=== PATIENT | female | born 1940 | race Caucasian/White ===

== ENCOUNTER → 2016-10-01 | Day surgery (SDC) | payer MEDICARE, OTHER ==
[~2016-10-01] VITALS: Ht 160 cm; Wt 83.5 kg
[~2016-10-01] MED LIST: ACETYLCHOLINE OPHTH SOLN 1% 2ML As Ordered ONE; ASPI81TA85 PO; ATEN25TA PO; BALANCED SALT IRRIGATION SOLUTION 500ML BAG (FOR OR EYE MACHINE) As Ordered ONE; CAND16TA7 PO; CEFUROXIME 1MG/0.1ML INTRACAMERAL INJ As Ordered ONE; D5W/0.2% SODIUM CHLORIDE 1,000 ML IV SCH; HEALON DUET (HEALON 10MG/ML 0.55ML & HEALON ENDOCOAT 30MG/ML 0.85ML) As Ordered ONE; LASI20TA PO; LIDOCAINE 0.75%/EPINEPHRINE 0.025% IN BSS 1ML SYR INTRACAMERAL (OR ONLY) As Ordered ONE; LIPI20TA PO; MIDAZOLAM INJ 2 MG/2 ML VIAL (J2250) As Ordered ONE; NEPHTAB PO; OFLOXACIN 0.3 % (OCUFLOX) OPTH SOL 5ML OS ONE; PHENYLEPHRINE 2.5% OPHTH SOL 2ML OS ONE; POVIDONE-IODINE 5% OPHTH PREP SOL 30ML As Ordered ONE; PROPARACAINE 0.5% OPHTH SOL 15ML OS ONE; TOBRADEX OPHTH OINT 3.5 GM As Ordered ONE; TROPICAMIDE 1% OPHTH SOLN 2 ML OS ONE; fentaNYL 100 MCG/2 ML INJECTION (J3010) As Ordered ONE
[2016-10-01 10:10] VITALS: BP 167/72
--- NOTE | 2016-10-02 08:44 | RO ---
DATE OF PROCEDURE: 10/01/2016 PREOPERATIVE DIAGNOSIS: Visually significant nuclear sclerotic cataract left eye. POSTOPERATIVE DIAGNOSIS: Visually significant nuclear sclerotic cataract left eye. PROCEDURE: Cataract extraction with use of phacoemulsification and placement of intraocular lens AU00T0 22.5D, left eye. SURGEON: Wilfredo Castro DO TRAFFIC SAFETY ADMINISTRATOR: ANESTHESIA: Local with monitored anesthesia care (MAC). COMPLICATIONS: None. POSTOPERATIVE CONDITION: Stable. INDICATION FOR SURGERY: Blurred vision left eye affecting patient's activities of daily living. DESCRIPTION OF PROCEDURE: The patient was seen in the preoperative area and properly identified. The correct operative eye was identified and marked. Attention was turned to that eye. The patient received topical antibiotics in the preoperative area. The patient then received topical dilating drops consisting of tropicamide and phenylephrine. The patient was then transferred to the operating room. The correct side was reidentified. The patient received topical anesthetics and antibiotics on the surface of the eye. The eye was prepped and draped in a sterile fashion. The upper and lower eyelids were isolated with Tegaderm tape, and the lids were held open with an adjustable speculum. Using a sideport blade, a paracentesis incision was made. Intraocular preservative-free lidocaine was then injected into the anterior chamber. Viscoelastic was then injected into the anterior chamber through the paracentesis. Using a 2.65 mm sharp-tipped keratome, the anterior chamber was entered via a temporal clear corneal incision. A continuous curvilinear capsulorrhexis was created with the aid of a 26-gauge cystotome and Utrata forceps. Hydrodissection was performed with balanced salt solution (BSS) on a blunt cannula until the nucleus was freely mobile. The crystalline lens was phacoemulsified and aspirated. Additional cohesive viscoelastic was placed into the capsular bag to deepen it. An AU00T0 22.5D lens was placed into the capsular bag and confirmed by visualizing the continuous curvilinear capsulorrhexis. Additional irrigation and aspiration was used to remove cortical material and remaining viscoelastic. The clear corneal incision was hydrated with BSS on a blunt cannula. The lens was well positioned. The incisions were then tested for leaks and found to be negative. The eye was then palpated for appropriate pressure and adjusted accordingly with BSS. The eyelid speculum was then carefully removed. Tobradex ointment was placed in the eye. An eye patch and shield were then secured over the eye. The patient tolerated the procedure well and was discharged to the recovery unit in a stable condition. RUBINA
== END | disposition home or self-care (01) ==
LOC: M SDC 07:45
PROVIDERS: ATTEND Ophthalmology
DX: H25.12 Age-related nuclear cataract, left eye (principal); I48.91 Unspecified atrial fibrillation; I10 Essential (primary) hypertension; E78.00 Pure hypercholesterolemia, unspecified; Z85.3 Personal history of malignant neoplasm of breast; Z92.21 Personal history of antineoplastic chemotherapy; Z92.3 Personal history of irradiation; Z79.899 Other long term (current) drug therapy; Z88.8 Allergy status to other drugs, medicaments and biological substances; Z95.2 Presence of prosthetic heart valve
CPT/HCPCS: 66984; J2250; J3010; V2632

== ENCOUNTER → 2016-10-15 | Day surgery (SDC) | payer MEDICARE, OTHER ==
[~2016-10-15] VITALS: Ht 160 cm; Wt 83.0 kg
[~2016-10-15] MED LIST changes: +LIDOCAINE 1% SDV 5 ML VIAL As Ordered ONE; +LIDOCAINE 4% INJ 5 ML AMP As Ordered ONE; -OFLOXACIN 0.3 % (OCUFLOX) OPTH SOL 5ML OS ONE; +OFLOXACIN 0.3 % (OCUFLOX) OPTH SOL 5ML XX ONE; -PHENYLEPHRINE 2.5% OPHTH SOL 2ML OS ONE; +PHENYLEPHRINE 2.5% OPHTH SOL 2ML XX ONE; -PROPARACAINE 0.5% OPHTH SOL 15ML OS ONE; +PROPARACAINE 0.5% OPHTH SOL 15ML XX ONE; -TROPICAMIDE 1% OPHTH SOLN 2 ML OS ONE; +TROPICAMIDE 1% OPHTH SOLN 2 ML XX ONE
[2016-10-15 08:40] VITALS: BP 179/77
--- NOTE | 2016-10-16 09:38 | RO ---
DATE OF PROCEDURE: 10/15/2016 PREOPERATIVE DIAGNOSIS: Visually significant nuclear sclerotic cataract right eye. POSTOPERATIVE DIAGNOSIS: Visually significant nuclear sclerotic cataract right eye. PROCEDURE: Cataract extraction with use of phacoemulsification and placement of intraocular lens AU00T0, 22.0 right eye. SURGEON: Wilfredo Castro DO FARMWORKERS: ANESTHESIA: Local with monitored anesthesia care (MAC). COMPLICATIONS: None. POSTOPERATIVE CONDITION: Stable. INDICATION FOR SURGERY: Blurred vision right eye affecting patient's activities of daily living. DESCRIPTION OF PROCEDURE: The patient was seen in the preoperative area and properly identified. The correct operative eye was identified and marked. Attention was turned to that eye. The patient received topical antibiotics in the preoperative area. The patient then received topical dilating drops consisting of tropicamide and phenylephrine. The patient was then transferred to the operating room. The correct side was reidentified. The patient received topical anesthetics and antibiotics on the surface of the eye. The eye was prepped and draped in a sterile fashion. The upper and lower eyelids were isolated with Tegaderm tape, and the lids were held open with an adjustable speculum. Using a sideport blade, a paracentesis incision was made. Intraocular preservative-free lidocaine was then injected into the anterior chamber. Viscoelastic was then injected into the anterior chamber through the paracentesis. Using a 2.65 mm sharp-tipped keratome, the anterior chamber was entered via a temporal clear corneal incision. A continuous curvilinear capsulorrhexis was created with the aid of a 26-gauge cystotome and Utrata forceps. Hydrodissection was performed with balanced salt solution (BSS) on a blunt cannula until the nucleus was freely mobile. The crystalline lens was phacoemulsified and aspirated. Additional cohesive viscoelastic was placed into the capsular bag to deepen it. An AU00T0, 22.0 diopter lens was placed into the capsular bag and confirmed by visualizing the continuous curvilinear capsulorrhexis. Additional irrigation and aspiration was used to remove cortical material and remaining viscoelastic. The clear corneal incision was hydrated with BSS on a blunt cannula. The lens was well positioned. The incisions were then tested for leaks and found to be negative. The eye was then palpated for appropriate pressure and adjusted accordingly with BSS. The eyelid speculum was then carefully removed. Tobradex ointment was placed in the eye. An eye patch and shield were then secured over the eye. The patient tolerated the procedure well and was discharged to the recovery unit in a stable condition. RUBINA
== END | disposition home or self-care (01) ==
LOC: M SDC 05:51
PROVIDERS: ATTEND Ophthalmology
DX: H25.11 Age-related nuclear cataract, right eye (principal); I50.9 Heart failure, unspecified; R73.01 Impaired fasting glucose; I48.91 Unspecified atrial fibrillation; I10 Essential (primary) hypertension; E78.00 Pure hypercholesterolemia, unspecified; Z85.3 Personal history of malignant neoplasm of breast; Z92.3 Personal history of irradiation; Z92.21 Personal history of antineoplastic chemotherapy; Z95.2 Presence of prosthetic heart valve; Z79.899 Other long term (current) drug therapy; Z79.82 Long term (current) use of aspirin; Z88.8 Allergy status to other drugs, medicaments and biological substances
CPT/HCPCS: 66984; J2250; J3010; V2632

== ENCOUNTER 2017-08-12 14:22 | Emergency (ER) | payer MEDICARE, OTHER ==
[2017-08-12] MEDS ORDERED: METOPROLOL 5 MG/5 ML VIAL IV (15:15)
[2017-08-12 15:41] LABS: BASO % 0.6 % (0.0-1.0); EOS # 0.1 10^3/uL (0.0-0.50); EOS % 1.2 % (0.0-3.0); HEMATOCRIT 33.6 % (36.0-47.0); HEMOGLOBIN 11.4 g/dl (12.0-16.0); IMMATURE GRANULOCYTE % 0.5 % (0-3.0); LYMPH # 1.7 10^3/uL (1.5-4.5); LYMPH % 26.1 % (24.0-44.0); MEAN CORPUSCULAR HEMOGLOBIN 32.3 pg (27.0-33.0); MEAN CORPUSCULAR HGB CONC 33.9 g/dl (32.0-36.5); MEAN CORPUSCULAR VOLUME 95.2 fl (80.0-96.0); MONO # 0.7 10^3/uL (0.0-0.8); MONO % 10.6 % (0.0-5.0); PLATELET COUNT, AUTOMATED 184 10^3/uL (150-450); RED BLOOD COUNT 3.53 10^6/uL (4.00-5.40); RED CELL DISTRIBUTION WIDTH 14.1 % (11.5-14.5); WHITE BLOOD COUNT 6.6 10^3/uL (4.0-10.0)
[2017-08-12 15:53] LABS: INR 0.97
[2017-08-12 15:54] LABS: PARTIAL THROMBOPLASTIN TIME 25.8 SECONDS (26.8-37.9)
[2017-08-12 16:03] LABS: PHOSPHORUS LEVEL 3.2 MG/DL (2.5-4.9)
[2017-08-12 16:03] LABS: MAGNESIUM LEVEL 2.5 MG/DL (1.8-2.4)
[2017-08-12 16:06] LABS: ALBUMIN 3.8 GM/DL (3.2-5.2); ALBUMIN/GLOBULIN RATIO 0.95 (1.00-1.93); ALKALINE PHOSPHATASE 66 U/L (45-117); ALT/SGPT 36 U/L (12-78); ANION GAP 8 MEQ/L (8-16); AST/SGOT 48 U/L (7-37); BILIRUBIN,DIRECT 0.2 MG/DL (0.0-0.2); BILIRUBIN,TOTAL 0.7 MG/DL (0.2-1.0); BLOOD UREA NITROGEN 23 MG/DL (7-18); CARBON DIOXIDE LEVEL 26 MEQ/L (21-32); CHLORIDE LEVEL 105 MEQ/L (98-107); CPK CREATINE PHOSPHOKINASE 141 U/L (26-192); CREATININE FOR GFR 1.11 MG/DL (0.55-1.30); GLOMERULAR FILTRATION RATE 50.7 (>39); GLUCOSE, FASTING 102 MG/DL (70-100); POTASSIUM SERUM 4.3 MEQ/L (3.5-5.1); SODIUM LEVEL 139 MEQ/L (136-145); TOTAL PROTEIN 7.8 GM/DL (6.4-8.2); TROPONIN I 0.02 NG/ML (< 0.10)
[2017-08-12 16:12] LABS: CK-MB VALUE MASS 3.1 NG/ML (0.0-3.6); FREE T4 1.25 NG/DL (0.76-1.46); MB/CK RELATIVE INDEX 2.19 (< OR =4)
[2017-08-12 21:14] LABS: CK-MB VALUE MASS 2.6 NG/ML (0.0-3.6); CPK CREATINE PHOSPHOKINASE 105 U/L (26-192); MB/CK RELATIVE INDEX 2.47 (< OR =4); TROPONIN I 0.03 NG/ML (< 0.10)
== END 2017-08-12 22:23 | disposition home or self-care (01) ==
LOC: M ED 14:22
DX: R00.2 Palpitations (principal); I44.7 Left bundle-branch block, unspecified; I10 Essential (primary) hypertension; I48.91 Unspecified atrial fibrillation; Z85.3 Personal history of malignant neoplasm of breast; Z88.8 Allergy status to other drugs, medicaments and biological substances
CPT/HCPCS: 71045

== ENCOUNTER 2018-09-01 15:31 | Emergency (ER) | payer MEDICARE, OTHER ==
[~2018-09-01] VITALS: Ht 160 cm; Wt 85.4 kg
[~2018-09-01 15:31] MED LIST changes: -ACETYLCHOLINE OPHTH SOLN 1% 2ML As Ordered ONE; -BALANCED SALT IRRIGATION SOLUTION 500ML BAG (FOR OR EYE MACHINE) As Ordered ONE; -CEFUROXIME 1MG/0.1ML INTRACAMERAL INJ As Ordered ONE; -D5W/0.2% SODIUM CHLORIDE 1,000 ML IV SCH; +ELIQ5TAB; -HEALON DUET (HEALON 10MG/ML 0.55ML & HEALON ENDOCOAT 30MG/ML 0.85ML) As Ordered ONE; -LASI20TA PO; +LASI20TA3 PO; -LIDOCAINE 0.75%/EPINEPHRINE 0.025% IN BSS 1ML SYR INTRACAMERAL (OR ONLY) As Ordered ONE; -LIDOCAINE 1% SDV 5 ML VIAL As Ordered ONE; -LIDOCAINE 4% INJ 5 ML AMP As Ordered ONE; -MIDAZOLAM INJ 2 MG/2 ML VIAL (J2250) As Ordered ONE; -OFLOXACIN 0.3 % (OCUFLOX) OPTH SOL 5ML XX ONE; -PHENYLEPHRINE 2.5% OPHTH SOL 2ML XX ONE; -POVIDONE-IODINE 5% OPHTH PREP SOL 30ML As Ordered ONE; -PROPARACAINE 0.5% OPHTH SOL 15ML XX ONE; -TOBRADEX OPHTH OINT 3.5 GM As Ordered ONE; -TROPICAMIDE 1% OPHTH SOLN 2 ML XX ONE; -fentaNYL 100 MCG/2 ML INJECTION (J3010) As Ordered ONE
[2018-09-01] MEDS ORDERED: FURO20TA2 (15:46)
[2018-09-01] MEDS ORDERED: DIGOXIN INJ 0.5 MG/2 ML AMP (J1160) IV STA (16:12)
[2018-09-01] MEDS ORDERED: DIGOXIN 0.25 MG TAB PO STA (16:12)
[2018-09-01] MEDS: APIXABAN 5 MG TAB (ELIQUIS) PO ONE ×2 (16:15→16:47)
[2018-09-01] MEDS ORDERED: ATENOLOL 25 MG TAB PO ONE (16:15)
[2018-09-01 16:38] LABS: BASO # 0.1 10^3/uL (0.0-0.2); BASO % 0.8 % (0.0-1.0); EOS # 0.1 10^3/uL (0.0-0.50); HEMATOCRIT 35.2 % (36.0-47.0); HEMOGLOBIN 12.3 g/dl (12.0-15.5); LYMPH % 34.1 % (24.0-44.0); MEAN CORPUSCULAR HEMOGLOBIN 32.2 pg (27.0-33.0); MEAN CORPUSCULAR HGB CONC 34.9 g/dl (32.0-36.5); MEAN CORPUSCULAR VOLUME 92.1 fl (80.0-96.0); MONO # 0.8 10^3/uL (0.0-0.8); MONO % 13.9 % (0.0-5.0); NEUTROPHILS # 2.9 10^3/uL (1.8-7.7); PLATELET COUNT, AUTOMATED 186 10^3/uL (150-450); RED BLOOD COUNT 3.82 10^6/uL (4.00-5.40)
[2018-09-01 16:48] VITALS: BP 116/59
[2018-09-01 17:06] LABS: BLOOD UREA NITROGEN 23 MG/DL (7-18); CALCIUM LEVEL 8.9 MG/DL (8.8-10.2); CARBON DIOXIDE LEVEL 24 MEQ/L (21-32); CHLORIDE LEVEL 106 MEQ/L (98-107); CPK CREATINE PHOSPHOKINASE 98 U/L (26-192); CREATININE FOR GFR 1.04 MG/DL (0.55-1.30); GLOMERULAR FILTRATION RATE 54.6 (>39); GLUCOSE, FASTING 100 MG/DL (70-100); MB/CK RELATIVE INDEX 2.14 (< OR =4); POTASSIUM SERUM 3.9 MEQ/L (3.5-5.1); SODIUM LEVEL 140 MEQ/L (136-145); TROPONIN I < 0.02 NG/ML (< 0.10)
[2018-09-01] MEDS ORDERED: DIGO0.12 PO (17:39)
[2018-09-01] MEDS ORDERED: ELIQ5TAB PO (17:39)
[2018-09-01] MEDS ORDERED: APIXABAN 2.5 MG TAB (ELIQUIS) PO ONE (17:45)
[2018-09-01 18:02] VITALS: BP 132/69
--- NOTE | 2018-09-01 19:28 | ECGEPIP ---
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
== END 2018-09-01 18:03 | disposition home or self-care (01) ==
LOC: M ED 15:31
DX: I48.0 Paroxysmal atrial fibrillation (principal); R06.02 Shortness of breath; I11.0 Hypertensive heart disease with heart failure; I50.9 Heart failure, unspecified; I48.92 Unspecified atrial flutter; Z85.3 Personal history of malignant neoplasm of breast; Z95.2 Presence of prosthetic heart valve; Z88.8 Allergy status to other drugs, medicaments and biological substances; Z79.899 Other long term (current) drug therapy; Z79.82 Long term (current) use of aspirin
CPT/HCPCS: 80048; 82550; 82553; 84443; 84484; 85025; 93005; 93041; 94760; 96374; 99284; J1160

== ENCOUNTER 2019-07-31 09:37 | Emergency (ER) | payer MEDICARE, OTHER ==
[~2019-07-31] VITALS: Ht 160 cm; Wt 82.8 kg
[~2019-07-31 09:37] MED LIST changes: +DIGO0.123 PO; +ELIQ5TAB PO; +FURO20TA2; +NEPH1TAB11 PO; -NEPHTAB PO
[2019-07-31 10:50] LABS: BASO % 0.4 % (0.0-1.0); EOS # 0.1 10^3/uL (0.0-0.5); EOS % 0.9 % (0.0-3.0); HEMATOCRIT 32.2 % (36.0-47.0); HEMOGLOBIN 10.8 g/dl (12.0-15.5); LYMPH # 2.1 10^3/uL (1.5-5.0); LYMPH % 19.4 % (24.0-44.0); MEAN CORPUSCULAR HEMOGLOBIN 32.6 pg (27.0-33.0); MEAN CORPUSCULAR HGB CONC 33.5 g/dl (32.0-36.5); MEAN CORPUSCULAR VOLUME 97.3 fl (80.0-96.0); MONO # 1.4 10^3/uL (0.0-0.8); NEUTROPHILS # 7.3 10^3/uL (1.5-8.5); NEUTROPHILS % 66.1 % (36.0-66.0); PLATELET COUNT, AUTOMATED 149 10^3/uL (150-450); RED BLOOD COUNT 3.31 10^6/uL (4.00-5.40)
--- NOTE | 2019-07-31 10:55 | REP ---
Clinical: Chest pain. Comparison: 01/25/2018. Findings: Cardiomegaly and evidence for sternotomy and cardiac valve repair again noted. Lung vza demonstrate diffuse increased interstitial markings and subtle lower lobe infiltrates. No effusion. No pneumothorax. Skeletal structures intact. Impression: Findings suggest bronchitis and viral pneumonia primarily involving the lower lobes (right greater than left). Electronically Signed by Stevan Cortes MD 07/31/2019 10:46 A
[2019-07-31 11:32] LABS: ALBUMIN 3.6 GM/DL (3.2-5.2); ALT/SGPT 118 U/L (12-78); BILIRUBIN,DIRECT 0.3 MG/DL (0.0-0.2); BLOOD UREA NITROGEN 30 MG/DL (7-18); CARBON DIOXIDE LEVEL 26 MEQ/L (21-32); CHLORIDE LEVEL 105 MEQ/L (98-107); CK-MB VALUE MASS 1.4 NG/ML (<3.6); CPK CREATINE PHOSPHOKINASE 49 U/L (26-192); CREATININE FOR GFR 1.15 MG/DL (0.55-1.30); DIGOXIN LEVEL 0.6 NG/ML (0.5-2.0); FREE T4 1.46 NG/DL (0.76-1.46); GLOMERULAR FILTRATION RATE 48.5 (>39); GLUCOSE, FASTING 98 MG/DL (70-100); LIPASE 175 U/L (73-393); MAGNESIUM LEVEL 2.2 MG/DL (1.8-2.4); MB/CK RELATIVE INDEX 2.86 (< OR =4); NT-PRO BNP 3645 PG/ML (<450); SODIUM LEVEL 140 MEQ/L (136-145); TOTAL PROTEIN 6.9 GM/DL (6.4-8.2); TROPONIN I < 0.02 NG/ML (< 0.10)
[2019-07-31] MEDS ORDERED: FUROSEMIDE 20 MG/2 ML VIAL (J1940) IV ONE (12:15)
[2019-07-31] MEDS ORDERED: SPIRONOLACTONE 12.5MG PER 1/2 TABLET PO STA (12:34)
[2019-07-31 12:45] VITALS: BP 167/77
[2019-07-31] MEDS ORDERED: TORS10TA3 PO (12:59)
[2019-07-31] MEDS ORDERED: SPIR-10 PO (12:59)
--- NOTE | 2019-07-31 19:41 | ECGEPIP ---
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
== END 2019-07-31 13:24 | disposition home or self-care (01) ==
LOC: M ED 09:37
DX: I50.9 Heart failure, unspecified (principal); I49.3 Ventricular premature depolarization; R94.6 Abnormal results of thyroid function studies; I11.0 Hypertensive heart disease with heart failure; I48.91 Unspecified atrial fibrillation; Z79.899 Other long term (current) drug therapy; Z79.01 Long term (current) use of anticoagulants; Z79.82 Long term (current) use of aspirin; Z88.8 Allergy status to other drugs, medicaments and biological substances
CPT/HCPCS: 71045; 80047; 80048; 80076; 80162; 82550; 82553; 83690; 83735; 83880; 84439; 84443; 84484; 85025; 93005; 93041; 94760; 96374; 99285; J1940

== ENCOUNTER 2019-08-01 23:12 | Emergency (ER) | payer MEDICARE, OTHER ==
[~2019-08-01] VITALS: Ht 160 cm; Wt 78.0 kg
[~2019-08-01 23:12] MED LIST changes: +SPIR-10 PO; +TORS10TA3 PO
[2019-08-02 01:29] VITALS: BP 138/68
== END 2019-08-02 01:32 | disposition left against medical advice (07) ==
LOC: M ED 23:12
DX: Z53.21 Procedure and treatment not carried out due to patient leaving prior to being seen by health care provider (principal)

== ENCOUNTER → 2020-04-15 | Outpatient (CLI) | payer MEDICARE, OTHER ==
[~2020-04-15] MED LIST changes: -ASPI81TA85 PO; +ASPI81TA86 PO; +ATOR1TAB21 PO; +B-12100010 PO; +PYRI50TA40 PO; +REFR0.5D8 OP; +TORS20TA2 PO; +[UNRECOGNIZED DRUG - CODE] TP
--- NOTE | 2020-04-15 17:19 | REP ---
INDICATION: COUGH. Shortness of breath on exertion. Cough for 2-3 months. COMPARISON: Comparison radiograph July 31, 2019. TECHNIQUE: Two views.. FINDINGS: Lungs are well inflated and free of focal infiltrate. Cardiomegaly is observed. Prior sternotomy and aortic valve replacement. There is evidence of mild interstitial edema with Nigel B lines at the bases. No william pleural effusion is seen. Interstitial changes are somewhat less prominent than on the July 31, 2019 study. Pulmonary vasculature slightly increased. There are surgical clips in the left axillary soft tissues again noted. IMPRESSION: Cardiomegaly status post aortic valve replacement. CHF pattern with Nigel B lines in the bases bilaterally and some vascular congestion. No william pleural effusion. No focal infiltrate seen.. <Electronically signed by Denis Crowder > 04/15/20 [id number]
== END ==
LOC: M WUC 15:50
PROVIDERS: ATTEND Internal Medicine
DX: I51.7 Cardiomegaly (principal); R05 Cough; Z95.2 Presence of prosthetic heart valve

== ENCOUNTER 2020-04-18 14:42 | Emergency (ER) | payer MEDICARE, OTHER ==
[~2020-04-18] VITALS: Ht 160 cm; Wt 70.5 kg
[~2020-04-18 14:42] MED LIST changes: -ATOR1TAB21 PO; -B-12100010 PO; -PYRI50TA40 PO; -REFR0.5D8 OP; -TORS20TA2 PO; -[UNRECOGNIZED DRUG - CODE] TP
[2020-04-18] MEDS ORDERED: [UNRECOGNIZED DRUG - CODE] TP (15:25)
[2020-04-18] MEDS ORDERED: REFR0.5D8 OP (15:25)
[2020-04-18] MEDS ORDERED: B-12100010 PO (15:25)
[2020-04-18] MEDS ORDERED: PYRI50TA40 PO (15:25)
[2020-04-18] MEDS ORDERED: TORS20TA2 PO (15:25)
[2020-04-18] MEDS ORDERED: ELIQ5TAB PO (15:25)
[2020-04-18] MEDS ORDERED: ATOR1TAB21 PO (15:25)
[2020-04-18] MEDS ORDERED: TRANEXAMIC ACID 100 MG/ML 10ML VIAL ONE (15:45)
[2020-04-18 16:31] LABS: INR 1.48; PROTHROMBIN TIME 18.2 SECONDS (12.5-14.3)
[2020-04-18] MEDS ORDERED: POTASSIUM CHLORIDE 10 MEQ SR TABLET PO ONE (16:45)
[2020-04-18 18:00] VITALS: BP 174/77
== END 2020-04-18 18:13 | disposition home or self-care (01) ==
LOC: M ED 14:42
DX: R04.0 Epistaxis (principal); E87.6 Hypokalemia; I48.91 Unspecified atrial fibrillation; I50.9 Heart failure, unspecified; I11.0 Hypertensive heart disease with heart failure; Z85.3 Personal history of malignant neoplasm of breast; Z79.899 Other long term (current) drug therapy; Z79.01 Long term (current) use of anticoagulants; Z79.82 Long term (current) use of aspirin; Z88.8 Allergy status to other drugs, medicaments and biological substances; Z95.2 Presence of prosthetic heart valve

== ENCOUNTER 2020-04-20 14:59 | Emergency (ER) | payer MEDICARE, OTHER ==
[~2020-04-20] VITALS: Ht 160 cm; Wt 70.0 kg
[~2020-04-20 14:59] MED LIST changes: +ATOR1TAB21 PO; +B-12100010 PO; +PYRI50TA40 PO; +REFR0.5D8 OP; +TORS20TA2 PO; +[UNRECOGNIZED DRUG - CODE] TP
[2020-04-20 15:08] VITALS: BP 121/99
== END 2020-04-20 16:22 | disposition home or self-care (01) ==
LOC: M ED 14:59
DX: R04.0 Epistaxis (principal); Z48.00 Encounter for change or removal of nonsurgical wound dressing; I48.91 Unspecified atrial fibrillation; I11.0 Hypertensive heart disease with heart failure; I50.9 Heart failure, unspecified; Z85.3 Personal history of malignant neoplasm of breast; Z95.2 Presence of prosthetic heart valve; Z79.899 Other long term (current) drug therapy; Z79.01 Long term (current) use of anticoagulants; Z79.82 Long term (current) use of aspirin; Z88.8 Allergy status to other drugs, medicaments and biological substances

== ENCOUNTER 2020-08-05 11:36 | Inpatient (IN) | payer MEDICARE, OTHER ==
[~2020-08-05] VITALS: Ht 160 cm; Wt 65.4 kg
[2020-08-05 12:25] LABS: BASO % 0.6 % (0.0-1.0); EOS # 0.1 10^3/uL (0.0-0.5); HEMATOCRIT 34.9 % (36.0-47.0); LYMPH # 1.6 10^3/uL (1.5-5.0); LYMPH % 22.1 % (24.0-44.0); MEAN CORPUSCULAR HEMOGLOBIN 32.4 pg (27.0-33.0); MEAN CORPUSCULAR HGB CONC 31.5 g/dl (32.0-36.5); MEAN CORPUSCULAR VOLUME 102.6 fl (80.0-96.0); MONO # 0.8 10^3/uL (0.0-0.8); MONO % 11.4 % (0.0-8.0); NEUTROPHILS # 4.7 10^3/uL (1.5-8.5); NEUTROPHILS % 64.6 % (36.0-66.0); PLATELET COUNT, AUTOMATED 112 10^3/uL (150-450); WHITE BLOOD COUNT 7.2 10^3/uL (4.0-10.0)
[2020-08-05 12:36] LABS: INR 1.8; PROTHROMBIN TIME 21.3 SECONDS (12.5-14.3)
[2020-08-05 12:37] LABS: PARTIAL THROMBOPLASTIN TIME 35.4 SECONDS (24.2-38.5)
[2020-08-05] MEDS ORDERED: POTA1TAB23 PO (12:41)
--- OUTSIDE RECORDS SUMMARY | 2020-08-05 12:48 | CCD ---
Continuity of Care Document (CCD) Created on: 06/17/2020 Telma Lemos External Reference #: [id number] : 1940 Sex: Female Author Author Telma BEE M.D. Organization Unknown Address 3 [facility] [address] [place] [address] Phone [phone] Problems Active Problems Provider Date Atrial flutter Kem Bee M.D. Onset: 3 Note: paroxysmal Benign essential hypertension Kem Bee M.D. Onset: 06/05/2013 Congestive heart failure Kem Bee M.D. Onset: 05/21 Impaired fasting glycemia Kem Bee M.D. Onset: Essential hypertension Kem Bee M.D. Onset: 2015 Social History Type Date Description Comments Sex Unknown ETOH Use Denies alcohol use Tobacco Use Start: Unknown Patient has never smoked Recreational Drug Use Denies Drug Use Allergies, Adverse Reactions, Alerts Active Allergies Reaction Severity Comments Date Lisinopril COUGH 06/05/2013 Medications Active Medications SIG Qnty Indications Ordering Provide r Date Iron (Ferrous Sulfate) 325(65Fe) mg Tablets 1 by mouth twice a day 180tabs Kem Bee M.D. 06/12/2020 Torsemide 10mg Tablets 1 by mouth every day 30tabs Unknown 07/31/2019 Shingrix 50mcg Suspension Rec as directed 1units Kem Bee M.D. 01/19/2018 Atorvastatin Calcium 20mg Tablets take one tablet by mouth every day 90tabs Kem Bee M.D . 12/30/2015 Loratadine 10mg Tablets 1 by mouth every day OTC Unknown [place] Nasal Mist Allergy & Sinus Hypertoni c Saline 2.65% Solution 1 spray in nose every 4 hours as needed OTC Unknown Preservision Areds 2 Areds 2 Capsu les 2 softgels every day OTC Unknown Rahul Natural Pain Relieving 3-3% Gel apply to back as directed for pain OTC Unknown Vitamin B-6 100mg Tablets 1/2 tab po qd Unknown Eliquis 5mg Tablets 1 by mouth twice a day Unknown Digox 125mcg Tablets take one tablet by mouth qd Unknown Epinastine HCL 0.05% Solution as directed Unknown Acetaminophen 500mg Capsules as directed Unknown Folic Acid 800mcg Tablets 1 po qd 90tabs Unknown B-12 1000mcg Capsules 1 po qd Unknown Candesartan Cilexetil 16mg Tablets 1 po qd Price Gaines M.D. Amoxicillin 500mg Tablets 4 tabs po 1 hour prior to dental procedure Unknown Atenolol 25mg Tablets 1 po qd Unknown History Medications Torsemide 20mg Tablets 1 by mouth every day X 3 Days then return to 10mg qd 3tabs Pacheco Bee M.D. 04/23/2020 - 06/12/2020 Immunizations CPT Code Status Date Vaccine Lot # [id number] Given 04/15/2020 Influenza Virus Vaccine, Quadrivalent, Slit Virus, Im Use 3Y & Up [id number] Given 03/01/2019 Influenza Virus Vaccine, Quadrivalent, Slit Virus, Im Use 3Y & Up [id number] 80866 Given 01/10/2016 Prevnar 13 Pneum o. Conj Ped. Vaccine 13 Valent (PCV13) For Im Use Vital Signs Date Vital Result Comment 06/12/2020 10:53am BP Systolic 110 mmHg BP Diastolic 66 mmHg Body Temperature 97.2 F Heart Rate 70 /min Respiratory Rate 14 /min Height 63.5 inches 5'3.50" Weight 144.00 lb [place] Body Weight 115 lb BMI (Body Mass Index) 25.1 kg/m2 O2 % BldC Oximetry 98 % 05/10/2020 11:06am BP Systolic 116 mmHg BP Diastolic 62 mmHg Body Temperature 97.4 F Heart Rate 76 /min Respiratory Rate 16 /min Height 63.5 inches 5'3.50" Weight 152.00 lb [place] Body Weight 115 lb BMI (Body Mass Index) 26.5 kg/m2 O2 % BldC Oximetry 96 % Results Test Acquired Date Facility Test Result H/L Range Note CBC With Differential/Platelet 06/04/2020 [facility] E WBC 10.1 x10E3/uL 3.4-10.8 1 RBC 3.22 x10E6/uL Low 3.77-5.28 Hemoglobin 10.0 g/dL Low 11.1-15.9 Hematocrit 31.1 % Low 34.0-46.6 MCV 97 fL 79-97 MCH 31.1 pg 26.6-33.0 MCHC 32.2 g/dL 31.5-35.7 RDW 15.0 % 11.7-15.4 Platelets 175 x10E3/uL 150-450 Neutrophils 57 % Not Estab. Lymphs 29 % Not Estab. Monocytes 11 % Not Estab. Eos 2 % Not Estab. Basos 1 % Not Estab. Immature Cells TNP Neutrophils (Absolute) 5.8 x10E3/uL 1.4-7.0 Lymphs (Absolute) 2.9 x10E3/uL 0.7-3.1 Monocytes(Absolute) 1.1 x10E3/uL High 0.1-0.9 Eos (Absolute) 0.2 x10E3/uL 0.0-0.4 Baso (Absolute) 0.1 x10E3/uL 0.0-0.2 Immature Granulocytes 0 % Not Estab. Immature Grans (Abs) 0.0 x10E3/uL 0.0-0.1 NRBC TNP Hematology Comments: TNP Metabolic Panel (14), Comprehensive 06/04/2020 [facility] [place] Glucose 122 mg/dL High 65-99 BUN 27 mg/dL 8-27 Creatinine 1.32 mg/dL High 0.57-1.00 eGFR If NonAfricn Am 38 mL/min/1.73 Low >59 eGFR If Africn Am 44 mL/min/1.73 Low >59 BUN/Creatinine Ratio 20 12-28 Sodium 142 mmol/L 134-144 Potassium 3.5 mmol/L 3.5-5.2 Chloride 103 mmol/L 96-106 Carbon Dioxide, Total 23 mmol/L 20-29 Calcium 9.2 mg/dL 8.7-10.3 Protein, Total 7.2 g/dL 6.0-8.5 Albumin 4.0 g/dL 3.7-4.7 Globulin, Total 3.2 g/dL 1.5-4.5 A/G Ratio 1.3 1.2-2.2 Bilirubin, Total 0.7 mg/dL 0.0-1.2 Alkaline Phosphatase 122 IU/L High 39-117 Ast (Sgot) 27 IU/L 0-40 Alt (SGPT) 14 IU/L 0-32 Lipid Panel 06/04/2020 [facility] [place] Cholesterol, Total 66 mg/dL Low 100-199 Triglycerides 79 mg/dL 0-149 HDL Cholesterol 35 mg/dL Low >39 VLDL Cholesterol Devang 17 mg/dL 5-40 LDL Chol Calc (Nih) 14 mg/dL 0-99 Comment: TNP CBC With Differential/Platelet 04/23/2020 [facility] N E WBC 10.0 x10E3/uL 3.4-10.8 2 RBC 3.19 x10E6/uL Low 3.77-5.28 Hemoglobin 10.2 g/dL Low 11.1-15.9 Hematocrit 31.2 % Low 34.0-46.6 MCV 98 fL High 79-97 MCH 32.0 pg 26.6-33.0 MCHC 32.7 g/dL 31.5-35.7 RDW 13.4 % 11.7-15.4 Platelets 208 x10E3/uL 150-450 Neutrophils 68 % Not Estab. Lymphs 17 % Not Estab. Monocytes 13 % Not Estab. Eos 1 % Not Estab. Basos 1 % Not Estab. Immature Cells TNP Neutrophils (Absolute) 6.8 x10E3/uL 1.4-7.0 Lymphs (Absolute) 1.7 x10E3/uL 0.7-3.1 Monocytes(Absolute) 1.3 x10E3/uL High 0.1-0.9 Eos (Absolute) 0.1 x10E3/uL 0.0-0.4 Baso (Absolute) 0.1 x10E3/uL 0.0-0.2 Immature Granulocytes 0 % Not Estab. Immature Grans (Abs) 0.0 x10E3/uL 0.0-0.1 NRBC TNP Hematology Comments: TNP Basic Metabolic Panel (8) 04/23/2020 [facility] [place] Glucose 152 mg/dL High 65-99 BUN 37 mg/dL High 8-27 Creatinine 1.38 mg/dL High 0.57-1.00 eGFR If NonAfricn Am 36 mL/min/1.73 Low >59 eGFR If Africn Am 42 mL/min/1.73 Low >59 BUN/Creatinine Ratio 27 12-28 Sodium 134 mmol/L 134-144 Potassium 4.0 mmol/L 3.5-5.2 Chloride 94 mmol/L Low 96-106 Carbon Dioxide, Total 26 mmol/L 20-29 Calcium 8.9 mg/dL 8.7-10.3 Laboratory test finding 04/23/2020 [facility] [place] NT-proBNP 7058 pg/mL High 0-738 3 Istat Chem8+ Panel 04/18/2020 [facility] (I nterface) [phone] iSTAT HCT 33.0 % Low 38.0-51.0 iSTAT Glucose 137 mg/dL High 70-105 iSTAT Sodium 140 mEq/L Normal 136-145 iSTAT Potassium 3.0 mEq/L Low 3.5-5.1 iSTAT CA++ 4.6 mg/dL Normal 4.5-5.3 iSTAT Chloride 101 mEq/L Normal 98-109 iSTAT Co2 24.0 MM/L Normal 23.0-27.0 iSTAT BUN 24 mg/dL Normal 8-26 iSTAT Creatinine 1.3 mg/dL Normal 0.6-1.3 Prothrombin Time/Inr 04/18/2020 [facility] ( Interface) [phone] Prothrombin Time 18.2 seconds High 12.5-14.3 Inr 1.48 Normal 4 1 A courtesy copy of this repo rt has been sent to the patient, , 2 A courtesy copy of this repo rt has been sent to the patient, 3 The following cut-points hav e been suggested for the use of proBNP for the diagnostic evaluation of heart failure (HF) in patients with acute dyspnea: Modality Age Optimal Cut (years) Point Diagnosis (rule in HF) <50 450 pg/mL 50 - 75 900 pg/mL >75 1800 pg/mL Exclusion (rule out HF) Age independent 300 pg/mL 4 THERAPUTIC HUMAN INR VALUES INDICATIONS NORMAL RANGES PROPHYLAXIS/TREATMENT OF: VENOUS THROMBOSIS 2.0-3.0 PULMONARY EMBOLISM 2.0-3.0 PREVENTION OF SYSTEMIC EMBOLISM FROM: TISSUE HEART VALVES 2.0-3.0 ACUTE MYOCARDIAL INFARCTION 2.0-3.0 VALVULAR HEART DISEASE 2.0-3.0 ATRIAL FIBRILLATION 2.0-3.0 MECHANICAL VALVES(HIGH RISK) 2.5-3.5 RECURRENT MYOCARDIAL INFARCTION 2.5-3.5 Procedures Date Code Description Status 12/25/2015 [id number] Mammogram Completed Medical Devices Description No Information Available Encounters Type Date Location Provider Dx Diagnosis Office Visit 06/12/2020 11:00a [facility] Kem Bee M. D. I50.9 Heart failure, unspecified I10 Essential (primary) hyperten chris R73.01 Impaired fasting glucose I48.92 Unspecified atrial flutter E78.5 Hyperlipidemia, unspecified D64.9 Anemia, unspecified Office Visit 05/10/2020 10:00a [facility] Kem Bee M. D. I50.9 Heart failure, unspecified Office Visit 04/23/2020 11:15a [facility] Kem Bee M. D. I50.9 Heart failure, unspecified R04.0 Epistaxis Office Visit 04/15/2020 3:20p [facility] Kem Bee M. D. R05 Cough Z23 Encounter for immunization Assessments Date Code Description Provider 06/12/2020 I50.9 Heart failure, unspecified Kem Matamoros M.D. 06/12/2020 I10 Essential (primary) hypertension Kem Bee M.D. 06/12/2020 R73.01 Impaired fasting glucose Kem Abernathy M.D. 06/12/2020 I48.92 Unspecified atrial flutter Kem Matamoros M.D. 06/12/2020 E78.5 Hyperlipidemia, unspecified [facility] Kem andrew M.D. 06/12/2020 D64.9 Anemia, unspecified Pacheco Bee M.D. 05/10/2020 I50.9 Heart failure, unspecified Kem Matamoros M.D. 04/23/2020 I50.9 Heart failure, unspecified Vinnie Beaver, RPA 04/23/2020 I50.9 Heart failure, unspecified Kem Matamoros M.D. 04/23/2020 R04.0 Epistaxis Vinnie Felix, RPA 04/23/2020 R04.0 Epistaxis Kem Bee M.D. 04/15/2020 R05 Cough Kem Bee M.D. 04/15/2020 Z23 Encounter for immunization Kem Matamoros M.D. Plan of Treatment Future Appointment(s):* 07/16/2020 1:15 pm - Kem Bee M.D. at [facility] Functional Status Description No Information Available Mental Status Description No Information Available Referrals Refer to Reason for Referral Status Appt Date [facility] (ENT) severe epistaxis on Eliqui s- eval and rx Sent 04/30/2020 [address] [place] [address] [phone]
--- OUTSIDE RECORDS SUMMARY | 2020-08-05 12:48 | CCD | Continuity of Care Document ---
Author Author Telma BEE M.D. Organization Unknown Address 3 [facility] 3 [place] [address] Phone [phone] Problems Active Problems Provider Date Atrial flutter [...] SIG Qnty Indications Ordering Provide r Date Potassium Chloride ER 10Meq Tablet s ER 1 by mouth every day 90tabs Kem Bee M.D. 07/16 Iron (Ferrous Sulfate) 325(65Fe) mg Tablets 1 [...] 1 by mouth every day OTC Unknown [place] Nasal Mist Allergy & Sinus Hypertoni c [...] CPT Code Status Date Vaccine Lot # [id number] Given 04/15/2020 Influenza Virus Vaccine, Quadrivalent, Slit Virus, Im Use 3Y & Up [id number] Given 03/01/2019 Influenza Virus Vaccine, Quadrivalent, Slit Virus, Im Use 3Y & Up [id number] 89530 Given 01/10/2016 Prevnar 13 Pneum o. Conj Ped. Vaccine 13 Valent (PCV13) For Im Use Vital Signs Date Vital Result Comment 07/16/2020 12:56pm BP Systolic 122 mmHg BP Diastolic 58 mmHg Heart Rate 66 /min Respiratory Rate 14 /min Weight 143.00 lb 06/12/2020 10:53am BP Systolic 110 mmHg BP Diastolic 66 mmHg Body Temperature 97.2 F Heart Rate 70 /min Respiratory Rate 14 /min Height 63.5 inches 5'3.50" Weight 144.00 lb [place] Body Weight 115 lb BMI (Body Mass Index) 25.1 kg/m2 O2 % BldC Oximetry 98 % Results Test Acquired Date Facility Test Result H/L Range Note Iron Panel 07/10/2020 [facility] [place] Iron Bind.Cap.(Tibc) 331 g/dL 250-450 1 Uibc 274 g/dL 118-369 Iron 57 g/dL 27-139 Iron Saturation 17 % 15-55 Laboratory test finding 07/10/2020 [facility] [place] Vitamin B12 1205 pg/mL 232-1245 Methylmalonic Acid 07/10/2020 [facility] [place] Methylmalonic Acid, Serum 468 nmol/L High 0-378 Disclaimer: See Comment: 2 CBC With Differential/Platelet 07/10/2020 [facility] N E WBC 7.8 x10E3/uL 3.4-10.8 RBC 3.17 x10E6/uL Low 3.77-5.28 Hemoglobin 10.2 g/dL Low 11.1-15.9 Hematocrit 32.7 % Low 34.0-46.6 MCV 103 fL High 79-97 MCH 32.2 pg 26.6-33.0 MCHC 31.2 g/dL Low 31.5-35.7 RDW 17.0 % High 11.7-15.4 Platelets 144 x10E3/uL Low 150-450 Neutrophils 58 % Not Estab. Lymphs 27 % Not Estab. Monocytes 12 % Not Estab. Eos 2 % Not Estab. Basos 1 % Not Estab. Immature Cells TNP Neutrophils (Absolute) 4.5 x10E3/uL 1.4-7.0 Lymphs (Absolute) 2.1 x10E3/uL 0.7-3.1 Monocytes(Absolute) 0.9 x10E3/uL 0.1-0.9 Eos (Absolute) 0.1 x10E3/uL 0.0-0.4 Baso (Absolute) 0.1 x10E3/uL 0.0-0.2 Immature Granulocytes 0 % Not Estab. Immature Grans (Abs) 0.0 x10E3/uL 0.0-0.1 NRBC TNP Hematology Comments: TNP Basic Metabolic Panel (8) 07/10/2020 [facility] [place] Glucose 122 mg/dL High 65-99 BUN 36 mg/dL High 8-27 Creatinine 1.34 mg/dL High 0.57-1.00 eGFR If NonAfricn Am 37 mL/min/1.73 Low >59 eGFR If Africn Am 43 mL/min/1.73 Low >59 BUN/Creatinine Ratio 27 12-28 Sodium 141 mmol/L 134-144 Potassium 3.4 mmol/L Low 3.5-5.2 Chloride 104 mmol/L 96-106 Carbon Dioxide, Total 23 mmol/L 20-29 Calcium 9.0 mg/dL 8.7-10.3 CBC With Differential/Platelet 06/04/2020 [facility] N E WBC 10.1 x10E3/uL 3.4-10.8 3 RBC 3.22 x10E6/uL Low 3.77-5.28 Hemoglobin 10.0 [...] [facility] N E WBC 10.0 x10E3/uL 3.4-10.8 4 RBC 3.19 x10E6/uL Low 3.77-5.28 Hemoglobin 10.2 [...] [facility] [place] NT-proBNP 7058 pg/mL High 0-738 5 Istat Chem8+ Panel 04/18/2020 [facility] (I nterface) [phone] iSTAT HCT 33.0 % Low 38.0-51.0 iSTAT Glucose 137 mg/dL High 70-105 iSTAT Sodium 140 mEq/L Normal 136-145 iSTAT Potassium 3.0 mEq/L Low 3.5-5.1 iSTAT CA++ 4.6 mg/dL Normal 4.5-5.3 iSTAT Chloride 101 mEq/L Normal 98-109 iSTAT Co2 24.0 MM/L Normal 23.0-27.0 iSTAT BUN 24 mg/dL Normal 8-26 iSTAT Creatinine 1.3 mg/dL Normal 0.6-1.3 Prothrombin Time/Inr 04/18/2020 [facility] ( Interface) [phone] Prothrombin Time 18.2 seconds High 12.5-14.3 Inr 1.48 Normal 6 1 A courtesy copy of this repo rt has been sent to the patient, , 2 This test was developed and its performance characteristics determined by [facility]. It has not been cleared or approved by the Food and Drug Administration. 3 A courtesy copy of this repo rt has been sent to the patient, , 4 A courtesy copy of this repo rt has been sent to the patient, 5 The following cut-points hav e been suggested for the use of proBNP for the diagnostic evaluation of heart failure (HF) in patients with acute dyspnea: Modality Age Optimal Cut (years) Point Diagnosis (rule in HF) <50 450 pg/mL 50 - 75 900 pg/mL >75 1800 pg/mL Exclusion (rule out HF) Age independent 300 pg/mL 6 THERAPUTIC HUMAN INR VALUES INDICATIONS NORMAL RANGES PROPHYLAXIS/TREATMENT OF: VENOUS THROMBOSIS 2.0-3.0 PULMONARY EMBOLISM 2.0-3.0 PREVENTION OF SYSTEMIC EMBOLISM FROM: TISSUE HEART VALVES 2.0-3.0 ACUTE MYOCARDIAL INFARCTION 2.0-3.0 VALVULAR HEART DISEASE 2.0-3.0 ATRIAL FIBRILLATION 2.0-3.0 MECHANICAL VALVES(HIGH RISK) 2.5-3.5 RECURRENT MYOCARDIAL INFARCTION 2.5-3.5 Procedures Date Code Description Status 12/25/2015 [id number] Mammogram Completed Medical Devices Description No Information Available Encounters Type Date Location Provider Dx Diagnosis Office Visit 07/16/2020 1:15p [facility] Kem Bee M. D. I50.9 Heart failure, unspecified D64.9 Anemia, unspecified Office Visit 06/12/2020 11:00a [facility] Kem Bee M. D. I50.9 Heart failure, unspecified I10 Essential (primary) hyperten chris R73.01 Impaired fasting glucose I48.92 Unspecified atrial flutter E78.5 Hyperlipidemia, unspecified D64.9 Anemia, unspecified Office Visit 05/10/2020 10:00a [facility] Kem Bee M. D. I50.9 Heart failure, unspecified Office Visit 04/23/2020 11:15a [facility] Kem Bee M. D. I50.9 Heart failure, unspecified R04.0 Epistaxis Office Visit 04/15/2020 3:20p [facility] Kem Bee M. D. R05 Cough Z23 Encounter for immunization Assessments Date Code Description Provider 07/16/2020 I50.9 Heart failure, unspecified Kem Matamoros M.D. 07/16/2020 D64.9 Anemia, unspecified Pacheco Bee M.D. 06/12/2020 I50.9 Heart failure, unspecified Kem Matamoros [...] Matamoros M.D. Plan of Treatment Future Appointment(s):* 08/16/2020 1:30 pm - Kem Bee M.D. at [facility] Functional Status Description No Information Available Mental Status Description No Information Available Referrals Refer to Dr Reason for Referral Status Appt Date [facility] (ENT) severe epistaxis on Eliqui s- eval and rx Sent 04/30/[address] [place] [address] [phone]
--- OUTSIDE RECORDS SUMMARY | 2020-08-05 12:48 | CCD | Continuity of Care Document ---
Author Author Telma ARORA MD Organization Unknown Address [address] [facility] [address] [place] [address] Phone [phone] Care Team Providers Care Starch Treating Assistant Name Role Phone Kem Bee M.D. AUTM [phone] Problems Active Problems Provider Date Essential hypertension Rowdy Arora MD Onset: 04/30/2020 Social History Type Date Description Comments Sex Unknown ETOH Use Denies alcohol use Tobacco Use Start: Unknown Non Smoker Allergies, Adverse Reactions, Alerts Active Allergies Reaction Severity Comments Date Lisinopril 04/30/2020 Prednisone 04/30/2020 Medications Active Medications SIG Qnty Indications Ordering Provide r Date Cipro 500mg Tablets 1 by mouth twice a day 14tabs Rowdy Arora MD 04/30/2020 Torsemide 20mg Tablets Kem Bee M.D. Atorvastatin Calcium 20mg Tablets Kem Bee M.D. Atenolol 25mg Tablets Amy Goldstein R.P.A.-C. Digoxin 125mcg Tablets Amy Goldstein R.P.A.-C. Candesartan Cilexetil 16mg Tablets Amy Goldstein R.P.A.-C. Torsemide 10mg Tablets Amy Goldstein R.P.A.-C. Eliquis 5mg Tablets Amy Goldstein R.P.A.-C. Spironolactone 25mg Tablets Take One Half Tablet By Mouth Every Day Unknown Prednisone 20mg Tablets Allison Ahuja F.N.PSantiago Furosemide 20mg Tablets Amy Goldstein R.P.A.-C. Immunizations Description No Information Available Vital Signs Date Vital Result Comment 07/03/2020 10:01am Height 63.5 inches 5'3.50" Weight 148.00 lb BMI (Body Mass Index) 25.8 kg/m2 [place] Body Weight 115 lb Weight 67.133 kg BSA (Body Surface Area) 1.71 m2 05/30/2020 10:44am Height 63.5 inches 5'3.50" Weight 148.00 lb BMI (Body Mass Index) 25.8 kg/m2 [place] Body Weight 115 lb Weight 67.133 kg BSA (Body Surface Area) 1.71 m2 Results Description No Information Available Procedures Description No Information Available Medical Devices Description No Information Available Encounters Type Date Location Provider Dx Diagnosis Office Visit 05/30/2020 11:00a [facility] Rowdy leroy MD R04.0 Epistaxis Office Visit 04/30/2020 9:30a [facility] Rowdy leroy MD R04.0 Epistaxis Assessments Date Code Description Provider 05/30/2020 R04.0 Epistaxis Rowdy Arora MD 05/10/2020 R04.0 Epistaxis Rowdy Arora MD 04/30/2020 R04.0 Epistaxis Rowdy Arora MD Plan of Treatment 04/30/2020 - Rowdy Arora MD* R04.0 Epistaxis* Recommendations:* Abx Saline rinses Recheckl * All * New Medication:* Cipro 500 mg - 1 by mouth twice a day Functional Status Description No Information Available Mental Status Description No Information Available Referrals Refer to Reason for Referral Status Appt Date Rowdy Arora M.D. EPISTAXIS Scheduled 04/30/2020 [facility] [address] [address] [phone]
--- OUTSIDE RECORDS SUMMARY | 2020-08-05 12:48 | CCD | Continuity of Care Document ---
Author Author Telma BEE M.D. Organization Unknown Address 3 [facility] 3 [place] [address] Phone [phone] Problems Active Problems Provider Date Atrial flutter [...] 1 by mouth every day OTC Unknown [place] Nasal Mist Allergy & Sinus Hypertoni c [...] CPT Code Status Date Vaccine Lot # 10457 Given 04/15/2020 Influenza Virus Vaccine, Quadrivalent, Slit Virus, Im Use 3Y & Up [id number] 98622 Given 03/01/2019 Influenza Virus Vaccine, Quadrivalent, Slit Virus, Im Use 3Y & Up [id number] 29332 Given 01/10/2016 Prevnar 13 Pneum o. Conj Ped. Vaccine 13 Valent (PCV13) For Im Use Vital Signs Date Vital Result Comment 06/12/2020 10:53am BP Systolic 110 mmHg BP Diastolic 66 mmHg Body Temperature 97.2 F Heart Rate 70 /min Respiratory Rate 14 /min Height 63.5 inches 5'3.50" Weight 144.00 lb [place] Body Weight 115 lb BMI (Body Mass Index) 25.1 kg/m2 O2 % BldC Oximetry 98 % 05/10/2020 11:06am BP Systolic 116 mmHg BP Diastolic 62 mmHg Body Temperature 97.4 F Heart Rate 76 /min Respiratory Rate 16 /min Height 63.5 inches 5'3.50" Weight 152.00 lb [place] Body Weight 115 lb BMI (Body Mass Index) 26.5 kg/m2 O2 % BldC Oximetry 96 % Results Test Acquired Date Facility Test Result H/L Range Note Iron Panel 07/10/2020 [facility] [place] Iron Bind.Cap.(Tibc) 331 g/dL 250-450 Uibc 274 g/dL 118-369 Iron 57 g/dL 27-139 Iron Saturation 17 % 15-55 Laboratory test finding 07/10/2020 [facility] [place] Vitamin B12 1205 pg/mL 232-1245 Methylmalonic Acid 07/10/2020 [facility] [place] Disclaimer: See Comment: 1 CBC With Differential/Platelet 07/10/2020 [facility] [place] E [...] [facility] E WBC 10.1 x10E3/uL 3.4-10.8 2 RBC 3.22 x10E6/uL Low 3.77-5.28 Hemoglobin 10.0 [...] [facility] N E WBC 10.0 x10E3/uL 3.4-10.8 3 RBC 3.19 x10E6/uL Low 3.77-5.28 Hemoglobin 10.2 [...] [facility] [place] NT-proBNP 7058 pg/mL High 0-738 4 Istat Chem8+ Panel 04/18/2020 [facility] (I [place]terface) [phone] iSTAT HCT 33.0 % Low 38.0-51.0 iSTAT Glucose 137 mg/dL High 70-105 iSTAT Sodium 140 mEq/L Normal 136-145 iSTAT Potassium 3.0 mEq/L Low 3.5-5.1 iSTAT CA++ 4.6 mg/dL Normal 4.5-5.3 iSTAT Chloride 101 mEq/L Normal 98-109 iSTAT Co2 24.0 MM/L Normal 23.0-27.0 iSTAT BUN 24 mg/dL Normal 8-26 iSTAT Creatinine 1.3 mg/dL Normal 0.6-1.3 Prothrombin Time/Inr 04/18/2020 [facility] ( Interface) [phone] Prothrombin Time 18.2 seconds High 12.5-14.3 Inr 1.48 Normal 5 1 This test was developed and its performance characteristics determined by [facility]. It has not been cleared or approved by the Food and Drug Administration. 2 A courtesy copy of this repo rt has been sent to the patient, , 3 A courtesy copy of this repo rt has been sent to the patient, 4 The following cut-points hav e been suggested for the use of proBNP for the diagnostic evaluation of heart failure (HF) in patients with acute dyspnea: Modality Age Optimal Cut (years) Point Diagnosis (rule in HF) <50 450 pg/mL 50 - 75 900 pg/mL >75 1800 pg/mL Exclusion (rule out HF) Age independent 300 pg/mL 5 THERAPUTIC HUMAN INR VALUES INDICATIONS NORMAL RANGES PROPHYLAXIS/TREATMENT OF: VENOUS THROMBOSIS 2.0-3.0 PULMONARY EMBOLISM 2.0-3.0 PREVENTION OF SYSTEMIC EMBOLISM FROM: TISSUE HEART VALVES 2.0-3.0 ACUTE MYOCARDIAL INFARCTION 2.0-3.0 VALVULAR HEART DISEASE 2.0-3.0 ATRIAL FIBRILLATION 2.0-3.0 MECHANICAL VALVES(HIGH RISK) 2.5-3.5 RECURRENT MYOCARDIAL INFARCTION 2.5-3.5 Procedures Date Code Description Status 12/25/2015 [id number] Mammogram Completed Medical Devices Description No Information Available Encounters Type Date Location Provider Dx Diagnosis Office Visit 06/12/2020 11:00a [place] [facility] Kem Bee M. D. I50.9 Heart failure, unspecified I10 Essential (primary) hyperten chris R73.01 Impaired fasting glucose I48.92 Unspecified atrial flutter E78.5 Hyperlipidemia, unspecified D64.9 Anemia, unspecified Office Visit 05/10/2020 10:00a [place] [facility] Kem Bee M. D. I50.9 Heart failure, unspecified Office Visit 04/23/2020 11:15a [place] [facility] Kem Bee M. D. I50.9 Heart failure, unspecified R04.0 Epistaxis Office Visit 04/15/2020 3:20p [place] [facility] Kem Bee M. D. R05 Cough Z23 Encounter for immunization Assessments Date Code Description Provider 06/12/2020 I50.9 Heart failure, unspecified Kem Matamoros M.D. 06/12/2020 I10 Essential (primary) hypertension Kem Bee M.D. 06/12/2020 R73.01 Impaired fasting glucose Kem Abernathy M.D. 06/12/2020 I48.92 Unspecified atrial flutter Kem Matamoros M.D. 06/12/2020 E78.5 Hyperlipidemia, unspecified [facility] Kem andrew M.D. 06/12/2020 D64.9 Anemia, unspecified Pacheco Bee M.D. 05/10/2020 I50.9 Heart failure, unspecified Kem Matamoros M.D. 04/23/2020 I50.9 Heart failure, unspecified Vinnie Beaver, RPA 04/23/2020 I50.9 Heart failure, unspecified Kem Matamoros M.D. 04/23/2020 R04.0 Epistaxis Vinnie Felix, [facility] 04/23/2020 R04.0 Epistaxis Kem Bee M.D. 04/15/2020 R05 Cough Kem Bee M.D. 04/15/2020 Z23 Encounter for immunization Kem Matamoros M.D. Plan of Treatment Future Appointment(s):* 07/16/2020 1:15 pm - Kem Bee M.D. at [place] [facility] Functional Status Description No Information Available Mental Status Description No Information Available Referrals Refer to Dr Reason for Referral Status Appt Date [facility] (ENT) severe epistaxis on Eliqui s- eval and rx Sent 04/30/[address] [place] [address] [phone]
--- OUTSIDE RECORDS SUMMARY | 2020-08-05 12:48 | CCD | Continuity of Care Document ---
Author Author Telma BEE M.D. Organization Unknown Address 3 [facility] 3 [place] [address] Phone [phone] Problems Active Problems Provider Date Atrial flutter [...] 1 by mouth every day OTC Unknown [place] Nasal Mist Allergy & Sinus Hypertoni c [...] CPT Code Status Date Vaccine Lot # 83212 Given 04/15/2020 Influenza Virus Vaccine, Quadrivalent, Slit Virus, Im Use 3Y & Up [id number] 38798 Given 03/01/2019 Influenza Virus Vaccine, Quadrivalent, Slit Virus, Im Use 3Y & Up [id number] 02101 Given 01/10/2016 Prevnar 13 Pneum o. Conj [...] Height 63.5 inches 5'3.50" Weight 144.00 lb [place] Body Weight 115 lb BMI (Body Mass [...] High 0-738 4 Istat Chem8+ Panel 04/18/2020 [facility] (I nterface) [phone] iSTAT HCT 33.0 % Low 38.0-51.0 iSTAT Glucose 137 mg/dL High 70-105 iSTAT Sodium 140 mEq/L Normal 136-145 iSTAT Potassium 3.0 mEq/L Low 3.5-5.1 iSTAT CA++ 4.6 mg/dL Normal 4.5-5.3 iSTAT Chloride 101 mEq/L Normal 98-109 iSTAT Co2 24.0 MM/L Normal 23.0-27.0 iSTAT BUN 24 mg/dL Normal 8-26 iSTAT Creatinine 1.3 mg/dL Normal 0.6-1.3 Prothrombin Time/Inr 04/18/2020 [facility] ( Interface) [phone] Prothrombin Time 18.2 seconds High 12.5-14.3 Inr [...] 2.5-3.5 Procedures Date Code Description Status 12/25/2015 [id number] Mammogram Completed Medical Devices Description No Information Available Encounters Type Date Location Provider Dx Diagnosis Office Visit 07/16/2020 1:15p [place] [facility] Kem Bee M. D. I50.9 Heart failure, unspecified D64.9 Anemia, unspecified Office Visit 06/12/2020 11:00a [place] [facility] Kem Bee M. D. I50.9 Heart failure, unspecified I10 Essential (primary) hyperten chris R73.01 Impaired fasting glucose I48.92 Unspecified atrial flutter E78.5 Hyperlipidemia, unspecified D64.9 Anemia, unspecified Office Visit 05/10/2020 10:00a [place] [facility] Kem Bee M. D. I50.9 Heart failure, unspecified Office Visit 04/23/2020 11:15a [place] [facility] Kem Bee M. D. I50.9 Heart failure, unspecified R04.0 Epistaxis Office Visit 04/15/2020 3:20p [place] [facility] Kem Bee M. D. R05 Cough [...] Kem Matamoros M.D. 06/12/2020 E78.5 Hyperlipidemia, unspecified [facility] Kem andrew M.D. 06/12/2020 D64.9 Anemia, unspecified Pacheco Bee M.D. 05/10/2020 I50.9 Heart failure, unspecified Kem Matamoros M.D. 04/23/2020 I50.9 Heart failure, unspecified Vinnie Beaver, RPA 04/23/2020 I50.9 Heart failure, unspecified eKm Matamoros M.D. 04/23/2020 R04.0 Epistaxis Vinnie Felix, RPA 04/23/2020 R04.0 Epistaxis Kem Bee M.D. 04/15/2020 R05 Cough Kem Bee M.D. 04/15/2020 Z23 Encounter for immunization Kem Matamoros M.D. Plan of Treatment No Information Available Functional Status Description No Information Available Mental Status Description No Information Available Referrals Refer to Dr Reason for Referral Status Appt Date [facility] (ENT) severe epistaxis on Eliqui s- eval and rx Sent 04/30/2020 [address] [id number] [phone]
--- OUTSIDE RECORDS SUMMARY | 2020-08-05 12:49 | CCD | Continuity of Care Document ---
Author Author Telma BEE M.D. Organization Unknown Address 3 [facility] 3 [place] [address] Phone [phone] Problems Active Problems Provider Date Atrial flutter [...] 1 by mouth every day OTC Unknown [place] Nasal Mist Allergy & Sinus Hypertoni c [...] CPT Code Status Date Vaccine Lot # 05402 Given 04/15/2020 Influenza Virus Vaccine, Quadrivalent, Slit Virus, Im Use 3Y & Up [id number] 99247 Given 03/01/2019 Influenza Virus Vaccine, Quadrivalent, Slit Virus, Im Use 3Y & Up [id number] 65430 Given 01/10/2016 Prevnar 13 Pneum o. Conj Ped. Vaccine 13 Valent (PCV13) For Im Use Vital Signs Date Vital Result Comment 06/12/2020 10:53am BP Systolic 110 mmHg BP Diastolic 66 mmHg Body Temperature 97.2 F Heart Rate 70 /min Respiratory Rate 14 /min Height 63.5 inches 5'3.50" Weight 144.00 lb [place] Body Weight 115 lb BMI (Body Mass Index) 25.1 kg/m2 O2 % BldC Oximetry 98 % 05/10/2020 11:06am BP Systolic 116 mmHg BP Diastolic 62 mmHg Body Temperature 97.4 F Heart Rate 76 /min Respiratory Rate 16 /min Height 63.5 inches 5'3.50" Weight 152.00 lb [place] Body Weight 115 lb BMI (Body Mass [...] High 0-738 3 Istat Chem8+ Panel 04/18/2020 [facility] (I nterface) [phone] iSTAT HCT 33.0 % Low 38.0-51.0 iSTAT Glucose 137 mg/dL High 70-105 iSTAT Sodium 140 mEq/L Normal 136-145 iSTAT Potassium 3.0 mEq/L Low 3.5-5.1 iSTAT CA++ 4.6 mg/dL Normal 4.5-5.3 iSTAT Chloride 101 mEq/L Normal 98-109 iSTAT Co2 24.0 MM/L Normal 23.0-27.0 iSTAT BUN 24 mg/dL Normal 8-26 iSTAT Creatinine 1.3 mg/dL Normal 0.6-1.3 Prothrombin Time/Inr 04/18/2020 [facility] ( Interface) [phone] Prothrombin Time 18.2 seconds High 12.5-14.3 Inr [...] 2.5-3.5 Procedures Date Code Description Status 12/25/2015 [id number] Mammogram Completed Medical Devices Description No Information Available Encounters Type Date Location Provider Dx Diagnosis Office Visit 06/12/2020 11:00a [place] [facility] Kem Bee M. D. I50.9 Heart failure, unspecified I10 Essential (primary) hyperten chris R73.01 Impaired fasting glucose I48.92 Unspecified atrial flutter E78.5 Hyperlipidemia, unspecified D64.9 Anemia, unspecified Office Visit 05/10/2020 10:00a [place] [facility] Kem Bee M. D. I50.9 Heart failure, unspecified Office Visit 04/23/2020 11:15a [place] [facility] Kem Bee M. D. I50.9 Heart failure, unspecified R04.0 Epistaxis Office Visit 04/15/2020 3:20p [place] [facility] Kem Bee M. D. R05 Cough [...] Dr Reason for Referral Status Appt Date [facility] (ENT) severe epistaxis on Eliqui s- eval and rx Sent 04/30/[address] [address] [phone]
--- OUTSIDE RECORDS SUMMARY | 2020-08-05 12:49 | CCD | Continuity of Care Document ---
Author Author Telma BEE M.D. Organization Unknown Address 3 [facility] 3 [place] [address] Phone [phone] Problems Active Problems Provider Date Atrial flutter [...] SIG Qnty Indications Ordering Provide r Date Torsemide 20mg Tablets 1 by mouth every day X 3 Days then return to 10mg qd 3tabs Pachceo Bee M.D. 04/23/2020 Torsemide 10mg Tablets 1 by mouth every day 30tabs Unknown 07/31/2019 Shingrix 50mcg Suspension Rec as directed 1units Kem Bee M.D. 01/19/2018 Atorvastatin Calcium 20mg Tablets take one tablet by mouth every day 90tabs Kem Bee M.D . 12/30/2015 Preservision Areds 2 Areds 2 Capsu les 2 softgels every day OTC Unknown Rahul Natural Pain Relieving 3-3% Gel apply to back as directed for pain OTC Unknown Vitamin B-6 100mg Tablets 1/2 tab po qd Unknown Eliquis 5mg Tablets 1 by mouth twice a day Unknown Digox 125mcg Tablets take one tablet by mouth qd Unknown [place] Aspirin Ec Low Dose 81mg Tab robyn BORDEN as directed Unknown Epinastine HCL 0.05% Solution as directed Unknown Acetaminophen 500mg Capsules as directed Unknown Folic Acid 800mcg Tablets 1 po qd 90tabs Unknown B-12 1000mcg Capsules 1 po qd Unknown Candesartan Cilexetil 16mg Tablets 1 po qd Price Gaines M.D. Amoxicillin 500mg Tablets 4 tabs po 1 hour prior to dental procedure Unknown Atenolol 25mg Tablets 1 po qd Unknown Immunizations CPT Code Status Date Vaccine Lot # [id number] Given 04/15/2020 Influenza Virus Vaccine, Quadrivalent, Slit Virus, Im Use 3Y & Up [id number] 72957 Given 03/01/2019 Influenza Virus Vaccine, Quadrivalent, Slit Virus, Im Use 3Y & Up [id number] 91897 Given 01/10/2016 Prevnar 13 Pneum o. Conj Ped. Vaccine 13 Valent (PCV13) For Im Use Vital Signs Date Vital Result Comment 04/23/2020 11:07am BP Systolic 124 mmHg BP Diastolic 76 mmHg Body Temperature 97.5 F Heart Rate 82 /min Respiratory Rate 16 /min Height 63.5 inches 5'3.50" Weight 153.00 lb [place] Body Weight 115 lb BMI (Body Mass Index) 26.7 kg/m2 O2 % BldC Oximetry 97 % 04/15/2020 3:50pm BP Systolic 122 mmHg BP Diastolic 74 mmHg Body Temperature 97.4 F Heart Rate 78 /min Respiratory Rate 18 /min Height 63.5 inches 5'3.50" Weight 157.00 lb [place] Body Weight 115 lb BMI (Body Mass Index) 27.4 kg/m2 O2 % BldC Oximetry 97 % Results Test Acquired Date Facility Test Result H/L Range Note CBC With Differential/Platelet 04/23/2020 [facility] [place] E WBC 10.0 x10E3/uL 3.4-10.8 1 RBC 3.19 x10E6/uL Low 3.77-5.28 Hemoglobin 10.2 [...] [facility] [place] NT-proBNP 7058 pg/mL High 0-738 2 Istat Chem8+ Panel 04/18/2020 [facility] (I [place]) [phone] iSTAT HCT 33.0 % Low 38.0-51.0 iSTAT Glucose 137 mg/dL High 70-105 iSTAT Sodium 140 mEq/L Normal 136-145 iSTAT Potassium 3.0 mEq/L Low 3.5-5.1 iSTAT CA++ 4.6 mg/dL Normal 4.5-5.3 iSTAT Chloride 101 mEq/L Normal 98-109 iSTAT Co2 24.0 MM/L Normal 23.0-27.0 iSTAT BUN 24 mg/dL Normal 8-26 iSTAT Creatinine 1.3 mg/dL Normal 0.6-1.3 Prothrombin Time/Inr 04/18/2020 [facility] ( [facility]) [phone] Prothrombin Time 18.2 seconds High 12.5-14.3 Inr 1.48 Normal 3 CBC 12/05/2019 [facility] WBC 7.7 10E3/uL 4.1 - 10.9 4 RBC 3.23 10E6/uL Low 4.20 - 6.30 HGB 11.2 g/dL Low 12.0 - 18.0 HCT 32.1 % Low 37.0 - 51.0 MCV 99.4 fL High 80.0 - 97.0 MCH 34.7 pg High 26.0 - 32.0 MCHC 34.9 g/dL 31.0 - 36.0 PLT 171 10E3/uL 140 - 440 RDW-CV 13.9 % 11.5 - 14.5 Lym% 39.9 % 10.0 - 58.5 Neut% 45.9 % 37.0 - 92.0 MXD% 14.2 % 0.1 - 24.0 Lym# 3.1 10E3/uL 0.6 - 4.1 Neut# 3.5 % 2.0 - 7.8 MXD# 1.1 10E3/uL 0.0 - 1.8 MPV 10.5 fL 9.0 - 13.0 CMP 12/05/2019 [facility] Glu 122 mg/dL High 70 - 110 BUN 37 mg/dL High 8 - 23 Creat 1.3 mg/dL High 0.5 - 1.0 BUN/Creatinine Ratio 27.3 CALC Na 138 mmol/L 136 - 145 K 4.1 mmol/L 3.5 - 5.1 CL 102.6 mmol/L 98.0 - 107.0 Co2 25.2 mmol/L 22.0 - 29.0 CA 9.3 mg/dL 8.6 - 10.2 TP 6.8 g/dL 6.6 - 8.7 Alb 4.0 g/dL 3.4 - 4.8 A/G Ratio 1.5 CALC Globulin 2.8 CALC Alp 71.8 U/L 35 - 129 Alt (SGPT) 16 U/L 0 - 41 Ast (Sgot) 25 U/L 0 - 40 Tbili 0.41 mg/dL 0.0 - 1.2 Osmolality-Calculated 285.1 CALC Anion Gap 14 mmol/L eGFR 45 # Calc 5 eGFR Non-Afr. Citizen Of [place] 39 # Calc 6 Lipid Panel 12/05/2019 [facility] Chol 96 mg/dL 0 - 200 Trig 88 mg/dL 40 - 200 HDL 47 mg/dL 45 - 65 LDL_C 31 Calc Low 75 - 129 Cho/HDL Ratio 2.0 CALC 1 A courtesy copy of this repo rt has been sent to the patient, 2 The following cut-points hav e been suggested for the use of proBNP for the diagnostic evaluation of heart failure (HF) in patients with acute dyspnea: Modality Age Optimal Cut (years) Point Diagnosis (rule in HF) <50 450 pg/mL 50 - 75 900 pg/mL >75 1800 pg/mL Exclusion (rule out HF) Age independent 300 pg/mL 3 THERAPUTIC HUMAN INR VALUES INDICATIONS NORMAL RANGES PROPHYLAXIS/TREATMENT OF: VENOUS THROMBOSIS 2.0-3.0 PULMONARY EMBOLISM 2.0-3.0 PREVENTION OF SYSTEMIC EMBOLISM FROM: TISSUE HEART VALVES 2.0-3.0 ACUTE MYOCARDIAL INFARCTION 2.0-3.0 VALVULAR HEART DISEASE 2.0-3.0 ATRIAL FIBRILLATION 2.0-3.0 MECHANICAL VALVES(HIGH RISK) 2.5-3.5 RECURRENT MYOCARDIAL INFARCTION 2.5-3.5 4 NORMAL RANGES Age WBC RBC HGB HCT MCV PLT Adult M 4.1-10.9 4.20-6.30 12.0-18.0 37.0-51.0 80-97 140-440 Adult F 4.1-10.9 4.04-5.48 12.0-18.0 37.0-51.0 80-97 140-440 0 -1 Yr 5.0-20.0 3.9-5.9 15-18 MV: 44 MV: 91 MV: 277 2-9 Yr. 6.0-17.0 3.8-5.4 11-13 MV: 37 MV: 78 MV: 300 10 Yrs. 5.0-13.0 3.8-5.4 12-15 MV: 39 MV: 80 MV: 250 NOTE: * FOR ADULT BLACK MALES AND FEMALES, NORMAL WBC IS 2.9-7.7 K/ML * FOR ADULT BLACK MALES AND FEMALES, NORMAL RBC,HGB, AND HCT IS 5% LESS SOURCE FOR DATA: [employer] 1800 OPERATION MANUAL( AUTOMATED BLOOD COUNTS AND DIFF.) APPENDIX B-3 CHRONIC KIDNEY DISEASE STAGING PER NKF: MALE GFR INTERPRETATION: 20-49 YRS: >60 mL/min Normal 50-59 YRS: >56 mL/min Normal 60-69 YRS: >49 mL/min Normal 70-79 YRS: >42 mL/min Normal 80 and above >35 mL/min Normal FEMALE GRF INTERPRETATION: 20-39 YRS: >60 mL/min Normal 40-49 YRS: >58 mL/min Normal 50-59 YRS: >51 mL/min Normal 60-69 YRS: >45 mL/min Normal 70-79 YRS: >39 mL/min Normal 80 and above >32 mL/min NormalCLASSIFICATION CHOLESTEROL FOR ADULTS CHILDREN/ADOLESCENTS* DESIRABLE: <200 MG/DL <170 MG/DL BORDER-LINE HIGH RISK: 200-239 MG/DL 170-199 MG/DL HIGH RISK: >240 MG/DL >200 MG/DL CLASS. FOR PRIMARY LDL CHOL PREVENTION: LDL CHOL-CHILD/ADOLESCENTS* DESIRABLE: <130 MG/DL <110 MG/DL BORDERLINE-HIGH RISK: 130-159 MG/DL 110-129 MG/DL HIGH RISK: >160 MG/DL >130 MG/DL *CHILDREN AND ADOLESCENTS REPRESENTS INDIVIDUALA AGED 2-19 YEARS EXCLUSIVE. 5 CKD-EPI 6 CKD-EPI Procedures Date Code Description Status 12/25/2015 [id number] Mammogram Completed Medical Devices Description No Information Available Encounters Type Date Location Provider Dx Diagnosis Office Visit 05/10/2020 10:00a [place] [facility] Kem Bee M. D. I50.9 Heart failure, unspecified Office Visit 04/23/2020 11:15a [place] [facility] Kem Bee M. D. I50.9 Heart failure, unspecified R04.0 Epistaxis Office Visit 04/15/2020 3:20p [place] [facility] Kem Bee M. D. R05 Cough Z23 Encounter for immunization Office Visit 12/12/2019 10:00a [place] [facility] Kem Bee M. D. E78.5 Hyperlipidemia, unspecified I10 Essential (primary) hyperten chris R73.01 Impaired fasting glucose I50.9 Heart failure, unspecified Assessments Date Code Description Provider 05/10/2020 I50.9 Heart failure, unspecified [facility] Kem levin M.D. 04/23/2020 I50.9 Heart failure, unspecified Vinnie Beaver, RPA 04/23/2020 I50.9 Heart failure, unspecified Kem Matamoros M.D. 04/23/2020 R04.0 Epistaxis Vinnie Felix, RPA 04/23/2020 R04.0 Epistaxis Kem Bee M.D. 04/15/2020 R05 Cough Kem Bee M.D. 04/15/2020 Z23 Encounter for immunization Kem Matamoros M.D. 12/12/2019 E78.5 Hyperlipidemia, unspecified [facility] Kem andrew M.D. 12/12/2019 I10 Essential (primary) hypertension Kem Bee M.D. 12/12/2019 R73.01 Impaired fasting glucose Kem Abernathy M.D. 12/12/2019 I50.9 Heart failure, unspecified Vitor Kem levin M.D. 12/05/2019 E78.5 Hyperlipidemia, unspecified [facility] Kme andrew M.D. Plan of Treatment Future Appointment(s):* 06/12/2020 11:00 am - Kem Bee M.D. at [facility] * 06/05/2020 9:00 am - Laboratory [place] Schedule at [facility] Functional Status Description No Information Available Mental Status Description No Information Available Referrals Refer to Reason for Referral Status Appt Date [facility] (ENT) severe epistaxis on Eliqui s- eval and rx Sent 04/30/[address] [place] [address] [phone]
--- OUTSIDE RECORDS SUMMARY | 2020-08-05 12:49 | CCD | Continuity of Care Document ---
Author Author Telma ARORA MD Organization Unknown Address [address] [facility] [address] [place] [address] Phone [phone] Care Team Providers Care Efficiency Miner Blasting Name Role Phone Kem Bee M.D. AUTM [phone] Problems Active Problems Provider Date Essential hypertension [...] Available Vital Signs Date Vital Result Comment 05/30/2020 10:44am Height 63.5 inches 5'3.50" Weight 148.00 lb BMI (Body Mass Index) 25.8 kg/m2 Pearson Body Weight 115 lb Weight 67.133 kg BSA (Body Surface Area) 1.71 m2 05/09/2020 10:52am Height 63.5 inches 5'3.50" Weight 148.00 lb BMI (Body Mass Index) 25.8 kg/m2 Pearson Body Weight 115 lb Weight 67.133 kg BSA (Body Surface Area) 1.71 m2 Results Description No Information Available Procedures Description No Information Available Medical Devices Description No Information Available Encounters Type Date Location Provider Dx Diagnosis Office Visit 04/30/2020 9:30a [facility] Rowdy leroy MD R04.0 Epistaxis Assessments Date Code Description Provider 05/10/2020 R04.0 Epistaxis Rowdy Arora MD 04/30/2020 R04.0 Epistaxis Rowdy Arora MD Plan of Treatment Future Appointment(s):* 07/03/2020 10:00 am - Rowdy Arora MD at [facility] 04/30/2020 - Rowdy Arora MD* R04.0 Epistaxis* Recommendations:* Abx Saline rinses Recheckl * All * New Medication:* Cipro 500 mg - 1 by mouth twice a day Functional Status Description No Information Available Mental Status Description No Information Available Referrals Refer to Reason for Referral Status Appt Date Rowdy Arora M.D. EPISTAXIS Scheduled 04/30/2020 [facility] [address] [address] [phone]
--- OUTSIDE RECORDS SUMMARY | 2020-08-05 12:49 | CCD | Continuity of Care Document ---
Author Organization Unknown Address Unknown Phone Unavailable Care Team Providers Care Pig Lead Melter Helper Name Role Phone Kem Bee MD AUTM [phone] Dhaval Hernandez MD AUTM [phone] Problems Active Problems Provider Date Atrial flutter Amy Goldstein PA-C Onset: 10/05/2011 Chronic diastolic heart failure Amy Goldstein PA-C Onset: 10/05/2011 Benign hypertensive heart disease with congestive card iac failure Amy Goldstein PA-C Onset: 10/26/2017 Electrocardiogram abnormal Amy Goldstein PA-C Onset: 05/25 Left bundle branch block PATRICIA GonzalezC Onset: 014 Aortic valve disorder Amy Goldstein PA-C Onset: 10/05/2011 Transplantation of heart valve Amy Goldstein PA-C Onset: 0 10/05/2011 Pure hypercholesterolemia PATRICIA GonzalezC Onset: 2014 Obesity PATRICIA GonzalezC Onset: 10/05/2011 Dietary management surveillance Amy Goldstein PA-C Onset: 12/23/2016 Carotid artery occlusion TAMEKA Gonzalez-C Onset: 019 Social History Type Date Description Comments Sex Unknown Tobacco Use Start: Unknown Never Smoked Cigarettes ETOH Use Does not consume alcohol Tobacco Use Start: Unknown Patient has never smoked Smoking Status Reviewed: 03/01/20 Patient has never smoked Exercise Type/Frequency Does gardening daily Exercise Type/Frequency Does housework daily Exercise Type/Frequency Walks daily Exercise Type/Frequency Does yardwork daily Exercise Limitations Shortness Of Breath Exercise Limitations Fatigue Allergies, Adverse Reactions, Alerts Active Allergies Reaction Severity Comments Date Andrew Inhibitors cough 09/22/2006 Medications Active Medications SIG Qnty Indications Ordering Provide r Date Rahul Natural Pain Relieving 3-3% Gel as needed Unknown 08/02/2019 Torsemide 10mg Tablets 1 by mouth every day 90tabs Price Gaines MD 08/02/2019 Digox 125mcg Tablets 1 by mouth every day 90tabs I48.3 Amy Goldstein PA-C 09/05/2018 Eliquis 5mg Tablets 1 by mouth twice a day 180tabs I48.3 Price Gaines MD 09/02/2018 Atenolol 25mg Tablets 1 by mouth every day 90tabs I48.3 Price Gaines MD 06/22/2018 I11.0 Atorvastatin Calcium 20mg Tablets 1 by mouth every night at bedtime Kem Bee MD 11/28/2015 Refresh Plus 0.5% Solution 1 each eye prn Kem Bee MD 09/29/2010 Vitamin B-6 50mg Tablets 1 PO Daily Unknown Vitamin B-12 1000mcg Tablets 1 PO Daily Unknown Folic Acid 800mcg Tablets 1 P O Daily Unknown Amoxicillin 500mg Tablets 4 capsules 1 hr before dental procedure 4tabs Claude Shaffer RN CENTER REP 0 Aspirin Ec 81mg Tablets DR 1 PO Daily Kem Bee MD Eye Vitamins Capsules 2 PO D aily Unknown Tylenol 8 Hour 650mg Tablets ER prn Unknown Atacand 16mg Tablets take one tablet by mouth every day 90tabs I50.32 Price Gaines MD Immunizations Description No Information Available Vital Signs Date Vital Result Comment 03/01/2020 3:14pm Weight 157.00 lb Home Weight 158lb Height 63.50 inches 5'3.50" BMI (Body Mass Index) 27.4 kg/m2 Heart Rate 64 /min Regular Respiratory Rate 16 /min BP Systolic Right Arm 134 mmHg sitting, regular c uff BP Diastolic Right Arm 72 mmHg sitting, regular cuff 11/16/2019 10:10am Weight 166.00 lb Home Weight 167lb home weight Height 63.50 inches 5'3.50" BMI (Body Mass Index) 28.9 kg/m2 Heart Rate 56 /min Regular Respiratory Rate 16 /min BP Systolic Right Arm 122 mmHg sitting, large cuf f BP Diastolic Right Arm 66 mmHg sitting, large cu ff BP Systolic Left Arm 122 mmHg sitting BP Diastolic Left Arm 62 mmHg sitting Results Test Acquired Date Facility Test Result H/L Range Note BMP 04/23/2020 [facility] (315)- - Calcium Ser/Plasma Mass/Vol 8.9 Sodium 134 Carbon Dioxide Ser/Plasm 26 Chloride Serum/Plasma 94 Potassium 4.0 Glucose 152 High 65-99 Blood Urea Nitrogen 37 High 8-27 Creatinine 1.38 High 0.57-1.00 G F R 36 CBC without Differential 12/05/2019 [facility] [address] [facility] 1 [place] [address] [phone] White Blood Count 7.7 Red Blood Count 3.23 Platelets 171 Hemoglobin 11.2 Hematocrit 32.1 CMP 12/05/2019 [facility] As[facility] juan jose [address] [facility] [address] [place] [address] [phone] Albumin Serum/Plasma 4.0 Alt - SGPT 16 Calcium Ser/Plasma Mass/Vol 9.3 Carbon Dioxide Ser/Plasm 25.2 Chloride Serum/Plasma 96 Alkaline Phosphatase 71.8 Potassium 4.1 Protein Total 6.8 Sodium 138 Ast - Sgot 25 BUN - Urea Nitrogen 27.3 Glucose 122 High 64-112 Creatinine For GFR 1.3 Lipid Profile/Cardiac Risk Pro 12/05/2019 [facility] [address] [facility], [facility] [address] [place] [address] [phone] Triglycerides 88 40-160 Cholesterol 96 HDL 31 Low 35-59 LDL Cholesterol 31 Chol/HDL Ratio 2.0 Procedures Date Code Description Status 11/16/2019 45212 ECG 12-Lead Completed Medical Devices Description No Information Available Encounters Type Date Location Provider Dx Diagnosis Office Visit 03/01/2020 3:15p Main Office Amy Goldstein PA-C I50.3 2 Chronic diastolic (congestive) heart failure Office Visit 11/16/2019 10:15a Main Office Amy Goldstein PA-C I48.3 Typical atrial flutter I50.32 Chronic diastolic (congestiv e) heart failure I11.0 Hypertensive heart disease w ith heart failure I35.0 Nonrheumatic aortic (valve) stenosis Z95.3 Presence of xenogenic heart valve R94.31 Abnormal electrocardiogram [ ECG] [EKG] I44.7 Left bundle-branch block, un specified E78.00 Pure hypercholesterolemia, u nspecified I65.23 Occlusion and stenosis of bi lateral carotid arteries Z71.3 Dietary counseling and surve illance Assessments Date Code Description Provider 03/01/2020 I50.32 Chronic diastolic (congestive) h eart failure Amy Goldstein, PA-C 11/16/2019 I48.3 Typical atrial flutter Amy Tai Chance spenceanette, PABuckC 11/16/2019 I50.32 Chronic diastolic (congestive) h eart failure Amyfercho Goldstein, PA-C 11/16/2019 I11.0 Hypertensive heart disease with heart failure Amy Goldstein, PA-C 11/16/2019 I35.0 Nonrheumatic aortic (valve) sten osis Amy Goldstein, PA-C 11/16/2019 Z95.3 Presence of xenogenic heart valv e Amy Goldstein, PA-C 11/16/2019 R94.31 Abnormal electrocardiogram [ECG] [EKG] PATRICIA GonzalezC 11/16/2019 I44.7 Left bundle-branch block, unspec ified Amy Goldstein, PA-C 11/16/2019 E78.00 Pure hypercholesterolemia, unspe cified TAMEKA Gonzalez-C 11/16/2019 I65.23 Occlusion and stenosis of bilate ral carotid arteries Amy Goldstein PA-C 11/16/2019 Z71.3 Dietary counseling and surveilla nce Amy Goldstein PA-C Plan of Treatment Future Appointment(s):* 05/21/2020 9:45 am - Amy Goldstein PA-C at Main Office 03/01/2020 - Amy Goldstein PA-C* I50.32 Chronic diastolic (congestive) heart failure* Recommendations:* Follow a 2 grams sodium diet and 50 ounces fluid restriction per 24 hour and do daily weights. Call the office for weight gain of 3 lbs or more. * All * Follow up:* As scheduled in May. Functional Status Functional Condition Comment Date Status Independent with all ADL's Activ e Mental Status Description No Information Available Referrals Description No Information Available
--- OUTSIDE RECORDS SUMMARY | 2020-08-05 12:49 | CCD | Continuity of Care Document ---
Author Organization Unknown Address Unknown Phone Unavailable Care Team Providers Care Weighbridge Operator Name Role Phone Kem Bee MD AUTM [phone] Dhaval Hernandez MD AUTM [phone] Problems Active Problems Provider Date Atrial flutter Amy Goldstein PA-C Onset: 10/05/2011 Chronic diastolic heart failure Amy Goldstein PA-C Onset: 10/05/2011 Benign hypertensive heart disease with congestive card iac failure Amy Goldstein PA-C Onset: 10/26/2017 Electrocardiogram abnormal Amy Goldstein PA-C Onset: 05/25 Left bundle branch block Amy Goldstein PA-C Onset: 014 Aortic valve disorder Amy Goldstein PA-C Onset: 10/05/2011 Transplantation of heart valve Amy Goldstein PA-C Onset: 0 10/05/2011 Pure hypercholesterolemia Amy Goldstein PA-C Onset: 2014 Obesity PATRICIA GonzalezC Onset: 10/05/2011 Dietary management surveillance Amy Goldstein PA-C Onset: 12/23/2016 Carotid artery occlusion PATRICIA GonzalezC Onset: 019 Social History Type Date Description Comments Sex Unknown Tobacco Use Start: Unknown Never Smoked Cigarettes ETOH Use Does not consume alcohol Tobacco Use Start: Unknown Patient has never smoked Smoking Status Reviewed: 05/21/20 Patient has never smoked Exercise Type/Frequency Does gardening daily Exercise Type/Frequency Does housework daily Exercise Type/Frequency Walks daily Exercise Type/Frequency Does yardwork daily Exercise Limitations Shortness Of Breath Exercise Limitations Fatigue Allergies, Adverse Reactions, Alerts Active Allergies Reaction Severity Comments Date Andrew Inhibitors cough 09/22/2006 Medications Active Medications SIG Qnty Indications Ordering Provide r Date Torsemide 10mg Tablets 2 by mouth every day Kem Bee MD 05/20/2020 [place] 0.65% Solution administer 2 drops nasal as needed every two hours Kem Bee MD 05/20/2020 Loratadine 10mg Tablets 1 by mouth every day Unknown 05/20/2020 Rahul Natural Pain Relieving 3-3% Gel as needed Unknown 08/02/2019 Digox 125mcg Tablets 1 by mouth [...] before dental procedure 4tabs Claude Shaffer RN SERGING MACHINE OPERATOR 0 Eye Vitamins Capsules 2 PO D aily Unknown Tylenol 8 Hour 650mg Tablets ER prn Unknown Atacand 16mg Tablets take one tablet by mouth every day 90tabs I50.32 Price Gaines MD Immunizations Description No Information Available Vital Signs Date Vital Result Comment 05/21/2020 9:51am Weight 145.00 lb Home Weight 143lb Height 63.50 inches 5'3.50" BMI (Body Mass Index) 25.3 kg/m2 Heart Rate 68 /min Regular Respiratory Rate 16 /min BP Systolic Right Arm 122 mmHg sitting, regular c uff BP Diastolic Right Arm 68 mmHg sitting, regular cuff BP Systolic Left Arm 124 mmHg sitting BP Diastolic Left Arm 68 mmHg sitting 03/01/2020 3:14pm Weight 157.00 lb Home Weight 158lb Height 63.50 inches 5'3.50" BMI (Body Mass Index) 27.4 kg/m2 Heart Rate 64 /min Regular Respiratory Rate 16 /min BP Systolic Right Arm 134 mmHg sitting, regular c uff BP Diastolic Right Arm 72 mmHg sitting, regular cuff Results Test Acquired Date Facility Test Result H/L Range Note CBC without Differential 06/04/2020 [facility] ([facility])- - White Blood Count 10.1 3.4-10.8 Red Blood Count 3.22 Low 3.77-5.28 Platelets 175 150-450 Hemoglobin 10.0 Low 11.1-15.9 Hematocrit 31.1 Low 34.0-46.6 CMP 06/04/2020 [facility] ([facility])- - Albumin Serum/Plasma 4.0 Alt - SGPT 14 Calcium Ser/Plasma Mass/Vol 9.2 Carbon Dioxide Ser/Plasm 23 Chloride Serum/Plasma 103 Alkaline Phosphatase 122 Potassium 3.5 Protein Total 7.2 Sodium 142 Ast - Sgot 27 BUN - Urea Nitrogen 27 Glucose 122 High 65-99 Creatinine For GFR 1.32 Lipid Profile/Cardiac Risk Pro 06/04/2020 [facility] ([facility])- - Triglycerides 79 Cholesterol 66 Low 100-199 HDL 35 Low >39 LDL Cholesterol 14 Chol/HDL Ratio -- BMP 04/23/2020 [facility] ([facility])- - Calcium Ser/Plasma Mass/Vol 8.9 Sodium 134 Carbon Dioxide Ser/Plasm 26 Chloride Serum/Plasma 94 Potassium 4.0 Glucose 152 High 65-99 Blood Urea Nitrogen 37 High 8-27 Creatinine 1.38 High 0.57-1.00 G F R 36 Procedures Date Code Description Status 05/21/2020 79877 ECG 12-Lead Completed Medical Devices Description No Information Available Encounters Type Date Location Provider Dx Diagnosis Office Visit 05/21/2020 9:45a Main Office Amy Goldstein PA-C I48.3 Typical [...] arteries Z71.3 Dietary counseling and surve illance Office Visit 03/01/2020 3:15p Main Office Amy Goldstein PA-C I50.3 2 Chronic diastolic (congestive) heart failure Assessments Date Code Description Provider 05/21/2020 I48.3 Typical atrial flutter Amy smith PA-C 05/21/2020 I50.32 Chronic diastolic (congestive) h eart failure Amy Goldstein PA-C 05/21/2020 I11.0 Hypertensive heart disease with heart failure Amy Goldstein PA-C 05/21/2020 I35.0 Nonrheumatic aortic (valve) sten osis Amy Goldstein PA-C 05/21/2020 Z95.3 Presence of xenogenic heart valv e Amy Goldstein PA-C 05/21/2020 R94.31 Abnormal electrocardiogram [ECG] [EKG] Amy Goldstein PA-C 05/21/2020 I44.7 Left bundle-branch block, unspec ified Amy Goldstein PA-C 05/21/2020 E78.00 Pure hypercholesterolemia, unspe cified Amy Goldstein PA-C 05/21/2020 I65.23 Occlusion and stenosis of bilate ral carotid arteries Amy Goldstein PA-C 05/21/2020 Z71.3 Dietary counseling and surveilla maru Goldstein PA-C 03/01/2020 I50.32 Chronic diastolic (congestive) h eart failure Amy Goldstein PA-C Plan of Treatment Future Appointment(s):* 08/20/2020 9:30 am - Amy Goldstein PA-C at Main Office 05/21/2020 - Amy Goldstein PA-C* I48.3 Typical atrial flutter * I50.32 Chronic diastolic (congestive) heart failure* New Labs:* Basic Metabolic Panel (8), Scheduled: 08/20/20 * Recommendations:* Follow a 2 grams sodium diet and 50 ounces fluid restriction per 24 hour and do daily weights. Call the office for weight gain of 3 lbs or more. * I11.0 Hypertensive heart disease with heart failure * I35.0 Nonrheumatic aortic (valve) stenosis * Z95.3 Presence of xenogenic heart valve* Recommendations:* You require antibiotics prior to any dental work and some surgical procedures. * R94.31 Abnormal electrocardiogram [ECG] [EKG] * I44.7 Left bundle-branch block, unspecified * E78.00 Pure hypercholesterolemia, unspecified * I65.23 Occlusion and stenosis of bilateral carotid arteries * Z71.3 Dietary counseling and surveillance* Recommendations:* Follow a low fat/low cholesterol diet and do as much aerobic exercise as you can tolerate. * All * Follow up:* 3 month CV/CHF check. Functional Status Functional Condition Comment Date Status Independent with all ADL's Activ e Mental Status Description No Information Available Referrals Description No Information Available
--- OUTSIDE RECORDS SUMMARY | 2020-08-05 12:49 | CCD | Continuity of Care Document ---
Author Author Telma BEE M.D. Organization Unknown Address [address] [facility] [address] [place] [address] Phone [phone] Problems Active Problems Provider Date Atrial flutter [...] 10mg qd 3tabs Pacheco Bee M.D. 04/23/2020 Torsemide 10mg Tablets 1 by mouth every day 30tabs Unknown 07/31/2019 Shingrix 50mcg Suspension Rec as directed 1units Kem Bee M.D. 01/19/2018 Atorvastatin Calcium 20mg Tablets take one tablet by mouth every day 90tabs Kem Bee M.D . 12/30/2015 Saline Mist [place] 0.65% Solution 1 spray in nose every 4 hours as needed Unknown Preservision Areds 2 Areds 2 Capsu [...] Loraine Aspirin Ec Low Dose 81mg Tab lets as directed Unknown Epinastine HCL 0.05% Solution [...] CPT Code Status Date Vaccine Lot # 76756 Given 04/15/2020 Influenza Virus Vaccine, Quadrivalent, Slit Virus, Im Use 3Y & Up [id number] Given 03/01/2019 Influenza Virus Vaccine, Quadrivalent, Slit Virus, Im Use 3Y & Up [id number] Given 01/10/2016 Prevnar 13 Pneum o. Conj Ped. Vaccine 13 Valent (PCV13) For Im Use Vital Signs Date Vital Result Comment 05/10/2020 11:06am BP Systolic 116 mmHg BP Diastolic 62 mmHg Body Temperature 97.4 F Heart Rate 76 /min Respiratory Rate 16 /min Height 63.5 inches 5'3.50" Weight 152.00 lb [place] Body Weight 115 lb BMI (Body Mass Index) 26.5 kg/m2 O2 % BldC Oximetry 96 % 04/23/2020 11:07am BP Systolic 124 mmHg BP Diastolic 76 mmHg Body Temperature 97.5 F Heart Rate 82 /min Respiratory Rate 16 /min Height 63.5 inches 5'3.50" Weight 153.00 lb [place] Body Weight 115 lb BMI (Body Mass [...] High 0-738 3 Istat Chem8+ Panel 04/18/2020 [facility] (I nterface) [phone] iSTAT HCT 33.0 % Low 38.0-51.0 iSTAT Glucose 137 mg/dL High 70-105 iSTAT Sodium 140 mEq/L Normal 136-145 iSTAT Potassium 3.0 mEq/L Low 3.5-5.1 iSTAT CA++ 4.6 mg/dL Normal 4.5-5.3 iSTAT Chloride 101 mEq/L Normal 98-109 iSTAT Co2 24.0 MM/L Normal 23.0-27.0 iSTAT BUN 24 mg/dL Normal 8-26 iSTAT Creatinine 1.3 mg/dL Normal 0.6-1.3 Prothrombin Time/Inr 04/18/2020 [facility] ( Interface) [phone] Prothrombin Time 18.2 seconds High 12.5-14.3 Inr [...] 2.5-3.5 Procedures Date Code Description Status 12/25/2015 [id number] Mammogram Completed Medical Devices Description No Information Available Encounters Type Date Location Provider Dx Diagnosis Office Visit 05/10/2020 10:00a [facility] Kem Bee M. D. I50.9 Heart failure, unspecified Office Visit 04/23/2020 11:15a [facility] Kem Bee M. D. I50.9 Heart failure, unspecified R04.0 Epistaxis Office Visit 04/15/2020 3:20p [facility] Kem Bee M. D. R05 Cough Z23 Encounter for immunization Office Visit 12/12/2019 10:00a [facility] Kem Bee M. D. E78.5 Hyperlipidemia, unspecified I10 Essential (primary) hyperten chris R73.01 Impaired fasting glucose I50.9 Heart failure, unspecified Assessments Date Code Description Provider 05/10/2020 I50.9 Heart failure, unspecified Kem Matamoros [...] Abernathy M.D. 12/12/2019 I50.9 Heart failure, unspecified Kem Matamoros M.D. Plan of Treatment Future Appointment(s):* 06/12/2020 11:00 am - Kem Bee M.D. at [facility] Functional Status Description No Information Available Mental Status Description No Information Available Referrals Refer to Reason for Referral Status Appt Date [facility] (ENT) severe epistaxis on Eliqui s- eval and rx Sent 04/30/[address] [place] [address] [phone]
--- OUTSIDE RECORDS SUMMARY | 2020-08-05 12:49 | CCD | Continuity of Care Document ---
Author Author Telma BEE M.D. Organization Unknown Address 3 [facility] 3 [place] [address] Phone [phone] Problems Active Problems Provider Date Atrial flutter [...] Kem Bee M.D . 12/30/2015 Saline Mist [place] 0.65% Solution 1 spray in nose every [...] Aspirin Ec Low Dose 81mg Tab lets DR as directed Unknown Epinastine HCL 0.05% Solution [...] CPT Code Status Date Vaccine Lot # [id number] Given 04/15/2020 Influenza Virus Vaccine, Quadrivalent, Slit Virus, Im Use 3Y & Up [id number] 94417 Given 03/01/2019 Influenza Virus Vaccine, Quadrivalent, Slit Virus, Im Use 3Y & Up [id number] 94653 Given 01/10/2016 Prevnar 13 Pneum o. Conj Ped. Vaccine 13 Valent (PCV13) For Im Use Vital Signs Date Vital Result Comment 05/10/2020 11:06am BP Systolic 116 mmHg BP Diastolic 62 mmHg Body Temperature 97.4 F Heart Rate 76 /min Respiratory Rate 16 /min Height 63.5 inches 5'3.50" Weight 152.00 lb [place] Body Weight 115 lb BMI (Body Mass Index) 26.5 kg/m2 O2 % BldC Oximetry 96 % 04/23/2020 11:07am BP Systolic 124 mmHg BP Diastolic 76 mmHg Body Temperature 97.5 F Heart Rate 82 /min Respiratory Rate 16 /min Height 63.5 inches 5'3.50" Weight 153.00 lb [place] Body Weight 115 lb BMI (Body Mass [...] High 0-738 2 Istat Chem8+ Panel 04/18/2020 [facility] [phone] iSTAT HCT 33.0 % Low 38.0-51.0 iSTAT Glucose 137 mg/dL High 70-105 iSTAT Sodium 140 mEq/L Normal 136-145 iSTAT Potassium 3.0 mEq/L Low 3.5-5.1 iSTAT CA++ 4.6 mg/dL Normal 4.5-5.3 iSTAT Chloride 101 mEq/L Normal 98-109 iSTAT Co2 24.0 MM/L Normal 23.0-27.0 iSTAT BUN 24 mg/dL Normal 8-26 iSTAT Creatinine 1.3 mg/dL Normal 0.6-1.3 Prothrombin Time/Inr 04/18/2020 [facility] ( Interface) [phone] Prothrombin Time 18.2 seconds High 12.5-14.3 Inr [...] eGFR 45 # Calc 5 eGFR Non-Afr. Mal[place]ian 39 # Calc 6 Lipid Panel 12/05/2019 [...] HCT IS 5% LESS SOURCE FOR DATA: [employer] 1800 OPERATION MANUAL( AUTOMATED BLOOD COUNTS AND [...] CKD-EPI Procedures Date Code Description Status 12/25/2015 [id number] Mammogram Completed Medical Devices Description No Information Available Encounters Type Date Location Provider Dx Diagnosis Office Visit 05/10/2020 10:00a [facility] Kem Bee M. D. I50.9 Heart failure, unspecified Office Visit 04/23/2020 11:15a [facility] Kem Bee M. D. I50.9 Heart failure, unspecified R04.0 Epistaxis Office Visit 04/15/2020 3:20p [facility] Kem Bee M. D. R05 Cough Z23 Encounter for immunization Office Visit 12/12/2019 10:00a [facility] Kem Bee M. D. E78.5 Hyperlipidemia, unspecified I10 Essential (primary) hyperten chris R73.01 Impaired fasting glucose I50.9 Heart failure, unspecified Assessments Date Code Description Provider 05/10/2020 I50.9 Heart failure, unspecified Vitor Kem levin M.D. 04/23/2020 I50.9 Heart failure, unspecified Vinnie Beaver, RPA 04/23/2020 I50.9 Heart failure, unspecified Vitor Kem levin M.D. 04/23/2020 R04.0 Epistaxis Vinnie Felix, RPA 04/23/2020 R04.0 Epistaxis Kem Bee M.D. 04/15/2020 R05 Cough Kem Bee M.D. 04/15/2020 Z23 Encounter for immunization Kem Matamoros M.D. 12/12/2019 E78.5 Hyperlipidemia, unspecified [facility] helKem ba M.D. 12/12/2019 I10 Essential (primary) hypertension Kem Bee M.D. 12/12/2019 R73.01 Impaired fasting glucose Kem Abernathy M.D. 12/12/2019 I50.9 Heart failure, unspecified Kem Matamoros M.D. 12/05/2019 E78.5 Hyperlipidemia, unspecified [facility] Kem andrew M.D. Plan of Treatment Future Appointment(s):* 06/12/2020 11:00 am - Kem Bee M.D. at [facility] Functional Status Description No Information Available Mental Status Description No Information Available Referrals Refer to Reason for Referral Status Appt [facility] severe epistaxis on Eliqui s- eval and rx Sent 04/30/[address] [place] [address] [phone]
--- OUTSIDE RECORDS SUMMARY | 2020-08-05 12:50 | CCD ---
Continuity of Care Document (CCD) Created on: 05/09/2020 Canelo Telma External Reference #: [id number] : [id number] Sex: Female Author Author Telma ARORA MD Organization Unknown Address [address] [place] [address] Phone [phone] Care Team Providers Care Respiratory Physician Name Role Phone Kem Bee M.D. AUTM [phone] Problems Active Problems Provider Date Essential hypertension [...] Available Vital Signs Date Vital Result Comment 05/09/2020 10:52am Height 63.5 inches 5'3.50" Weight 148.00 lb BMI (Body Mass Index) 25.8 kg/m2 [place] Body Weight 115 lb Weight 67.133 kg BSA (Body Surface Area) 1.71 m2 04/30/2020 9:31am Height 63.5 inches 5'3.50" Weight 148.00 lb BMI (Body Mass Index) 25.8 kg/m2 [place] Body Weight 115 lb Weight 67.133 kg BSA (Body Surface Area) 1.71 m2 Results Description No Information Available Procedures Description No Information Available Medical Devices Description No Information Available Encounters Type Date Location Provider Dx Diagnosis Office Visit 04/30/2020 9:30a [facility] Rowdy leroy MD R04.0 Epistaxis Assessments Date Code Description Provider 04/30/2020 R04.0 Epistaxis Rowdy Arora MD Plan of Treatment Future Appointment(s):* 05/30/2020 11:00 am - Rowdy Arora MD at [facility] 04/30/2020 - Rowdy Arora MD* R04.0 Epistaxis* Recommendations:* Abx Saline rinses Recheckl * All * New Medication:* Cipro 500 mg - 1 by mouth twice a day Functional Status Description No Information Available Mental Status Description No Information Available Referrals Refer to Reason for Referral Status Appt Date Rowdy Arora M.D. EPISTAXIS Scheduled 04/30/2020 [facility] [address] [address] [phone]
--- OUTSIDE RECORDS SUMMARY | 2020-08-05 12:51 | CCD ---
Author Author [facility] Organization [facility] Address Unknown Phone Unavailable Care Team Providers Care Quirk Sander Name Role Phone Lotus Goldstein Unavailable Unavailable Lotus Goldstein Unavailable Unavailable Lotus Goldstein Unavailable Unavailable Lotus Goldstein Unavailable Unavailable Lotus Goldstein Unavailable Unavailable Lotus Goldstein Unavailable Unavailable Lotus Goldstein Unavailable Unavailable Lotus Goldstein Unavailable Unavailable Lotus Goldstein Unavailable Unavailable Lotus Goldstein Unavailable Unavailable Lotus Goldstein Unavailable Unavailable Lotus Goldstein Unavailable Unavailable Lotus Goldstein Unavailable Unavailable Lotus Goldstein Unavailable Unavailable Symenow, Lotus Amy PA Unavailable Unavailable Symenow, Lotus Amy PA Unavailable Unavailable Symenow, Lotus Amy PA Unavailable Unavailable Symenow, Lotus Amy PA Unavailable Unavailable Symenow, Lotus Amy PA Unavailable Unavailable Symenow, Lotus Amy PA Unavailable Unavailable Symenow, Lotus Amy PA Unavailable Unavailable Symenow, Lotus Amy PA Unavailable Unavailable Symenow, Lotus Amy PA Unavailable Unavailable Symenow, Lotus Amy PA Unavailable Unavailable Symenow, Lotus Amy PA Unavailable Unavailable Symenow, Lotus Amy PA Unavailable Unavailable Symenow, Lotus Amy PA Unavailable Unavailable Symenow, Lotus Amy PA Unavailable Unavailable Symenow, Lotus Amy PA Unavailable Unavailable Symenow, Lotus Amy PA Unavailable Unavailable Symenow, Lotus Amy PA Unavailable Unavailable Symenow, Lotus Amy PA Unavailable Unavailable Symenow, Lotus Amy PA Unavailable Unavailable Symenow, Lotus Amy PA Unavailable Unavailable Symenow, Lotus Amy PA Unavailable Unavailable Symenow, Lotus Amy PA Unavailable Unavailable Jered VENEGAS MD Unavailable Unavailable Jered VENEGAS MD Unavailable Unavailable Jered VENEGAS MD Unavailable Unavailable Jered VENEGAS MD Unavailable Unavailable Jered VENEGAS MD Unavailable Unavailable Jered VENEGAS MD Unavailable Unavailable Jered VENEGAS MD Unavailable Unavailable Jered VENEGAS MD Unavailable Unavailable Jered VENEGAS MD Unavailable Unavailable Jered VENEGAS MD Unavailable Unavailable Jered VENEGAS MD Unavailable Unavailable Jered VENEGAS MD Unavailable Unavailable Jered VENEGAS MD Unavailable Unavailable Jered VENEGAS MD Unavailable Unavailable Jered VENEGAS MD Unavailable Unavailable Jered VENEGAS MD Unavailable Unavailable Jered VENEGAS MD Unavailable Unavailable Jered VENEGAS MD Unavailable Unavailable Jered VENEGAS MD Unavailable Unavailable Jered VENEGAS MD Unavailable Unavailable Jered VENEGAS MD Unavailable Unavailable Jered VENEGAS MD Unavailable Unavailable Jered VENEGAS MD Unavailable Unavailable Jered VENEGAS MD Unavailable Unavailable Jered VENEGAS MD Unavailable Unavailable Jered VENEGAS MD Unavailable Unavailable Jered VENEGAS MD Unavailable Unavailable Jered VENEGAS MD Unavailable Unavailable Jered VENEGAS MD Unavailable Unavailable Jered VENEGAS MD Unavailable Unavailable Jered VENEGAS MD Unavailable Unavailable Jered VENEGAS MD Unavailable Unavailable Jered VENEGAS MD Unavailable Unavailable THEO H TOMMY MTZ Unavailable Unavailable THEO H TOMMY MTZ Unavailable Unavailable THEO H TOMMY MTZ Unavailable Unavailable THEO H TOMMY MTZ Unavailable Unavailable THEO H TOMMY MTZ Unavailable Unavailable THEO H TOMMY MTZ Unavailable Unavailable THEO H TOMMY MTZ Unavailable Unavailable THEO H TOMMY MTZ Unavailable Unavailable THEO H TOMMY MTZ Unavailable Unavailable THEO, H TOMMY MTZ Unavailable Unavailable THEO, H TOMMY MTZ Unavailable Unavailable THEO H TOMMY MTZ Unavailable Unavailable THEO, H TOMMY MTZ Unavailable Unavailable THEO, H TOMMY MTZ Unavailable Unavailable THEO H TOMMY MTZ Unavailable Unavailable THEO H TOMMY MTZ Unavailable Unavailable THEO H TOMMY MTZ Unavailable Unavailable THEO H TOMMY MTZ Unavailable Unavailable THEO, H TOMMY MTZ Unavailable Unavailable THEO, H TOMMY MTZ Unavailable Unavailable THEO, H TOMMY MTZ Unavailable Unavailable THEO, H TOMMY MTZ Unavailable Unavailable Jered VENEGAS MD Unavailable Unavailable Jered VENEGAS MD Unavailable Unavailable THEO H TMOMY MTZ Unavailable Unavailable THEO H TOMMY MTZ Unavailable Unavailable Jered VENEGAS MD Unavailable Unavailable THEO H TOMMY MTZ Unavailable Unavailable THEO H TOMMY MTZ Unavailable Unavailable THEO H TOMMY MTZ Unavailable Unavailable Jered VENEGAS MD Unavailable Unavailable Jered VENEGAS MD Unavailable Unavailable Jered VENEGAS MD Unavailable Unavailable Jered VENEGAS MD Unavailable Unavailable Jered VENEGAS MD Unavailable Unavailable Jered VENEGAS MD Unavailable Unavailable THEO H TOMMY MTZ Unavailable Unavailable Jered VENEGAS MD Unavailable Unavailable Jered VENEGAS MD Unavailable Unavailable Jered VENEGAS MD Unavailable Unavailable Jered VENEGAS MD Unavailable Unavailable Jered VENEGAS MD Unavailable Unavailable Jered VENEGAS MD Unavailable Unavailable Temo Arora MD Unavailable Unavailable Temo Arora MD Unavailable Unavailable Temo Arora MD Unavailable Unavailable Temo Arora MD Unavailable Unavailable Temo Arora MD Unavailable Unavailable Temo Arora MD Unavailable Unavailable Temo Arora MD Unavailable Unavailable Temo Arora MD Unavailable Unavailable Temo Arora MD Unavailable Unavailable Temo Arora MD Unavailable Unavailable Temo Arora MD Unavailable Unavailable Temo Arora MD Unavailable Unavailable Temo Arora MD Unavailable Unavailable Temo Arora MD Unavailable Unavailable Temo Arora MD Unavailable Unavailable Temo Arora MD Unavailable Unavailable Temo Arora MD Unavailable Unavailable Temo Arora MD Unavailable Unavailable Seymour, A Allison TYPO MACHINE OPERATOR Unavailable Unavailable Seymour, A Allison TYPO MACHINE OPERATOR Unavailable Unavailable Seymour, A Allison TYPO MACHINE OPERATOR Unavailable Unavailable Seymour, A Allison TYPO MACHINE OPERATOR Unavailable Unavailable Seymour, A Allison TYPO MACHINE OPERATOR Unavailable Unavailable Seymour, A Allison TYPO MACHINE OPERATOR Unavailable Unavailable Seymour, A Allison TYPO MACHINE OPERATOR Unavailable Unavailable Seymour, A Allison TYPO MACHINE OPERATOR Unavailable Unavailable Seymour, A Allison TYPO MACHINE OPERATOR Unavailable Unavailable Seymour, A Allison TYPO MACHINE OPERATOR Unavailable Unavailable Seymour, A Allison TYPO MACHINE OPERATOR Unavailable Unavailable Seymour, A Allison TYPO MACHINE OPERATOR Unavailable Unavailable Seymour, A Allison TYPO MACHINE OPERATOR Unavailable Unavailable Seymour, A Allison TYPO MACHINE OPERATOR Unavailable Unavailable Seymour, A Allison TYPO MACHINE OPERATOR Unavailable Unavailable Seymour, A Allison TYPO MACHINE OPERATOR Unavailable Unavailable Seymour, A Allison TYPO MACHINE OPERATOR Unavailable Unavailable Seymour, A Allison TYPO MACHINE OPERATOR Unavailable Unavailable Seymour, A Allison TYPO MACHINE OPERATOR Unavailable Unavailable Seymour, A Allison TYPO MACHINE OPERATOR Unavailable Unavailable Seymour, A Allison TYPO MACHINE OPERATOR Unavailable Unavailable Seymour, A Allison TYPO MACHINE OPERATOR Unavailable Unavailable Seymour, A Allison TYPO MACHINE OPERATOR Unavailable Unavailable Seymour, A Allison TYPO MACHINE OPERATOR Unavailable Unavailable Seymour, A Allison TYPO MACHINE OPERATOR Unavailable Unavailable Seymour, A Allison TYPO MACHINE OPERATOR Unavailable Unavailable Seymour, A Allison TYPO MACHINE OPERATOR Unavailable Unavailable Seymour, A Allison TYPO MACHINE OPERATOR Unavailable Unavailable Seymour, A Allison TYPO MACHINE OPERATOR Unavailable Unavailable Seymour, A Allison TYPO MACHINE OPERATOR Unavailable Unavailable Seymour, A Allison TYPO MACHINE OPERATOR Unavailable Unavailable Seymour, A Allison TYPO MACHINE OPERATOR Unavailable Unavailable Seymour, A Allison TYPO MACHINE OPERATOR Unavailable Unavailable Seymour, A Allison TYPO MACHINE OPERATOR Unavailable Unavailable Seymour, A Allison TYPO MACHINE OPERATOR Unavailable Unavailable Seymour, A Allison TYPO MACHINE OPERATOR Unavailable Unavailable Seymour, A Allison TYPO MACHINE OPERATOR Unavailable Unavailable Seymour, A Allison TYPO MACHINE OPERATOR Unavailable Unavailable Seymour, A Allison TYPO MACHINE OPERATOR Unavailable Unavailable Seymour, A Allison TYPO MACHINE OPERATOR Unavailable Unavailable Seymour, A Allison TYPO MACHINE OPERATOR Unavailable Unavailable Seymour, A Allison TYPO MACHINE OPERATOR Unavailable Unavailable Seymour, A Allison TYPO MACHINE OPERATOR Unavailable Unavailable Seymour, A Allison TYPO MACHINE OPERATOR Unavailable Unavailable Re-disclosure Warning The records that you are about to access may contain information from federally-assisted alcohol or drug abuse programs. If such information is present, then the following federally mandated warning applies: This information has been disclosed to you from records protected by federal confidentiality rules (42 CFR part 2). The federal rules prohibit you from making any further disclosure of this information unless further disclosure is expressly permitted by the written consent of the person to whom it pertains or as otherwise permitted by 42 CFR part 2. A general authorization for the release of medical or other information is NOT sufficient for this purpose. The Federal rules restrict any use of the information to criminally investigate or prosecute any alcohol or drug abuse patient.The records that you are about to access may contain highly sensitive health information, the redisclosure of which is protected by Article 27-F of the [facility] Public Health law. If you continue you may have access to information: Regarding HIV / AIDS; Provided by facilities licensed or operated by the [facility] Office of Mental Health; or Provided by the [facility] Office for People With Developmental Disabilities. If such information is present, then the following [facility] mandated warning applies: This information has been disclosed to you from confidential records which are protected by state law. State law prohibits you from making any further disclosure of this information without the specific written consent of the person to whom it pertains, or as otherwise permitted by law. Any unauthorized further disclosure in violation of state law may result in a fine or penitentiary sentence or both. A general authorization for the release of medical or other information is NOT sufficient authorization for further disc losure. Family History Family Member Name Family Member Gender Family Member Status Date o f Status Description Data Source(s) Unknown Unknown Problem [facility] Unknown Unknown Problem [facility] ([facility] Encounters Encounter Providers Location Date Indications Data Source(s ) Outpatient Attender: TOMMY [place] [facility] 10:15:00 AM EST [facility] Outpatient Attender: TOM[facility] [place] [facility] 12:15:00 PM EST [facility] ([facility] Outpatient Attender: TOMMY [place] [facility] 10:00:00 AM EST [facility] ([facility] Outpatient Attender: Rowdy Hernandez/Tanisha/Denzel/Re indl 05/30/2020 10:00:00 AM EST [facility] ([facility] Outpatient Attender: Amy ENGILSH Main Office 05/21/2020 08:45:00 AM EST [facility] ([facility]) Outpatient Attender: TOMMY [place] [facility] 09:00:00 AM EST [facility] ([facility] Outpatient Attender: Rowdy Hernandez/Tanisha/Denzel/Re indl 04/30/2020 08:30:00 AM EST [facility] ([facility] Outpatient Attender: TOMMY [place] [facility] 08/2019 10:15:00 AM EST [facility] ([facility] Outpatient Attender: TOMMY [place] [facility] 03:20:00 PM EDT [facility] ([facility] Outpatient Attender: Amy ENGLISH Main Office 03/01/2020 03:15:00 PM EDT MED[facility] ([facility]) Outpatient Attender: TOMMY [place] [facility] 10:00:00 AM EDT [facility] ([facility] Outpatient Attender: Amy ENGLISH Main Office 11/16/2019 10:15:00 AM EDT MED[facility] ([facility]) Outpatient Attender: TOMMY [place] [facility] 04/2020 10:40:00 AM EDT [facility] ([facility] Outpatient Attender: TOMMY [place] [facility] 10:30:00 AM EST [facility] ([facility] Outpatient Attender: Amy ENGLISH Main Office 08/03/2019 06:45:00 AM EST MED[facility] ([facility]) Outpatient Attender: Allison COTTRELLP 07/26/2019 11:22 :00 AM EST [facility] 0 12:00:00 AM EST eCW1 ([facility]) Immunizations Vaccine Date Status Description Data Source(s) New in 2013. IIV4 04/15/2020 03:50:00 PM EDT completed [facility] ([facility] Medications Medication Brand Name Start Date Product Form Dose Route Admi nistrative Instructions Pharmacy Instructions Status Indications Reaction Description Data Source(s) Potassium Chloride 10 MEQ Extended Release Oral Tablet Potas sium Chloride ER 07/16/2020 12:00:00 AM EST ORAL active MED[facility] ([facility] Potassium Chloride 10 MEQ Extended Release Oral Tablet POTAS SIUM CHLORIDE 07/16/2020 12:00:00 AM EST tablet extended release 90 TAKE ONE TABLET BY MOUTH EVERY DAY TAKE ONE TABLET BY MOUTH EVERY DAY SOLD: 07/16/2020 [facility] ferrous sulfate 325 MG Oral Tablet Iron (Ferrous Sulfate) 12:00:00 AM EST ORAL active MED[facility] ([facility] Sodium Chloride 0.111 MEQ/ML Nasal [place] [Claude Saline Nasal] Claude 05/20/2020 12:00:00 AM EST active M EDENT ([facility]) Loratadine 10 MG Oral Tablet Loratadine 05/20/2020 12:00:00 AM EST ORAL active [facility] ([facility]) torsemide 10 MG Oral Tablet Torsemide 05/20/2020 12:00:00 AM EST ORAL active [facility] ([facility]) Ciprofloxacin 500 MG Oral Tablet [Cipro] Cipro 04/30/2020 12:00: 00 AM EST ORAL active MEDENT ([facility] 500 mg 04/30/2020 12:00:00 AM EST tablet 14 TAKE ONE TABLET BY MOUTH TWICE A DAY TAKE ONE TABLET BY MOUTH TWICE A DAY SOLD: 04/30/2020 [facility] torsemide 20 MG Oral Tablet Torsemide 04/23/2020 12:00:00 AM EST ORAL completed MEDENT ([facility] 20 mg 04/23/2020 12:00:00 AM EST tablet 3 TAKE ONE TABLET BY MOUTH EVERY DAY FOR 3 DAYS THEN RETURN TO 10MG DAILY TAKE ONE TABLET BY MOUTH EVERY DAY FOR 3 DAYS THEN RETURN TO 10MG DAILY SOLD: 04/23/2020 [facility] 10 mg 08/24/2019 12:00:00 AM EST tablet 30 TAKE ONE TABLET BY MOUTH EVERY DAY TAKE ONE TABLET BY MOUTH EVERY DAY SOLD: 08/28/2019 [facility] torsemide 10 MG Oral Tablet Torsemide 08/02/2019 12:00:00 AM EST ORAL active [facility] ([facility]) Camphor 0.03 MG/MG / Menthol 0.03 MG/MG Topical Gel [RAHUL Warm Pain Relieving Gel] Rahul Natural Pain Relieving 08/02/2019 12:00:00 AM EST active [facility] 10 mg 07/31/2019 12:00:00 AM EST tablet 30 TAKE ONE TABLET BY MOUTH EVERY DAY TAKE ONE TABLET BY MOUTH EVERY DAY SOLD: 07/31/2019 [facility] torsemide 10 MG Oral Tablet Torsemide 07/31/2019 12:00:00 AM EST ORAL active MED[facility] ([facility] Spironolactone 25 MG Oral Tablet Spironolactone 07/31/2019 12:00:00 A M EST ORAL completed [facility] ([facility] 25 mg 07/31/2019 12:00:00 AM EST tablet 30 TAKE ONE-HALF TABLET BY MOUTH EVERY DAY TAKE ONE-HALF TABLET BY MOUTH EVERY DAY SOLD: 07/31/2019 [facility] Spironolactone 25 MG Oral Tablet Spironolactone 07/26/2019 12:00:00 A M EST ORAL completed [facility] ([facility] Prednisone 20 MG Oral Tablet PredniSONE 20 MG PredniSONE 20 MG 07/26/2019 12:00:00 AM EST active 2 tablet s once in the morning with food eCW1 ([facility]) 20 mg 07/26/2019 12:00:00 AM EST tablet 10 TAKE TWO TABLETS BY MOUTH EVERY MORNING WITH FOOD TAKE TWO TABLETS BY MOUTH EVERY MORNING WITH FOOD SOLD : 07/26/2019 [facility] Insurance Providers Payer name Policy type / Coverage type Policy ID Covered libertarian ID Covered libertarian's relationship to savage Policy Savage Plan Information MEDICARE [id number] SP [id number] [facility] [id number] SP [id number] MEDICARE C [id number] S [id number] FOR LIFE O [id number] S [id number] [facility] SERVICES [id number] SPO [id number] [facility] MEDICARE DIVISION [id number] S [id number] [place]ICARE - [place] [id number] S [id number] MEDICARE [id number] SP [id number] A [facility] Adminstrative Ser Commercial [id number] Self [id number] Select - Humana Commercial [id number] Family Dependen t [id number] For Life - [place] Medigap Part B [id number] Family Depen dent [id number] Medicare (Part B) Medicare Primary [id number] Self [id number] Statewide Independent Ppo Commercial [id number] Self [id number] [facility] Adminstrative Ser Commercial [id number] Self [id number] Select - Humana Commercial [id number] Family Dependen t [id number] For Life - [place] Medigap Part B [id number] Family Depen dent [id number] Medicare (Part B) Medicare Primary [id number] Self [id number] [facility] Adminstrative Ser Commercial [id number] Self [id number] Select - Humana Commercial [id number] Family Dependen t [id number] For Life - [place] Medigap Part B [id number] Family Depen dent [id number] Medicare (Part B) Medicare Primary [id number] Self [id number] FOR LIFE [id number] SP [id number] [facility] Adminstrative Ser Commercial [id number] Self [id number] Select - Humana Commercial [id number] Family Dependen t [id number] For Life - [place] Medigap Part B [id number] Family Depen dent [id number] Medicare (Part B) Medicare Primary [id number] Self [id number] [facility] Adminstrative Ser Commercial [id number] Self [id number] Select - Humana Commercial [id number] Family Dependen t [id number] For Life - [place] Medigap Part B [id number] Family Depen dent [id number] Medicare (Part B) Medicare Primary [id number] Self [id number] [place] Adminstrative Ser Commercial [id number] Self [id number] Select - Humana Commercial [id number] Family Dependen t [id number] For Life - [place] Medigap Part B [id number] Family Depen dent [id number] Medicare (Part B) Medicare Primary [id number] Self [id number] MEDICARE [id number] Mary [id number] Q88 [id number] Mary [id number] MEDICARE [id number] Mary [id number] A [facility] Adminstrative Ser Commercial [id number] Self [id number] Select - Humana Commercial [id number] Family Dependen t [id number] For Life - [place] Medigap Part B [id number] Family Depen dent [id number] Medicare (Part B) Medicare Primary [id number] Self [id number] MEDICARE PI PI PI PI [id number] Mary [id number] UNAVAILABLE Mary UNAVAILA [facility] [id number] SPO [id number] [facility] MEDICARE DIVISION [id number] S [id number] MEDICARE - [place] [id number] S [id number] MEDICARE C [id number] S [id number] A Medicare Part B of [facility] Other 0 Se lf 0 Medicare Part B of [facility] Other 0 Se lf 0 [place] Adminstrative Ser Commercial [id number] Self [id number] Select - Humana Commercial [id number] Family Dependen t [id number] For Life - [place] Medigap Part B [id number] Family Depen dent [id number] Medicare (Part B) Medicare Primary [id number] Self [id number] [place] Adminstrative Ser Commercial [id number] Self [id number] Select - Humana Commercial [id number] Family Dependen t [id number] For Life - [place] Medigap Part B [id number] Family Depen dent [id number] Medicare (Part B) Medicare Primary [id number] Self [id number] [place] Adminstrative Ser Commercial [id number] Self [id number] Standard Healthne Commercial [id number] Family Depend ent [id number] For Life - [place] Medigap Part B [id number] Family Depen dent [id number] Medicare (Part B) Medicare Primary [id number] Self [id number] Medicare (Part B) Medicare Primary Self [place] Adminstrative Ser Commercial Self Statewide Independent Ppo Commercial Self Standard Healthne Commercial Family Depend ent For Life - [place] Medigap Part B Family Depen dent For Life WPS Medigap Part B Family Depende nt Medicare Natl Gov't Servi Medicare Primary Self FOR LIFE [id number] SP [id number] Medicare Medicare Primary Self HEALTHNET/ AD S [id number] P [id number] Problems, Conditions, and Diagnoses Code Display Name Description Problem Type Effective Dates Data Source(s) 92141849 Essential hypertension Essential hypertension Problem 04/30/2020 12:00:00 AM EST [facility] ([facility] ) M62.830 Muscle spasm of back MUSCLE SPASM OF BACK Diagnosis 07/26/2019 11:22:00 AM [facility] Surgeries/Procedures Procedure Description Date Indications Data Source(s) ECG ROUTINE ECG W/LEAST 12 LDS W/I&R 05/21/2020 12:00: 00 AM EST MED[facility] ([facility]) ECG ROUTINE ECG W/LEAST 12 LDS W/I&R 11/16/2019 12:00: 00 AM EDT [facility] ([facility]) Results ID Date Data Source [id number] 07/10/2020 11:11:00 AM EST [facility] ([facility] Name Value Range Interpretation Code Description Data Marycarmen rce(s) Supporting Document(s) Glucose [Mass/volume] in Serum or Plasma 122 mg/dL 65-99 Above high normal MED[facility] ([facility] A courtesy copy of this report has been sent to the patient, , BUN 36 mg/dL 8-27 Above high normal [facility] ([facility] A courtesy copy of this report has been sent to the patient, , Creatinine [Mass/volume] in Serum or Plasma 1.34 mg/dL 0.57 -1.00 Above high normal MEDENT ([facility] ) A courtesy copy of this report has been sent to the patient, , eGFR If NonAfricn Am 37 mL/min/1.73 Below low normal MEDENT ([facility] A courtesy copy of this report has been sent to the patient, , Urea nitrogen/Creatinine [Mass Ratio] in Serum or Plasma 27 1 2-28 [facility] ([facility] A courtesy copy of this report has been sent to the patient, , eGFR If Africn Am 43 mL/min/1.73 Below low normal [facility] ([facility] A courtesy copy of this report has been sent to the patient, , Sodium [Moles/volume] in Serum or Plasma 141 mmol/L 134-144 [facility] ([facility] A courtesy copy of this report has been sent to the patient, , Potassium [Moles/volume] in Serum or Plasma 3.4 mmol/L 3.5-5.2 Below low normal MED[facility] ([facility] A courtesy copy of this report has been sent to the patient, , Chloride [Moles/volume] in Serum or Plasma 104 mmol/L 96-106 MED[facility] ([facility] A courtesy copy of this report has been sent to the patient, , Calcium [Mass/volume] in Serum or Plasma 9.0 mg/dL 8.7-10.3 MED[facility] ([facility] A courtesy copy of this report has been sent to the patient, , Carbon dioxide, total [Moles/volume] in Serum or Plasma 23 mmol/L 20 -29 MED[facility] ([facility] A courtesy copy of this report has been sent to the patient, , ID Date Data Source [id number] 07/10/2020 11:11:00 AM EST [facility] ([facility] Name Value Range Interpretation Code Description Data Marycarmen rce(s) Supporting Document(s) Leukocytes [#/volume] in Blood by Automated count 7.8 x10E3/uL 3.4-10 .8 MED[facility] ([facility] A courtesy copy of this report has been sent to the patient, , Hemoglobin [Mass/volume] in Blood 10.2 g/dL 11.1-15.9 Below low nor mal [facility] ([facility] [facility] [place] A courtesy copy of this report has been sent to the patient, , Hematocrit [Volume Fraction] of Blood by Automated count 32.7 % 34.0-46.6 Below low normal [facility] ([facility] [place] ) A courtesy copy of this report has been sent to the patient, , Erythrocytes [#/volume] in Blood by Automated count 3.17 x10E6/u L 3.77-5.28 Below low normal [facility] ([facility] [place] ) A courtesy copy of this report has been sent to the patient, , Erythrocyte mean corpuscular volume [Entitic volume] by Auto mated count 103 fL 79-97 Above high normal [facility] ([facility] A courtesy copy of this report has been sent to the patient, , Erythrocyte mean corpuscular hemoglobin concentration [Mass/volume] by Automated count 31.2 g/dL 31.5-35.7 Below low normal [facility] ([facility] A courtesy copy of this report has been sent to the patient, , Erythrocyte mean corpuscular hemoglobin [Entitic mass] by Automated count 32.2 pg 26.6-33.0 [facility] ([facility] A courtesy copy of this report has been sent to the patient, , Erythrocyte distribution width [Ratio] by Automated count 17.0 % 11.7-15.4 Above high normal [facility] ([facility] ) A courtesy copy of this report has been sent to the patient, , Neutrophils 58 % [facility] ([facility] A courtesy copy of this report has been sent to the patient, , Platelets [#/volume] in Blood by Automated count 144 x10E3/uL 150-450 Below low normal [facility] ([facility] ) A courtesy copy of this report has been sent to the patient, , Lymphs 27 % [facility] ([facility] A courtesy copy of this report has been sent to the patient, , Monocytes/100 leukocytes in Blood by Automated count 12 % [facility] ([facility] A courtesy copy of this report has been sent to the patient, , Eosinophils/100 leukocytes in Blood by Automated count 2 % [facility] ([facility] A courtesy copy of this report has been sent to the patient, , Basophils/100 leukocytes in Blood by Automated count 1 % [facility] ([facility] A courtesy copy of this report has been sent to the patient, , Immature cells [#/volume] in Blood Laboratory test result [facility] ([facility] A courtesy copy of this report has been sent to the patient, , Lymphocytes [#/volume] in Blood 2.1 x10E3/uL 0.7-3.1 [facility] ([facility] A courtesy copy of this report has been sent to the patient, , Neutrophils [#/volume] in Blood by Automated count 4.5 x10E3/uL 1.4-7 .0 [facility] ([facility] A courtesy copy of this report has been sent to the patient, , Basophils [#/volume] in Blood by Automated count 0.1 x10E3/uL 0.0-0.2 [facility] ([facility] A courtesy copy of this report has been sent to the patient, , Eosinophils [#/volume] in Blood by Automated count 0.1 x10E3/uL 0.0-0 .4 [facility] ([facility] A courtesy copy of this report has been sent to the patient, , Monocytes [#/volume] in Blood 0.9 x10E3/uL 0.1-0.9 [facility] ([facility] A courtesy copy of this report has been sent to the patient, , Immature granulocytes [#/volume] in Blood by Automated count 0.0 x10E3/uL 0.0-0.1 [facility] ([facility] A courtesy copy of this report has been sent to the patient, , Immature granulocytes/100 leukocytes in Blood by Automated count 0 % [facility] ([facility] A courtesy copy of this report has been sent to the patient, , Morphology [Interpretation] in Blood Narrative Laboratory test result [facility] ([facility] A courtesy copy of this report has been sent to the patient, , Nucleated erythrocytes/100 leukocytes [Ratio] in Blood by Automated count Laboratory test result [facility] ([facility] A courtesy copy of this report has been sent to the patient, , ID Date Data Source [id number] 07/10/2020 11:11:00 AM EST [facility] ([facility] [facility] Name Value Range Interpretation Code Description Data Marycarmen rce(s) Supporting Document(s) Methylmalonic Acid, Serum 468 nmol/L 0-378 Above high normal [facility] ([facility] [place] A courtesy copy of this report has been sent to the patient, , Disclaimer: Laboratory test result Donald VANG ([facility] [place] A courtesy copy of this report has been sent to the patient, , ID Date Data Source [id number] 07/10/2020 11:11:00 AM EST [facility] ([facility] [employer] Name Value Range Interpretation Code Description Data Marycarmen rce(s) Supporting Document(s) Cobalamin (Vitamin B12) [Mass/volume] in Serum or Plasma 1205 pg/mL 232-1245 [facility] ([facility] [place] A courtesy copy of this report has been sent to the patient, , ID Date Data Source [id number] 07/10/2020 11:11:00 AM EST [facility] ([facility] [employer] [facility] Name Value Range Interpretation Code Description Data Marycarmen rce(s) Supporting Document(s) Iron binding capacity [Mass/volume] in Serum or Plasma 331 ug/dL 250 -450 [facility] ([facility] [place] A courtesy copy of this report has been sent to the patient, , Iron binding capacity.unsaturated [Mass/volume] in Serum or Plasma 274 ug/dL 118-369 [facility] A courtesy copy of this report has been sent to the patient, , Iron [Mass/volume] in Serum or Plasma 57 ug/dL 27-139 [facility] ([facility] [place] A courtesy copy of this report has been sent to the patient, , Iron saturation [Mass Fraction] in Serum or Plasma 17 % 15-55 [facility] ([facility] A courtesy copy of this report has been sent to the patient, , ID Date Data Source [id number] 06/04/2020 11:46:00 AM EST MED[facility] ([facility] Name Value Range Interpretation Code Description Data Marycarmen rce(s) Supporting Document(s) Triglyceride [Mass/volume] in Serum or Plasma 79 mg/dL 0-149 [facility] ([facility] A courtesy copy of this report has been sent to the patient, , Cholesterol [Mass/volume] in Serum or Plasma 66 mg/dL 100-199 Below low normal [facility] ([facility] A courtesy copy of this report has been sent to the patient, , Laboratory test finding (navigational concept) 17 mg/dL 5-40 [facility] ([facility] A courtesy copy of this report has been sent to the patient, , Cholesterol in HDL [Mass/volume] in Serum or Plasma 35 mg/dL Below low normal [facility] ([facility] A courtesy copy of this report has been sent to the patient, , Laboratory test finding (navigational concept) 14 mg/dL 0-99 [facility] ([facility] A courtesy copy of this report has been sent to the patient, , Comment: Laboratory test result [facility] ([facility] A courtesy copy of this report has been sent to the patient, , ID Date Data Source [id number] 06/04/2020 11:46:00 AM EST [facility] ([facility] Name Value Range Interpretation Code Description Data Marycarmen rce(s) Supporting Document(s) Glucose [Mass/volume] in Serum or Plasma 122 mg/dL 65-99 Above high normal [facility] ([facility] A courtesy copy of this report has been sent to the patient, , eGFR If NonAfricn Am 38 mL/min/1.73 Below low normal [facility] ([facility] [place] A courtesy copy of this report has been sent to the patient, , BUN 27 mg/dL 8-27 [facility] ([facility] A courtesy copy of this report has been sent to the patient, , Creatinine [Mass/volume] in Serum or Plasma 1.32 mg/dL 0.57 -1.00 Above high normal [facility] ([facility] [place] ) A courtesy copy of this report has been sent to the patient, , eGFR If Africn Am 44 mL/min/1.73 Below low normal [facility] ([facility] A courtesy copy of this report has been sent to the patient, , Urea nitrogen/Creatinine [Mass Ratio] in Serum or Plasma 20 1 2-28 [facility] ([facility] A courtesy copy of this report has been sent to the patient, , Chloride [Moles/volume] in Serum or Plasma 103 mmol/L 96-106 [facility] ([facility] A courtesy copy of this report has been sent to the patient, , Sodium [Moles/volume] in Serum or Plasma 142 mmol/L 134-144 [facility] ([facility] A courtesy copy of this report has been sent to the patient, , Potassium [Moles/volume] in Serum or Plasma 3.5 mmol/L 3.5-5.2 [facility] ([facility] [place] A courtesy copy of this report has been sent to the patient, , Carbon dioxide, total [Moles/volume] in Serum or Plasma 23 mmol/L 20 -29 [facility] ([facility] A courtesy copy of this report has been sent to the patient, , Calcium [Mass/volume] in Serum or Plasma 9.2 mg/dL 8.7-10.3 [facility] ([facility] A courtesy copy of this report has been sent to the patient, , Globulin [Mass/volume] in Serum by calculation 3.2 g/dL 1.5-4.5 [facility] ([facility] A courtesy copy of this report has been sent to the patient, , Albumin [Mass/volume] in Serum or Plasma 4.0 g/dL 3.7-4.7 [facility] ([facility] A courtesy copy of this report has been sent to the patient, , Protein [Mass/volume] in Serum or Plasma 7.2 g/dL 6.0-8.5 [facility] ([facility] A courtesy copy of this report has been sent to the patient, , Albumin/Globulin [Mass Ratio] in Serum or Plasma 1.3 1.2-2.2 [facility] ([facility] A courtesy copy of this report has been sent to the patient, , Bilirubin.total [Mass/volume] in Serum or Plasma 0.7 mg/dL 0.0-1.2 [facility] ([facility] A courtesy copy of this report has been sent to the patient, , Alkaline phosphatase [Enzymatic activity/volume] in Serum or Plasma 122 IU/L 39-117 Above high normal [facility] ([facility] A courtesy copy of this report has been sent to the patient, , Aspartate aminotransferase [Enzymatic activity/volume] in Serum or Plasma 27 IU/L 0-40 [facility] ([facility] A courtesy copy of this report has been sent to the patient, , Alanine aminotransferase [Enzymatic activity/volume] in Seru m or Plasma 14 IU/L 0-32 [facility] ([facility] A courtesy copy of this report has been sent to the patient, , ID Date Data Source [id number] 06/04/2020 11:46:00 AM EST [facility] ([facility] Name Value Range Interpretation Code Description Data Marycaremn rce(s) Supporting Document(s) Leukocytes [#/volume] in Blood by Automated count 10.1 x10E3/uL 3.4-1 0.8 [facility] ([facility] A courtesy copy of this report has been sent to the patient, , Erythrocytes [#/volume] in Blood by Automated count 3.22 x10E6/u L 3.77-5.28 Below low normal [facility] ([facility] ) A courtesy copy of this report has been sent to the patient, , Hematocrit [Volume Fraction] of Blood by Automated count 31.1 % 34.0-46.6 Below low normal [facility] ([facility] ) A courtesy copy of this report has been sent to the patient, , Hemoglobin [Mass/volume] in Blood 10.0 g/dL 11.1-15.9 Below low nor mal [facility] ([facility] A courtesy copy of this report has been sent to the patient, , Erythrocyte mean corpuscular volume [Entitic volume] by Auto mated count 97 fL 79-97 [facility] ([facility] A courtesy copy of this report has been sent to the patient, , Erythrocyte mean corpuscular hemoglobin concentration [Mass/volume] by Automated count 32.2 g/dL 31.5-35.7 [facility] ([facility] A courtesy copy of this report has been sent to the patient, , Erythrocyte mean corpuscular hemoglobin [Entitic mass] by Automated count 31.1 pg 26.6-33.0 [facility] ([facility] A courtesy copy of this report has been sent to the patient, , Platelets [#/volume] in Blood by Automated count 175 x10E3/uL 150-450 [facility] ([facility] [place] A courtesy copy of this report has been sent to the patient, , Erythrocyte distribution width [Ratio] by Automated count 15.0 % 11.7-15.4 [facility] ([facility] A courtesy copy of this report has been sent to the patient, , Monocytes/100 leukocytes in Blood by Automated count 11 % [facility] ([facility] A courtesy copy of this report has been sent to the patient, , Neutrophils 57 % [facility] ([facility] A courtesy copy of this report has been sent to the patient, , Lymphs 29 % [facility] ([facility] A courtesy copy of this report has been sent to the patient, , Basophils/100 leukocytes in Blood by Automated count 1 % [facility] ([facility] A courtesy copy of this report has been sent to the patient, , Eosinophils/100 leukocytes in Blood by Automated count 2 % [facility] ([facility] A courtesy copy of this report has been sent to the patient, , Immature cells [#/volume] in Blood Laboratory test result [facility] ([facility] A courtesy copy of this report has been sent to the patient, , Neutrophils [#/volume] in Blood by Automated count 5.8 x10E3/uL 1.4-7 .0 [facility] ([facility] A courtesy copy of this report has been sent to the patient, , Lymphocytes [#/volume] in Blood 2.9 x10E3/uL 0.7-3.1 [facility] ([facility] A courtesy copy of this report has been sent to the patient, , Basophils [#/volume] in Blood by Automated count 0.1 x10E3/uL 0.0-0.2 [facility] ([facility] A courtesy copy of this report has been sent to the patient, , Eosinophils [#/volume] in Blood by Automated count 0.2 x10E3/uL 0.0-0 .4 [facility] ([facility] A courtesy copy of this report has been sent to the patient, , Monocytes [#/volume] in Blood 1.1 x10E3/uL 0.1-0.9 Above high norm al [facility] ([facility] A courtesy copy of this report has been sent to the patient, , Immature granulocytes/100 leukocytes in Blood by Automated count 0 % [facility] ([facility] A courtesy copy of this report has been sent to the patient, , Immature granulocytes [#/volume] in Blood by Automated count 0.0 x10E3/uL 0.0-0.1 [facility] A courtesy copy of this report has been sent to the patient, , Morphology [Interpretation] in Blood Narrative Laboratory test result [facility] ([facility] [place] A courtesy copy of this report has been sent to the patient, , Nucleated erythrocytes/100 leukocytes [Ratio] in Blood by Automated count Laboratory test result [facility] ([facility] A courtesy copy of this report has been sent to the patient, , ID Date Data Source [id number] 06/04/2020 10:41:00 AM EST [facility] ([facility] Name Value Range Interpretation Code Description Data Marycarmen rce(s) Supporting Document(s) Triglycerides 79 [facility] ([facility]) Cholesterol 66 100-199 [facility] ([facility]) HDL 35 [facility] Cholesterol in LDL [Mass/volume] in Serum or Plasma by calculation 14 [facility] ([facility]) Chol/HDL Ratio [facility] ID Date Data Source [id number] 06/04/2020 10:41:00 AM EST [facility] ([facility] Name Value Range Interpretation Code Description Data Marycarmen rce(s) Supporting Document(s) Albumin [Mass/volume] in Serum or Plasma 4.0 [facility] ([facility]) Alanine aminotransferase [Enzymatic activity/volume] in Serum or Pl asma 14 [facility] ([facility]) Carbon dioxide, total [Moles/volume] in Serum or Plasma 23 [facility] ([facility]) Chloride [Moles/volume] in Serum or Plasma 103 [facility] ([facility]) Calcium [Mass/volume] in Serum or Plasma 9.2 [facility] ([facility]) Potassium [Moles/volume] in Serum or Plasma 3.5 [facility] ([facility]) Alkaline phosphatase [Enzymatic activity/volume] in Serum or Plasma 1 22 [facility] ([facility]) Aspartate aminotransferase [Enzymatic activity/volume] in Serum or Plasma 27 [facility] ([facility]) Protein [Mass/volume] in Serum or Plasma 7.2 [facility] ([facility]) Sodium 142 [facility] ([facility]) Urea nitrogen [Mass/volume] in Serum or Plasma 27 [facility] ([facility] Glucose 122 65-99 [facility] ([facility]) Creatinine For GFR 1.32 [facility] ([facility]) ID Date Data Source [id number] 06/04/2020 10:41:00 AM EST [facility] ([facility]) Name Value Range Interpretation Code Description Data Marycarmen rce(s) Supporting Document(s) White Blood Count 10.1 3.4-10.8 [facility] ([facility]) Hemoglobin 10.0 11.1-15.9 [facility] ([facility]) Red Blood Count 3.22 3.77-5.28 [facility] ([facility]io [facility]) Platelets 175 150-450 [facility] Hematocrit 31.1 34.0-46.6 [facility] ([facility]) ID Date Data Source [id number] 04/23/2020 12:11:00 PM EST [facility] ([facility] Name Value Range Interpretation Code Description Data Marycarmen rce(s) Supporting Document(s) Natriuretic peptide.B prohormone N-Terminal [Mass/volu me] in Serum or Plasma 7058 pg/mL 0-738 Above high normal [facility] ([facility] A courtesy copy of this report has been sent to the patient, ID Date Data Source [id number] 04/23/2020 12:11:00 PM EST [facility] ([facility] Name Value Range Interpretation Code Description Data Marycarmen rce(s) Supporting Document(s) Glucose [Mass/volume] in Serum or Plasma 152 mg/dL 65-99 Above high normal [facility] ([facility] A courtesy copy of this report has been sent to the patient, BUN 37 mg/dL 8-27 Above high normal [facility] ([facility] A courtesy copy of this report has been sent to the patient, Creatinine [Mass/volume] in Serum or Plasma 1.38 mg/dL 0.57 -1.00 Above high normal [facility] ([facility] ) A courtesy copy of this report has been sent to the patient, eGFR If NonAfricn Am 36 mL/min/1.73 Below low normal [facility] ([facility] A courtesy copy of this report has been sent to the patient, Urea nitrogen/Creatinine [Mass Ratio] in Serum or Plasma 27 1 2-28 [facility] ([facility] [place] A courtesy copy of this report has been sent to the patient, eGFR If Africn Am 42 mL/min/1.73 Below low normal [facility] ([facility] A courtesy copy of this report has been sent to the patient, Sodium [Moles/volume] in Serum or Plasma 134 mmol/L 134-144 [facility] ([facility] A courtesy copy of this report has been sent to the patient, Potassium [Moles/volume] in Serum or Plasma 4.0 mmol/L 3.5-5.2 [facility] ([facility] A courtesy copy of this report has been sent to the patient, Chloride [Moles/volume] in Serum or Plasma 94 mmol/L 96-106 Belo w low normal [facility] ([facility] A courtesy copy of this report has been sent to the patient, Calcium [Mass/volume] in Serum or Plasma 8.9 mg/dL 8.7-10.3 [facility] ([facility] A courtesy copy of this report has been sent to the patient, Carbon dioxide, total [Moles/volume] in Serum or Plasma 26 mmol/L 20 -29 [facility] ([facility] A courtesy copy of this report has been sent to the patient, ID Date Data Source [id number] 04/23/2020 12:11:00 PM EST [facility] ([facility] Name Value Range Interpretation Code Description Data Marycarmen rce(s) Supporting Document(s) Leukocytes [#/volume] in Blood by Automated count 10.0 x10E3/uL 3.4-1 0.8 [facility] ([facility] A courtesy copy of this report has been sent to the patient, Hemoglobin [Mass/volume] in Blood 10.2 g/dL 11.1-15.9 Below low nor mal [facility] ([facility] A courtesy copy of this report has been sent to the patient, Erythrocytes [#/volume] in Blood by Automated count 3.19 x10E6/u L 3.77-5.28 Below low normal [facility] ([facility] ) A courtesy copy of this report has been sent to the patient, Erythrocyte mean corpuscular hemoglobin [Entitic mass] by Automated count 32.0 pg 26.6-33.0 [facility] A courtesy copy of this report has been sent to the patient, Erythrocyte mean corpuscular volume [Entitic volume] by Auto mated count 98 fL 79-97 Above high normal [facility] ([facility] A courtesy copy of this report has been sent to the patient, Hematocrit [Volume Fraction] of Blood by Automated count 31.2 % 34.0-46.6 Below low normal [facility] ([facility] ) A courtesy copy of this report has been sent to the patient, Erythrocyte mean corpuscular hemoglobin concentration [Mass/volume] by Automated count 32.7 g/dL 31.5-35.7 [facility] ([facility] A courtesy copy of this report has been sent to the patient, Platelets [#/volume] in Blood by Automated count 208 x10E3/uL 150-450 [facility] ([facility] A courtesy copy of this report has been sent to the patient, Erythrocyte distribution width [Ratio] by Automated count 13.4 % 11.7-15.4 [facility] ([facility] A courtesy copy of this report has been sent to the patient, Neutrophils 68 % [facility] ([facility] A courtesy copy of this report has been sent to the patient, Monocytes/100 leukocytes in Blood by Automated count 13 % [facility] ([facility] A courtesy copy of this report has been sent to the patient, Lymphs 17 % [facility] ([facility] A courtesy copy of this report has been sent to the patient, Eosinophils/100 leukocytes in Blood by Automated count 1 % [facility] ([facility] [place] [facility] A courtesy copy of this report has been sent to the patient, Basophils/100 leukocytes in Blood by Automated count 1 % [facility] ([facility] [place] [facility] A courtesy copy of this report has been sent to the patient, Immature cells [#/volume] in Blood Laboratory test result [facility] ([facility] [place] [facility] A courtesy copy of this report has been sent to the patient, Neutrophils [#/volume] in Blood by Automated count 6.8 x10E3/uL 1.4-7 .0 [facility] ([facility] A courtesy copy of this report has been sent to the patient, Monocytes [#/volume] in Blood 1.3 x10E3/uL 0.1-0.9 Above high norm al [facility] ([facility] A courtesy copy of this report has been sent to the patient, Lymphocytes [#/volume] in Blood 1.7 x10E3/uL 0.7-3.1 [facility] ([facility] A courtesy copy of this report has been sent to the patient, Immature granulocytes/100 leukocytes in Blood by Automated count 0 % [facility] ([facility] [place] [facility] A courtesy copy of this report has been sent to the patient, Eosinophils [#/volume] in Blood by Automated count 0.1 x10E3/uL 0.0-0 .4 [facility] ([facility] A courtesy copy of this report has been sent to the patient, Basophils [#/volume] in Blood by Automated count 0.1 x10E3/uL 0.0-0.2 [facility] ([facility] [place] [facility] A courtesy copy of this report has been sent to the patient, Nucleated erythrocytes/100 leukocytes [Ratio] in Blood by Automated count Laboratory test result [facility] ([facility] A courtesy copy of this report has been sent to the patient, Immature granulocytes [#/volume] in Blood by Automated count 0.0 x10E3/uL 0.0-0.1 [facility] ([facility] A courtesy copy of this report has been sent to the patient, Morphology [Interpretation] in Blood Narrative Laboratory test result [facility] ([facility] A courtesy copy of this report has been sent to the patient, ID Date Data Source [id number] 04/23/2020 10:56:00 AM EST [facility] ([facility]) Name Value Range Interpretation Code Description Data Marycarmen rce(s) Supporting Document(s) Calcium [Mass/volume] in Serum or Plasma 8.9 [facility] ([facility]) Sodium 134 [facility] ([facility]) Potassium [Moles/volume] in Serum or Plasma 4.0 [facility] ([facility]) Chloride [Moles/volume] in Serum or Plasma 94 [facility] ([facility]) Carbon dioxide, total [Moles/volume] in Serum or Plasma 26 [facility] ([facility]) Glucose 152 65-99 [facility] ([facility]) Blood Urea Nitrogen 37 8-27 [facility] (Ca rdiology [facility]) Creatinine 1.38 0.57-1.00 [facility] ([facility]) Glomerular filtration rate/1.73 sq M.pre dicted [Volume Rate/Area] in Serum or Plasma by Creatinine-based formula (MDRD) 36 [facility] ([facility]) ID Date Data Source [id number] 04/18/2020 04:05:00 PM EDT [facility] ([facility] Name Value Range Interpretation Code Description Data Marycarmen rce(s) Supporting Document(s) Laboratory test finding (navigational concept) 137 mg/dL 7 0-105 Above high normal [facility] ([facility] ) Laboratory test finding (navigational concept) 33.0 % 3 8.0-51.0 Below low normal [facility] ([facility] ) Laboratory test finding (navigational concept) 140 meq/L 1 36-145 Normal (applies to non-numeric results) [facility] ([facility] Laboratory test finding (navigational concept) 3.0 meq/L 3 .5-5.1 Below low normal [facility] ([facility] ) Laboratory test finding (navigational concept) 101 meq/L 9 8-109 Normal (applies to non-numeric results) [facility] ([facility] Laboratory test finding (navigational concept) 4.6 mg/dL 4 .5-5.3 Normal (applies to non-numeric results) [facility] ([facility] Laboratory test finding (navigational concept) 1.3 mg/dL 0 .6-1.3 Normal (applies to non-numeric results) [facility] ([facility] Laboratory test finding (navigational concept) 24 mg/dL 8 -26 Normal (applies to non-numeric results) [facility] ([facility]) Laboratory test finding (navigational concept) 24.0 MM/L 2 3.0-27.0 Normal (applies to non-numeric results) [facility] ([facility] ID Date Data Source [id number] 04/18/2020 04:02:00 PM EDT [facility] ([facility] Name Value Range Interpretation Code Description Data Marycarmen rce(s) Supporting Document(s) Inr 1.48 Normal (applies to non-numeric resul ts) [facility] ([facility] THERAPUTIC HUMAN INR VALUES INDICATIONS NORMAL RANGES PROPHYLAXIS/TREATMENT OF: VENOUS THROMBOSIS 2.0-3.0 PULMONARY EMBOLISM 2.0-3.0 PREVENTION OF SYSTEMIC EMBOLISM FROM: TISSUE HEART VALVES 2.0-3.0 ACUTE MYOCARDIAL INFARCTION 2.0-3.0 VALVULAR HEART DISEASE 2.0-3.0 ATRIAL FIBRILLATION 2.0-3.0 MECHANICAL VALVES(HIGH RISK) 2.5-3.5 RECURRENT MYOCARDIAL INFARCTION 2.5-3.5 Prothrombin Time 18.2 s 12.5-14.3 Above high normal M EDENT ([facility] ID Date Data Source [id number] 12/05/2019 04:07:00 PM EDT [facility] ([facility]) Name Value Range Interpretation Code Description Data Marycarmen rce(s) Supporting Document(s) Triglycerides 88 40-160 [facility] ([facility]iolo gy [facility]) Cholesterol 96 [facility] (Cardiology [facility]) Cholesterol in LDL [Mass/volume] in Serum or Plasma by calculation 31 [facility] ([facility]) HDL 31 35-59 [facility] Chol/HDL Ratio 2.0 [facility] ([facility]iol ogy [facility]) ID Date Data Source [id number] 12/05/2019 04:07:00 PM EDT [facility] ([facility]) Name Value Range Interpretation Code Description Data Marycarmen rce(s) Supporting Document(s) Albumin [Mass/volume] in Serum or Plasma 4.0 [facility] ([facility]) Alanine aminotransferase [Enzymatic activity/volume] in Serum or Pl asma 16 [facility] ([facility]) Calcium [Mass/volume] in Serum or Plasma 9.3 [facility] ([facility]) Carbon dioxide, total [Moles/volume] in Serum or Plasma 25.2 [facility] ([facility]) Chloride [Moles/volume] in Serum or Plasma 96 [facility] ([facility]) Alkaline phosphatase [Enzymatic activity/volume] in Serum or Plasma 7 1.8 [facility] ([facility]) Protein [Mass/volume] in Serum or Plasma 6.8 [facility] ([facility]) Potassium [Moles/volume] in Serum or Plasma 4.1 [facility] ([facility]) Urea nitrogen [Mass/volume] in Serum or Plasma 27.3 [facility] ([facility]) Sodium 138 [facility] ([facility]) Aspartate aminotransferase [Enzymatic activity/volume] in Serum or Plasma 25 [facility] ([facility]) Glucose 122 64-112 [facility] ([facility]) Creatinine For GFR 1.3 [facility] ([facility]) ID Date Data Source [id number] 12/05/2019 04:07:00 PM EDT [facility] ([facility]) Name Value Range Interpretation Code Description Data Marycarmen rce(s) Supporting Document(s) White Blood Count 7.7 [facility] ([facility]) Platelets 171 [facility] ([facility]) Red Blood Count 3.23 [facility] (Cardio logy [facility]) Hemoglobin 11.2 [facility] ([facility]) Hematocrit 32.1 [facility] ([facility]) ID Date Data Source [id number] 12/05/2019 08:53:00 AM EDT [facility] ([facility] Name Value Range Interpretation Code Description Data Marycarmen rce(s) Supporting Document(s) Trig 88 mg/dL 40-200 [facility] ([facility] NORMAL RANGES Age WBC RBC HGB HCT [...] HCT IS 5% LESS SOURCE FOR DATA: [employer] 1800 OPERATION MANUAL( AUTOMATED BLOOD COUNTS AND [...] ADOLESCENTS REPRESENTS INDIVIDUALA AGED 2-19 YEARS EXCLUSIVE. Cholesterol in HDL [Mass/volume] in Serum or Plasma 47 mg/dL 45-65 [facility] NORMAL RANGES Age WBC RBC HGB HCT [...] HCT IS 5% LESS SOURCE FOR DATA: [employer] 1800 OPERATION MANUAL( AUTOMATED BLOOD COUNTS AND [...] DESIRABLE: <130 MG/DL <110 MG/DL BORDERLINE-HIGH RISK: 130- 159 MG/DL 110-129 MG/DL HIGH RISK: >160 MG/DL >130 MG/DL *CHILDREN AND ADOLESCENTS REPRESENTS INDIVIDUALA AGED 2-19 YEARS EXCLUSIVE. Chol 96 mg/dL 0-200 [facility] NORMAL RANGES Age WBC RBC HGB HCT [...] HCT IS 5% LESS SOURCE FOR DATA: [employer] DYN 1800 OPERATION MANUAL( AUTOMATED BLOOD COUNTS AND [...] DESIRABLE: <130 MG/DL <110 MG/DL BORDERLINE-HIGH RISK: 130- 159 MG/DL 110-129 MG/DL HIGH RISK: >160 MG/DL >130 MG/DL *CHILDREN AND ADOLESCENTS REPRESENTS INDIVIDUALA AGED 2-19 YEARS EXCLUSIVE. LDL_C 31 Calc 75-129 Below low normal [facility] ( [facility] NORMAL RANGES Age WBC RBC HGB HCT [...] HCT IS 5% LESS SOURCE FOR DATA: [employer] 1800 OPERATION MANUAL( AUTOMATED BLOOD COUNTS AND [...] DESIRABLE: <130 MG/DL <110 MG/DL BORDERLINE-HIGH RISK: 130- 159 MG/DL 110-129 MG/DL HIGH RISK: >160 MG/DL >130 MG/DL *CHILDREN AND ADOLESCENTS REPRESENTS INDIVIDUALA AGED 2-19 YEARS EXCLUSIVE. Cho/HDL Ratio 2.0 CALC [facility] ([facility] NORMAL RANGES Age WBC RBC HGB HCT [...] HCT IS 5% LESS SOURCE FOR DATA: [employer] 1800 OPERATION MANUAL( AUTOMATED BLOOD COUNTS AND [...] DESIRABLE: <130 MG/DL <110 MG/DL BORDERLINE-HIGH RISK: 130- 159 MG/DL 110-129 MG/DL HIGH RISK: >160 MG/DL >130 MG/DL *CHILDREN AND ADOLESCENTS REPRESENTS INDIVIDUALA AGED 2-19 YEARS EXCLUSIVE. ID Date Data Source [id number] 12/05/2019 08:53:00 AM EDT [facility] ([facility] Name Value Range Interpretation Code Description Data Marycarmen rce(s) Supporting Document(s) Glu 122 mg/dL 70-110 Above high normal [facility] ([facility] NORMAL RANGES Age WBC RBC HGB HCT [...] HCT IS 5% LESS SOURCE FOR DATA: [employer] DYN 1800 OPERATION MANUAL( AUTOMATED BLOOD COUNTS AND [...] DESIRABLE: <130 MG/DL <110 MG/DL BORDERLINE-HIGH RISK: 130- 159 MG/DL 110-129 MG/DL HIGH RISK: >160 MG/DL >130 MG/DL *CHILDREN AND ADOLESCENTS REPRESENTS INDIVIDUALA AGED 2-19 YEARS EXCLUSIVE. Creat 1.3 mg/dL 0.5-1.0 Above high normal [facility] ([facility] NORMAL RANGES Age WBC RBC HGB HCT [...] HCT IS 5% LESS SOURCE FOR DATA: [employer] 1800 OPERATION MANUAL( AUTOMATED BLOOD COUNTS AND [...] DESIRABLE: <130 MG/DL <110 MG/DL BORDERLINE-HIGH RISK: 130- 159 MG/DL 110-129 MG/DL HIGH RISK: >160 MG/DL >130 MG/DL *CHILDREN AND ADOLESCENTS REPRESENTS INDIVIDUALA AGED 2-19 YEARS EXCLUSIVE. BUN 37 mg/dL 8-23 Above high normal [facility] NORMAL RANGES Age WBC RBC HGB HCT [...] HCT IS 5% LESS SOURCE FOR DATA: [employer] 1800 OPERATION MANUAL( AUTOMATED BLOOD COUNTS AND [...] DESIRABLE: <130 MG/DL <110 MG/DL BORDERLINE-HIGH RISK: 130- 159 MG/DL 110-129 MG/DL HIGH RISK: >160 MG/DL >130 MG/DL *CHILDREN AND ADOLESCENTS REPRESENTS INDIVIDUALA AGED 2-19 YEARS EXCLUSIVE. BUN/Creatinine Ratio 27.3 CALC [facility] ([facility] NORMAL RANGES Age WBC RBC HGB HCT [...] HCT IS 5% LESS SOURCE FOR DATA: [employer] 1800 OPERATION MANUAL( AUTOMATED BLOOD COUNTS AND [...] DESIRABLE: <130 MG/DL <110 MG/DL BORDERLINE-HIGH RISK: 130- 159 MG/DL 110-129 MG/DL HIGH RISK: >160 MG/DL >130 MG/DL *CHILDREN AND ADOLESCENTS REPRESENTS INDIVIDUALA AGED 2-19 YEARS EXCLUSIVE. K 4.1 mmol/L 3.5-5.1 [facility] ([facility] NORMAL RANGES Age WBC RBC HGB HCT [...] HCT IS 5% LESS SOURCE FOR DATA: [employer] 1800 OPERATION MANUAL( AUTOMATED BLOOD COUNTS AND [...] DESIRABLE: <130 MG/DL <110 MG/DL BORDERLINE-HIGH RISK: 130- 159 MG/DL 110-129 MG/DL HIGH RISK: >160 MG/DL >130 MG/DL *CHILDREN AND ADOLESCENTS REPRESENTS INDIVIDUALA AGED 2-19 YEARS EXCLUSIVE. CL 102.6 mmol/L 98.0-107.0 [facility] ([facility] NORMAL RANGES Age WBC RBC HGB HCT [...] HCT IS 5% LESS SOURCE FOR DATA: [place] DYN 1800 OPERATION MANUAL( AUTOMATED BLOOD COUNTS AND [...] DESIRABLE: <130 MG/DL <110 MG/DL BORDERLINE-HIGH RISK: 130- 159 MG/DL 110-129 MG/DL HIGH RISK: >160 MG/DL >130 MG/DL *CHILDREN AND ADOLESCENTS REPRESENTS INDIVIDUALA AGED 2-19 YEARS EXCLUSIVE. Na 138 mmol/L 136-145 [facility] NORMAL RANGES Age WBC RBC HGB HCT [...] HCT IS 5% LESS SOURCE FOR DATA: [employer] 1800 OPERATION MANUAL( AUTOMATED BLOOD COUNTS AND [...] DESIRABLE: <130 MG/DL <110 MG/DL BORDERLINE-HIGH RISK: 130- 159 MG/DL 110-129 MG/DL HIGH RISK: >160 MG/DL >130 MG/DL *CHILDREN AND ADOLESCENTS REPRESENTS INDIVIDUALA AGED 2-19 YEARS EXCLUSIVE. TP 6.8 g/dL 6.6-8.7 [facility] ([facility] NORMAL RANGES Age WBC RBC HGB HCT [...] HCT IS 5% LESS SOURCE FOR DATA: [employer] 1800 OPERATION MANUAL( AUTOMATED BLOOD COUNTS AND [...] DESIRABLE: <130 MG/DL <110 MG/DL BORDERLINE-HIGH RISK: 130- 159 MG/DL 110-129 MG/DL HIGH RISK: >160 MG/DL >130 MG/DL *CHILDREN AND ADOLESCENTS REPRESENTS INDIVIDUALA AGED 2-19 YEARS EXCLUSIVE. Co2 25.2 mmol/L 22.0-29.0 [employer] ([facility] NORMAL RANGES Age WBC RBC HGB HCT [...] HCT IS 5% LESS SOURCE FOR DATA: [employer] 1800 OPERATION MANUAL( AUTOMATED BLOOD COUNTS AND [...] DESIRABLE: <130 MG/DL <110 MG/DL BORDERLINE-HIGH RISK: 130- 159 MG/DL 110-129 MG/DL HIGH RISK: >160 MG/DL >130 MG/DL *CHILDREN AND ADOLESCENTS REPRESENTS INDIVIDUALA AGED 2-19 YEARS EXCLUSIVE. CA 9.3 mg/dL 8.6-10.2 [facility] NORMAL RANGES Age WBC RBC HGB HCT [...] HCT IS 5% LESS SOURCE FOR DATA: [employer] 1800 OPERATION MANUAL( AUTOMATED BLOOD COUNTS AND [...] DESIRABLE: <130 MG/DL <110 MG/DL BORDERLINE-HIGH RISK: 130- 159 MG/DL 110-129 MG/DL HIGH RISK: >160 MG/DL >130 MG/DL *CHILDREN AND ADOLESCENTS REPRESENTS INDIVIDUALA AGED 2-19 YEARS EXCLUSIVE. Alb 4.0 g/dL 3.4-4.8 [facility] ([facility] NORMAL RANGES Age WBC RBC HGB HCT [...] HCT IS 5% LESS SOURCE FOR DATA: [employer] 1800 OPERATION MANUAL( AUTOMATED BLOOD COUNTS AND [...] DESIRABLE: <130 MG/DL <110 MG/DL BORDERLINE-HIGH RISK: 130- 159 MG/DL 110-129 MG/DL HIGH RISK: >160 MG/DL >130 MG/DL *CHILDREN AND ADOLESCENTS REPRESENTS INDIVIDUALA AGED 2-19 YEARS EXCLUSIVE. Globulin 2.8 CALC [facility] ([facility] NORMAL RANGES Age WBC RBC HGB HCT [...] HCT IS 5% LESS SOURCE FOR DATA: [employer] 1800 OPERATION MANUAL( AUTOMATED BLOOD COUNTS AND [...] DESIRABLE: <130 MG/DL <110 MG/DL BORDERLINE-HIGH RISK: 130- 159 MG/DL 110-129 MG/DL HIGH RISK: >160 MG/DL >130 MG/DL *CHILDREN AND ADOLESCENTS REPRESENTS INDIVIDUALA AGED 2-19 YEARS EXCLUSIVE. A/G Ratio 1.5 CALC [facility] ([facility] NORMAL RANGES Age WBC RBC HGB HCT [...] HCT IS 5% LESS SOURCE FOR DATA: [employer] 1800 OPERATION MANUAL( AUTOMATED BLOOD COUNTS AND [...] DESIRABLE: <130 MG/DL <110 MG/DL BORDERLINE-HIGH RISK: 130- 159 MG/DL 110-129 MG/DL HIGH RISK: >160 MG/DL >130 MG/DL *CHILDREN AND ADOLESCENTS REPRESENTS INDIVIDUALA AGED 2-19 YEARS EXCLUSIVE. Alp 71.8 U/L 35-129 [facility] ([facility] NORMAL RANGES Age WBC RBC HGB HCT [...] HCT IS 5% LESS SOURCE FOR DATA: [employer] 1800 OPERATION MANUAL( AUTOMATED BLOOD COUNTS AND [...] DESIRABLE: <130 MG/DL <110 MG/DL BORDERLINE-HIGH RISK: 130- 159 MG/DL 110-129 MG/DL HIGH RISK: >160 MG/DL >130 MG/DL *CHILDREN AND ADOLESCENTS REPRESENTS INDIVIDUALA AGED 2-19 YEARS EXCLUSIVE. Alt (SGPT) 16 U/L 0-41 [facility] NORMAL RANGES Age WBC RBC HGB HCT [...] HCT IS 5% LESS SOURCE FOR DATA: [employer] 1800 OPERATION MANUAL( AUTOMATED BLOOD COUNTS AND [...] DESIRABLE: <130 MG/DL <110 MG/DL BORDERLINE-HIGH RISK: 130- 159 MG/DL 110-129 MG/DL HIGH RISK: >160 MG/DL >130 MG/DL *CHILDREN AND ADOLESCENTS REPRESENTS INDIVIDUALA AGED 2-19 YEARS EXCLUSIVE. Ast (Sgot) 25 U/L 0-40 [facility] NORMAL RANGES Age WBC RBC HGB HCT [...] HCT IS 5% LESS SOURCE FOR DATA: [employer] 1800 OPERATION MANUAL( AUTOMATED BLOOD COUNTS AND [...] DESIRABLE: <130 MG/DL <110 MG/DL BORDERLINE-HIGH RISK: 130- 159 MG/DL 110-129 MG/DL HIGH RISK: >160 MG/DL >130 MG/DL *CHILDREN AND ADOLESCENTS REPRESENTS INDIVIDUALA AGED 2-19 YEARS EXCLUSIVE. Tbili 0.41 mg/dL 0.0-1.2 [facility] ([facility] NORMAL RANGES Age WBC RBC HGB HCT [...] HCT IS 5% LESS SOURCE FOR DATA: [employer] 1800 OPERATION MANUAL( AUTOMATED BLOOD COUNTS AND [...] DESIRABLE: <130 MG/DL <110 MG/DL BORDERLINE-HIGH RISK: 130- 159 MG/DL 110-129 MG/DL HIGH RISK: >160 MG/DL >130 MG/DL *CHILDREN AND ADOLESCENTS REPRESENTS INDIVIDUALA AGED 2-19 YEARS EXCLUSIVE. eGFR 45 # [facility] ( [facility] NORMAL RANGES Age WBC RBC HGB HCT [...] HCT IS 5% LESS SOURCE FOR DATA: [employer] DYN 1800 OPERATION MANUAL( AUTOMATED BLOOD COUNTS AND [...] DESIRABLE: <130 MG/DL <110 MG/DL BORDERLINE-HIGH RISK: 130- 159 MG/DL 110-129 MG/DL HIGH RISK: >160 MG/DL >130 MG/DL *CHILDREN AND ADOLESCENTS REPRESENTS INDIVIDUALA AGED 2-19 YEARS EXCLUSIVE. Osmolality-Calculated 285.1 CALC [facility] ([facility] NORMAL RANGES Age WBC RBC HGB HCT [...] HCT IS 5% LESS SOURCE FOR DATA: [employer] 1800 OPERATION MANUAL( AUTOMATED BLOOD COUNTS AND [...] DESIRABLE: <130 MG/DL <110 MG/DL BORDERLINE-HIGH RISK: 130- 159 MG/DL 110-129 MG/DL HIGH RISK: >160 MG/DL >130 MG/DL *CHILDREN AND ADOLESCENTS REPRESENTS INDIVIDUALA AGED 2-19 YEARS EXCLUSIVE. Anion Gap 14 mmol/L [facility] NORMAL RANGES Age WBC RBC HGB HCT [...] HCT IS 5% LESS SOURCE FOR DATA: [employer] 1800 OPERATION MANUAL( AUTOMATED BLOOD COUNTS AND [...] DESIRABLE: <130 MG/DL <110 MG/DL BORDERLINE-HIGH RISK: 130- 159 MG/DL 110-129 MG/DL HIGH RISK: >160 MG/DL >130 MG/DL *CHILDREN AND ADOLESCENTS REPRESENTS INDIVIDUALA AGED 2-19 YEARS EXCLUSIVE. eGFR Non-Afr. Filipino 39 # [facility] ([facility] NORMAL RANGES Age WBC RBC HGB HCT [...] HCT IS 5% LESS SOURCE FOR DATA: [employer] 1800 OPERATION MANUAL( AUTOMATED BLOOD COUNTS AND [...] DESIRABLE: <130 MG/DL <110 MG/DL BORDERLINE-HIGH RISK: 130- 159 MG/DL 110-129 MG/DL HIGH RISK: >160 MG/DL >130 MG/DL *CHILDREN AND ADOLESCENTS REPRESENTS INDIVIDUALA AGED 2-19 YEARS EXCLUSIVE. ID Date Data Source [id number] 12/05/2019 08:53:00 AM EDT [facility] ([facility] Name Value Range Interpretation Code Description Data Marycarmen rce(s) Supporting Document(s) RBC 3.23 10E6/uL 4.20-6.30 Below low normal [facility] ([facility] NORMAL RANGES Age WBC RBC HGB HCT [...] HCT IS 5% LESS SOURCE FOR DATA: [employer] 1800 OPERATION MANUAL( AUTOMATED BLOOD COUNTS AND [...] DESIRABLE: <130 MG/DL <110 MG/DL BORDERLINE-HIGH RISK: 130- 159 MG/DL 110-129 MG/DL HIGH RISK: >160 MG/DL >130 MG/DL *CHILDREN AND ADOLESCENTS REPRESENTS INDIVIDUALA AGED 2-19 YEARS EXCLUSIVE. WBC 7.7 10E3/uL 4.1-10.9 [facility] NORMAL RANGES Age WBC RBC HGB HCT [...] HCT IS 5% LESS SOURCE FOR DATA: [employer] 1800 OPERATION MANUAL( AUTOMATED BLOOD COUNTS AND [...] DESIRABLE: <130 MG/DL <110 MG/DL BORDERLINE-HIGH RISK: 130- 159 MG/DL 110-129 MG/DL HIGH RISK: >160 MG/DL >130 MG/DL *CHILDREN AND ADOLESCENTS REPRESENTS INDIVIDUALA AGED 2-19 YEARS EXCLUSIVE. HGB 11.2 g/dL 12.0-18.0 Below low normal [facility] ( [facility] NORMAL RANGES Age WBC RBC HGB HCT [...] HCT IS 5% LESS SOURCE FOR DATA: [employer] 1800 OPERATION MANUAL( AUTOMATED BLOOD COUNTS AND [...] DESIRABLE: <130 MG/DL <110 MG/DL BORDERLINE-HIGH RISK: 130- 159 MG/DL 110-129 MG/DL HIGH RISK: >160 MG/DL >130 MG/DL *CHILDREN AND ADOLESCENTS REPRESENTS INDIVIDUALA AGED 2-19 YEARS EXCLUSIVE. MCH 34.7 pg 26.0-32.0 Above high normal [facility] ([facility] NORMAL RANGES Age WBC RBC HGB HCT [...] HCT IS 5% LESS SOURCE FOR DATA: [employer] 1800 OPERATION MANUAL( AUTOMATED BLOOD COUNTS AND [...] DESIRABLE: <130 MG/DL <110 MG/DL BORDERLINE-HIGH RISK: 130- 159 MG/DL 110-129 MG/DL HIGH RISK: >160 MG/DL >130 MG/DL *CHILDREN AND ADOLESCENTS REPRESENTS INDIVIDUALA AGED 2-19 YEARS EXCLUSIVE. MCV 99.4 fL 80.0-97.0 Above high normal [facility] NORMAL RANGES Age WBC RBC HGB HCT MCV PLT Adult M 4.1-10.9 4.20-6.30 12.0-18.0 37.0-51.0 80- 140-440 Adult F 4.1-10.9 4.04-5.48 12.0-18.0 37.0-51.0 [...] HCT IS 5% LESS SOURCE FOR DATA: [employer] 1800 OPERATION MANUAL( AUTOMATED BLOOD COUNTS AND [...] DESIRABLE: <130 MG/DL <110 MG/DL BORDERLINE-HIGH RISK: 130- 159 MG/DL 110-129 MG/DL HIGH RISK: >160 MG/DL >130 MG/DL *CHILDREN AND ADOLESCENTS REPRESENTS INDIVIDUALA AGED 2-19 YEARS EXCLUSIVE. HCT 32.1 % 37.0-51.0 Below low normal [facility] ( [facility] NORMAL RANGES Age WBC RBC HGB HCT [...] HCT IS 5% LESS SOURCE FOR DATA: [employer] 1800 OPERATION MANUAL( AUTOMATED BLOOD COUNTS AND [...] DESIRABLE: <130 MG/DL <110 MG/DL BORDERLINE-HIGH RISK: 130- 159 MG/DL 110-129 MG/DL HIGH RISK: >160 MG/DL >130 MG/DL *CHILDREN AND ADOLESCENTS REPRESENTS INDIVIDUALA AGED 2-19 YEARS EXCLUSIVE. MCHC 34.9 g/dL 31.0-36.0 [facility] ([facility] NORMAL RANGES Age WBC RBC HGB HCT [...] HCT IS 5% LESS SOURCE FOR DATA: KakKstati 1800 OPERATION MANUAL( AUTOMATED BLOOD COUNTS AND [...] DESIRABLE: <130 MG/DL <110 MG/DL BORDERLINE-HIGH RISK: 130- 159 MG/DL 110-129 MG/DL HIGH RISK: >160 MG/DL >130 MG/DL *CHILDREN AND ADOLESCENTS REPRESENTS INDIVIDUALA AGED 2-19 YEARS EXCLUSIVE. PLT 171 10E3/uL 140-440 [email or web address] ([facility] NORMAL RANGES Age WBC RBC HGB HCT [...] HCT IS 5% LESS SOURCE FOR DATA: Kipt[employer] DYN 1800 OPERATION MANUAL( AUTOMATED BLOOD COUNTS AND [...] DESIRABLE: <130 MG/DL <110 MG/DL BORDERLINE-HIGH RISK: 130- 159 MG/DL 110-129 MG/DL HIGH RISK: >160 MG/DL >130 MG/DL *CHILDREN AND ADOLESCENTS REPRESENTS INDIVIDUALA AGED 2-19 YEARS EXCLUSIVE. Lym% 39.9 % 10.0-58.5 [facility] NORMAL RANGES Age WBC RBC HGB HCT [...] HCT IS 5% LESS SOURCE FOR DATA: KakKstati 1800 OPERATION MANUAL( AUTOMATED BLOOD COUNTS AND [...] DESIRABLE: <130 MG/DL <110 MG/DL BORDERLINE-HIGH RISK: 130- 159 MG/DL 110-129 MG/DL HIGH RISK: >160 MG/DL >130 MG/DL *CHILDREN AND ADOLESCENTS REPRESENTS INDIVIDUALA AGED 2-19 YEARS EXCLUSIVE. RDW-CV 13.9 % 11.5-14.5 [facility] ([facility] NORMAL RANGES Age WBC RBC HGB HCT [...] HCT IS 5% LESS SOURCE FOR DATA: KakKstati 1800 OPERATION MANUAL( AUTOMATED BLOOD COUNTS AND [...] DESIRABLE: <130 MG/DL <110 MG/DL BORDERLINE-HIGH RISK: 130- 159 MG/DL 110-129 MG/DL HIGH RISK: >160 MG/DL >130 MG/DL *CHILDREN AND ADOLESCENTS REPRESENTS INDIVIDUALA AGED 2-19 YEARS EXCLUSIVE. MXD% 14.2 % 0.1-24.0 [facility] ([facility] NORMAL RANGES Age WBC RBC HGB HCT [...] HCT IS 5% LESS SOURCE FOR DATA: Kak[employer]ati 1800 OPERATION MANUAL( AUTOMATED BLOOD COUNTS AND [...] DESIRABLE: <130 MG/DL <110 MG/DL BORDERLINE-HIGH RISK: 130- 159 MG/DL 110-129 MG/DL HIGH RISK: >160 MG/DL >130 MG/DL *CHILDREN AND ADOLESCENTS REPRESENTS INDIVIDUALA AGED 2-19 YEARS EXCLUSIVE. Lym# 3.1 10E3/uL 0.6-4.1 [facility] ([facility] NORMAL RANGES Age WBC RBC HGB HCT [...] HCT IS 5% LESS SOURCE FOR DATA: Kak[employer]ati 1800 OPERATION MANUAL( AUTOMATED BLOOD COUNTS AND [...] DESIRABLE: <130 MG/DL <110 MG/DL BORDERLINE-HIGH RISK: 130- 159 MG/DL 110-129 MG/DL HIGH RISK: >160 MG/DL >130 MG/DL *CHILDREN AND ADOLESCENTS REPRESENTS INDIVIDUALA AGED 2-19 YEARS EXCLUSIVE. Neut% 45.9 % 37.0-92.0 [facility] ([facility] NORMAL RANGES Age WBC RBC HGB HCT [...] HCT IS 5% LESS SOURCE FOR DATA: Kak[employer]ati 1800 OPERATION MANUAL( AUTOMATED BLOOD COUNTS AND [...] DESIRABLE: <130 MG/DL <110 MG/DL BORDERLINE-HIGH RISK: 130- 159 MG/DL 110-129 MG/DL HIGH RISK: >160 MG/DL >130 MG/DL *CHILDREN AND ADOLESCENTS REPRESENTS INDIVIDUALA AGED 2-19 YEARS EXCLUSIVE. Neut# 3.5 % 2.0-7.8 [facility] ([facility] NORMAL RANGES Age WBC RBC HGB HCT [...] HCT IS 5% LESS SOURCE FOR DATA: KakK[employer]ati 1800 OPERATION MANUAL( AUTOMATED BLOOD COUNTS AND [...] DESIRABLE: <130 MG/DL <110 MG/DL BORDERLINE-HIGH RISK: 130- 159 MG/DL 110-129 MG/DL HIGH RISK: >160 MG/DL >130 MG/DL *CHILDREN AND ADOLESCENTS REPRESENTS INDIVIDUALA AGED 2-19 YEARS EXCLUSIVE. MXD# 1.1 10E3/uL 0.0-1.8 [facility] ([facility] NORMAL RANGES Age WBC RBC HGB HCT [...] HCT IS 5% LESS SOURCE FOR DATA: KakKstati 1800 OPERATION MANUAL( AUTOMATED BLOOD COUNTS AND [...] DESIRABLE: <130 MG/DL <110 MG/DL BORDERLINE-HIGH RISK: 130- 159 MG/DL 110-129 MG/DL HIGH RISK: >160 MG/DL >130 MG/DL *CHILDREN AND ADOLESCENTS REPRESENTS INDIVIDUALA AGED 2-19 YEARS EXCLUSIVE. MPV 10.5 fL 9.0-13.0 [facility] ([facility] NORMAL RANGES Age WBC RBC HGB HCT [...] HCT IS 5% LESS SOURCE FOR DATA: K[employer]ati 1800 OPERATION MANUAL( AUTOMATED BLOOD COUNTS AND [...] DESIRABLE: <130 MG/DL <110 MG/DL BORDERLINE-HIGH RISK: 130- 159 MG/DL 110-129 MG/DL HIGH RISK: >160 MG/DL >130 MG/DL *CHILDREN AND ADOLESCENTS REPRESENTS INDIVIDUALA AGED 2-19 YEARS EXCLUSIVE. ID Date Data Source [id number] 08/31/2019 10:36:00 AM EDT [facility] ([facility]) Name Value Range Interpretation Code Description Data Marycarmen rce(s) Supporting Document(s) Laboratory test finding (navigational concept) Laboratory test result [facility] ([facility]) Magnesium [Mass/volume] in Serum or Plasma 1.9 mg/dL 1.6-2.3 [facility] ([facility]) ID Date Data Source [id number] 08/31/2019 10:36:00 AM EDT [facility] ([facility]) Name Value Range Interpretation Code Description Data Marycarmen rce(s) Supporting Document(s) Urea nitrogen [Mass/volume] in Serum or Plasma 34 mg/dL 8-27 [facility] ([facility]) Glucose 115 mg/dL 65-99 [facility] ([facility]) Creatinine 1.31 mg/dL 0.57-1.00 [facility] ([facility]) eGFR If NonAfricn Am 39 mL/min/1.73 [facility] NT ([facility]) eGFR If Africn Am 45 mL/min/1.73 [facility] ([facility]) Urea nitrogen/Creatinine [Mass Ratio] in Serum or Plasma 26 1 2-28 [facility] ([facility]) Sodium 141 mmol/L 134-144 [facility] ([facility]) Potassium [Moles/volume] in Serum or Plasma 4.1 mmol/L 3.5-5.2 [facility] ([facility]) Carbon dioxide, total [Moles/volume] in Serum or Plasma 24 mmol/L 20 -29 [facility] ([facility]) Chloride [Moles/volume] in Serum or Plasma 102 mmol/L 96-106 [facility] ([facility]) Calcium [Mass/volume] in Serum or Plasma 9.3 mg/dL 8.7-10.3 [facility] ([facility]) ID Date Data Source [id number] 09/01/2019 06:05:00 AM EDT [facility] Name Value Range Interpretation Code Description Data Marycarmen rce(s) Supporting Document(s) Glucose 115 mg/dL 65-99 Above high normal [facility] BUN 34 mg/dL 8-27 Above high normal [facility] Creatinine 1.31 mg/dL 0.57-1.00 Above high normal [facility] eGFR If NonAfricn Am 39 mL/min/1.73 >59 Below low normal [facility] eGFR If Africn Am 45 mL/min/1.73 >59 Below low normal [facility] BUN/Creatinine Ratio 26 12-28 [facility] Sodium 141 mmol/L 134-144 [facility] Potassium 4.1 mmol/L 3.5-5.2 [facility] Chloride 102 mmol/L 96-106 [facility] Carbon Dioxide, Total 24 mmol/L 20-29 [facility] Calcium 9.3 mg/dL 8.7-10.3 [facility] ID Date Data Source [id number] 09/01/2019 06:05:00 AM EDT [facility] Name Value Range Interpretation Code Description Data Marycarmen rce(s) Supporting Document(s) Magnesium 1.9 mg/dL 1.6-2.3 [facility] ID Date Data Source [id number] 08/23/2019 09:18:00 AM EST [facility] ([facility] Name Value Range Interpretation Code Description Data Marycarmen rce(s) Supporting Document(s) Chol 108 mg/dL 0-200 [facility] CLASSIFICATION CHOLESTEROL FO R ADULTS CHILDREN/ADOLESCENTS* DESIRABLE: <200 MG/DL <170 MG/DL BORDER-LINE HIGH RISK: 200-239 MG/DL 170-199 MG/DL HIGH RISK: >240 MG/DL >200 MG/DL CLASS. FOR PRIMARY LDL CHOL PREVENTION: LDL CHOL-CHILD/ADOLESCENTS* DESIRABLE: <130 MG/DL <110 MG/DL BORDERLINE-HIGH RISK: 130-159 MG/DL 110-129 MG/DL HIGH RISK: >160 MG/DL >130 MG/DL *CHILDREN AND ADOLESCENTS REPRESENTS INDIVIDUALA AGED 2-19 YEARS EXCLUSIVE. CHRONIC KIDNEY DISEASE STAGING PER NKF: MALE [...] mL/min Normal 80 and above >32 mL/min NormalNORMAL RANGES Age WBC RBC HGB HCT MCV PLT Adult M 4.1-10.9 4.20-6.30 12.0-18.0 37.0-51.0 80-97 140-440 Adult F 4.1-10.9 4.04-5.48 12.0-18.0 37.0-51.0 80-97 140-440 0- 1 Yr 5.0-20.0 3.9-5.9 15-18 MV: 44 MV: 91 MV: 277 2-9 Yr. 6.0-17.0 3.8-5.4 11-13 MV: 37 MV: 78 MV: 300 10 Yrs. 5.0-13.0 3.8-5.4 12-15 MV: 39 MV: 80 MV: 250 NOTE: * FOR ADULT BLACK MALES AND FEMALES, NORMAL WBC IS 2.9-7.7 K/ML * FOR ADULT BLACK MALES AND FEMALES, NORMAL RBC,HGB, AND HCT IS 5% LESS SOURCE FOR DATA: [employer] DYN 1800 OPERATION MANUAL( AUTOMATED BLOOD COUNTS AND DIFF.) APPENDIX B-3 Trig 136 mg/dL 40-200 [facility] CLASSIFICATION CHOLESTEROL FO R ADULTS CHILDREN/ADOLESCENTS* DESIRABLE: <200 MG/DL <170 MG/DL BORDER-LINE HIGH RISK: 200-239 MG/DL 170-199 MG/DL HIGH RISK: >240 MG/DL >200 MG/DL CLASS. FOR PRIMARY LDL CHOL PREVENTION: LDL CHOL-CHILD/ADOLESCENTS* DESIRABLE: <130 MG/DL <110 MG/DL BORDERLINE-HIGH RISK: 130-159 MG/DL 110-129 MG/DL HIGH RISK: >160 MG/DL >130 MG/DL *CHILDREN AND ADOLESCENTS REPRESENTS INDIVIDUALA AGED 2-19 YEARS EXCLUSIVE. CHRONIC KIDNEY DISEASE STAGING PER NKF: MALE [...] mL/min Normal 80 and above >32 mL/min NormalNORMAL RANGES Age WBC RBC HGB HCT MCV PLT Adult M 4.1-10.9 4.20-6.30 12.0-18.0 37.0-51.0 80-97 140-440 Adult F 4.1-10.9 4.04-5.48 12.0-18.0 37.0-51.0 80-97 140-440 0- 1 Yr 5.0-20.0 3.9-5.9 15-18 MV: 44 MV: 91 MV: 277 2-9 Yr. 6.0-17.0 3.8-5.4 11-13 MV: 37 MV: 78 MV: 300 10 Yrs. 5.0-13.0 3.8-5.4 12-15 MV: 39 MV: 80 MV: 250 NOTE: * FOR ADULT BLACK MALES AND FEMALES, NORMAL WBC IS 2.9-7.7 K/ML * FOR ADULT BLACK MALES AND FEMALES, NORMAL RBC,HGB, AND HCT IS 5% LESS SOURCE FOR DATA: [employer] DYN 1800 OPERATION MANUAL( AUTOMATED BLOOD COUNTS AND DIFF.) APPENDIX B-3 LDL_C 36 Calc 75-129 Below low normal [facility] ( [facility] CLASSIFICATION CHOLESTEROL FO R ADULTS CHILDREN/ADOLESCENTS* DESIRABLE: <200 MG/DL <170 MG/DL BORDER-LINE HIGH RISK: 200-239 MG/DL 170-199 MG/DL HIGH RISK: >240 MG/DL >200 MG/DL CLASS. FOR PRIMARY LDL CHOL PREVENTION: LDL CHOL-CHILD/ADOLESCENTS* DESIRABLE: <130 MG/DL <110 MG/DL BORDERLINE-HIGH RISK: 130-159 MG/DL 110-129 MG/DL HIGH RISK: >160 MG/DL >130 MG/DL *CHILDREN AND ADOLESCENTS REPRESENTS INDIVIDUALA AGED 2-19 YEARS EXCLUSIVE. CHRONIC KIDNEY DISEASE STAGING PER NKF: MALE [...] mL/min Normal 80 and above >32 mL/min NormalNORMAL RANGES Age WBC RBC HGB HCT MCV PLT Adult M 4.1-10.9 4.20-6.30 12.0-18.0 37.0-51.0 80-97 140-440 Adult F 4.1-10.9 4.04-5.48 12.0-18.0 37.0-51.0 80-97 140-440 0- 1 Yr 5.0-20.0 3.9-5.9 15-18 MV: 44 MV: 91 MV: 277 2-9 Yr. 6.0-17.0 3.8-5.4 11-13 MV: 37 MV: 78 MV: 300 10 Yrs. 5.0-13.0 3.8-5.4 12-15 MV: 39 MV: 80 MV: 250 NOTE: * FOR ADULT BLACK MALES AND FEMALES, NORMAL WBC IS 2.9-7.7 K/ML * FOR ADULT BLACK MALES AND FEMALES, NORMAL RBC,HGB, AND HCT IS 5% LESS SOURCE FOR DATA: [employer] DYN 1800 OPERATION MANUAL( AUTOMATED BLOOD COUNTS AND DIFF.) APPENDIX B-3 Prostate specific Ag [Mass/volume] in Serum or Plasma 45 mg/dL 45-6 5 [facility] ([facility] CLASSIFICATION CHOLESTEROL FO R ADULTS CHILDREN/ADOLESCENTS* DESIRABLE: <200 MG/DL <170 MG/DL BORDER-LINE HIGH RISK: 200-239 MG/DL 170-199 MG/DL HIGH RISK: >240 MG/DL >200 MG/DL CLASS. FOR PRIMARY LDL CHOL PREVENTION: LDL CHOL-CHILD/ADOLESCENTS* DESIRABLE: <130 MG/DL <110 MG/DL BORDERLINE-HIGH RISK: 130-159 MG/DL 110-129 MG/DL HIGH RISK: >160 MG/DL >130 MG/DL *CHILDREN AND ADOLESCENTS REPRESENTS INDIVIDUALA AGED 2-19 YEARS EXCLUSIVE. CHRONIC KIDNEY DISEASE STAGING PER NKF: MALE [...] mL/min Normal 80 and above >32 mL/min NormalNORMAL RANGES Age WBC RBC HGB HCT MCV PLT Adult M 4.1-10.9 4.20-6.30 12.0-18.0 37.0-51.0 80-97 140-440 Adult F 4.1-10.9 4.04-5.48 12.0-18.0 37.0-51.0 80-97 140-440 0- 1 Yr 5.0-20.0 3.9-5.9 15-18 MV: 44 MV: 91 MV: 277 2-9 Yr. 6.0-17.0 3.8-5.4 11-13 MV: 37 MV: 78 MV: 300 10 Yrs. 5.0-13.0 3.8-5.4 12-15 MV: 39 MV: 80 MV: 250 NOTE: * FOR ADULT BLACK MALES AND FEMALES, NORMAL WBC IS 2.9-7.7 K/ML * FOR ADULT BLACK MALES AND FEMALES, NORMAL RBC,HGB, AND HCT IS 5% LESS SOURCE FOR DATA: [employer] 1800 OPERATION MANUAL( AUTOMATED BLOOD COUNTS AND DIFF.) APPENDIX B-3 Cho/HDL Ratio 2.4 CALC [facility] ([facility] CLASSIFICATION CHOLESTEROL FO R ADULTS CHILDREN/ADOLESCENTS* DESIRABLE: <200 MG/DL <170 MG/DL BORDER-LINE HIGH RISK: 200-239 MG/DL 170-199 MG/DL HIGH RISK: >240 MG/DL >200 MG/DL CLASS. FOR PRIMARY LDL CHOL PREVENTION: LDL CHOL-CHILD/ADOLESCENTS* DESIRABLE: <130 MG/DL <110 MG/DL BORDERLINE-HIGH RISK: 130-159 MG/DL 110-129 MG/DL HIGH RISK: >160 MG/DL >130 MG/DL *CHILDREN AND ADOLESCENTS REPRESENTS INDIVIDUALA AGED 2-19 YEARS EXCLUSIVE. CHRONIC KIDNEY DISEASE STAGING PER NKF: MALE [...] mL/min Normal 80 and above >32 mL/min NormalNORMAL RANGES Age WBC RBC HGB HCT MCV PLT Adult M 4.1-10.9 4.20-6.30 12.0-18.0 37.0-51.0 80-97 140-440 Adult F 4.1-10.9 4.04-5.48 12.0-18.0 37.0-51.0 80-97 140-440 0- 1 Yr 5.0-20.0 3.9-5.9 15-18 MV: 44 MV: 91 MV: 277 2-9 Yr. 6.0-17.0 3.8-5.4 11-13 MV: 37 MV: 78 MV: 300 10 Yrs. 5.0-13.0 3.8-5.4 12-15 MV: 39 MV: 80 MV: 250 NOTE: * FOR ADULT BLACK MALES AND FEMALES, NORMAL WBC IS 2.9-7.7 K/ML * FOR ADULT BLACK MALES AND FEMALES, NORMAL RBC,HGB, AND HCT IS 5% LESS SOURCE FOR DATA: Kiptronic DYN 1800 OPERATION MANUAL( AUTOMATED BLOOD COUNTS AND DIFF.) APPENDIX B-3 ID Date Data Source [id number] 08/23/2019 09:18:00 AM EST [facility] ([facility] Name Value Range Interpretation Code Description Data Marycarmen rce(s) Supporting Document(s) Glu 119 mg/dL 70-110 Above high normal [facility] ([facility] CLASSIFICATION CHOLESTEROL FO R ADULTS CHILDREN/ADOLESCENTS* DESIRABLE: <200 MG/DL <170 MG/DL BORDER-LINE HIGH RISK: 200-239 MG/DL 170-199 MG/DL HIGH RISK: >240 MG/DL >200 MG/DL CLASS. FOR PRIMARY LDL CHOL PREVENTION: LDL CHOL-CHILD/ADOLESCENTS* DESIRABLE: <130 MG/DL <110 MG/DL BORDERLINE-HIGH RISK: 130-159 MG/DL 110-129 MG/DL HIGH RISK: >160 MG/DL >130 MG/DL *CHILDREN AND ADOLESCENTS REPRESENTS INDIVIDUALA AGED 2-19 YEARS EXCLUSIVE. CHRONIC KIDNEY DISEASE STAGING PER NKF: MALE [...] mL/min Normal 80 and above >32 mL/min NormalNORMAL RANGES Age WBC RBC HGB HCT MCV PLT Adult M 4.1-10.9 4.20-6.30 12.0-18.0 37.0-51.0 80-97 140-440 Adult F 4.1-10.9 4.04-5.48 12.0-18.0 37.0-51.0 80-97 140-440 0- 1 Yr 5.0-20.0 3.9-5.9 15-18 MV: 44 MV: 91 MV: 277 2-9 Yr. 6.0-17.0 3.8-5.4 11-13 MV: 37 MV: 78 MV: 300 10 Yrs. 5.0-13.0 3.8-5.4 12-15 MV: 39 MV: 80 MV: 250 NOTE: * FOR ADULT BLACK MALES AND FEMALES, NORMAL WBC IS 2.9-7.7 K/ML * FOR ADULT BLACK MALES AND FEMALES, NORMAL RBC,HGB, AND HCT IS 5% LESS SOURCE FOR DATA: [employer] DYN 1800 OPERATION MANUAL( AUTOMATED BLOOD COUNTS AND DIFF.) APPENDIX B-3 BUN 32 mg/dL 8-23 Above high normal [facility] ([facility] CLASSIFICATION CHOLESTEROL FO R ADULTS CHILDREN/ADOLESCENTS* DESIRABLE: <200 MG/DL <170 MG/DL BORDER-LINE HIGH RISK: 200-239 MG/DL 170-199 MG/DL HIGH RISK: >240 MG/DL >200 MG/DL CLASS. FOR PRIMARY LDL CHOL PREVENTION: LDL CHOL-CHILD/ADOLESCENTS* DESIRABLE: <130 MG/DL <110 MG/DL BORDERLINE-HIGH RISK: 130-159 MG/DL 110-129 MG/DL HIGH RISK: >160 MG/DL >130 MG/DL *CHILDREN AND ADOLESCENTS REPRESENTS INDIVIDUALA AGED 2-19 YEARS EXCLUSIVE. CHRONIC KIDNEY DISEASE STAGING PER NKF: MALE [...] mL/min Normal 80 and above >32 mL/min NormalNORMAL RANGES Age WBC RBC HGB HCT MCV PLT Adult M 4.1-10.9 4.20-6.30 12.0-18.0 37.0-51.0 80-97 140-440 Adult F 4.1-10.9 4.04-5.48 12.0-18.0 37.0-51.0 80-97 140-440 0- 1 Yr 5.0-20.0 3.9-5.9 15-18 MV: 44 MV: 91 MV: 277 2-9 Yr. 6.0-17.0 3.8-5.4 11-13 MV: 37 MV: 78 MV: 300 10 Yrs. 5.0-13.0 3.8-5.4 12-15 MV: 39 MV: 80 MV: 250 NOTE: * FOR ADULT BLACK MALES AND FEMALES, NORMAL WBC IS 2.9-7.7 K/ML * FOR ADULT BLACK MALES AND FEMALES, NORMAL RBC,HGB, AND HCT IS 5% LESS SOURCE FOR DATA: [employer] DYN 1800 OPERATION MANUAL( AUTOMATED BLOOD COUNTS AND DIFF.) APPENDIX B-3 Na 136 mmol/L 136-145 [facility] CLASSIFICATION CHOLESTEROL FO R ADULTS CHILDREN/ADOLESCENTS* DESIRABLE: <200 MG/DL <170 MG/DL BORDER-LINE HIGH RISK: 200-239 MG/DL 170-199 MG/DL HIGH RISK: >240 MG/DL >200 MG/DL CLASS. FOR PRIMARY LDL CHOL PREVENTION: LDL CHOL-CHILD/ADOLESCENTS* DESIRABLE: <130 MG/DL <110 MG/DL BORDERLINE-HIGH RISK: 130-159 MG/DL 110-129 MG/DL HIGH RISK: >160 MG/DL >130 MG/DL *CHILDREN AND ADOLESCENTS REPRESENTS INDIVIDUALA AGED 2-19 YEARS EXCLUSIVE. CHRONIC KIDNEY DISEASE STAGING PER NKF: MALE [...] mL/min Normal 80 and above >32 mL/min NormalNORMAL RANGES Age WBC RBC HGB HCT MCV PLT Adult M 4.1-10.9 4.20-6.30 12.0-18.0 37.0-51.0 80-97 140-440 Adult F 4.1-10.9 4.04-5.48 12.0-18.0 37.0-51.0 80-97 140-440 0- 1 Yr 5.0-20.0 3.9-5.9 15-18 MV: 44 MV: 91 MV: 277 2-9 Yr. 6.0-17.0 3.8-5.4 11-13 MV: 37 MV: 78 MV: 300 10 Yrs. 5.0-13.0 3.8-5.4 12-15 MV: 39 MV: 80 MV: 250 NOTE: * FOR ADULT BLACK MALES AND FEMALES, NORMAL WBC IS 2.9-7.7 K/ML * FOR ADULT BLACK MALES AND FEMALES, NORMAL RBC,HGB, AND HCT IS 5% LESS SOURCE FOR DATA: [employer] 1800 OPERATION MANUAL( AUTOMATED BLOOD COUNTS AND DIFF.) APPENDIX B-3 Creat 1.3 mg/dL 0.5-1.0 Above high normal [facility] ([facility] CLASSIFICATION CHOLESTEROL FO R ADULTS CHILDREN/ADOLESCENTS* DESIRABLE: <200 MG/DL <170 MG/DL BORDER-LINE HIGH RISK: 200-239 MG/DL 170-199 MG/DL HIGH RISK: >240 MG/DL >200 MG/DL CLASS. FOR PRIMARY LDL CHOL PREVENTION: LDL CHOL-CHILD/ADOLESCENTS* DESIRABLE: <130 MG/DL <110 MG/DL BORDERLINE-HIGH RISK: 130-159 MG/DL 110-129 MG/DL HIGH RISK: >160 MG/DL >130 MG/DL *CHILDREN AND ADOLESCENTS REPRESENTS INDIVIDUALA AGED 2-19 YEARS EXCLUSIVE. CHRONIC KIDNEY DISEASE STAGING PER NKF: MALE [...] mL/min Normal 80 and above >32 mL/min NormalNORMAL RANGES Age WBC RBC HGB HCT MCV PLT Adult M 4.1-10.9 4.20-6.30 12.0-18.0 37.0-51.0 8097 140-440 Adult F 4.1-10.9 4.04-5.48 12.0-18.0 37.0-51.0 80-97 140-440 0- 1 Yr 5.0-20.0 3.9-5.9 15-18 MV: 44 MV: 91 MV: 277 2-9 Yr. 6.0-17.0 3.8-5.4 11-13 MV: 37 MV: 78 MV: 300 10 Yrs. 5.0-13.0 3.8-5.4 12-15 MV: 39 MV: 80 MV: 250 NOTE: * FOR ADULT BLACK MALES AND FEMALES, NORMAL WBC IS 2.9-7.7 K/ML * FOR ADULT BLACK MALES AND FEMALES, NORMAL RBC,HGB, AND HCT IS 5% LESS SOURCE FOR DATA: [employer] DYN 1800 OPERATION MANUAL( AUTOMATED BLOOD COUNTS AND DIFF.) APPENDIX B-3 BUN/Creatinine Ratio 24.0 CALC [facility] ([facility] CLASSIFICATION CHOLESTEROL FO R ADULTS CHILDREN/ADOLESCENTS* DESIRABLE: <200 MG/DL <170 MG/DL BORDER-LINE HIGH RISK: 200-239 MG/DL 170-199 MG/DL HIGH RISK: >240 MG/DL >200 MG/DL CLASS. FOR PRIMARY LDL CHOL PREVENTION: LDL CHOL-CHILD/ADOLESCENTS* DESIRABLE: <130 MG/DL <110 MG/DL BORDERLINE-HIGH RISK: 130-159 MG/DL 110-129 MG/DL HIGH RISK: >160 MG/DL >130 MG/DL *CHILDREN AND ADOLESCENTS REPRESENTS INDIVIDUALA AGED 2-19 YEARS EXCLUSIVE. CHRONIC KIDNEY DISEASE STAGING PER NKF: MALE [...] mL/min Normal 80 and above >32 mL/min NormalNORMAL RANGES Age WBC RBC HGB HCT MCV PLT Adult M 4.1-10.9 4.20-6.30 12.0-18.0 37.0-51.0 80-97 140-440 Adult F 4.1-10.9 4.04-5.48 12.0-18.0 37.0-51.0 80-97 140-440 0- 1 Yr 5.0-20.0 3.9-5.9 15-18 MV: 44 MV: 91 MV: 277 2-9 Yr. 6.0-17.0 3.8-5.4 11-13 MV: 37 MV: 78 MV: 300 10 Yrs. 5.0-13.0 3.8-5.4 12-15 MV: 39 MV: 80 MV: 250 NOTE: * FOR ADULT BLACK MALES AND FEMALES, NORMAL WBC IS 2.9-7.7 K/ML * FOR ADULT BLACK MALES AND FEMALES, NORMAL RBC,HGB, AND HCT IS 5% LESS SOURCE FOR DATA: [employer] 1800 OPERATION MANUAL( AUTOMATED BLOOD COUNTS AND DIFF.) APPENDIX B-3 CL 99.1 mmol/L 98.0-107.0 [facility] ([facility] CLASSIFICATION CHOLESTEROL FO R ADULTS CHILDREN/ADOLESCENTS* DESIRABLE: <200 MG/DL <170 MG/DL BORDER-LINE HIGH RISK: 200-239 MG/DL 170-199 MG/DL HIGH RISK: >240 MG/DL >200 MG/DL CLASS. FOR PRIMARY LDL CHOL PREVENTION: LDL CHOL-CHILD/ADOLESCENTS* DESIRABLE: <130 MG/DL <110 MG/DL BORDERLINE-HIGH RISK: 130-159 MG/DL 110-129 MG/DL HIGH RISK: >160 MG/DL >130 MG/DL *CHILDREN AND ADOLESCENTS REPRESENTS INDIVIDUALA AGED 2-19 YEARS EXCLUSIVE. CHRONIC KIDNEY DISEASE STAGING PER NKF: MALE [...] mL/min Normal 80 and above >32 mL/min NormalNORMAL RANGES Age WBC RBC HGB HCT MCV PLT Adult M 4.1-10.9 4.20-6.30 12.0-18.0 37.0-51.0 80-97 140-440 Adult F 4.1-10.9 4.04-5.48 12.0-18.0 37.0-51.0 80-97 140-440 0- 1 Yr 5.0-20.0 3.9-5.9 15-18 MV: 44 MV: 91 MV: 277 2-9 Yr. 6.0-17.0 3.8-5.4 11-13 MV: 37 MV: 78 MV: 300 10 Yrs. 5.0-13.0 3.8-5.4 12-15 MV: 39 MV: 80 MV: 250 NOTE: * FOR ADULT BLACK MALES AND FEMALES, NORMAL WBC IS 2.9-7.7 K/ML * FOR ADULT BLACK MALES AND FEMALES, NORMAL RBC,HGB, AND HCT IS 5% LESS SOURCE FOR DATA: [facility] DYN 1800 OPERATION MANUAL( AUTOMATED BLOOD COUNTS AND DIFF.) APPENDIX B-3 K 4.4 mmol/L 3.5-5.1 [facility] ([facility] CLASSIFICATION CHOLESTEROL FO R ADULTS CHILDREN/ADOLESCENTS* DESIRABLE: <200 MG/DL <170 MG/DL BORDER-LINE HIGH RISK: 200-239 MG/DL 170-199 MG/DL HIGH RISK: >240 MG/DL >200 MG/DL CLASS. FOR PRIMARY LDL CHOL PREVENTION: LDL CHOL-CHILD/ADOLESCENTS* DESIRABLE: <130 MG/DL <110 MG/DL BORDERLINE-HIGH RISK: 130-159 MG/DL 110-129 MG/DL HIGH RISK: >160 MG/DL >130 MG/DL *CHILDREN AND ADOLESCENTS REPRESENTS INDIVIDUALA AGED 2-19 YEARS EXCLUSIVE. CHRONIC KIDNEY DISEASE STAGING PER NKF: MALE [...] mL/min Normal 80 and above >32 mL/min NormalNORMAL RANGES Age WBC RBC HGB HCT MCV PLT Adult M 4.1-10.9 4.20-6.30 12.0-18.0 37.0-51.0 80-97 140-440 Adult F 4.1-10.9 4.04-5.48 12.0-18.0 37.0-51.0 80-97 140-440 0- 1 Yr 5.0-20.0 3.9-5.9 15-18 MV: 44 MV: 91 MV: 277 2-9 Yr. 6.0-17.0 3.8-5.4 11-13 MV: 37 MV: 78 MV: 300 10 Yrs. 5.0-13.0 3.8-5.4 12-15 MV: 39 MV: 80 MV: 250 NOTE: * FOR ADULT BLACK MALES AND FEMALES, NORMAL WBC IS 2.9-7.7 K/ML * FOR ADULT BLACK MALES AND FEMALES, NORMAL RBC,HGB, AND HCT IS 5% LESS SOURCE FOR DATA: [facility] 1800 OPERATION MANUAL( AUTOMATED BLOOD COUNTS AND DIFF.) APPENDIX B-3 Co2 24.8 mmol/L 22.0-29.0 [facility] ([facility] CLASSIFICATION CHOLESTEROL FO R ADULTS CHILDREN/ADOLESCENTS* DESIRABLE: <200 MG/DL <170 MG/DL BORDER-LINE HIGH RISK: 200-239 MG/DL 170-199 MG/DL HIGH RISK: >240 MG/DL >200 MG/DL CLASS. FOR PRIMARY LDL CHOL PREVENTION: LDL CHOL-CHILD/ADOLESCENTS* DESIRABLE: <130 MG/DL <110 MG/DL BORDERLINE-HIGH RISK: 130-159 MG/DL 110-129 MG/DL HIGH RISK: >160 MG/DL >130 MG/DL *CHILDREN AND ADOLESCENTS REPRESENTS INDIVIDUALA AGED 2-19 YEARS EXCLUSIVE. CHRONIC KIDNEY DISEASE STAGING PER NKF: MALE [...] mL/min Normal 80 and above >32 mL/min NormalNORMAL RANGES Age WBC RBC HGB HCT MCV PLT Adult M 4.1-10.9 4.20-6.30 12.0-18.0 37.0-51.0 80-97 140-440 Adult F 4.1-10.9 4.04-5.48 12.0-18.0 37.0-51.0 80-97 140-440 0- 1 Yr 5.0-20.0 3.9-5.9 15-18 MV: 44 MV: 91 MV: 277 2-9 Yr. 6.0-17.0 3.8-5.4 11-13 MV: 37 MV: 78 MV: 300 10 Yrs. 5.0-13.0 3.8-5.4 12-15 MV: 39 MV: 80 MV: 250 NOTE: * FOR ADULT BLACK MALES AND FEMALES, NORMAL WBC IS 2.9-7.7 K/ML * FOR ADULT BLACK MALES AND FEMALES, NORMAL RBC,HGB, AND HCT IS 5% LESS SOURCE FOR DATA: [facility] 1800 OPERATION MANUAL( AUTOMATED BLOOD COUNTS AND DIFF.) APPENDIX B-3 CA 9.3 mg/dL 8.6-10.2 [facility] ([facility] CLASSIFICATION CHOLESTEROL FO R ADULTS CHILDREN/ADOLESCENTS* DESIRABLE: <200 MG/DL <170 MG/DL BORDER-LINE HIGH RISK: 200-239 MG/DL 170-199 MG/DL HIGH RISK: >240 MG/DL >200 MG/DL CLASS. FOR PRIMARY LDL CHOL PREVENTION: LDL CHOL-CHILD/ADOLESCENTS* DESIRABLE: <130 MG/DL <110 MG/DL BORDERLINE-HIGH RISK: 130-159 MG/DL 110-129 MG/DL HIGH RISK: >160 MG/DL >130 MG/DL *CHILDREN AND ADOLESCENTS REPRESENTS INDIVIDUALA AGED 2-19 YEARS EXCLUSIVE. CHRONIC KIDNEY DISEASE STAGING PER NKF: MALE [...] mL/min Normal 80 and above >32 mL/min NormalNORMAL RANGES Age WBC RBC HGB HCT MCV PLT Adult M 4.1-10.9 4.20-6.30 12.0-18.0 37.0-51.0 80-97 140-440 Adult F 4.1-10.9 4.04-5.48 12.0-18.0 37.0-51.0 80-97 140-440 0- 1 Yr 5.0-20.0 3.9-5.9 15-18 MV: 44 MV: 91 MV: 277 2-9 Yr. 6.0-17.0 3.8-5.4 11-13 MV: 37 MV: 78 MV: 300 10 Yrs. 5.0-13.0 3.8-5.4 12-15 MV: 39 MV: 80 MV: 250 NOTE: * FOR ADULT BLACK MALES AND FEMALES, NORMAL WBC IS 2.9-7.7 K/ML * FOR ADULT BLACK MALES AND FEMALES, NORMAL RBC,HGB, AND HCT IS 5% LESS SOURCE FOR DATA: [facility] 1800 OPERATION MANUAL( AUTOMATED BLOOD COUNTS AND DIFF.) APPENDIX B-3 TP 7.0 g/dL 6.6-8.7 [facility] ([facility] CLASSIFICATION CHOLESTEROL FO R ADULTS CHILDREN/ADOLESCENTS* DESIRABLE: <200 MG/DL <170 MG/DL BORDER-LINE HIGH RISK: 200-239 MG/DL 170-199 MG/DL HIGH RISK: >240 MG/DL >200 MG/DL CLASS. FOR PRIMARY LDL CHOL PREVENTION: LDL CHOL-CHILD/ADOLESCENTS* DESIRABLE: <130 MG/DL <110 MG/DL BORDERLINE-HIGH RISK: 130-159 MG/DL 110-129 MG/DL HIGH RISK: >160 MG/DL >130 MG/DL *CHILDREN AND ADOLESCENTS REPRESENTS INDIVIDUALA AGED 2-19 YEARS EXCLUSIVE. CHRONIC KIDNEY DISEASE STAGING PER NKF: MALE [...] mL/min Normal 80 and above >32 mL/min NormalNORMAL RANGES Age WBC RBC HGB HCT MCV PLT Adult M 4.1-10.9 4.20-6.30 12.0-18.0 37.0-51.0 80-97 140-440 Adult F 4.1-10.9 4.04-5.48 12.0-18.0 37.0-51.0 80-97 140-440 0- 1 Yr 5.0-20.0 3.9-5.9 15-18 MV: 44 MV: 91 MV: 277 2-9 Yr. 6.0-17.0 3.8-5.4 11-13 MV: 37 MV: 78 MV: 300 10 Yrs. 5.0-13.0 3.8-5.4 12-15 MV: 39 MV: 80 MV: 250 NOTE: * FOR ADULT BLACK MALES AND FEMALES, NORMAL WBC IS 2.9-7.7 K/ML * FOR ADULT BLACK MALES AND FEMALES, NORMAL RBC,HGB, AND HCT IS 5% LESS SOURCE FOR DATA: [employer] 1800 OPERATION MANUAL( AUTOMATED BLOOD COUNTS AND DIFF.) APPENDIX B-3 Alb 4.1 g/dL 3.4-4.8 [facility] CLASSIFICATION CHOLESTEROL FO R ADULTS CHILDREN/ADOLESCENTS* DESIRABLE: <200 MG/DL <170 MG/DL BORDER-LINE HIGH RISK: 200-239 MG/DL 170-199 MG/DL HIGH RISK: >240 MG/DL >200 MG/DL CLASS. FOR PRIMARY LDL CHOL PREVENTION: LDL CHOL-CHILD/ADOLESCENTS* DESIRABLE: <130 MG/DL <110 MG/DL BORDERLINE-HIGH RISK: 130-159 MG/DL 110-129 MG/DL HIGH RISK: >160 MG/DL >130 MG/DL *CHILDREN AND ADOLESCENTS REPRESENTS INDIVIDUALA AGED 2-19 YEARS EXCLUSIVE. CHRONIC KIDNEY DISEASE STAGING PER NKF: MALE [...] mL/min Normal 80 and above >32 mL/min NormalNORMAL RANGES Age WBC RBC HGB HCT MCV PLT Adult M 4.1-10.9 4.20-6.30 12.0-18.0 37.0-51.0 80-97 140-440 Adult F 4.1-10.9 4.04-5.48 12.0-18.0 37.0-51.0 80-97 140-440 0- 1 Yr 5.0-20.0 3.9-5.9 15-18 MV: 44 MV: 91 MV: 277 2-9 Yr. 6.0-17.0 3.8-5.4 11-13 MV: 37 MV: 78 MV: 300 10 Yrs. 5.0-13.0 3.8-5.4 12-15 MV: 39 MV: 80 MV: 250 NOTE: * FOR ADULT BLACK MALES AND FEMALES, NORMAL WBC IS 2.9-7.7 K/ML * FOR ADULT BLACK MALES AND FEMALES, NORMAL RBC,HGB, AND HCT IS 5% LESS SOURCE FOR DATA: [employer] 1800 OPERATION MANUAL( AUTOMATED BLOOD COUNTS AND DIFF.) APPENDIX B-3 A/G Ratio 1.4 [facility]C [facility] ([facility] CLASSIFICATION CHOLESTEROL FO R ADULTS CHILDREN/ADOLESCENTS* DESIRABLE: <200 MG/DL <170 MG/DL BORDER-LINE HIGH RISK: 200-239 MG/DL 170-199 MG/DL HIGH RISK: >240 MG/DL >200 MG/DL CLASS. FOR PRIMARY LDL CHOL PREVENTION: LDL CHOL-CHILD/ADOLESCENTS* DESIRABLE: <130 MG/DL <110 MG/DL BORDERLINE-HIGH RISK: 130-159 MG/DL 110-129 MG/DL HIGH RISK: >160 MG/DL >130 MG/DL *CHILDREN AND ADOLESCENTS REPRESENTS INDIVIDUALA AGED 2-19 YEARS EXCLUSIVE. CHRONIC KIDNEY DISEASE STAGING PER NKF: MALE [...] mL/min Normal 80 and above >32 mL/min NormalNORMAL RANGES Age WBC RBC HGB HCT MCV PLT Adult M 4.1-10.9 4.20-6.30 12.0-18.0 37.0-51.0 80-97 140-440 Adult F 4.1-10.9 4.04-5.48 12.0-18.0 37.0-51.0 80-97 140-440 0- 1 Yr 5.0-20.0 3.9-5.9 15-18 MV: 44 MV: 91 MV: 277 2-9 Yr. 6.0-17.0 3.8-5.4 11-13 MV: 37 MV: 78 MV: 300 10 Yrs. 5.0-13.0 3.8-5.4 12-15 MV: 39 MV: 80 MV: 250 NOTE: * FOR ADULT BLACK MALES AND FEMALES, NORMAL WBC IS 2.9-7.7 K/ML * FOR ADULT BLACK MALES AND FEMALES, NORMAL RBC,HGB, AND HCT IS 5% LESS SOURCE FOR DATA: [employer] 1800 OPERATION MANUAL( AUTOMATED BLOOD COUNTS AND DIFF.) APPENDIX B-3 Alt (SGPT) 23 U/L 0-41 [facility] ([facility] CLASSIFICATION CHOLESTEROL FO R ADULTS CHILDREN/ADOLESCENTS* DESIRABLE: <200 MG/DL <170 MG/DL BORDER-LINE HIGH RISK: 200-239 MG/DL 170-199 MG/DL HIGH RISK: >240 MG/DL >200 MG/DL CLASS. FOR PRIMARY LDL CHOL PREVENTION: LDL CHOL-CHILD/ADOLESCENTS* DESIRABLE: <130 MG/DL <110 MG/DL BORDERLINE-HIGH RISK: 130-159 MG/DL 110-129 MG/DL HIGH RISK: >160 MG/DL >130 MG/DL *CHILDREN AND ADOLESCENTS REPRESENTS INDIVIDUALA AGED 2-19 YEARS EXCLUSIVE. CHRONIC KIDNEY DISEASE STAGING PER NKF: MALE [...] mL/min Normal 80 and above >32 mL/min NormalNORMAL RANGES Age WBC RBC HGB HCT MCV PLT Adult M 4.1-10.9 4.20-6.30 12.0-18.0 37.0-51.0 80-97 140-440 Adult F 4.1-10.9 4.04-5.48 12.0-18.0 37.0-51.0 80-97 140-440 0- 1 Yr 5.0-20.0 3.9-5.9 15-18 MV: 44 MV: 91 MV: 277 2-9 Yr. 6.0-17.0 3.8-5.4 11-13 MV: 37 MV: 78 MV: 300 10 Yrs. 5.0-13.0 3.8-5.4 12-15 MV: 39 MV: 80 MV: 250 NOTE: * FOR ADULT BLACK MALES AND FEMALES, NORMAL WBC IS 2.9-7.7 K/ML * FOR ADULT BLACK MALES AND FEMALES, NORMAL RBC,HGB, AND HCT IS 5% LESS SOURCE FOR DATA: [employer] 1800 OPERATION MANUAL( AUTOMATED BLOOD COUNTS AND DIFF.) APPENDIX B-3 Globulin 2.9 CALC [facility] CLASSIFICATION CHOLESTEROL FO R ADULTS CHILDREN/ADOLESCENTS* DESIRABLE: <200 MG/DL <170 MG/DL BORDER-LINE HIGH RISK: 200-239 MG/DL 170-199 MG/DL HIGH RISK: >240 MG/DL >200 MG/DL CLASS. FOR PRIMARY LDL CHOL PREVENTION: LDL CHOL-CHILD/ADOLESCENTS* DESIRABLE: <130 MG/DL <110 MG/DL BORDERLINE-HIGH RISK: 130-159 MG/DL 110-129 MG/DL HIGH RISK: >160 MG/DL >130 MG/DL *CHILDREN AND ADOLESCENTS REPRESENTS INDIVIDUALA AGED 2-19 YEARS EXCLUSIVE. CHRONIC KIDNEY DISEASE STAGING PER NKF: MALE [...] mL/min Normal 80 and above >32 mL/min NormalNORMAL RANGES Age WBC RBC HGB HCT MCV PLT Adult M 4.1-10.9 4.20-6.30 12.0-18.0 37.0-51.0 80-97 140-440 Adult F 4.1-10.9 4.04-5.48 12.0-18.0 37.0-51.0 80-97 140-440 0- 1 Yr 5.0-20.0 3.9-5.9 15-18 MV: 44 MV: 91 MV: 277 2-9 Yr. 6.0-17.0 3.8-5.4 11-13 MV: 37 MV: 78 MV: 300 10 Yrs. 5.0-13.0 3.8-5.4 12-15 MV: 39 MV: 80 MV: 250 NOTE: * FOR ADULT BLACK MALES AND FEMALES, NORMAL WBC IS 2.9-7.7 K/ML * FOR ADULT BLACK MALES AND FEMALES, NORMAL RBC,HGB, AND HCT IS 5% LESS SOURCE FOR DATA: [employer] D[employer] 1800 OPERATION MANUAL( AUTOMATED BLOOD COUNTS AND DIFF.) APPENDIX B-3 Alp 68.3 U/L 35-129 [facility] ([facility] CLASSIFICATION CHOLESTEROL FO R ADULTS CHILDREN/ADOLESCENTS* DESIRABLE: <200 MG/DL <170 MG/DL BORDER-LINE HIGH RISK: 200-239 MG/DL 170-199 MG/DL HIGH RISK: >240 MG/DL >200 MG/DL CLASS. FOR PRIMARY LDL CHOL PREVENTION: LDL CHOL-CHILD/ADOLESCENTS* DESIRABLE: <130 MG/DL <110 MG/DL BORDERLINE-HIGH RISK: 130-159 MG/DL 110-129 MG/DL HIGH RISK: >160 MG/DL >130 MG/DL *CHILDREN AND ADOLESCENTS REPRESENTS INDIVIDUALA AGED 2-19 YEARS EXCLUSIVE. CHRONIC KIDNEY DISEASE STAGING PER NKF: MALE [...] mL/min Normal 80 and above >32 mL/min NormalNORMAL RANGES Age WBC RBC HGB HCT MCV PLT Adult M 4.1-10.9 4.20-6.30 12.0-18.0 37.0-51.0 80-97 140-440 Adult F 4.1-10.9 4.04-5.48 12.0-18.0 37.0-51.0 80-97 140-440 0- 1 Yr 5.0-20.0 3.9-5.9 15-18 MV: 44 MV: 91 MV: 277 2-9 Yr. 6.0-17.0 3.8-5.4 11-13 MV: 37 MV: 78 MV: 300 10 Yrs. 5.0-13.0 3.8-5.4 12-15 MV: 39 MV: 80 MV: 250 NOTE: * FOR ADULT BLACK MALES AND FEMALES, NORMAL WBC IS 2.9-7.7 K/ML * FOR ADULT BLACK MALES AND FEMALES, NORMAL RBC,HGB, AND HCT IS 5% LESS SOURCE FOR DATA: [employer] 1800 OPERATION MANUAL( AUTOMATED BLOOD COUNTS AND DIFF.) APPENDIX B-3 Ast (Sgot) 28 U/L 0-40 [facility] ([facility] CLASSIFICATION CHOLESTEROL FO R ADULTS CHILDREN/ADOLESCENTS* DESIRABLE: <200 MG/DL <170 MG/DL BORDER-LINE HIGH RISK: 200-239 MG/DL 170-199 MG/DL HIGH RISK: >240 MG/DL >200 MG/DL CLASS. FOR PRIMARY LDL CHOL PREVENTION: LDL CHOL-CHILD/ADOLESCENTS* DESIRABLE: <130 MG/DL <110 MG/DL BORDERLINE-HIGH RISK: 130-159 MG/DL 110-129 MG/DL HIGH RISK: >160 MG/DL >130 MG/DL *CHILDREN AND ADOLESCENTS REPRESENTS INDIVIDUALA AGED 2-19 YEARS EXCLUSIVE. CHRONIC KIDNEY DISEASE STAGING PER NKF: MALE [...] mL/min Normal 80 and above >32 mL/min NormalNORMAL RANGES Age WBC RBC HGB HCT MCV PLT Adult M 4.1-10.9 4.20-6.30 12.0-18.0 37.0-51.0 80-97 140-440 Adult F 4.1-10.9 4.04-5.48 12.0-18.0 37.0-51.0 80-97 140-440 0- 1 Yr 5.0-20.0 3.9-5.9 15-18 MV: 44 MV: 91 MV: 277 2-9 Yr. 6.0-17.0 3.8-5.4 11-13 MV: 37 MV: 78 MV: 300 10 Yrs. 5.0-13.0 3.8-5.4 12-15 MV: 39 MV: 80 MV: 250 NOTE: * FOR ADULT BLACK MALES AND FEMALES, NORMAL WBC IS 2.9-7.7 K/ML * FOR ADULT BLACK MALES AND FEMALES, NORMAL RBC,HGB, AND HCT IS 5% LESS SOURCE FOR DATA: [employer] 1800 OPERATION MANUAL( AUTOMATED BLOOD COUNTS AND DIFF.) APPENDIX B-3 Tbili 0.40 mg/dL 0.0-1.2 [facility] ([facility] CLASSIFICATION CHOLESTEROL FO R ADULTS CHILDREN/ADOLESCENTS* DESIRABLE: <200 MG/DL <170 MG/DL BORDER-LINE HIGH RISK: 200-239 MG/DL 170-199 MG/DL HIGH RISK: >240 MG/DL >200 MG/DL CLASS. FOR PRIMARY LDL CHOL PREVENTION: LDL CHOL-CHILD/ADOLESCENTS* DESIRABLE: <130 MG/DL <110 MG/DL BORDERLINE-HIGH RISK: 130-159 MG/DL 110-129 MG/DL HIGH RISK: >160 MG/DL >130 MG/DL *CHILDREN AND ADOLESCENTS REPRESENTS INDIVIDUALA AGED 2-19 YEARS EXCLUSIVE. CHRONIC KIDNEY DISEASE STAGING PER NKF: MALE [...] mL/min Normal 80 and above >32 mL/min NormalNORMAL RANGES Age WBC RBC HGB HCT MCV PLT Adult M 4.1-10.9 4.20-6.30 12.0-18.0 37.0-51.0 80-97 140-440 Adult F 4.1-10.9 4.04-5.48 12.0-18.0 37.0-51.0 80-97 140-440 0- 1 Yr 5.0-20.0 3.9-5.9 15-18 MV: 44 MV: 91 MV: 277 2-9 Yr. 6.0-17.0 3.8-5.4 11-13 MV: 37 MV: 78 MV: 300 10 Yrs. 5.0-13.0 3.8-5.4 12-15 MV: 39 MV: 80 MV: 250 NOTE: * FOR ADULT BLACK MALES AND FEMALES, NORMAL WBC IS 2.9-7.7 K/ML * FOR ADULT BLACK MALES AND FEMALES, NORMAL RBC,HGB, AND HCT IS 5% LESS SOURCE FOR DATA: [employer] 1800 OPERATION MANUAL( AUTOMATED BLOOD COUNTS AND DIFF.) APPENDIX B-3 Osmolality-Calculated 279.5 [facility] ([facility] CLASSIFICATION CHOLESTEROL FO R ADULTS CHILDREN/ADOLESCENTS* DESIRABLE: <200 MG/DL <170 MG/DL BORDER-LINE HIGH RISK: 200-239 MG/DL 170-199 MG/DL HIGH RISK: >240 MG/DL >200 MG/DL CLASS. FOR PRIMARY LDL CHOL PREVENTION: LDL CHOL-CHILD/ADOLESCENTS* DESIRABLE: <130 MG/DL <110 MG/DL BORDERLINE-HIGH RISK: 130-159 MG/DL 110-129 MG/DL HIGH RISK: >160 MG/DL >130 MG/DL *CHILDREN AND ADOLESCENTS REPRESENTS INDIVIDUALA AGED 2-19 YEARS EXCLUSIVE. CHRONIC KIDNEY DISEASE STAGING PER NKF: MALE [...] mL/min Normal 80 and above >32 mL/min NormalNORMAL RANGES Age WBC RBC HGB HCT MCV PLT Adult M 4.1-10.9 4.20-6.30 12.0-18.0 37.0-51.0 80-97 140-440 Adult F 4.1-10.9 4.04-5.48 12.0-18.0 37.0-51.0 80-97 140-440 0- 1 Yr 5.0-20.0 3.9-5.9 15-18 MV: 44 MV: 91 MV: 277 2-9 Yr. 6.0-17.0 3.8-5.4 11-13 MV: 37 MV: 78 MV: 300 10 Yrs. 5.0-13.0 3.8-5.4 12-15 MV: 39 MV: 80 MV: 250 NOTE: * FOR ADULT BLACK MALES AND FEMALES, NORMAL WBC IS 2.9-7.7 K/ML * FOR ADULT BLACK MALES AND FEMALES, NORMAL RBC,HGB, AND HCT IS 5% LESS SOURCE FOR DATA: [employer] 1800 OPERATION MANUAL( AUTOMATED BLOOD COUNTS AND DIFF.) APPENDIX B-3 Anion Gap 16 mmol/L [facility] CLASSIFICATION CHOLESTEROL FO R ADULTS CHILDREN/ADOLESCENTS* DESIRABLE: <200 MG/DL <170 MG/DL BORDER-LINE HIGH RISK: 200-239 MG/DL 170-199 MG/DL HIGH RISK: >240 MG/DL >200 MG/DL CLASS. FOR PRIMARY LDL CHOL PREVENTION: LDL CHOL-CHILD/ADOLESCENTS* DESIRABLE: <130 MG/DL <110 MG/DL BORDERLINE-HIGH RISK: 130-159 MG/DL 110-129 MG/DL HIGH RISK: >160 MG/DL >130 MG/DL *CHILDREN AND ADOLESCENTS REPRESENTS INDIVIDUALA AGED 2-19 YEARS EXCLUSIVE. CHRONIC KIDNEY DISEASE STAGING PER NKF: MALE [...] mL/min Normal 80 and above >32 mL/min NormalNORMAL RANGES Age WBC RBC HGB HCT MCV PLT Adult M 4.1-10.9 4.20-6.30 12.0-18.0 37.0-51.0 80-97 140-440 Adult F 4.1-10.9 4.04-5.48 12.0-18.0 37.0-51.0 80-97 140-440 0- 1 Yr 5.0-20.0 3.9-5.9 15-18 MV: 44 MV: 91 MV: 277 2-9 Yr. 6.0-17.0 3.8-5.4 11-13 MV: 37 MV: 78 MV: 300 10 Yrs. 5.0-13.0 3.8-5.4 12-15 MV: 39 MV: 80 MV: 250 NOTE: * FOR ADULT BLACK MALES AND FEMALES, NORMAL WBC IS 2.9-7.7 K/ML * FOR ADULT BLACK MALES AND FEMALES, NORMAL RBC,HGB, AND HCT IS 5% LESS SOURCE FOR DATA: [employer] 1800 OPERATION MANUAL( AUTOMATED BLOOD COUNTS AND DIFF.) APPENDIX B-3 eGFR 45 # [facility] ( [facility] CLASSIFICATION CHOLESTEROL FO R ADULTS CHILDREN/ADOLESCENTS* DESIRABLE: <200 MG/DL <170 MG/DL BORDER-LINE HIGH RISK: 200-239 MG/DL 170-199 MG/DL HIGH RISK: >240 MG/DL >200 MG/DL CLASS. FOR PRIMARY LDL CHOL PREVENTION: LDL CHOL-CHILD/ADOLESCENTS* DESIRABLE: <130 MG/DL <110 MG/DL BORDERLINE-HIGH RISK: 130-159 MG/DL 110-129 MG/DL HIGH RISK: >160 MG/DL >130 MG/DL *CHILDREN AND ADOLESCENTS REPRESENTS INDIVIDUALA AGED 2-19 YEARS EXCLUSIVE. CHRONIC KIDNEY DISEASE STAGING PER NKF: MALE [...] mL/min Normal 80 and above >32 mL/min NormalNORMAL RANGES Age WBC RBC HGB HCT MCV PLT Adult M 4.1-10.9 4.20-6.30 12.0-18.0 37.0-51.0 80-97 140-440 Adult F 4.1-10.9 4.04-5.48 12.0-18.0 37.0-51.0 80-97 140-440 0- 1 Yr 5.0-20.0 3.9-5.9 15-18 MV: 44 MV: 91 MV: 277 2-9 Yr. 6.0-17.0 3.8-5.4 11-13 MV: 37 MV: 78 MV: 300 10 Yrs. 5.0-13.0 3.8-5.4 12-15 MV: 39 MV: 80 MV: 250 NOTE: * FOR ADULT BLACK MALES AND FEMALES, NORMAL WBC IS 2.9-7.7 K/ML * FOR ADULT BLACK MALES AND FEMALES, NORMAL RBC,HGB, AND HCT IS 5% LESS SOURCE FOR DATA: [employer] 1800 OPERATION MANUAL( AUTOMATED BLOOD COUNTS AND DIFF.) APPENDIX B-3 eGFR Non-Afr. Filipino 39 # [facility] ([facility] CLASSIFICATION CHOLESTEROL FO R ADULTS CHILDREN/ADOLESCENTS* DESIRABLE: <200 MG/DL <170 MG/DL BORDER-LINE HIGH RISK: 200-239 MG/DL 170-199 MG/DL HIGH RISK: >240 MG/DL >200 MG/DL CLASS. FOR PRIMARY LDL CHOL PREVENTION: LDL CHOL-CHILD/ADOLESCENTS* DESIRABLE: <130 MG/DL <110 MG/DL BORDERLINE-HIGH RISK: 130-159 MG/DL 110-129 MG/DL HIGH RISK: >160 MG/DL >130 MG/DL *CHILDREN AND ADOLESCENTS REPRESENTS INDIVIDUALA AGED 2-19 YEARS EXCLUSIVE. CHRONIC KIDNEY DISEASE STAGING PER NKF: MALE [...] mL/min Normal 80 and above >32 mL/min NormalNORMAL RANGES Age WBC RBC HGB HCT MCV PLT Adult M 4.1-10.9 4.20-6.30 12.0-18.0 37.0-51.0 80-97 140-440 Adult F 4.1-10.9 4.04-5.48 12.0-18.0 37.0-51.0 80-97 140-440 0- 1 Yr 5.0-20.0 3.9-5.9 15-18 MV: 44 MV: 91 MV: 277 2-9 Yr. 6.0-17.0 3.8-5.4 11-13 MV: 37 MV: 78 MV: 300 10 Yrs. 5.0-13.0 3.8-5.4 12-15 MV: 39 MV: 80 MV: 250 NOTE: * FOR ADULT BLACK MALES AND FEMALES, NORMAL WBC IS 2.9-7.7 K/ML * FOR ADULT BLACK MALES AND FEMALES, NORMAL RBC,HGB, AND HCT IS 5% LESS SOURCE FOR DATA: [employer] 1800 OPERATION MANUAL( AUTOMATED BLOOD COUNTS AND DIFF.) APPENDIX B-3 ID Date Data Source [id number] 08/23/2019 09:18:00 AM EST [facility] ([facility] Name Value Range Interpretation Code Description Data Marycarmen rce(s) Supporting Document(s) WBC 7.6 10E3/uL 4.1-10.9 [facility] ([facility] CLASSIFICATION CHOLESTEROL FO R ADULTS CHILDREN/ADOLESCENTS* DESIRABLE: <200 MG/DL <170 MG/DL BORDER-LINE HIGH RISK: 200-239 MG/DL 170-199 MG/DL HIGH RISK: >240 MG/DL >200 MG/DL CLASS. FOR PRIMARY LDL CHOL PREVENTION: LDL CHOL-CHILD/ADOLESCENTS* DESIRABLE: <130 MG/DL <110 MG/DL BORDERLINE-HIGH RISK: 130-159 MG/DL 110-129 MG/DL HIGH RISK: >160 MG/DL >130 MG/DL *CHILDREN AND ADOLESCENTS REPRESENTS INDIVIDUALA AGED 2-19 YEARS EXCLUSIVE. CHRONIC KIDNEY DISEASE STAGING PER NKF: MALE [...] mL/min Normal 80 and above >32 mL/min NormalNORMAL RANGES Age WBC RBC HGB HCT MCV PLT Adult M 4.1-10.9 4.20-6.30 12.0-18.0 37.0-51.0 80-97 140-440 Adult F 4.1-10.9 4.04-5.48 12.0-18.0 37.0-51.0 80-97 140-440 0- 1 Yr 5.0-20.0 3.9-5.9 15-18 MV: 44 MV: 91 MV: 277 2-9 Yr. 6.0-17.0 3.8-5.4 11-13 MV: 37 MV: 78 MV: 300 10 Yrs. 5.0-13.0 3.8-5.4 12-15 MV: 39 MV: 80 MV: 250 NOTE: * FOR ADULT BLACK MALES AND FEMALES, NORMAL WBC IS 2.9-7.7 K/ML * FOR ADULT BLACK MALES AND FEMALES, NORMAL RBC,HGB, AND HCT IS 5% LESS SOURCE FOR DATA: [employer] 1800 OPERATION MANUAL( AUTOMATED BLOOD COUNTS AND DIFF.) APPENDIX B-3 RBC 3.55 10E6/uL 4.20-6.30 Below low normal [facility] CLASSIFICATION CHOLESTEROL FO R ADULTS CHILDREN/ADOLESCENTS* DESIRABLE: <200 MG/DL <170 MG/DL BORDER-LINE HIGH RISK: 200-239 MG/DL 170-199 MG/DL HIGH RISK: >240 MG/DL >200 MG/DL CLASS. FOR PRIMARY LDL CHOL PREVENTION: LDL CHOL-CHILD/ADOLESCENTS* DESIRABLE: <130 MG/DL <110 MG/DL BORDERLINE-HIGH RISK: 130-159 MG/DL 110-129 MG/DL HIGH RISK: >160 MG/DL >130 MG/DL *CHILDREN AND ADOLESCENTS REPRESENTS INDIVIDUALA AGED 2-19 YEARS EXCLUSIVE. CHRONIC KIDNEY DISEASE STAGING PER NKF: MALE [...] mL/min Normal 80 and above >32 mL/min NormalNORMAL RANGES Age WBC RBC HGB HCT MCV PLT Adult M 4.1-10.9 4.20-6.30 12.0-18.0 37.0-51.0 80-97 140-440 Adult F 4.1-10.9 4.04-5.48 12.0-18.0 37.0-51.0 80-97 140-440 0- 1 Yr 5.0-20.0 3.9-5.9 15-18 MV: 44 MV: 91 MV: 277 2-9 Yr. 6.0-17.0 3.8-5.4 11-13 MV: 37 MV: 78 MV: 300 10 Yrs. 5.0-13.0 3.8-5.4 12-15 MV: 39 MV: 80 MV: 250 NOTE: * FOR ADULT BLACK MALES AND FEMALES, NORMAL WBC IS 2.9-7.7 K/ML * FOR ADULT BLACK MALES AND FEMALES, NORMAL RBC,HGB, AND HCT IS 5% LESS SOURCE FOR DATA: [employer] DYN 1800 OPERATION MANUAL( AUTOMATED BLOOD COUNTS AND DIFF.) APPENDIX B-3 HGB 11.6 g/dL 12.0-18.0 Below low normal [facility] CLASSIFICATION CHOLESTEROL FO R ADULTS CHILDREN/ADOLESCENTS* DESIRABLE: <200 MG/DL <170 MG/DL BORDER-LINE HIGH RISK: 200-239 MG/DL 170-199 MG/DL HIGH RISK: >240 MG/DL >200 MG/DL CLASS. FOR PRIMARY LDL CHOL PREVENTION: LDL CHOL-CHILD/ADOLESCENTS* DESIRABLE: <130 MG/DL <110 MG/DL BORDERLINE-HIGH RISK: 130-159 MG/DL 110-129 MG/DL HIGH RISK: >160 MG/DL >130 MG/DL *CHILDREN AND ADOLESCENTS REPRESENTS INDIVIDUALA AGED 2-19 YEARS EXCLUSIVE. CHRONIC KIDNEY DISEASE STAGING PER NKF: MALE [...] mL/min Normal 80 and above >32 mL/min NormalNORMAL RANGES Age WBC RBC HGB HCT MCV PLT Adult M 4.1-10.9 4.20-6.30 12.0-18.0 37.0-51.0 80-97 140-440 Adult F 4.1-10.9 4.04-5.48 12.0-18.0 37.0-51.0 80-97 140-440 0- 1 Yr 5.0-20.0 3.9-5.9 15-18 MV: 44 MV: 91 MV: 277 2-9 Yr. 6.0-17.0 3.8-5.4 11-13 MV: 37 MV: 78 MV: 300 10 Yrs. 5.0-13.0 3.8-5.4 12-15 MV: 39 MV: 80 MV: 250 NOTE: * FOR ADULT BLACK MALES AND FEMALES, NORMAL WBC IS 2.9-7.7 K/ML * FOR ADULT BLACK MALES AND FEMALES, NORMAL RBC,HGB, AND HCT IS 5% LESS SOURCE FOR DATA: [employer] 1800 OPERATION MANUAL( AUTOMATED BLOOD COUNTS AND DIFF.) APPENDIX B-3 HCT 34.0 % 37.0-51.0 Below low normal [facility] ( [facility] CLASSIFICATION CHOLESTEROL FO R ADULTS CHILDREN/ADOLESCENTS* DESIRABLE: <200 MG/DL <170 MG/DL BORDER-LINE HIGH RISK: 200-239 MG/DL 170-199 MG/DL HIGH RISK: >240 MG/DL >200 MG/DL CLASS. FOR PRIMARY LDL CHOL PREVENTION: LDL CHOL-CHILD/ADOLESCENTS* DESIRABLE: <130 MG/DL <110 MG/DL BORDERLINE-HIGH RISK: 130-159 MG/DL 110-129 MG/DL HIGH RISK: >160 MG/DL >130 MG/DL *CHILDREN AND ADOLESCENTS REPRESENTS INDIVIDUALA AGED 2-19 YEARS EXCLUSIVE. CHRONIC KIDNEY DISEASE STAGING PER NKF: MALE [...] mL/min Normal 80 and above >32 mL/min NormalNORMAL RANGES Age WBC RBC HGB HCT MCV PLT Adult M 4.1-10.9 4.20-6.30 12.0-18.0 37.0-51.0 80-97 140-440 Adult F 4.1-10.9 4.04-5.48 12.0-18.0 37.0-51.0 80-97 140-440 0- 1 Yr 5.0-20.0 3.9-5.9 15-18 MV: 44 MV: 91 MV: 277 2-9 Yr. 6.0-17.0 3.8-5.4 11-13 MV: 37 MV: 78 MV: 300 10 Yrs. 5.0-13.0 3.8-5.4 12-15 MV: 39 MV: 80 MV: 250 NOTE: * FOR ADULT BLACK MALES AND FEMALES, NORMAL WBC IS 2.9-7.7 K/ML * FOR ADULT BLACK MALES AND FEMALES, NORMAL RBC,HGB, AND HCT IS 5% LESS SOURCE FOR DATA: [employer] 1800 OPERATION MANUAL( AUTOMATED BLOOD COUNTS AND DIFF.) APPENDIX B-3 MCHC 34.1 g/dL 31.0-36.0 [facility] ([facility] CLASSIFICATION CHOLESTEROL FO R ADULTS CHILDREN/ADOLESCENTS* DESIRABLE: <200 MG/DL <170 MG/DL BORDER-LINE HIGH RISK: 200-239 MG/DL 170-199 MG/DL HIGH RISK: >240 MG/DL >200 MG/DL CLASS. FOR PRIMARY LDL CHOL PREVENTION: LDL CHOL-CHILD/ADOLESCENTS* DESIRABLE: <130 MG/DL <110 MG/DL BORDERLINE-HIGH RISK: 130-159 MG/DL 110-129 MG/DL HIGH RISK: >160 MG/DL >130 MG/DL *CHILDREN AND ADOLESCENTS REPRESENTS INDIVIDUALA AGED 2-19 YEARS EXCLUSIVE. CHRONIC KIDNEY DISEASE STAGING PER NKF: MALE [...] mL/min Normal 80 and above >32 mL/min NormalNORMAL RANGES Age WBC RBC HGB HCT MCV PLT Adult M 4.1-10.9 4.20-6.30 12.0-18.0 37.0-51.0 80-97 140-440 Adult F 4.1-10.9 4.04-5.48 12.0-18.0 37.0-51.0 80-97 140-440 0- 1 Yr 5.0-20.0 3.9-5.9 15-18 MV: 44 MV: 91 MV: 277 2-9 Yr. 6.0-17.0 3.8-5.4 11-13 MV: 37 MV: 78 MV: 300 10 Yrs. 5.0-13.0 3.8-5.4 12-15 MV: 39 MV: 80 MV: 250 NOTE: * FOR ADULT BLACK MALES AND FEMALES, NORMAL WBC IS 2.9-7.7 K/ML * FOR ADULT BLACK MALES AND FEMALES, NORMAL RBC,HGB, AND HCT IS 5% LESS SOURCE FOR DATA: [employer] 1800 OPERATION MANUAL( AUTOMATED BLOOD COUNTS AND DIFF.) APPENDIX B-3 MCH 32.7 pg 26.0-32.0 Above high normal [facility] CLASSIFICATION CHOLESTEROL FO R ADULTS CHILDREN/ADOLESCENTS* DESIRABLE: <200 MG/DL <170 MG/DL BORDER-LINE HIGH RISK: 200-239 MG/DL 170-199 MG/DL HIGH RISK: >240 MG/DL >200 MG/DL CLASS. FOR PRIMARY LDL CHOL PREVENTION: LDL CHOL-CHILD/ADOLESCENTS* DESIRABLE: <130 MG/DL <110 MG/DL BORDERLINE-HIGH RISK: 130-159 MG/DL 110-129 MG/DL HIGH RISK: >160 MG/DL >130 MG/DL *CHILDREN AND ADOLESCENTS REPRESENTS INDIVIDUALA AGED 2-19 YEARS EXCLUSIVE. CHRONIC KIDNEY DISEASE STAGING PER NKF: MALE [...] mL/min Normal 80 and above >32 mL/min NormalNORMAL RANGES Age WBC RBC HGB HCT MCV PLT Adult M 4.1-10.9 4.20-6.30 12.0-18.0 37.0-51.0 80-97 140-440 Adult F 4.1-10.9 4.04-5.48 12.0-18.0 37.0-51.0 80-97 140-440 0- 1 Yr 5.0-20.0 3.9-5.9 15-18 MV: 44 MV: 91 MV: 277 2-9 Yr. 6.0-17.0 3.8-5.4 11-13 MV: 37 MV: 78 MV: 300 10 Yrs. 5.0-13.0 3.8-5.4 12-15 MV: 39 MV: 80 MV: 250 NOTE: * FOR ADULT BLACK MALES AND FEMALES, NORMAL WBC IS 2.9-7.7 K/ML * FOR ADULT BLACK MALES AND FEMALES, NORMAL RBC,HGB, AND HCT IS 5% LESS SOURCE FOR DATA: [employer]YN 1800 OPERATION MANUAL( AUTOMATED BLOOD COUNTS AND DIFF.) APPENDIX B-3 MCV 95.8 fL 80.0-97.0 [facility] ([facility] CLASSIFICATION CHOLESTEROL FO R ADULTS CHILDREN/ADOLESCENTS* DESIRABLE: <200 MG/DL <170 MG/DL BORDER-LINE HIGH RISK: 200-239 MG/DL 170-199 MG/DL HIGH RISK: >240 MG/DL >200 MG/DL CLASS. FOR PRIMARY LDL CHOL PREVENTION: LDL CHOL-CHILD/ADOLESCENTS* DESIRABLE: <130 MG/DL <110 MG/DL BORDERLINE-HIGH RISK: 130-159 MG/DL 110-129 MG/DL HIGH RISK: >160 MG/DL >130 MG/DL *CHILDREN AND ADOLESCENTS REPRESENTS INDIVIDUALA AGED 2-19 YEARS EXCLUSIVE. CHRONIC KIDNEY DISEASE STAGING PER NKF: MALE [...] mL/min Normal 80 and above >32 mL/min NormalNORMAL RANGES Age WBC RBC HGB HCT MCV PLT Adult M 4.1-10.9 4.20-6.30 12.0-18.0 37.0-51.0 80-97 140-440 Adult F 4.1-10.9 4.04-5.48 12.0-18.0 37.0-51.0 80-97 140-440 0- 1 Yr 5.0-20.0 3.9-5.9 15-18 MV: 44 MV: 91 MV: 277 2-9 Yr. 6.0-17.0 3.8-5.4 11-13 MV: 37 MV: 78 MV: 300 10 Yrs. 5.0-13.0 3.8-5.4 12-15 MV: 39 MV: 80 MV: 250 NOTE: * FOR ADULT BLACK MALES AND FEMALES, NORMAL WBC IS 2.9-7.7 K/ML * FOR ADULT BLACK MALES AND FEMALES, NORMAL RBC,HGB, AND HCT IS 5% LESS SOURCE FOR DATA: [employer] 1800 OPERATION MANUAL( AUTOMATED BLOOD COUNTS AND DIFF.) APPENDIX B-3 Lym% 38.0 % 10.0-58.5 [facility] ([facility] CLASSIFICATION CHOLESTEROL FO R ADULTS CHILDREN/ADOLESCENTS* DESIRABLE: <200 MG/DL <170 MG/DL BORDER-LINE HIGH RISK: 200-239 MG/DL 170-199 MG/DL HIGH RISK: >240 MG/DL >200 MG/DL CLASS. FOR PRIMARY LDL CHOL PREVENTION: LDL CHOL-CHILD/ADOLESCENTS* DESIRABLE: <130 MG/DL <110 MG/DL BORDERLINE-HIGH RISK: 130-159 MG/DL 110-129 MG/DL HIGH RISK: >160 MG/DL >130 MG/DL *CHILDREN AND ADOLESCENTS REPRESENTS INDIVIDUALA AGED 2-19 YEARS EXCLUSIVE. CHRONIC KIDNEY DISEASE STAGING PER NKF: MALE [...] mL/min Normal 80 and above >32 mL/min NormalNORMAL RANGES Age WBC RBC HGB HCT MCV PLT Adult M 4.1-10.9 4.20-6.30 12.0-18.0 37.0-51.0 80-97 140-440 Adult F 4.1-10.9 4.04-5.48 12.0-18.0 37.0-51.0 80-97 140-440 0- 1 Yr 5.0-20.0 3.9-5.9 15-18 MV: 44 MV: 91 MV: 277 2-9 Yr. 6.0-17.0 3.8-5.4 11-13 MV: 37 MV: 78 MV: 300 10 Yrs. 5.0-13.0 3.8-5.4 12-15 MV: 39 MV: 80 MV: 250 NOTE: * FOR ADULT BLACK MALES AND FEMALES, NORMAL WBC IS 2.9-7.7 K/ML * FOR ADULT BLACK MALES AND FEMALES, NORMAL RBC,HGB, AND HCT IS 5% LESS SOURCE FOR DATA: [employer] [facility]YN 1800 OPERATION MANUAL( AUTOMATED BLOOD COUNTS AND DIFF.) APPENDIX B-3 PLT 174 10E3/uL 140-440 [facility] ([facility] CLASSIFICATION CHOLESTEROL FO R ADULTS CHILDREN/ADOLESCENTS* DESIRABLE: <200 MG/DL <170 MG/DL BORDER-LINE HIGH RISK: 200-239 MG/DL 170-199 MG/DL HIGH RISK: >240 MG/DL >200 MG/DL CLASS. FOR PRIMARY LDL CHOL PREVENTION: LDL CHOL-CHILD/ADOLESCENTS* DESIRABLE: <130 MG/DL <110 MG/DL BORDERLINE-HIGH RISK: 130-159 MG/DL 110-129 MG/DL HIGH RISK: >160 MG/DL >130 MG/DL *CHILDREN AND ADOLESCENTS REPRESENTS INDIVIDUALA AGED 2-19 YEARS EXCLUSIVE. CHRONIC KIDNEY DISEASE STAGING PER NKF: MALE [...] mL/min Normal 80 and above >32 mL/min NormalNORMAL RANGES Age WBC RBC HGB HCT MCV PLT Adult M 4.1-10.9 4.20-6.30 12.0-18.0 37.0-51.0 80-97 140-440 Adult F 4.1-10.9 4.04-5.48 12.0-18.0 37.0-51.0 80-97 140-440 0- 1 Yr 5.0-20.0 3.9-5.9 15-18 MV: 44 MV: 91 MV: 277 2-9 Yr. 6.0-17.0 3.8-5.4 11-13 MV: 37 MV: 78 MV: 300 10 Yrs. 5.0-13.0 3.8-5.4 12-15 MV: 39 MV: 80 MV: 250 NOTE: * FOR ADULT BLACK MALES AND FEMALES, NORMAL WBC IS 2.9-7.7 K/ML * FOR ADULT BLACK MALES AND FEMALES, NORMAL RBC,HGB, AND HCT IS 5% LESS SOURCE FOR DATA: [employer] 1800 OPERATION MANUAL( AUTOMATED BLOOD COUNTS AND DIFF.) APPENDIX B-3 RDW-CV 13.4 % 11.5-14.5 [facility] ([facility] CLASSIFICATION CHOLESTEROL FO R ADULTS CHILDREN/ADOLESCENTS* DESIRABLE: <200 MG/DL <170 MG/DL BORDER-LINE HIGH RISK: 200-239 MG/DL 170-199 MG/DL HIGH RISK: >240 MG/DL >200 MG/DL CLASS. FOR PRIMARY LDL CHOL PREVENTION: LDL CHOL-CHILD/ADOLESCENTS* DESIRABLE: <130 MG/DL <110 MG/DL BORDERLINE-HIGH RISK: 130-159 MG/DL 110-129 MG/DL HIGH RISK: >160 MG/DL >130 MG/DL *CHILDREN AND ADOLESCENTS REPRESENTS INDIVIDUALA AGED 2-19 YEARS EXCLUSIVE. CHRONIC KIDNEY DISEASE STAGING PER NKF: MALE [...] mL/min Normal 80 and above >32 mL/min NormalNORMAL RANGES Age WBC RBC HGB HCT MCV PLT Adult M 4.1-10.9 4.20-6.30 12.0-18.0 37.0-51.0 80-97 140-440 Adult F 4.1-10.9 4.04-5.48 12.0-18.0 37.0-51.0 80-97 140-440 0- 1 Yr 5.0-20.0 3.9-5.9 15-18 MV: 44 MV: 91 MV: 277 2-9 Yr. 6.0-17.0 3.8-5.4 11-13 MV: 37 MV: 78 MV: 300 10 Yrs. 5.0-13.0 3.8-5.4 12-15 MV: 39 MV: 80 MV: 250 NOTE: * FOR ADULT BLACK MALES AND FEMALES, NORMAL WBC IS 2.9-7.7 K/ML * FOR ADULT BLACK MALES AND FEMALES, NORMAL RBC,HGB, AND HCT IS 5% LESS SOURCE FOR DATA: [employer] 1800 OPERATION MANUAL( AUTOMATED BLOOD COUNTS AND DIFF.) APPENDIX B-3 Neut% 48.4 % 37.0-92.0 [facility] ([facility] CLASSIFICATION CHOLESTEROL FO R ADULTS CHILDREN/ADOLESCENTS* DESIRABLE: <200 MG/DL <170 MG/DL BORDER-LINE HIGH RISK: 200-239 MG/DL 170-199 MG/DL HIGH RISK: >240 MG/DL >200 MG/DL CLASS. FOR PRIMARY LDL CHOL PREVENTION: LDL CHOL-CHILD/ADOLESCENTS* DESIRABLE: <130 MG/DL <110 MG/DL BORDERLINE-HIGH RISK: 130-159 MG/DL 110-129 MG/DL HIGH RISK: >160 MG/DL >130 MG/DL *CHILDREN AND ADOLESCENTS REPRESENTS INDIVIDUALA AGED 2-19 YEARS EXCLUSIVE. CHRONIC KIDNEY DISEASE STAGING PER NKF: MALE [...] mL/min Normal 80 and above >32 mL/min NormalNORMAL RANGES Age WBC RBC HGB HCT MCV PLT Adult M 4.1-10.9 4.20-6.30 12.0-18.0 37.0-51.0 80 140-440 Adult F 4.1-10.9 4.04-5.48 12.0-18.0 37.0-51.0 80- 140-440 0- 1 Yr 5.0-20.0 3.9-5.9 15-18 MV: 44 MV: 91 MV: 277 2-9 Yr. 6.0-17.0 3.8-5.4 11-13 MV: 37 MV: 78 MV: 300 10 Yrs. 5.0-13.0 3.8-5.4 12-15 MV: 39 MV: 80 MV: 250 NOTE: * FOR ADULT BLACK MALES AND FEMALES, NORMAL WBC IS 2.9-7.7 K/ML * FOR ADULT BLACK MALES AND FEMALES, NORMAL RBC,HGB, AND HCT IS 5% LESS SOURCE FOR DATA: [employer] 1800 OPERATION MANUAL( AUTOMATED BLOOD COUNTS AND DIFF.) APPENDIX B-3 MXD% 13.6 % 0.1-24.0 [facility] ([facility] CLASSIFICATION CHOLESTEROL FO R ADULTS CHILDREN/ADOLESCENTS* DESIRABLE: <200 MG/DL <170 MG/DL BORDER-LINE HIGH RISK: 200-239 MG/DL 170-199 MG/DL HIGH RISK: >240 MG/DL >200 MG/DL CLASS. FOR PRIMARY LDL CHOL PREVENTION: LDL CHOL-CHILD/ADOLESCENTS* DESIRABLE: <130 MG/DL <110 MG/DL BORDERLINE-HIGH RISK: 130-159 MG/DL 110-129 MG/DL HIGH RISK: >160 MG/DL >130 MG/DL *CHILDREN AND ADOLESCENTS REPRESENTS INDIVIDUALA AGED 2-19 YEARS EXCLUSIVE. CHRONIC KIDNEY DISEASE STAGING PER NKF: MALE [...] mL/min Normal 80 and above >32 mL/min NormalNORMAL RANGES Age WBC RBC HGB HCT MCV PLT Adult M 4.1-10.9 4.20-6.30 12.0-18.0 37.0-51.0 80-97 140-440 Adult F 4.1-10.9 4.04-5.48 12.0-18.0 37.0-51.0 80-97 140-440 0- 1 Yr 5.0-20.0 3.9-5.9 15-18 MV: 44 MV: 91 MV: 277 2-9 Yr. 6.0-17.0 3.8-5.4 11-13 MV: 37 MV: 78 MV: 300 10 Yrs. 5.0-13.0 3.8-5.4 12-15 MV: 39 MV: 80 MV: 250 NOTE: * FOR ADULT BLACK MALES AND FEMALES, NORMAL WBC IS 2.9-7.7 K/ML * FOR ADULT BLACK MALES AND FEMALES, NORMAL RBC,HGB, AND HCT IS 5% LESS SOURCE FOR DATA: [employer] 1800 OPERATION MANUAL( AUTOMATED BLOOD COUNTS AND DIFF.) APPENDIX B-3 Lym# 2.9 10E3/uL 0.6-4.1 [facility] ([facility] CLASSIFICATION CHOLESTEROL FO R ADULTS CHILDREN/ADOLESCENTS* DESIRABLE: <200 MG/DL <170 MG/DL BORDER-LINE HIGH RISK: 200-239 MG/DL 170-199 MG/DL HIGH RISK: >240 MG/DL >200 MG/DL CLASS. FOR PRIMARY LDL CHOL PREVENTION: LDL CHOL-CHILD/ADOLESCENTS* DESIRABLE: <130 MG/DL <110 MG/DL BORDERLINE-HIGH RISK: 130-159 MG/DL 110-129 MG/DL HIGH RISK: >160 MG/DL >130 MG/DL *CHILDREN AND ADOLESCENTS REPRESENTS INDIVIDUALA AGED 2-19 YEARS EXCLUSIVE. CHRONIC KIDNEY DISEASE STAGING PER NKF: MALE [...] mL/min Normal 80 and above >32 mL/min NormalNORMAL RANGES Age WBC RBC HGB HCT MCV PLT Adult M 4.1-10.9 4.20-6.30 12.0-18.0 37.0-51.0 80-97 140-440 Adult F 4.1-10.9 4.04-5.48 12.0-18.0 37.0-51.0 80-97 140-440 0- 1 Yr 5.0-20.0 3.9-5.9 15-18 MV: 44 MV: 91 MV: 277 2-9 Yr. 6.0-17.0 3.8-5.4 11-13 MV: 37 MV: 78 MV: 300 10 Yrs. 5.0-13.0 3.8-5.4 12-15 MV: 39 MV: 80 MV: 250 NOTE: * FOR ADULT BLACK MALES AND FEMALES, NORMAL WBC IS 2.9-7.7 K/ML * FOR ADULT BLACK MALES AND FEMALES, NORMAL RBC,HGB, AND HCT IS 5% LESS SOURCE FOR DATA: [employer] 1800 OPERATION MANUAL( AUTOMATED BLOOD COUNTS AND DIFF.) APPENDIX B-3 MXD# 1.0 10E3/uL 0.0-1.8 [facility] ([facility] CLASSIFICATION CHOLESTEROL FO R ADULTS CHILDREN/ADOLESCENTS* DESIRABLE: <200 MG/DL <170 MG/DL BORDER-LINE HIGH RISK: 200-239 MG/DL 170-199 MG/DL HIGH RISK: >240 MG/DL >200 MG/DL CLASS. FOR PRIMARY LDL CHOL PREVENTION: LDL CHOL-CHILD/ADOLESCENTS* DESIRABLE: <130 MG/DL <110 MG/DL BORDERLINE-HIGH RISK: 130-159 MG/DL 110-129 MG/DL HIGH RISK: >160 MG/DL >130 MG/DL *CHILDREN AND ADOLESCENTS REPRESENTS INDIVIDUALA AGED 2-19 YEARS EXCLUSIVE. CHRONIC KIDNEY DISEASE STAGING PER NKF: MALE [...] mL/min Normal 80 and above >32 mL/min NormalNORMAL RANGES Age WBC RBC HGB HCT MCV PLT Adult M 4.1-10.9 4.20-6.30 12.0-18.0 37.0-51.0 80-97 140-440 Adult F 4.1-10.9 4.04-5.48 12.0-18.0 37.0-51.0 80-97 140-440 0- 1 Yr 5.0-20.0 3.9-5.9 15-18 MV: 44 MV: 91 MV: 277 2-9 Yr. 6.0-17.0 3.8-5.4 11-13 MV: 37 MV: 78 MV: 300 10 Yrs. 5.0-13.0 3.8-5.4 12-15 MV: 39 MV: 80 MV: 250 NOTE: * FOR ADULT BLACK MALES AND FEMALES, NORMAL WBC IS 2.9-7.7 K/ML * FOR ADULT BLACK MALES AND FEMALES, NORMAL RBC,HGB, AND HCT IS 5% LESS SOURCE FOR DATA: [employer] 1800 OPERATION MANUAL( AUTOMATED BLOOD COUNTS AND DIFF.) APPENDIX B-3 Neut# 3.7 % 2.0-7.8 [facility] ([facility] CLASSIFICATION CHOLESTEROL FO R ADULTS CHILDREN/ADOLESCENTS* DESIRABLE: <200 MG/DL <170 MG/DL BORDER-LINE HIGH RISK: 200-239 MG/DL 170-199 MG/DL HIGH RISK: >240 MG/DL >200 MG/DL CLASS. FOR PRIMARY LDL CHOL PREVENTION: LDL CHOL-CHILD/ADOLESCENTS* DESIRABLE: <130 MG/DL <110 MG/DL BORDERLINE-HIGH RISK: 130-159 MG/DL 110-129 MG/DL HIGH RISK: >160 MG/DL >130 MG/DL *CHILDREN AND ADOLESCENTS REPRESENTS INDIVIDUALA AGED 2-19 YEARS EXCLUSIVE. CHRONIC KIDNEY DISEASE STAGING PER NKF: MALE [...] mL/min Normal 80 and above >32 mL/min NormalNORMAL RANGES Age WBC RBC HGB HCT MCV PLT Adult M 4.1-10.9 4.20-6.30 12.0-18.0 37.0-51.0 80-97 140-440 Adult F 4.1-10.9 4.04-5.48 12.0-18.0 37.0-51.0 80-97 140-440 0- 1 Yr 5.0-20.0 3.9-5.9 15-18 MV: 44 MV: 91 MV: 277 2-9 Yr. 6.0-17.0 3.8-5.4 11-13 MV: 37 MV: 78 MV: 300 10 Yrs. 5.0-13.0 3.8-5.4 12-15 MV: 39 MV: 80 MV: 250 NOTE: * FOR ADULT BLACK MALES AND FEMALES, NORMAL WBC IS 2.9-7.7 K/ML * FOR ADULT BLACK MALES AND FEMALES, NORMAL RBC,HGB, AND HCT IS 5% LESS SOURCE FOR DATA: [employer] 1800 OPERATION MANUAL( AUTOMATED BLOOD COUNTS AND DIFF.) APPENDIX B-3 MPV 10.5 fL 9.0-13.0 [facility] CLASSIFICATION CHOLESTEROL FO R ADULTS CHILDREN/ADOLESCENTS* DESIRABLE: <200 MG/DL <170 MG/DL BORDER-LINE HIGH RISK: 200-239 MG/DL 170-199 MG/DL HIGH RISK: >240 MG/DL >200 MG/DL CLASS. FOR PRIMARY LDL CHOL PREVENTION: LDL CHOL-CHILD/ADOLESCENTS* DESIRABLE: <130 MG/DL <110 MG/DL BORDERLINE-HIGH RISK: 130-159 MG/DL 110-129 MG/DL HIGH RISK: >160 MG/DL >130 MG/DL *CHILDREN AND ADOLESCENTS REPRESENTS INDIVIDUALA AGED 2-19 YEARS EXCLUSIVE. CHRONIC KIDNEY DISEASE STAGING PER NKF: MALE [...] mL/min Normal 80 and above >32 mL/min NormalNORMAL RANGES Age WBC RBC HGB HCT MCV PLT Adult M 4.1-10.9 4.20-6.30 12.0-18.0 37.0-51.0 80-97 140-440 Adult F 4.1-10.9 4.04-5.48 12.0-18.0 37.0-51.0 80-97 140-440 0- 1 Yr 5.0-20.0 3.9-5.9 15-18 MV: 44 MV: 91 MV: 277 2-9 Yr. 6.0-17.0 3.8-5.4 11-13 MV: 37 MV: 78 MV: 300 10 Yrs. 5.0-13.0 3.8-5.4 12-15 MV: 39 MV: 80 MV: 250 NOTE: * FOR ADULT BLACK MALES AND FEMALES, NORMAL WBC IS 2.9-7.7 K/ML * FOR ADULT BLACK MALES AND FEMALES, NORMAL RBC,HGB, AND HCT IS 5% LESS SOURCE FOR DATA: [employer] 1800 OPERATION MANUAL( AUTOMATED BLOOD COUNTS AND DIFF.) APPENDIX B-3 ID Date Data Source [id number] 08/23/2019 09:18:00 AM EST [facility] ([facility] Name Value Range Interpretation Code Description Data Marycarmen rce(s) Supporting Document(s) Thyrotropin [Units/volume] in Serum or Plasma 4.315 ulU/mL 0.60-4.8 [facility] ([facility] ID Date Data Source [id number] 08/15/2019 03:09:00 PM EST [facility] ([facility]) Name Value Range Interpretation Code Description Data Marycarmen rce(s) Supporting Document(s) Natriuretic peptide.B prohormone N-Terminal [Mass/volu me] in Serum or Plasma 632 pg/mL 0-738 [facility] ([facility]) A courtesy copy of this report has been sent to the patient, , Laboratory test finding (navigational concept) Laboratory test result [facility] ([facility]) A courtesy copy of this report has been sent to the patient, , Magnesium [Mass/volume] in Serum or Plasma 1.9 mg/dL 1.6-2.3 [facility] ([facility]) A courtesy copy of this report has been sent to the patient, , ID Date Data Source [id number] 08/15/2019 03:09:00 PM EST [facility] ([facility]) Name Value Range Interpretation Code Description Data Marycarmen rce(s) Supporting Document(s) Glucose 117 mg/dL 65-99 [facility] ([facility]) A courtesy copy of this report has been sent to the patient, , Urea nitrogen [Mass/volume] in Serum or Plasma 47 mg/dL 8-27 [facility] ([facility]) A courtesy copy of this report has been sent to the patient, , Creatinine 1.47 mg/dL 0.57-1.00 [facility] ([facility]) A courtesy copy of this report has been sent to the patient, , eGFR If Africn Am 39 mL/min/1.73 [facility] ([facility]) A courtesy copy of this report has been sent to the patient, , Urea nitrogen/Creatinine [Mass Ratio] in Serum or Plasma 32 1 2-28 [facility] ([facility]) A courtesy copy of this report has been sent to the patient, , eGFR If NonAfricn Am 34 mL/min/1.73 [facility] NT ([facility]) A courtesy copy of this report has been sent to the patient, , Potassium [Moles/volume] in Serum or Plasma 4.4 mmol/L 3.5-5.2 [facility] ([facility]) A courtesy copy of this report has been sent to the patient, , Chloride [Moles/volume] in Serum or Plasma 96 mmol/L 96-106 [facility] ([facility]) A courtesy copy of this report has been sent to the patient, , Sodium 137 mmol/L 134-144 [facility] ([facility]) A courtesy copy of this report has been sent to the patient, , Carbon dioxide, total [Moles/volume] in Serum or Plasma 27 mmol/L 20 -29 [facility] ([facility]) A courtesy copy of this report has been sent to the patient, , Calcium [Mass/volume] in Serum or Plasma 9.6 mg/dL 8.7-10.3 [facility] ([facility]) A courtesy copy of this report has been sent to the patient, , ID Date Data Source [id number] 08/16/2019 08:06:00 AM EST [facility] Name Value Range Interpretation Code Description Data [facility]carmen [facility](s) Supporting Document(s) Glucose 117 mg/dL 65-99 Above high normal [facility] BUN 47 mg/dL 8-27 Above high normal [facility] Creatinine 1.47 mg/dL 0.57-1.00 Above high normal [facility] eGFR If NonAfricn Am 34 mL/min/1.73 >59 Below low normal [facility] eGFR If Africn Am 39 mL/min/1.73 >59 Below low normal [facility] BUN/Creatinine Ratio 32 12-28 Above high normal [facility] Sodium 137 mmol/L 134-144 [facility] Potassium 4.4 mmol/L 3.5-5.2 [facility] Chloride 96 mmol/L 96-106 [facility] Carbon Dioxide, Total 27 mmol/L 20-29 [facility] Calcium 9.6 mg/dL 8.7-10.3 [facility] ID Date Data Source [id number] 08/17/2019 06:05:00 AM EST [facility] Name Value Range Interpretation Code Description Data [facility]en [facility]) Supporting Document(s) NT-proBNP 632 pg/mL 0-738 [facility] The following cut-points have been suggested for the use of proBNP for the diagnostic evaluation of heart failure (HF) in patients with acute dyspnea: Modality Age Optimal Cut (years) Point Diagnosis (rule in HF) <50 450 pg/mL 50 - 75 900 pg/mL > 75 1800 pg/mL Exclusion (rule out HF) Age independent 300 pg/mL ID Date Data Source [id number] 08/16/2019 08:06:00 AM EST [facility] Name Value Range Interpretation Code Description Data [facility]armen [facility]) Supporting Document(s) Magnesium 1.9 mg/dL 1.6-2.3 [facility] ID Date Data Source [id number] 07/31/2019 10:41:00 AM EST [facility] ([facility] Name Value Range Interpretation Code Description Data Marycarmen rce(s) Supporting Document(s) Laboratory test finding (navigational concept) 104 mg/dL 7 0-105 Normal (applies to non-numeric results) [facility] ([facility] Laboratory test finding (navigational concept) 33.0 % 3 8.0-51.0 Below low normal [facility] ([facility] ) Laboratory test finding (navigational concept) 3.9 meq/L 3 .5-5.1 Normal (applies to non-numeric results) [facility] ([facility] Laboratory test finding (navigational concept) 139 meq/L 1 36-145 Normal (applies to non-numeric results) [facility] ([facility] Laboratory test finding (navigational concept) 104 meq/L 9 8-109 Normal (applies to non-numeric results) [facility] ([facility] Laboratory test finding (navigational concept) 4.8 mg/dL 4 .5-5.3 Normal (applies to non-numeric results) [facility] ([facility] Laboratory test finding (navigational concept) 28 mg/dL 8-26 Above high normal [facility] ([facility] Laboratory test finding (navigational concept) 26.0 MM/L 2 3.0-27.0 Normal (applies to non-numeric results) [facility] ([facility] Laboratory test finding (navigational concept) 1.1 mg/dL 0 .6-1.3 Normal (applies to non-numeric results) [facility] ([facility] ID Date Data Source [id number] 07/31/2019 10:37:00 AM EST [facility] ([facility] Name Value Range Interpretation Code Description Data Marycarmen rce(s) Supporting Document(s) Magnesium [Mass/volume] in Serum or Plasma 2.2 mg/dL 1.8-2 .4 Normal (applies to non-numeric results) [facility] ([facility]) Natriuretic peptide.B prohormone N-Terminal [Mass/volu me] in Serum or Plasma 3645 pg/mL Above high normal [facility] ([facility] Lipoprotein lipase [Enzymatic activity/volume] in Serum or P lasma 175 U/L 73-393 Normal (applies to non-numeric results) [facility] ([facility] Digoxin [Mass/volume] in Serum or Plasma 0.6 ng/mL 0.5-2.0 Normal (applies to non-numeric results) [facility] ([facility]) Thyroxine (T4) free [Mass/volume] in Serum or Plasma 1.46 ng/dL 0.76-1.46 Normal (applies to non-numeric results) [facility] ([facility] Thyrotropin [Units/volume] in Serum or Plasma 5.220 uIU/ML 0. 358-3.740 Above high normal [facility] ([facility] ) ID Date Data Source [id number] 07/31/2019 10:37:00 AM EST [facility] ([facility] Name Value Range Interpretation Code Description Data Marycarmen rce(s) Supporting Document(s) Glucose, Fasting 98 mg/dL 70-100 Normal (applies to non-numeric results) [facility] ([facility] Creatinine For GFR 1.15 mg/dL 0.55-1.30 Normal (applies to non -numeric results) [facility] ([facility] Blood Urea Nitrogen 30 mg/dL 7-18 Above high normal [facility] ([facility] Sodium Level 140 meq/L 136-145 Normal (applies to non-numeric res ults) [facility] ([facility] Potassium Serum 4.0 meq/L 3.5-5.1 Normal (applies to non-numeric results) [facility] ([facility] Glomerular Filtration Rate 48.5 Normal (applies to n on-numeric results) [facility] <content>Units are mL/min/1.73 m2</content>
<content></content>
<content>Chronic Kidney Disease Staging per NKF:</content>
<content></content>
<content>Stage I & II GFR >=60 Normal to Mildly Decreased</content>
<content>Stage III GFR 30- 59 Moderately Decreased</content>
<content>Stage IV GFR 15-29 Severely Decreased</content>
<content>Stage V GFR <15 Very Little GFR Left</content>
<content>ESRD GFR <15 on FOUNDRY HAND</content>
<content></content> Carbon Dioxide Level 26 meq/L 21-32 Normal (applies to non-num melvin results) [facility] ([facility] Anion Gap 9 meq/L 8-16 Normal (applies to non-numeric resul ts) [facility] ([facility] Chloride Level 105 meq/L 98-107 Normal (applies to non-numeric r esults) [facility] ([facility] Calcium Level 9.0 mg/dL 8.8-10.2 Normal (applies to non-numeric re sults) [facility] ([facility] ID Date Data Source [id number] 07/31/2019 10:37:00 AM EST [facility] ([facility] Name Value Range Interpretation Code Description Data Marycarmen rce(s) Supporting Document(s) Ast/Sgot 55 U/L 7-37 Above high normal [facility] ([facility] Alt/SGPT 118 U/L 12-78 Above high normal [facility] Alkaline Phosphatase 78 U/L 45-117 Normal (applies to non-num melvin results) [facility] ([facility] Bilirubin,Direct 0.3 mg/dL 0.0-0.2 Above high normal [facility] ([facility] Total Protein 6.9 GM/DL 6.4-8.2 Normal (applies to non-numeric re sults) [facility] ([facility] Bilirubin,Total 1.0 mg/dL 0.2-1.0 Normal (applies to non-numeric results) [facility] ([facility] Albumin 3.6 GM/DL 3.2-5.2 Normal (applies to non-numeric resul ts) [facility] ([facility] Albumin/Globulin Ratio 1.09 1.00-1.93 Normal (applies to non-numeric results) [facility] ([facility] ID Date Data Source [id number] 07/31/2019 10:37:00 AM EST [facility] Name Value Range Interpretation Code Description Data Marycarmen rce(s) Supporting Document(s) CK-MB Value Mass 1.4 ng/mL Normal (applies to non-numeric results) [facility] ([facility] CPK Creatine Phosphokinase 49 U/L 26-192 Shara l (applies to non-numeric results) [facility] ([facility] ) MB/CK Relative Index 2.86 Normal (applies to non-num melvin results) [facility] ([facility] <content>DIAGNOSIS CRITERIA</content>
<content>MMB ng/ml Relative Index (RI)</content>
<content>NON-AMI < or = 5 N/A</content>
<content>[place] > 5 < or = 4</content>
<content>AMI > 5 > 4</content>
<content></content> Troponin I Laboratory test result Normal (applies to non-n umeric results) [facility] ([facility] <content>Troponin I Reference Interval f or Siemens [place] LOCI:</content>
<content></content>
<content>99th Percentile= 0.00-0.045 ng/ml</content>
<content></content>
<content>Risk Stratification:</content>
<content><= 0.10 ng/ml Decreased Risk for Adverse Clinical</content>
<content>Events.</content>
<content>0.10-1.50 ng/ml Increased Risk for Adverse Clinical</content>
<content>Events. Evaluation of additional</content>
<content>criterion and/or repeat testing in 2-6</content>
<content>hours is suggested to rule out myocardial</content>
<content>damage.</content>
<content>>= 1.50 ng/ml Indicative of Myocardial Injury.</content>
<content></content> ID Date Data Source [id number] 07/31/2019 10:37:00 AM EST [facility] ([facility] Name Value Range Interpretation Code Description Data Marycarmen rce(s) Supporting Document(s) Red Blood Count 3.31 10 4.00-5.40 Below low normal [facility] ([facility] White Blood Count 11.0 10 4.0-10.0 Above high normal [facility] ([facility] Hemoglobin 10.8 g/dL 12.0-15.5 Below low normal [facility] ( [facility] Mean Corpuscular Hemoglobin 32.6 pg 27.0-33.0 Norm al (applies to non-numeric results) [facility] ([facility] ) Mean Corpuscular Volume 97.3 fl 80.0-96.0 Above high normal [facility] ([facility] Hematocrit 32.2 % 36.0-47.0 Below low normal [facility] ( [facility] Mean Corpuscular HGB Conc 33.5 g/dL 32.0-36.5 Normal (applies to non-numeric results) [facility] ([facility] ) Red Cell Distribution Width 14.1 % 11.5-14.5 Norm al (applies to non-numeric results) [facility] ([facility] ) Platelet Count, Automated 149 10 150-450 Below low normal [facility] ([facility] Lymph % 19.4 % 24.0-44.0 Below low normal [facility] ( [facility] [place] % 13.0 % 0.0-5.0 Above high normal [facility] ([facility] Neutrophils % 66.1 % 36.0-66.0 Above high normal [facility] NT ([facility] Immature Granulocyte % 0.2 % 0-3.0 Normal (applies to non-n umeric results) [facility] ([facility] Eos % 0.9 % 0.0-3.0 Normal (applies to non-numeric resul ts) [facility] ([facility] Baso % 0.4 % 0.0-1.0 Normal (applies to non-numeric resul ts) [facility] ([facility] [place] Neutrophils # 7.3 10 1.5-8.5 Normal (applies to non-numeric re sults) [facility] ([facility] Nucleated Red Blood Cell % 0.0 % 0-0 Normal (applies to n on-numeric results) [facility] ([facility] [place] Lymph # 2.1 10 1.5-5.0 Normal (applies to non-numeric resul ts) [facility] ([facility] [place], [facility] [place] # 1.4 10 0.0-0.8 Above high normal MEDENT ([facility] [place] Baso # 0.0 10 0.0-0.2 Normal (applies to non-numeric resul ts) MEDENT ([facility] Eos # 0.1 10 0.0-0.5 Normal (applies to non-numeric resul ts) MEDENT ([facility] [place] ID Date Data Source [id number] 07/31/2019 08:57:00 AM EST MEDENT ([facility]) Name Value Range Interpretation Code Description Data Marycarmen rce(s) Supporting Document(s) Lipoprotein lipase [Enzymatic activity/volume] in Serum or Plasma 175 MEDENT ([facility]) ID Date Data Source [id number] 07/31/2019 08:57:00 AM EST MEDENT ([facility] [place]) Name Value Range Interpretation Code Description Data Marycarmen rce(s) Supporting Document(s) Thyrotropin [Units/volume] in Serum or Plasma 5.220 [facility] ID Date Data Source [id number] 07/31/2019 08:57:00 AM EST MEDENT ([facility] [place]) Name Value Range Interpretation Code Description Data Marycarmen rce(s) Supporting Document(s) Magnesium Level 2.2 1.8-2.4 MEDENT ([facility]) Troponin Laboratory test result MEDENT ([facility]) Natriuretic peptide.B prohormone N-Terminal [Mass/volu me] in Serum or Plasma 3645 MEDENT ([employer]) ID Date Data Source [id number] 07/31/2019 08:57:00 AM EST [facility] Name Value Range Interpretation Code Description Data Marycarmen rce(s) Supporting Document(s) CPK-MB 1.4 MEDENT ([facility]) Creatine kinase [Enzymatic activity/volume] in Serum or Plasma 49 MEDENT ([facility]) MB/CK Relative 2.86 MEDENT ([facility]) ID Date Data Source [id number] 07/31/2019 08:57:00 AM EST [facility] ([facility] Name Value Range Interpretation Code Description Data Marycarmen rce(s) Supporting Document(s) Alanine aminotransferase [Enzymatic activity/volume] in Serum or Plasma 118 MEDENT ([facility]) Calcium [Mass/volume] in Serum or Plasma 9.0 MEDENT ([facility]) Albumin [Mass/volume] in Serum or Plasma 3.6 MEDENT ([facility]) Carbon dioxide, total [Moles/volume] in Serum or Plasma 26 MEDENT ([facility]) Chloride [Moles/volume] in Serum or Plasma 105 MEDENT ([facility]) Alkaline phosphatase [Enzymatic activity/volume] in Serum or Plasma 7 8 MEDENT ([facility]) Potassium [Moles/volume] in Serum or Plasma 4.0 MEDENT ([facility]) Protein [Mass/volume] in Serum or Plasma 6.9 MEDENT ([facility]) Sodium 140 MED[facility] ([facility]) Glucose 98 83-110 MED[facility] ([facility]) Aspartate aminotransferase [Enzymatic activity/volume] in Serum or Plasma 55 MEDENT ([facility]) Urea nitrogen [Mass/volume] in Serum or Plasma 30 MEDENT ([facility]) Creatinine For GFR 1.15 MED[facility] ([facility]) ID Date Data Source [id number] 07/31/2019 08:57:00 AM EST MEDENT ([facility]) Name Value Range Interpretation Code Description Data Marycarmen rce(s) Supporting Document(s) White Blood Count 11.0 4.0-10.0 MEDENT ([facility]) Red Blood Count 3.31 4.00-5.40 MEDENT ([facility]) Platelets 149 150-450 MED[facility] ([facility]) Hematocrit 32.2 MEDENT ([facility]) Hemoglobin 10.8 MEDENT ([facility]) Procedure Social History Code Duration Value Status Description Data Source(s ) Smoking 05/21/2020 12:00:00 AM EST Patient has never smoked co mpleted Patient has never smoked MEDENT ([facility]) Vital Signs ID Date Data Source UNK Name Value Range Interpretation Code Description Data Source(s) Oxygen saturation in Arterial blood by Pulse oximetry 94 % 94 % MEDENT ([facility] (AT Rest), (Room Air) [place] body weight 115 [lb_av] 115 [lb_av] MEDEN T ([facility] Body height 63.5 [in_i] 63.5 [in_i] MEDENT ([facility] 5'3.50" Respiratory rate 18 /min 18 /min MEDENT ( [facility] Heart rate 64 /min 64 /min MEDENT ([facility] Body temperature 97.1 [degF] 97.1 [degF] MEDENT ([facility] Diastolic blood pressure 62 mm[Hg] 62 mm[Hg] MEDENT ([facility] Systolic blood pressure 122 mm[Hg] 122 mm[Hg] M EDENT ([facility] Body weight 143.00 [lb_av] 143.00 [lb_av] MEDEN T ([facility] Respiratory rate 14 /min 14 /min MEDENT ( [facility] Heart rate 66 /min 66 /min MEDENT ([facility] Diastolic blood pressure 58 mm[Hg] 58 mm[Hg] MEDENT ([facility] Systolic blood pressure 122 mm[Hg] 122 mm[Hg] M EDENT ([facility] Body surface area Derived from formula 1.71 m2 1.71 m2 [facility] ([facility]) Body weight 67.133 kg 67.133 kg [facility] ([facility]) [place] body weight 115 [lb_av] 115 [lb_av] MEDEN T ([facility]) Body mass index (BMI) [Ratio] 25.8 kg/m2 25.8 k g/m2 [facility] ([facility]) Body weight 148.00 [lb_av] 148.00 [lb_av] MEDEN T ([facility]) Body height 63.5 [in_i] 63.5 [in_i] [facility] ([facility]) 5'3.50" Oxygen saturation in Arterial blood by Pulse oximetry 98 % 98 % [facility] ([facility] Body mass index (BMI) [Ratio] 25.1 kg/m2 25.1 k g/m2 MEDENT ([facility] [place] body weight 115 [lb_av] 115 [lb_av] MEDEN T ([facility] Body weight 144.00 [lb_av] 144.00 [lb_av] MEDEN T ([facility] Body height 63.5 [in_i] 63.5 [in_i] MEDENT ([facility] 5'3.50" Respiratory rate 14 /min 14 /min MED[facility] ( [facility] Heart rate 70 /min 70 /min MEDENT ([facility] Body temperature 97.2 [degF] 97.2 [degF] MEDENT ([facility] Diastolic blood pressure 66 mm[Hg] 66 mm[Hg] MEDENT ([facility] Systolic blood pressure 110 mm[Hg] 110 mm[Hg] M EDENT ([facility] Body surface area Derived from formula 1.71 m2 1.71 m2 [facility] ([facility]) Body weight 67.133 kg 67.133 kg MEDENT ([facility]) [place] body weight 115 [lb_av] 115 [lb_av] MEDEN T ([facility]) Body mass index (BMI) [Ratio] 25.8 kg/m2 25.8 k g/m2 [facility] Body weight 148.00 [lb_av] 148.00 [lb_av] MEDEN T ([facility]) Body height 63.5 [in_i] 63.5 [in_i] MEDENT ([facility]) 5'3.50" Diastolic blood pressure 68 mm[Hg] 68 mm[Hg] MEDENT ([facility]) sitting Systolic blood pressure 124 mm[Hg] 124 mm[Hg] M EDENT ([facility]) sitting Diastolic blood pressure 68 mm[Hg] 68 mm[Hg] MEDENT ([facility]) sitting, regular cuff Systolic blood pressure 122 mm[Hg] 122 mm[Hg] M EDENT ([facility]) sitting, regular cuff Respiratory rate 16 /min 16 /min MEDENT ( [facility]) Heart rate 68 /min 68 /min [facility] ([facility]) Regular Body mass index (BMI) [Ratio] 25.3 kg/m2 25.3 k g/m2 [facility] ([facility]) Body height 63.50 [in_i] 63.50 [in_i] MED[facility] ([facility]) 5'3.50" Body weight 145.00 [lb_av] 145.00 [lb_av] MEDEN T ([facility]) Oxygen saturation in Arterial blood by Pulse oximetry 96 % 96 % [facility] Body mass index (BMI) [Ratio] 26.5 kg/m2 26.5 k g/m2 [facility] ([facility] [place] body weight 115 [lb_av] 115 [lb_av] MEDEN T ([facility] Body weight 152.00 [lb_av] 152.00 [lb_av] MEDEN T ([facility] Body height 63.5 [in_i] 63.5 [in_i] MEDENT ([facility] 5'3.50" Respiratory rate 16 /min 16 /min MED[facility] ( [facility] Heart rate 76 /min 76 /min [facility] Body temperature 97.4 [degF] 97.4 [degF] MEDENT ([facility] Diastolic blood pressure 62 mm[Hg] 62 mm[Hg] MED[facility] ([facility] Systolic blood pressure 116 mm[Hg] 116 mm[Hg] M EDENT ([facility] [place] Body surface area Derived from formula 1.71 m2 1.71 m2 [facility] ([facility]) Body weight 67.133 kg 67.133 kg [facility] ([facility]) [place] body weight 115 [lb_av] 115 [lb_av] MEDEN T ([facility]) Body mass index (BMI) [Ratio] 25.8 kg/m2 25.8 k g/m2 [facility] ([facility]) Body weight 148.00 [lb_av] 148.00 [lb_av] MEDEN T ([facility]) Body height 63.5 [in_i] 63.5 [in_i] [facility] ([facility]) 5'3.50" Body surface area Derived from formula 1.71 m2 1.71 m2 [facility] ([facility]) Body weight 67.133 kg 67.133 kg [facility] ([facility]) [place] body weight 115 [lb_av] 115 [lb_av] MEDEN T ([facility]) Body mass index (BMI) [Ratio] 25.8 kg/m2 25.8 k g/m2 [facility] ([facility]) Body weight 148.00 [lb_av] 148.00 [lb_av] MEDEN T ([facility]) Body height 63.5 [in_i] 63.5 [in_i] MEDENT ([facility]) 5'3.50" Oxygen saturation in Arterial blood by Pulse oximetry 97 % 97 % [facility] ([facility] Body mass index (BMI) [Ratio] 26.7 kg/m2 26.7 k g/m2 [facility] ([facility] [place] body weight 115 [lb_av] 115 [lb_av] MEDEN T ([facility] Body weight 153.00 [lb_av] 153.00 [lb_av] MEDEN T ([facility] Body height 63.5 [in_i] 63.5 [in_i] MEDENT ([facility] 5'3.50" Respiratory rate 16 /min 16 /min MED[facility] ( [facility] Heart rate 82 /min 82 /min MED[facility] ([facility] Body temperature 97.5 [degF] 97.5 [degF] [facility] ([facility] Diastolic blood pressure 76 mm[Hg] 76 mm[Hg] [facility] ([facility] Systolic blood pressure 124 mm[Hg] 124 mm[Hg] M EDENT ([facility] Oxygen saturation in Arterial blood by Pulse oximetry 97 % 97 % [facility] ([facility] Body mass index (BMI) [Ratio] 27.4 kg/m2 27.4 k g/m2 [facility] ([facility] [place] body weight 115 [lb_av] 115 [lb_av] MEDEN T ([facility] Body weight 157.00 [lb_av] 157.00 [lb_av] MEDEN T ([facility] Body height 63.5 [in_i] 63.5 [in_i] MEDENT ([facility] 5'3.50" Respiratory rate 18 /min 18 /min MED[facility] ( [facility] Heart rate 78 /min 78 /min [facility] ([facility] Body temperature 97.4 [degF] 97.4 [degF] [facility] ([facility] Diastolic blood pressure 74 mm[Hg] 74 mm[Hg] [facility] ([facility] Systolic blood pressure 122 mm[Hg] 122 mm[Hg] TAJ ([facility] Diastolic blood pressure 72 mm[Hg] 72 mm[Hg] MEDENT ([facility]) sitting, regular cuff Systolic blood pressure 134 mm[Hg] 134 mm[Hg] M EDENT ([facility]) sitting, regular cuff Respiratory rate 16 /min 16 /min MED[facility] ( [facility]) Heart rate 64 /min 64 /min [facility] ([facility]) Regular Body mass index (BMI) [Ratio] 27.4 kg/m2 27.4 k g/m2 [facility] ([facility]) Body height 63.50 [in_i] 63.50 [in_i] MED[facility] ( [facility]) 5'3.50" Body weight 157.00 [lb_av] 157.00 [lb_av] MEDEN T ([facility]) Oxygen saturation in Arterial blood by Pulse oximetry 94 % 94 % [facility] ([facility] Body mass index (BMI) [Ratio] 29.1 kg/m2 29.1 k g/m2 [facility] ([facility] [place] body weight 115 [lb_av] 115 [lb_av] MEDEN T ([facility] Body weight 167.00 [lb_av] 167.00 [lb_av] MEDEN T ([facility] Body height 63.5 [in_i] 63.5 [in_i] MEDENT ([facility] 5'3.50" Respiratory rate 14 /min 14 /min MED[facility] ( [facility] Heart rate 56 /min 56 /min [facility] ([facility] Body temperature 97.0 [degF] 97.0 [degF] [facility] ([facility] Diastolic blood pressure 68 mm[Hg] 68 mm[Hg] [facility] ([facility] Systolic blood pressure 112 mm[Hg] 112 mm[Hg] EDENT ([facility] Diastolic blood pressure 62 mm[Hg] 62 mm[Hg] MED[facility] ([facility]) sitting Systolic blood pressure 122 mm[Hg] 122 mm[Hg] M EDENT ([facility]) sitting Diastolic blood pressure 66 mm[Hg] 66 mm[Hg] MED[facility] ([facility]) sitting, large cuff Systolic blood pressure 122 mm[Hg] 122 mm[Hg] M EDENT ([facility]) sitting, large cuff Respiratory rate 16 /min 16 /min MED[facility] ( [facility]) Heart rate 56 /min 56 /min [facility] ([facility]) Regular Body mass index (BMI) [Ratio] 28.9 kg/m2 28.9 k g/m2 [facility] ([facility]) Body height 63.50 [in_i] 63.50 [in_i] [facility] ( [facility]) 5'3.50" Body weight 166.00 [lb_av] 166.00 [lb_av] MEDEN T ([facility]) Oxygen saturation in Arterial blood by Pulse oximetry 98 % 98 % [facility] ([facility] Body mass index (BMI) [Ratio] 30.0 kg/m2 30.0 k g/m2 [facility] ([facility] [place] body weight 115 [lb_av] 115 [lb_av] MEDEN T ([facility] Body weight 172.00 [lb_av] 172.00 [lb_av] MEDEN T ([facility] Body height 63.5 [in_i] 63.5 [in_i] MEDENT ([facility] 5'3.50" Respiratory rate 14 /min 14 /min MED[facility] ( [facility] Heart rate 66 /min 66 /min [facility] ([facility] Body temperature 97.9 [degF] 97.9 [degF] [facility] ([facility] Diastolic blood pressure 68 mm[Hg] 68 mm[Hg] [facility] ([facility] Systolic blood pressure 120 mm[Hg] 120 mm[Hg] M EDENT ([facility] Oxygen saturation in Arterial blood by Pulse oximetry 98 % 98 % [facility] ([facility] Body mass index (BMI) [Ratio] 30.0 kg/m2 30.0 k g/m2 [facility] ([facility] Body weight 172.12 [lb_av] 172.12 [lb_av] MEDEN T ([facility] Body height 63.5 [in_i] 63.5 [in_i] MEDENT ([facility] 5'3.50" Respiratory rate 14 /min 14 /min MEDENT ( [facility] Heart rate 68 /min 68 /min MEDENT ([facility] Body temperature 97.8 [degF] 97.8 [degF] MEDENT ([facility] Diastolic blood pressure 84 mm[Hg] 84 mm[Hg] MEDENT ([facility] Systolic blood pressure 144 mm[Hg] 144 mm[Hg] M EDENT ([facility] Diastolic blood pressure 74 mm[Hg] 74 mm[Hg] MEDENT ([facility]) sitting, large cuff Systolic blood pressure 128 mm[Hg] 128 mm[Hg] M EDENT ([facility]) sitting, large cuff Respiratory rate 16 /min 16 /min MEDENT ( [facility]) Heart rate 60 /min 60 /min MED[facility] ([facility]) Regular Body mass index (BMI) [Ratio] 29.8 kg/m2 29.8 k g/m2 MED[facility] ([facility]) Body height 63.50 [in_i] 63.50 [in_i] MEDENT ([facility]) 5'3.50" Body weight 171.00 [lb_av] 171.00 [lb_av] MEDEN T ([facility]) Deprecated Oxygen saturation in Capillary blood by Oximetry 98 % 98 % eCW1 ([facility]) Respiratory rate 18 /min 18 /min eCW1 ([facility]) Heart rate 60 /min 60 /min eCW1 ([facility]) Body temperature 97.6 [degF] 97.6 [degF] eCW1 ( [facility]) Body mass index (BMI) [Ratio] 31.74 kg/m2 31.74 kg/m2 eCW1 ([facility]) Body height 63 [in_us] 63 [in_us] eCW1 ([facility]) Patient Treatment Plan of Care Planned Activity Planned Date Details Description Data Source (s) Prednisone 20 MG Oral Tablet 07/26/2019 12:00:00 AM EST eCW1 ([facility])
--- NOTE | 2020-08-05 12:54 | REP ---
INDICATION: SOB. COMPARISON: Comparison chest x-ray 15 April 2020. TECHNIQUE: Portable upright AP chest radiograph. FINDINGS: Patient is status post median sternotomy and aortic valve replacement. Moderate cardiac enlargement is observed. Diffuse interstitial lung disease changes are noted, more pronounced than on the April 15, 2020 study. This may reflect interstitial edema. No pleural effusion is noted.. IMPRESSION: Cardiomegaly with more prominent interstitial changes today diffusely consistent with interstitial edema. No pleural effusion is seen. Status post aortic valve replacement.. <Electronically signed by Denis Crowder > 08/05/20 0345
[2020-08-05 13:05] LABS: ALBUMIN 3.2 GM/DL (3.2-5.2); BILIRUBIN,DIRECT 0.3 MG/DL (0.0-0.2); BILIRUBIN,TOTAL 0.8 MG/DL (0.2-1.0); CALCIUM LEVEL 9.1 MG/DL (8.8-10.2); CK-MB VALUE MASS 1.6 NG/ML (<3.6); CREATININE FOR GFR 1.24 MG/DL (0.55-1.30); FREE T4 1.24 NG/DL (0.76-1.46); GLOMERULAR FILTRATION RATE 44.3 (>32); MB/CK RELATIVE INDEX 3.9 (< OR =4); POTASSIUM SERUM 3.5 MEQ/L (3.5-5.1); THYROID STIMULATING HORMONE 6.68 uIU/ML (0.358-3.740); TOTAL PROTEIN 7.4 GM/DL (6.4-8.2); TROPONIN I 0.13 NG/ML (< 0.10)
[2020-08-05] MEDS ORDERED: FUROSEMIDE 40MG/4ML VIAL (J1940) IV ONE ×2 (13:15→18:00)
[2020-08-05 14:33] LABS: RSV AMPLIFICATION NEGATIVE (NEGATIVE)
[2020-08-05] MEDS ORDERED: ACETAMINOPHEN TAB 650MG DOSE (2X325MG) PO PRN (15:00)
[2020-08-05] MEDS ORDERED: FOLI800C PO (15:14)
[2020-08-05] MEDS ORDERED: TORS10TA3 PO (15:16)
[2020-08-05] MEDS ORDERED: DIGO0.123 PO (15:16)
--- NOTE | 2020-08-05 15:28 | HPEPDOC ---
[facility] Medical History & Physical Date of Admission Aug 05, 2020 Date of Service: Aug 05, 2020 History and Physical Telma GARCIA [id number] / 1940 Chief complaint: Who presented to the emergency room with shortness of breath History of present illness: Patient is an 80-year-old female who presented to the emergency room at the direction of her primary care provider, Dr. Kem Bee because of worsening shortness of breath. Patient has reported that shes been experiencing shortness of breath over a few weeks that has been progressively worsening. Patient went to go see her primary care provider who is recommended that she increase the dose of her Torsemide from 20 mg to 40 mg. , However, decided to send the patient to the emergency room for further evaluation given her extent of shortness of breath. Patient reports shortness of breath with exertion. She reports that she sleeps in a recliner for the last 6 months. Cannot lay on her back because she gets extremely short of breath. Denies any chest pain or palpitations. Does report a productive cough with clear sputum. Has not experience any fevers or chills. Denies any nausea, vomiting, abdominal pain, no urinary discomfort. Reports diarrhea that has been chronic. Patient has reported a weight loss of about 40 pounds since April and reports her appetite is poor. Past Medical History: CHF (Follows with Dr. Gaines; 2000) AVR 2/2 Aortic stenosis (2000) A. 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 Review of Systems: 10 point review of systems complete, all negative otherwise stated in HPI Physical exam: - Vitals: BP [131/75], HR [79], RR [18], Sat [95%RA], Temp [97.5F] - General: Sitting up in bed, Speaking in full sentences, AAOx3 - HEENT: NC, AT, PERRLA - CVS: +S1S2, +Gallop - Lungs: Fair air entry bilaterally, No appreciable wheezing / rhonchi, Faint crackles - Abdomen: Soft, Non-distended, Non-tender - Extremities: 2+ pitting edema of LE bilaterally, No calf tenderness - Neuro: No focal motor or sensory deficit - Skin: No visible rashes Labs: See below Imaging: CXR 08/05: Cardiomegaly with more prominent interstitial changes today diffusely consistent with interstitial edema. No pleural effusion is seen. Status post aortic valve replacement. EKG: See below Assessment and Plan: Shortness of breath - likely 2/2 decompensated CHF (EF unknown) - Presented to the emergency room complaints of shortness of breath - Patient was in discussion with primary care provider about increasing dose of Torsemide - Physical with evidence of fluid overload - Elevated BNP - Imaging noted - Will check ECHO - Will start telemetry / troponin trend / fluid restriction / strict ins and outs / daily weights - Will start Furosemide 40 IV BID Elevated troponin - Possibly 2/2 demand ischemia - Denies any CP or palpitations - EKG reviewed and consistent with prior - Will trend troponin / telemetry monitoring Chronic A. fib - s/p Ablation x 2 - Will continue with rate / rhythm control with Atenolol / Digoxin - c/w Full anticoagulation with Eliquis AVR 2/2 Aortic stenosis (2000) - Will check ECHO Non-ischemic cardiomyopathy - Patient had reported that she has had no stents or heart attacks in the past - Has had a stress test completed, possibly 2 years ago that was reported negative - Follows with Dr. Gaines Macrocytic anemia - Hg at baseline - No evidence of bleeding - Will check B12 / Folate / Reticulocyte Thrombocytopenia - Similar finding 1 year prior on 07/31/2019 - No evidence of bleeding - Will continue to monitor HTN - BP well controlled - c/w Atenolol with holding parameters DLP - c/w Atorvastatin Left breast CA - s/p Lumpectomy / Chemotherapy / Radiation DVT prophylaxis - Will c/w Eliquis Vital Signs Vital Signs Date Time Temp Pulse Resp B/P (MAP) Pulse Ox O2 Delivery O2 Flow Rate FiO2 08/05/20 14:36 82 18 95 Room Air 08/05/20 14:20 127/59 (81) 08/05/20 11:36 97.5 Laboratory Data Labs 24H Laboratory Tests 2 08/05/20 12:10: Immature Granulocyte % (Auto) 0.3, Neutrophils (%) (Auto) 64.6, Lymphocytes (%) (Auto) 22.1L, Monocytes (%) (Auto) 11.4H, Eosinophils (%) (Auto) 1.0, Basophils (%) (Auto) 0.6, Neutrophils # (Auto) 4.7, Lymphocytes # (Auto) 1.6, Monocytes # (Auto) 0.8, Eosinophils # (Auto) 0.1, Basophils # (Auto) 0.0, Nucleated Red Blood Cells % (auto) 0.0, Prothrombin Time 21.3H, Prothromb Time International Ratio 1.80, Activated Partial Thromboplast Time 35.4, Anion Gap 11, Glomerular Filtration Rate 44.3, Calcium Level 9.1, Total Bilirubin 0.8, Direct Bilirubin 0.3H, Aspartate Amino Transf (AST/SGOT) 29, Alanine Aminotransferase (ALT/SGPT) 27, Alkaline Phosphatase 229H, Total Creatine Kinase 41, Creatine Kinase MB 1.6, Creatine Kinase MB Relative Index 3.90, Troponin I 0.13H, EP-Kav-D-Type Natriuretic Peptide 69447M, Total Protein 7.4, Albumin 3.2, Albumin/Globulin Ratio 0.8L, Thyroid Stimulating Hormone (TSH) 6.680H, Free Thyroxine 1.24 08/05/20 13:34: Coronavirus (COVID-19)(PCR) NEGATIVE, Influenza Type A (RT-PCR) NEGATIVE, Influenza Type B (RT-PCR) NEGATIVE, Respiratory Syncytial Virus (PCR) NEGATIVE CBC/BMP Laboratory Tests 08/05/20 12:10 Home Medications Scheduled Apixaban (Eliquis) 5 Mg Tablet, 1 TAB PO BID Atenolol (Atenolol) 25 Mg Tab, 25 MG PO QHS Atorvastatin Calcium (Atorvastatin Calcium) 20 Mg Tablet, 20 MG PO QHS Candesartan Cilexetil (Candesartan Cilexetil) 16 Mg Tab, 16 MG PO QHS Cyanocobalamin (Vitamin B-12) (Vitamin B-12) 1,000 Mcg Capsule, 2,000 MCG PO DAILY Digoxin (Digoxin) 125 Mcg Tablet, 125 MCG PO QHS Folic Acid (Folic Acid) 0.8 Mg Capsule, 800 MCG PO DAILY Potassium Chloride (Potassium Chloride) 10 Meq Tablet.er, 10 MEQ PO DAILY Pyridoxine HCl (Vitamin B6) (Vitamin B-6) 50 Mg Tablet, 1 TAB PO DAILY Torsemide (Torsemide) 10 Mg Tablet, 20 MG PO DAILY Miscellaneous Medications Carboxymethylcellulose Sodium (Refresh Tears) 15 Ml Drops, 0.5 % OP Allergies Coded Allergies: SILVIA Inhibitors (Verified Adverse Reaction, Unknown, cough, 08/01/19) ASMITA GERMAN MD Aug 05, 2020 15:28
[2020-08-05 16:32] LABS: CK-MB VALUE MASS 1.5 NG/ML (<3.6); MB/CK RELATIVE INDEX 3.33 (< OR =4); TROPONIN I 0.15 NG/ML (< 0.10)
--- OUTSIDE RECORDS SUMMARY | 2020-08-05 16:41 | CCD ---
Author Author [facility] Organization [facility] Address Unknown Phone Unavailable Care Team Providers Care Wall Scraper Name Role Phone Lotus Goldstein Unavailable Unavailable [...] H TOMMY MTZ Unavailable Unavailable THEO H OTMMY MTZ Unavailable Unavailable THEO H TOMMY MTZ [...] Unavailable Temo Arora MD Unavailable Unavailable Temo Arroa MD Unavailable Unavailable Temo Arora MD Unavailable Unavailable Temo Arora MD Unavailable Unavailable Temo Arora MD Unavailable Unavailable Temo Arora MD Unavailable Unavailable Temo Arora MD Unavailable Unavailable Temo Arora MD Unavailable Unavailable Temo Arora MD Unavailable Unavailable Temo Arora MD Unavailable Unavailable Temo Arora MD Unavailable Unavailable Temo Arora MD Unavailable Unavailable Seymour, A Allison COOLING PIPE INSPECTOR Unavailable Unavailable Seymour, A Allison COOLING PIPE INSPECTOR Unavailable Unavailable Seymour, A Allison COOLING PIPE INSPECTOR Unavailable Unavailable Seymour, A Allison COOLING PIPE INSPECTOR Unavailable Unavailable Seymour, A Allison COOLING PIPE INSPECTOR Unavailable Unavailable Seymour, A Allison COOLING PIPE INSPECTOR Unavailable Unavailable Seymour, A Allison COOLING PIPE INSPECTOR Unavailable Unavailable Seymour, A Allison COOLING PIPE INSPECTOR Unavailable Unavailable Seymour, A Allison COOLING PIPE INSPECTOR Unavailable Unavailable Seymour, A Allison COOLING PIPE INSPECTOR Unavailable Unavailable Seymour, A Allison COOLING PIPE INSPECTOR Unavailable Unavailable Seymour, A Allison COOLING PIPE INSPECTOR Unavailable Unavailable Seymour, A Allison COOLING PIPE INSPECTOR Unavailable Unavailable Seymour, A Allison COOLING PIPE INSPECTOR Unavailable Unavailable Seymour, A Allison COOLING PIPE INSPECTOR Unavailable Unavailable Seymour, A Allison COOLING PIPE INSPECTOR Unavailable Unavailable Seymour, A Allison COOLING PIPE INSPECTOR Unavailable Unavailable Seymour, A Allison COOLING PIPE INSPECTOR Unavailable Unavailable Seymour, A Allison COOLING PIPE INSPECTOR Unavailable Unavailable Seymour, A Allison COOLING PIPE INSPECTOR Unavailable Unavailable Seymour, A Allison COOLING PIPE INSPECTOR Unavailable Unavailable Seymour, A Allison COOLING PIPE INSPECTOR Unavailable Unavailable Seymour, A Allison COOLING PIPE INSPECTOR Unavailable Unavailable Seymour, A Allison COOLING PIPE INSPECTOR Unavailable Unavailable Seymour, A Allison COOLING PIPE INSPECTOR Unavailable Unavailable Seymour, A Allison COOLING PIPE INSPECTOR Unavailable Unavailable Seymour, A Allison COOLING PIPE INSPECTOR Unavailable Unavailable Seymour, A Allison COOLING PIPE INSPECTOR Unavailable Unavailable Seymour, A Allison COOLING PIPE INSPECTOR Unavailable Unavailable Seymour, A Allison COOLING PIPE INSPECTOR Unavailable Unavailable Seymour, A Allison COOLING PIPE INSPECTOR Unavailable Unavailable Seymour, A Allison COOLING PIPE INSPECTOR Unavailable Unavailable Seymour, A Allison COOLING PIPE INSPECTOR Unavailable Unavailable Seymour, A Allison COOLING PIPE INSPECTOR Unavailable Unavailable Seymour, A Allison COOLING PIPE INSPECTOR Unavailable Unavailable Seymour, A Allison COOLING PIPE INSPECTOR Unavailable Unavailable Seymour, A Allison COOLING PIPE INSPECTOR Unavailable Unavailable Seymour, A Allison COOLING PIPE INSPECTOR Unavailable Unavailable Seymour, A Allison COOLING PIPE INSPECTOR Unavailable Unavailable Seymour, A Allison COOLING PIPE INSPECTOR Unavailable Unavailable Seymour, A Allison COOLING PIPE INSPECTOR Unavailable Unavailable Seymour, A Allison COOLING PIPE INSPECTOR Unavailable Unavailable Seymour, A Allison COOLING PIPE INSPECTOR Unavailable Unavailable Seymour, A Allison COOLING PIPE INSPECTOR Unavailable Unavailable Re-disclosure Warning The records that [...] is protected by Article 27-F of the [facility] Public Health law. If you continue you may have access to information: Regarding HIV / AIDS; Provided by facilities licensed or operated by the [facility] Office of Mental Health; or Provided by the [facility] Office for People With Developmental Disabilities. If such information is present, then the following [facility] mandated warning applies: This information has been [...] law may result in a fine or senior living sentence or both. A general authorization for [...] Hernandez/Tanisha/Denzel/Re indl 05/30/2020 10:00:00 AM EST [facility] ([facility] Outpatient Attender: Amy ENGLISH Main Office 05/21/2020 08:45:00 AM EST [facility] ([facility] Outpatient Attender: TOMMY [place] Office 09:00:00 AM EST [facility] ([facility] Outpatient Attender: Rowdy Hernandez/Tanisha/Denzel/Re indl 04/30/2020 08:30:00 AM EST [facility] ([facility] Outpatient Attender: TOMMY [place] Office 08/2019 10:15:00 AM EST [facility] ([facility] Outpatient Attender: TOMMY [place] Office 03:20:00 PM EDT [facility] ([facility] Outpatient Attender: Amy ENGLISH Main Office 03/01/2020 03:15:00 PM EDT [facility] ([facility] Outpatient Attender: TOMMY [place] Office 10:00:00 AM EDT [facility] ([facility] Outpatient Attender: Amy ENGLISH Main Office 11/16/2019 10:15:00 AM EDT [facility] ([facility] Outpatient Attender: TOMMY [place] Office 04/2020 10:40:00 AM EDT [facility] ([facility] Outpatient Attender: TOMMY [place] Office 10:30:00 AM EST [facility] ([facility] Outpatient Attender: Amy ENGLISH Main Office 08/03/2019 06:45:00 AM EST [facility] ([facility] Outpatient Attender: Allison COTTRELLP 07/26/2019 11:22 :00 AM EST [facility] 0 12:00:00 AM EST eCW1 ([facility]) Immunizations Vaccine Date Status Description Data Source(s) New in 2013. IIV4 04/15/2020 03:50:00 PM EDT completed [facility] ([facility] Medications Medication Brand Name Start Date Product Form Dose Route Admi nistrative Instructions Pharmacy Instructions Status Indications Reaction Description Data Source(s) Potassium Chloride 10 MEQ Extended Release Oral Tablet Potas sium Chloride ER 07/16/2020 12:00:00 AM EST ORAL active [facility] ([facility] Potassium Chloride 10 MEQ Extended Release Oral Tablet POTAS SIUM CHLORIDE 07/16/2020 12:00:00 AM EST tablet extended release 90 TAKE ONE TABLET BY MOUTH EVERY DAY TAKE ONE TABLET BY MOUTH EVERY DAY SOLD: 07/16/2020 [facility] ferrous sulfate 325 MG Oral Tablet Iron (Ferrous Sulfate) 12:00:00 AM EST ORAL active [facility] ([facility] Sodium Chloride 0.111 MEQ/ML Nasal [place] [[place] Saline Nasal] [place] 05/20/2020 12:00:00 AM EST active M EDENT ([facility]) Loratadine 10 MG Oral Tablet Loratadine 05/20/2020 12:00:00 AM EST ORAL active [facility] ([facility]) torsemide 10 MG Oral Tablet Torsemide 05/20/2020 12:00:00 AM EST ORAL active [facility] ([facility]) Ciprofloxacin 500 MG Oral Tablet [Cipro] Cipro 04/30/2020 12:00: 00 AM EST ORAL active [facility] ([facility]) 500 mg 04/30/2020 12:00:00 AM EST tablet 14 TAKE ONE TABLET BY MOUTH TWICE A DAY TAKE ONE TABLET BY MOUTH TWICE A DAY SOLD: 04/30/2020 [facility] torsemide 20 MG Oral Tablet Torsemide 04/23/2020 12:00:00 AM EST ORAL completed [facility] ([facility] 20 mg 04/23/2020 12:00:00 AM [...] ORAL active [facility] ([facility] Camphor 0.03 MG/MG / Menthol 0.03 MG/MG Topical Gel [RAHUL Warm Pain Relieving Gel] Rahul Natural Pain Relieving 08/02/2019 12:00:00 AM EST active [facility] 10 mg 07/31/2019 12:00:00 AM EST tablet 30 TAKE ONE TABLET BY MOUTH EVERY DAY TAKE ONE TABLET BY MOUTH EVERY DAY SOLD: 07/31/2019 [facility] torsemide 10 MG Oral Tablet Torsemide 07/31/2019 12:00:00 AM EST ORAL active [facility] ([facility] Spironolactone 25 MG Oral Tablet Spironolactone 07/31/2019 12:00:00 A M EST ORAL completed [facility] ([facility] 25 mg 07/31/2019 12:00:00 AM EST tablet 30 TAKE ONE-HALF TABLET BY MOUTH EVERY DAY TAKE ONE-HALF TABLET BY MOUTH EVERY DAY SOLD: 07/31/2019 [facility] Spironolactone 25 MG Oral Tablet Spironolactone 07/26/2019 12:00:00 A M EST ORAL completed [facility] Prednisone 20 MG Oral Tablet PredniSONE 20 MG PredniSONE 20 MG 07/26/2019 12:00:00 AM EST active 2 tablet s once in the morning with food eCW1 ([facility]) 20 mg 07/26/2019 12:00:00 AM EST tablet 10 TAKE TWO TABLETS BY MOUTH EVERY MORNING WITH FOOD TAKE TWO TABLETS BY MOUTH EVERY MORNING WITH FOOD SOLD : 07/26/2019 [facility] Insurance Providers Payer name Policy type / Coverage type Policy ID Covered alliance party ID Covered alliance party's relationship to savage Policy Savage Plan Information MEDICARE [id number] SP [id number] [facility] EM[facility]PART[facility] FOR LIFE [id number] SP [id number] MEDICARE C [id number] S [id number] [id number] FOR LIFE O [id number] S [id number] [facility] [id number] SPO [id number] [facility] MEDICARE DIVISION [id number] S [id number] [place]ICARE [place] [id number] S [id number] MEDICARE [id number] SP [id number] A [facility] Adminstrative Ser Commercial [id number] Self [id number] Select - Humana Commercial [id number] Family Dependen t [id number] For Life - WPS Medigap Part B [id number] Family Depen dent [id number] Medicare (Part B) Medicare Primary [id number] Self [id number] Statewide Independent Ppo Commercial [id number] Self [id number] [facility] Adminstrative Ser Commercial [id number] Self [id number] Select - Humana Commercial [id number] Family Dependen t [id number] For Life - [place]PS Medigap Part B [id number] Family Depen dent [id number] Medicare (Part B) Medicare Primary [id number] Self [id number] [facility] Adminstrative Ser Commercial [id number] Self [id number] Select - Humana Commercial [id number] Family Dependen t [id number] For Life - [place]PS Medigap Part B [id number] Family Depen dent [id number] Medicare (Part B) Medicare Primary [id number] Self [id number] FOR LIFE [id number] SP [id number] [facility] Adminstrative Ser Commercial [id number] Self [id number] Select - Humana Commercial [id number] Family Dependen t [id number] For Life - [place]PS Medigap Part B [id number] Family Depen dent [id number] Medicare (Part B) Medicare Primary [id number] Self [id number] [facility] Adminstrative Ser Commercial [id number] Self [id number] Select - Humana Commercial [id number] Family Dependen t [id number] For Life - [place] Medigap Part B [id number] Family Depen dent [id number] Medicare (Part B) Medicare Primary [id number] Self [id number] [place] Adminstrative Ser Commercial [id number] Self [id number] Select - Humana Commercial [id number] Family Dependen t [id number] For Life - [place]PS Medigap Part B [id number] Family Depen dent [id number] Medicare (Part B) Medicare Primary [id number] Self [id number] MEDICARE [id number] Mary [id number] Q88 [id number] Mary [id number] MEDICARE [id number] Amry [id number] A [facility] Adminstrative Ser Commercial [id number] Self [id number] Select - Humana Commercial [id number] Family Dependen t [id number] For Life - WPS Medigap Part B [id number] Family Depen dent [id number] Medicare (Part B) Medicare Primary [id number] Self [id number] MEDICARE PI PI PI PI [id number] Mary [id number] UNAVAILABLE Mary UNAVAILA [facility] [id number] SPO [id number] [facility] MEDICARE DIVISION [id number] S [id number] MEDICARE - [place] [id number] S [id number] MEDICARE C [id number] S [id number] A Medicare Part B of [facility] Other 0 Se lf 0 Medicare Part B of [facility] Other 0 Se lf 0 [place] Adminstrative Ser Commercial [id number] Self [id number] Select - Humana Commercial [id number] Family Dependen t [id number] For Life - WPS Medigap Part B [id number] Family Depen dent [id number] Medicare (Part B) Medicare Primary [id number] Self [id number] [place] Adminstrative Ser Commercial [id number] Self [id number] Select - Humana Commercial [id number] Family Dependen t [id number] For Life - [place]PS Medigap Part B [id number] Family Depen dent [id number] Medicare (Part B) Medicare Primary [id number] Self [id number] [place] Adminstrative Ser Commercial [id number] Self [id number] Standard Healthne Commercial [id number] Family Depend ent [id number] For Life - WPS Medigap Part B [id number] Family Depen dent [id number] Medicare (Part B) Medicare Primary [id number] Self [id number] Medicare (Part B) Medicare Primary Self [place] Adminstrative Ser Commercial Self Statewide Independent Ppo Commercial Self Standard Healthne Commercial Family Depend ent For Life - WPS Medigap Part B Family Depen dent For Life WPS Medigap Part B Family Depende nt Medicare Natl Gov't Servi Medicare Primary Self FOR LIFE [id number] SP [id number] Medicare Medicare Primary Self HEALTHNET/ AD S [id number] P [id number] Problems, Conditions, and Diagnoses Code Display Name Description Problem Type Effective Dates Data Source(s) 10890705 Essential hypertension Essential hypertension Problem 04/30/2020 12:00:00 AM EST [facility] ([facility] ) M62.830 Muscle spasm of back MUSCLE SPASM OF BACK Diagnosis 07/26/2019 11:22:00 AM [facility] Surgeries/Procedures Procedure Description Date Indications Data Source(s) ECG ROUTINE ECG W/LEAST 12 LDS W/I&R 05/21/2020 12:00: 00 AM EST [facility] ([facility]) ECG ROUTINE ECG W/LEAST 12 LDS W/I&R 11/16/2019 12:00: 00 AM EDT [facility] ([facility] Results ID Date Data Source [id number] 08/05/2020 01:34:00 PM EST [facility] ([facility] Name Value Range Interpretation Code Description Data Marycarmen rce(s) Supporting Document(s) RSV Amplification Laboratory test result Normal (applies to non-numeric results) [facility] ([facility] ) Negative results do not preclude influen za or RSV virus infection and should not be used as the sole basis for treatment or other patient management decisions. Influenza B Amplification Laboratory test result Normal (applies to non- numeric results) [facility] ([facility] ) Negative results do not preclude influen za or RSV virus infection and should not be used as the sole basis for treatment or other patient management decisions. Influenza A Amplification Laboratory test result Normal (applies to non- numeric results) [facility] ([facility] ) Negative results do not preclude influen za or RSV virus infection and should not be used as the sole basis for treatment or other patient management decisions. Laboratory test finding (navigational concept) Laboratory test r esult Normal (applies to non-numeric results) [facility] ([facility] A false negative result may occur if a s pecimen is improperly collected, transported or handled. False negative results may also occur if inadequate numbers of organisms are present in the specimen. As with any molecular test, mutations within the target regions of Xpert Xpress SARS-CoV-2 could affect primer and/or probe binding resulting in failure to detect the presence of virus. This test cannot rule out diseases caused by other bacterial or viral pathogens. DISCLAIMER: Testing was performed using the [facility] SARS-CoV-2 test. This test was developed and its performance characteristics determined by [facility]. This test has not been FDA cleared or approved. This test has been authorized by FDA under an Emergency Use Authorization (EUA). This test is only authorized for the duration of time the declaration that circumstances exist justifying the authorization of the emergency use of in vitro diagnostic tests for detection of SARS-CoV-2 virus and/or diagnosis of COVID-19 infection under section 564(b)(1) of the Act, 21 U.S.C. 360bbb-3(b)(1), unless the authorization is terminated or revoked sooner. ID Date Data Source [id number] 08/05/2020 12:10:00 PM EST [facility] ([facility] Name Value Range Interpretation Code Description Data Marycarmen rce(s) Supporting Document(s) Thyrotropin [Units/volume] in Serum or Plasma 6.680 uIU/ML 0. 358-3.740 Above high normal [facility] ([facility] ) Thyroxine (T4) free [Mass/volume] in Serum or Plasma 1.24 ng/dL 0.76-1.46 Normal (applies to non-numeric results) [facility] ([facility] Natriuretic peptide.B prohormone N-Terminal [Mass/volu me] in Serum or Plasma 95773 pg/mL Above high normal [facility] ([facility] ID Date Data Source [id number] 08/05/2020 12:10:00 PM EST [facility] ([facility] Name Value Range Interpretation Code Description Data Marycarmen rce(s) Supporting Document(s) Blood Urea Nitrogen 31 mg/dL 7-18 Above high normal [facility] ([facility] Glucose, Fasting 135 mg/dL 70-100 Above high normal M EDENT ([facility] Glomerular Filtration Rate 44.3 Normal (applies to n on-numeric results) [facility] ([facility] <content>Units are mL/min/1.73 m2</content>
<content></content>
<content>Chronic Kidney Disease Staging per NKF:</content>
<content></content>
<content>Stage I & II GFR >=60 Normal to Mildly Decreased</content>
<content>Stage III GFR 30- 59 Moderately Decreased</content>
<content>Stage IV GFR 15-29 Severely Decreased</content>
<content>Stage V GFR <15 Very Little GFR Left</content>
<content>ESRD GFR <15 on CHIEF JAILER</content>
<content></content> Creatinine For GFR 1.24 mg/dL 0.55-1.30 Normal (applies to non -numeric results) [facility] ([facility] Sodium Level 141 meq/L 136-145 Normal (applies to non-numeric res ults) [facility] ([facility] Carbon Dioxide Level 23 meq/L 21-32 Normal (applies to non-num melvin results) [facility] ([facility] Chloride Level 107 meq/L 98-107 Normal (applies to non-numeric r esults) [facility] ([facility] Potassium Serum 3.5 meq/L 3.5-5.1 Normal (applies to non-numeric results) [facility] ([facility] Anion Gap 11 meq/L 8-16 Normal (applies to non-numeric resul ts) [facility] ([facility] Calcium Level 9.1 mg/dL 8.8-10.2 Normal (applies to non-numeric re sults) [facility] ([facility] ID Date Data Source [id number] 08/05/2020 12:10:00 PM EST [facility] Name Value Range Interpretation Code Description Data Marycarmen rce(s) Supporting Document(s) Alt/SGPT 27 U/L 12-78 Normal (applies to non-numeric resul ts) [facility] ([facility] Ast/Sgot 29 U/L 7-37 Normal (applies to non-numeric resul ts) [facility] ([facility] Alkaline Phosphatase 229 U/L 45-117 Above high normal [facility] ([facility] Bilirubin,Direct 0.3 mg/dL 0.0-0.2 Above high normal M [facility]ENT ([facility] Total Protein 7.4 GM/DL 6.4-8.2 Normal (applies to non-numeric re sults) [facility] ([facility] Bilirubin,Total 0.8 mg/dL 0.2-1.0 Normal (applies to non-numeric results) [facility] ([facility] Albumin 3.2 GM/DL 3.2-5.2 Normal (applies to non-numeric resul ts) [facility] ([facility] Albumin/Globulin Ratio 0.8 1.2-2.2 Below low normal [facility] ([facility] ID Date Data Source [id number] 08/05/2020 12:10:00 PM EST [facility] ([facility] Name Value Range Interpretation Code Description Data Marycarmen e(s) Supporting Document(s) CPK Creatine Phosphokinase 41 U/L 26-192 Shara l (applies to non-numeric results) [facility] ([facility] ) CK-MB Value Mass 1.6 ng/mL Normal (applies to non-numeric results) [facility] ([facility] Troponin I 0.13 ng/mL Above high normal [facility] ([facility] <content>Troponin I Reference Interval f or Siemens [place] LOCI:</content>
<content></content>
<content>99th Percentile= 0.00-0.045 ng/ml</content>
<content></content>
<content>Risk Stratification:</content>
<content><= 0.10 ng/ml Decreased Risk for Adverse Clinical</content>
<content>Events.</content>
<content>0.10-1.50 ng/ml Increased Risk for Adverse Clinical</content>
<content>Events. Evaluation of additional</content>
<content>criterion and/or repeat testing in 2-6</content>
<content>hours is suggested to rule out myocardial</content>
<content>damage.</content>
<content>>= 1.50 ng/ml Indicative of Myocardial Injury.</content>
<content></content> MB/CK Relative Index 3.90 Normal (applies to non-num melvin results) [facility] ([facility] <content>DIAGNOSIS CRITERIA</content>
<content>MMB ng/ml Relative Index (RI)</content>
<content>NON-AMI < or = 5 N/A</content>
<content>[place] > 5 < or = 4</content>
<content>AMI > 5 > 4</content>
<content></content> ID Date Data Source [id number] 08/05/2020 12:10:00 PM EST [facility] ([facility] Name Value Range Interpretation Code Description Data Marycarmen rce(s) Supporting Document(s) aPTT in Platelet poor plasma by Coagulation assay 35.4 s 24.2-38.5 Normal (applies to non-numeric results) [facility] ([facility] ID Date Data Source [id number] 08/05/2020 12:10:00 PM EST [facility] ([facility] Name Value Range Interpretation Code Description Data Marycarmen rce(s) Supporting Document(s) Prothrombin Time 21.3 s 12.5-14.3 Above high normal M [facility] ([facility] Inr 1.80 Normal (applies to non-numeric resul ts) [facility] ([facility] THERAPUTIC HUMAN INR VALUES INDICATIONS NORMAL RANGES PROPHYLAXIS/TREATMENT OF: VENOUS THROMBOSIS 2.0-3.0 PULMONARY EMBOLISM 2.0-3.0 PREVENTION OF SYSTEMIC EMBOLISM FROM: TISSUE HEART VALVES 2.0-3.0 ACUTE MYOCARDIAL INFARCTION 2.0-3.0 VALVULAR HEART DISEASE 2.0-3.0 ATRIAL FIBRILLATION 2.0-3.0 MECHANICAL VALVES(HIGH RISK) 2.5-3.5 RECURRENT MYOCARDIAL INFARCTION 2.5-3.5 ID Date Data Source [id number] 08/05/2020 12:10:00 PM EST [facility] ([facility] Name Value Range Interpretation Code Description Data Marycarmen rce(s) Supporting Document(s) White Blood Count 7.2 10 4.0-10.0 Normal (applies to non-numeri c results) [facility] ([facility] Hemoglobin 11.0 g/dL 12.0-15.5 Below low normal [facility] ( [facility] Red Blood Count 3.40 10 4.00-5.40 Below low normal [facility] ([facility] Hematocrit 34.9 % 36.0-47.0 Below low normal [facility] ( [facility] Mean Corpuscular Volume 102.6 fl 80.0-96.0 Above high normal [facility] ([facility] Mean Corpuscular Hemoglobin 32.4 pg 27.0-33.0 Norm al (applies to non-numeric results) [facility] ([facility] ) Mean Corpuscular HGB Conc 31.5 g/dL 32.0-36.5 Below low normal [facility] [facility] Neutrophils % 64.6 % 36.0-66.0 Normal (applies to non-numeric re sults) [facility] ([facility] Platelet Count, Automated 112 10 150-450 Below low normal [facility] ([facility] Red Cell Distribution Width 19.0 % 11.5-14.5 Above high normal [facility] ([facility] Eos % 1.0 % 0.0-3.0 Normal (applies to non-numeric resul ts) [facility] ([facility] [place] % 11.4 % 0.0-8.0 Above high normal [facility] ([facility] Lymph % 22.1 % 24.0-44.0 Below low normal [facility] ( [facility] Nucleated Red Blood Cell % 0.0 % 0-0 Normal (applies to n on-numeric results) [facility] ([facility] Immature Granulocyte % 0.3 % 0-3.0 Normal (applies to non-n umeric results) [facility] ([facility] Baso % 0.6 % 0.0-1.0 Normal (applies to non-numeric resul ts) [facility] ([facility] Lymph # 1.6 10 1.5-5.0 Normal (applies to non-numeric resul ts) [facility] ([facility] Neutrophils # 4.7 10 1.5-8.5 Normal (applies to non-numeric re sults) [facility] ([facility] Baso # 0.0 10 0.0-0.2 Normal (applies to non-numeric resul ts) [facility] ([facility] [place] # 0.8 10 0.0-0.8 Normal (applies to non-numeric resul ts) [facility] ([facility] Eos # 0.1 10 0.0-0.5 Normal (applies to non-numeric resul ts) [facility] ([facility] ID Date Data Source [id number] 07/10/2020 11:11:00 AM EST [facility] ([facility] Name Value Range Interpretation Code Description Data Marycarmen rce(s) Supporting Document(s) Iron binding capacity.unsaturated [Mass/volume] in Serum or Plasma 274 ug/dL 118-369 [facility] ([facility] A courtesy copy of this report has been sent to the patient, , Iron binding capacity [Mass/volume] in Serum or Plasma 331 ug/dL 250 -450 [facility] ([facility] A courtesy copy of this report has been sent to the patient, , Iron [Mass/volume] in Serum or Plasma 57 ug/dL 27-139 [facility] ([facility] A courtesy copy of this report has been sent to the patient, , Iron saturation [Mass Fraction] in Serum or Plasma 17 % 15-55 [facility] ([facility] A courtesy copy of this report has been sent to the patient, , ID Date Data Source [id number] 07/10/2020 11:11:00 AM EST [facility] ([facility] Name Value Range Interpretation Code Description Data Marycarmen rce(s) Supporting Document(s) Cobalamin (Vitamin B12) [Mass/volume] in Serum or Plasma 1205 pg/mL 232-1245 [facility] ([facility] A courtesy copy of this report has been sent to the patient, , ID Date Data Source [id number] 07/10/2020 11:11:00 AM EST [facility] ([facility] Name Value Range Interpretation Code Description Data Marycarmen rce(s) Supporting Document(s) Methylmalonic Acid, Serum 468 nmol/L 0-378 Above high normal [facility] ([facility] A courtesy copy of this report has been sent to the patient, , Disclaimer: Laboratory test result M TAJ ([facility] A courtesy copy of this report has been sent to the patient, , ID Date Data Source [id number] 07/10/2020 11:11:00 AM EST [facility] ([facility] Name Value Range Interpretation Code Description Data Marycarmen rce(s) Supporting Document(s) Leukocytes [#/volume] in Blood by Automated count 7.8 x10E3/uL 3.4-10 .8 [facility] ([facility] A courtesy copy of this report has been sent to the patient, , Hemoglobin [Mass/volume] in Blood 10.2 g/dL 11.1-15.9 Below low nor mal [facility] ([facility] A courtesy copy of this report has been sent to the patient, , Hematocrit [Volume Fraction] of Blood by Automated count 32.7 % 34.0-46.6 Below low normal [facility] ([facility] ) A courtesy copy of this report has been sent to the patient, , Erythrocytes [#/volume] in Blood by Automated count 3.17 x10E6/u L 3.77-5.28 Below low normal [facility] ([facility] ) A courtesy copy of this report has been sent to the patient, , Erythrocyte mean corpuscular hemoglobin concentration [Mass/volume] by Automated count 31.2 g/dL 31.5-35.7 Below low normal [facility] ([facility] A courtesy copy of this report has been sent to the patient, , Erythrocyte mean corpuscular volume [Entitic volume] by Auto mated count 103 fL 79-97 Above high normal [facility] ([facility] A courtesy copy of this report has been sent to the patient, , Erythrocyte mean corpuscular hemoglobin [Entitic mass] by Automated count 32.2 pg 26.6-33.0 [facility] A courtesy copy of this report has been sent to the patient, , Erythrocyte distribution width [Ratio] by Automated count 17.0 % 11.7-15.4 Above high normal [facility] ([facility] ) A courtesy copy of this report has been sent to the patient, , Platelets [#/volume] in Blood by Automated count 144 x10E3/uL 150-450 Below low normal [facility] ([facility] ) A courtesy copy of this report has been sent to the patient, , Neutrophils 58 % [facility] ([facility] A courtesy copy of this report has been sent to the patient, , Lymphs 27 % [facility] ([facility] A courtesy copy of this report has been sent to the patient, , Monocytes/100 leukocytes in Blood by Automated count 12 % [facility] ([facility] A courtesy copy of this report has been sent to the patient, , Eosinophils/100 leukocytes in Blood by Automated count 2 % [facility] ([facility] A courtesy copy of this report has been sent to the patient, , Basophils/100 leukocytes in Blood by Automated count 1 % [facility] ([facility] A courtesy copy of this report has been sent to the patient, , Immature cells [#/volume] in Blood Laboratory test result [facility] ([facility] A courtesy copy of this report has been sent to the patient, , Neutrophils [#/volume] in Blood by Automated count 4.5 x10E3/uL 1.4-7 .0 [facility] ([facility] A courtesy copy of this report has been sent to the patient, , Lymphocytes [#/volume] in Blood 2.1 x10E3/uL 0.7-3.1 [facility] ([facility] A courtesy copy of this report has been sent to the patient, , Eosinophils [#/volume] in Blood by Automated count 0.1 x10E3/uL 0.0-0 .4 [facility] ([facility] A courtesy copy of this report has been sent to the patient, , Monocytes [#/volume] in Blood 0.9 x10E3/uL 0.1-0.9 [facility] ([facility] A courtesy copy of this report has been sent to the patient, , Immature granulocytes [#/volume] in Blood by Automated count 0.0 x10E3/uL 0.0-0.1 [facility] ([facility] A courtesy copy of this report has been sent to the patient, , Immature granulocytes/100 leukocytes in Blood by Automated count 0 % [facility] ([facility] A courtesy copy of this report has been sent to the patient, , Basophils [#/volume] in Blood by Automated count 0.1 x10E3/uL 0.0-0.2 [facility] ([facility] A courtesy copy of this report has been sent to the patient, , Morphology [Interpretation] in Blood Narrative Laboratory test result [facility] ([facility] A courtesy copy of this report has been sent to the patient, , Nucleated erythrocytes/100 leukocytes [Ratio] in Blood by Automated count Laboratory test result [facility] ([facility] A courtesy copy of this report has been sent to the patient, , ID Date Data Source [id number] 07/10/2020 11:11:00 AM EST [facility] ([facility] Name Value Range Interpretation Code Description Data Marycarmen rce(s) Supporting Document(s) Glucose [Mass/volume] in Serum or Plasma 122 mg/dL 65-99 Above high normal [facility] ([facility] A courtesy copy of this report has been sent to the patient, , BUN 36 mg/dL 8-27 Above high normal [facility] ([facility] A courtesy copy of this report has been sent to the patient, , Creatinine [Mass/volume] in Serum or Plasma 1.34 mg/dL 0.57 -1.00 Above high normal [facility] ([facility] ) A courtesy copy of this report has been sent to the patient, , Urea nitrogen/Creatinine [Mass Ratio] in Serum or Plasma 27 1 2-28 [facility] ([facility] A courtesy copy of this report has been sent to the patient, , eGFR If Africn Am 43 mL/min/1.73 Below low normal [facility] ([facility] A courtesy copy of this report has been sent to the patient, , eGFR If NonAfricn Am 37 mL/min/1.73 Below low normal [facility] ([facility] A courtesy copy of this report has been sent to the patient, , Sodium [Moles/volume] in Serum or Plasma 141 mmol/L 134-144 [facility] ([facility] A courtesy copy of this report has been sent to the patient, , Potassium [Moles/volume] in Serum or Plasma 3.4 mmol/L 3.5-5.2 Below low normal [facility] ([facility] A courtesy copy of this report has been sent to the patient, , Chloride [Moles/volume] in Serum or Plasma 104 mmol/L 96-106 [facility] ([facility] A courtesy copy of this report has been sent to the patient, , Calcium [Mass/volume] in Serum or Plasma 9.0 mg/dL 8.7-10.3 [facility] ([facility] A courtesy copy of this report has been sent to the patient, , Carbon dioxide, total [Moles/volume] in Serum or Plasma 23 mmol/L 20 -29 [facility] ([facility] A courtesy copy of this report has been sent to the patient, , ID Date Data Source [id number] 06/04/2020 11:46:00 AM EST [facility] ([facility] Name Value Range Interpretation Code Description Data Marycarmen rce(s) Supporting Document(s) Cholesterol [Mass/volume] in Serum or Plasma 66 mg/dL 100-199 Below low normal [facility] ([facility] A courtesy copy of this report has been sent to the patient, , Laboratory test finding (navigational concept) 17 mg/dL 5-40 [facility] ([facility] A courtesy copy of this report has been sent to the patient, , Triglyceride [Mass/volume] in Serum or Plasma 79 mg/dL 0-149 [facility] ([facility] A courtesy copy of this report has been sent to the patient, , Cholesterol in HDL [Mass/volume] in Serum or Plasma 35 mg/dL Below low normal [facility] ([facility] A courtesy copy of this report has been sent to the patient, , Laboratory test finding (navigational concept) 14 mg/dL 0-99 [facility] ([facility] A courtesy copy of this report has been sent to the patient, , Comment: Laboratory test result [facility] ([facility] A courtesy copy of this report has been sent to the patient, , ID Date Data Source [id number] 06/04/2020 11:46:00 AM EST [facility] ([facility] Name Value Range Interpretation Code Description Data Marycarmen rce(s) Supporting Document(s) Glucose [Mass/volume] in Serum or Plasma 122 mg/dL 65-99 Above high normal [facility] ([facility] A courtesy copy of this report has been sent to the patient, , BUN 27 mg/dL 8-27 [facility] ([facility] A courtesy copy of this report has been sent to the patient, , Creatinine [Mass/volume] in Serum or Plasma 1.32 mg/dL 0.57 -1.00 Above high normal [facility] ([facility] ) A courtesy copy of this report has been sent to the patient, , eGFR If NonAfricn Am 38 mL/min/1.73 Below low normal [facility] ([facility] A courtesy copy of this report has been sent to the patient, , eGFR If Africn Am 44 mL/min/1.73 Below low normal [facility] ([facility] A courtesy copy of this report has been sent to the patient, , Sodium [Moles/volume] in Serum or Plasma 142 mmol/L 134-144 [facility] ([facility] A courtesy copy of this report has been sent to the patient, , Potassium [Moles/volume] in Serum or Plasma 3.5 mmol/L 3.5-5.2 [facility] ([facility] A courtesy copy of this report has been sent to the patient, , Urea nitrogen/Creatinine [Mass Ratio] in Serum or Plasma 20 1 2-28 [facility] ([facility] A courtesy copy of this report has been sent to the patient, , Chloride [Moles/volume] in Serum or Plasma 103 mmol/L 96-106 [facility] ([facility] A courtesy copy of this report has been sent to the patient, , Carbon dioxide, total [Moles/volume] in Serum or Plasma 23 mmol/L 20 -29 [facility] ([facility] A courtesy copy of this report has been sent to the patient, , Calcium [Mass/volume] in Serum or Plasma 9.2 mg/dL 8.7-10.3 [facility] ([facility] A courtesy copy of this report has been sent to the patient, , Albumin [Mass/volume] in Serum or Plasma 4.0 g/dL 3.7-4.7 [facility] ([facility] A courtesy copy of this report has been sent to the patient, , Protein [Mass/volume] in Serum or Plasma 7.2 g/dL 6.0-8.5 [facility] ([facility] A courtesy copy of this report has been sent to the patient, , Globulin [Mass/volume] in Serum by calculation 3.2 g/dL 1.5-4.5 [facility] ([facility] A courtesy copy of this report has been sent to the patient, , Albumin/Globulin [Mass Ratio] in Serum or Plasma 1.3 1.2-2.2 [facility] ([facility] A courtesy copy of this report has been sent to the patient, , Bilirubin.total [Mass/volume] in Serum or Plasma 0.7 mg/dL 0.0-1.2 [facility] ([facility] A courtesy copy of this report has been sent to the patient, , Alkaline phosphatase [Enzymatic activity/volume] in Serum or Plasma 122 IU/L 39-117 Above high normal [facility] ([facility] A courtesy copy of this report has been sent to the patient, , Aspartate aminotransferase [Enzymatic activity/volume] in Serum or Plasma 27 IU/L 0-40 [facility] ([facility] A courtesy copy of this report has been sent to the patient, , Alanine aminotransferase [Enzymatic activity/volume] in Seru m or Plasma 14 IU/L 0-32 [facility] ([facility] A courtesy copy of this report has been sent to the patient, , ID Date Data Source [id number] 06/04/2020 11:46:00 AM EST [facility] ([facility] Name Value Range Interpretation Code Description Data Marycarmen rce(s) Supporting Document(s) Leukocytes [#/volume] in Blood by Automated count 10.1 x10E3/uL 3.4-1 0.8 [facility] ([facility] A courtesy copy of this report has been sent to the patient, , Erythrocytes [#/volume] in Blood by Automated count 3.22 x10E6/u L 3.77-5.28 Below low normal [facility] ([facility] ) A courtesy copy of this report has been sent to the patient, , Hemoglobin [Mass/volume] in Blood 10.0 g/dL 11.1-15.9 Below low nor mal [facility] ([facility] A courtesy copy of this report has been sent to the patient, , Hematocrit [Volume Fraction] of Blood by Automated count 31.1 % 34.0-46.6 Below low normal [facility] ([facility] ) A courtesy copy of this report has been sent to the patient, , Erythrocyte mean corpuscular volume [Entitic volume] by Auto mated count 97 fL 79-97 [facility] ([facility] A courtesy copy of this report has been sent to the patient, , Erythrocyte mean corpuscular hemoglobin [Entitic mass] by Automated count 31.1 pg 26.6-33.0 [facility] ([facility] A courtesy copy of this report has been sent to the patient, , Erythrocyte mean corpuscular hemoglobin concentration [Mass/volume] by Automated count 32.2 g/dL 31.5-35.7 [facility] ([facility] A courtesy copy of this report has been sent to the patient, , Erythrocyte distribution width [Ratio] by Automated count 15.0 % 11.7-15.4 [facility] ([facility] A courtesy copy of this report has been sent to the patient, , Platelets [#/volume] in Blood by Automated count 175 x10E3/uL 150-450 [facility] ([facility] A courtesy copy of this report has been sent to the patient, , Neutrophils 57 % [facility] ([facility] A courtesy copy of this report has been sent to the patient, , Lymphs 29 % [facility] ([facility] A courtesy copy of this report has been sent to the patient, , Monocytes/100 leukocytes in Blood by Automated count 11 % [facility] ([facility] A courtesy copy of this report has been sent to the patient, , Basophils/100 leukocytes in Blood by Automated count 1 % [facility] ([facility] A courtesy copy of this report has been sent to the patient, , Eosinophils/100 leukocytes in Blood by Automated count 2 % [facility] ([facility] A courtesy copy of this report has been sent to the patient, , Immature cells [#/volume] in Blood Laboratory test result [facility] ([facility] A courtesy copy of this report has been sent to the patient, , Neutrophils [#/volume] in Blood by Automated count 5.8 x10E3/uL 1.4-7 .0 [facility] ([facility] A courtesy copy of this report has been sent to the patient, , Lymphocytes [#/volume] in Blood 2.9 x10E3/uL 0.7-3.1 [facility] ([facility] A courtesy copy of this report has been sent to the patient, , Basophils [#/volume] in Blood by Automated count 0.1 x10E3/uL 0.0-0.2 [facility] ([facility] A courtesy copy of this report has been sent to the patient, , Eosinophils [#/volume] in Blood by Automated count 0.2 x10E3/uL 0.0-0 .4 [facility] ([facility] A courtesy copy of this report has been sent to the patient, , Monocytes [#/volume] in Blood 1.1 x10E3/uL 0.1-0.9 Above high norm al [facility] ([facility] A courtesy copy of this report has been sent to the patient, , Immature granulocytes/100 leukocytes in Blood by Automated count 0 % [facility] ([facility] A courtesy copy of this report has been sent to the patient, , Immature granulocytes [#/volume] in Blood by Automated count 0.0 x10E3/uL 0.0-0.1 [facility] A courtesy copy of this report has been sent to the patient, , Morphology [Interpretation] in Blood Narrative Laboratory test result [facility] ([facility] A courtesy copy of this report has been sent to the patient, , Nucleated erythrocytes/100 leukocytes [Ratio] in Blood by Automated count Laboratory test result [facility] ([facility] A courtesy copy of this report has been sent to the patient, , ID Date Data Source [id number] 06/04/2020 10:41:00 AM EST [facility] ([facility] Name Value Range Interpretation Code Description Data Marycarmen rce(s) Supporting Document(s) Triglycerides 79 [facility] ([facility]) Cholesterol 66 100-199 [facility] ([facility]) HDL 35 [facility] Cholesterol in LDL [Mass/volume] in Serum or Plasma by calculation 14 [facility] ([facility]) Chol/HDL Ratio Laboratory test result [facility] ([facility]) ID Date Data Source [id number] 06/04/2020 10:41:00 AM EST [facility] ([facility]) Name Value Range Interpretation Code Description Data Marycarmen rce(s) Supporting Document(s) Albumin [Mass/volume] in Serum or Plasma 4.0 [facility] ([facility]) Alanine aminotransferase [Enzymatic activity/volume] in Serum or Pl asma 14 [facility] ([facility]) Carbon dioxide, total [Moles/volume] in Serum or Plasma 23 [facility] ([facility]) Chloride [Moles/volume] in Serum or Plasma 103 [facility] ([facility] Calcium [Mass/volume] in Serum or Plasma 9.2 [facility] ([facility] Potassium [Moles/volume] in Serum or Plasma 3.5 [facility] ([facility] Alkaline phosphatase [Enzymatic activity/volume] in Serum or Plasma 1 22 [facility] ([facility] Aspartate aminotransferase [Enzymatic activity/volume] in Serum or Plasma 27 [facility] ([facility]) Protein [Mass/volume] in Serum or Plasma 7.2 [facility] ([facility] Sodium 142 [facility] ([facility] Urea nitrogen [Mass/volume] in Serum or Plasma 27 [facility] ([facility] Glucose 122 65-99 [facility] ([facility] Creatinine For GFR 1.32 [facility] ([facility]) ID Date Data Source [id number] 06/04/2020 10:41:00 AM EST [facility] ([facility] Name Value Range Interpretation Code Description Data Marycarmen rce(s) Supporting Document(s) White Blood Count 10.1 3.4-10.8 [facility] ([facility] Hemoglobin 10.0 11.1-15.9 [facility] ([facility] Red Blood Count 3.22 3.77-5.28 [facility] ([facility] Platelets 175 150-450 [facility] ([facility] Hematocrit 31.1 34.0-46.6 [facility] ([facility]) ID Date Data Source [id number] 04/23/2020 12:11:00 PM EST [facility] ([facility] Name Value Range Interpretation Code Description Data Marycarmen rce(s) Supporting Document(s) Natriuretic peptide.B prohormone N-Terminal [Mass/volu me] in Serum or Plasma 7058 pg/mL 0-738 Above high normal [facility] ([facility] A courtesy copy of this report has been sent to the patient, ID Date Data Source [id number] 04/23/2020 12:11:00 PM EST [facility] ([facility] Name Value Range Interpretation Code Description Data Marycarmen rce(s) Supporting Document(s) BUN 37 mg/dL 8-27 Above high normal [facility] ([facility] A courtesy copy of this report has been sent to the patient, Glucose [Mass/volume] in Serum or Plasma 152 mg/dL 65-99 Above high normal [facility] ([facility] A courtesy copy of this report has been sent to the patient, Creatinine [Mass/volume] in Serum or Plasma 1.38 mg/dL 0.57 -1.00 Above high normal [facility] ([facility] ) A courtesy copy of this report has been sent to the patient, eGFR If NonAfricn Am 36 mL/min/1.73 Below low normal [facility] ([facility] A courtesy copy of this report has been sent to the patient, Urea nitrogen/Creatinine [Mass Ratio] in Serum or Plasma 27 1 2-28 [facility] ([facility] A courtesy copy of this report has been sent to the patient, Sodium [Moles/volume] in Serum or Plasma 134 mmol/L 134-144 [facility] ([facility] A courtesy copy of this report has been sent to the patient, eGFR If Africn Am 42 mL/min/1.73 Below low normal [facility] ([facility] A courtesy copy of this report has been sent to the patient, Carbon dioxide, total [Moles/volume] in Serum or Plasma 26 mmol/L 20 -29 [facility] ([facility] A courtesy copy of this report has been sent to the patient, Potassium [Moles/volume] in Serum or Plasma 4.0 mmol/L 3.5-5.2 [facility] ([facility] A courtesy copy of this report has been sent to the patient, Chloride [Moles/volume] in Serum or Plasma 94 mmol/L 96-106 Belo w low normal [facility] ([facility] A courtesy copy of this report has been sent to the patient, Calcium [Mass/volume] in Serum or Plasma 8.9 mg/dL 8.7-10.3 [facility] ([facility] A courtesy copy of this report has been sent to the patient, ID Date Data Source [id number] 04/23/2020 12:11:00 PM EST [facility] ([facility] Name Value Range Interpretation Code Description Data Marycarmen rce(s) Supporting Document(s) Erythrocytes [#/volume] in Blood by Automated count 3.19 x10E6/u L 3.77-5.28 Below low normal [facility] ([facility] ) A courtesy copy of this report has been sent to the patient, Leukocytes [#/volume] in Blood by Automated count 10.0 x10E3/uL 3.4-1 0.8 [facility] ([facility] A courtesy copy of this report has been sent to the patient, Erythrocyte mean corpuscular volume [Entitic volume] by Auto mated count 98 fL 79-97 Above high normal [facility] ([facility] A courtesy copy of this report has been sent to the patient, Hemoglobin [Mass/volume] in Blood 10.2 g/dL 11.1-15.9 Below low nor mal [facility] ([facility] A courtesy copy of this report has been sent to the patient, Hematocrit [Volume Fraction] of Blood by Automated count 31.2 % 34.0-46.6 Below low normal [facility] ([facility] ) A courtesy copy of this report has been sent to the patient, Erythrocyte mean corpuscular hemoglobin [Entitic mass] by Automated count 32.0 pg 26.6-33.0 [facility] ([facility] A courtesy copy of this report has been sent to the patient, Erythrocyte mean corpuscular hemoglobin concentration [Mass/volume] by Automated count 32.7 g/dL 31.5-35.7 [facility] ([facility] A courtesy copy of this report has been sent to the patient, Erythrocyte distribution width [Ratio] by Automated count 13.4 % 11.7-15.4 [facility] ([facility] A courtesy copy of this report has been sent to the patient, Platelets [#/volume] in Blood by Automated count 208 x10E3/uL 150-450 [facility] ([facility] A courtesy copy of this report has been sent to the patient, Neutrophils 68 % [facility] ([facility] A courtesy copy of this report has been sent to the patient, Monocytes/100 leukocytes in Blood by Automated count 13 % [facility] ([facility] A courtesy copy of this report has been sent to the patient, Lymphs 17 % [facility] ([facility] A courtesy copy of this report has been sent to the patient, Eosinophils/100 leukocytes in Blood by Automated count 1 % [facility] ([facility] A courtesy copy of this report has been sent to the patient, Basophils/100 leukocytes in Blood by Automated count 1 % [facility] ([facility] A courtesy copy of this report has been sent to the patient, Neutrophils [#/volume] in Blood by Automated count 6.8 x10E3/uL 1.4-7 .0 [facility] ([facility] A courtesy copy of this report has been sent to the patient, Immature cells [#/volume] in Blood Laboratory test result [facility] ([facility] A courtesy copy of this report has been sent to the patient, Monocytes [#/volume] in Blood 1.3 x10E3/uL 0.1-0.9 Above high norm al [facility] ([facility] A courtesy copy of this report has been sent to the patient, Lymphocytes [#/volume] in Blood 1.7 x10E3/uL 0.7-3.1 [facility] ([facility] A courtesy copy of this report has been sent to the patient, Immature granulocytes/100 leukocytes in Blood by Automated count 0 % [facility] ([facility] A courtesy copy of this report has been sent to the patient, Eosinophils [#/volume] in Blood by Automated count 0.1 x10E3/uL 0.0-0 .4 [facility] ([facility] A courtesy copy of this report has been sent to the patient, Basophils [#/volume] in Blood by Automated count 0.1 x10E3/uL 0.0-0.2 [facility] ([facility] A courtesy copy of this report has been sent to the patient, Nucleated erythrocytes/100 leukocytes [Ratio] in Blood by Automated count Laboratory test result [facility] ([facility] A courtesy copy of this report has been sent to the patient, Immature granulocytes [#/volume] in Blood by Automated count 0.0 x10E3/uL 0.0-0.1 [facility] ([facility] A courtesy copy of this report has been sent to the patient, Morphology [Interpretation] in Blood Narrative Laboratory test result [facility] ([facility] A courtesy copy of this report has been sent to the patient, ID Date Data Source [id number] 04/23/2020 10:56:00 AM EST [facility] ([facility] Name Value Range Interpretation Code Description Data Marycarmen rce(s) Supporting Document(s) Calcium [Mass/volume] in Serum or Plasma 8.9 [facility] ([facility] Sodium 134 [facility] ([facility] Potassium [Moles/volume] in Serum or Plasma 4.0 [facility] ([facility]) Chloride [Moles/volume] in Serum or Plasma 94 [facility] ([facility]) Carbon dioxide, total [Moles/volume] in Serum or Plasma 26 [facility] ([facility]) Glucose 152 65-99 [facility] ([facility]) Blood Urea Nitrogen 37 8-27 [facility] ([facility]) Creatinine 1.38 0.57-1.00 [facility] ([facility]iology [facility]) Glomerular filtration rate/1.73 sq M.pre dicted [Volume Rate/Area] in Serum or Plasma by Creatinine-based formula (MDRD) 36 [facility] ([facility]) ID Date Data Source [id number] 04/18/2020 04:05:00 PM EDT [facility] ([facility] Name Value Range Interpretation Code Description Data Marycarmen rce(s) Supporting Document(s) Laboratory test finding (navigational concept) 137 mg/dL 7 0-105 Above high normal [facility] ([facility] ) Laboratory test finding (navigational concept) 33.0 % 3 8.0-51.0 Below low normal [facility] ([facility] ) Laboratory test finding (navigational concept) 3.0 meq/L 3 .5-5.1 Below low normal [facility] ([facility] ) Laboratory test finding (navigational concept) 4.6 mg/dL 4 .5-5.3 Normal (applies to non-numeric results) [facility] ([facility] Laboratory test finding (navigational concept) 140 meq/L 1 36-145 Normal (applies to non-numeric results) [facility] ([facility] Laboratory test finding (navigational concept) 101 meq/L 9 8-109 Normal (applies to non-numeric results) [facility] ([facility] Laboratory test finding (navigational concept) 24 mg/dL 8 -26 Normal (applies to non-numeric results) [facility] ([facility]) Laboratory test finding (navigational concept) 24.0 MM/L 2 3.0-27.0 Normal (applies to non-numeric results) [facility] ([facility] Laboratory test finding (navigational concept) 1.3 mg/dL 0 .6-1.3 Normal (applies to non-numeric results) [facility] ([facility] ID Date Data Source [id number] 04/18/2020 04:02:00 PM EDT [facility] ([facility] Name Value Range Interpretation Code Description Data Marycarmen rce(s) Supporting Document(s) Inr 1.48 Normal (applies to non-numeric resul ts) [facility] ([facility] THERAPUTIC HUMAN INR VALUES INDICATIONS NORMAL RANGES PROPHYLAXIS/TREATMENT OF: VENOUS THROMBOSIS 2.0-3.0 PULMONARY EMBOLISM 2.0-3.0 PREVENTION OF SYSTEMIC EMBOLISM FROM: TISSUE HEART VALVES 2.0-3.0 ACUTE MYOCARDIAL INFARCTION 2.0-3.0 VALVULAR HEART DISEASE 2.0-3.0 ATRIAL FIBRILLATION 2.0-3.0 MECHANICAL VALVES(HIGH RISK) 2.5-3.5 RECURRENT MYOCARDIAL INFARCTION 2.5-3.5 Prothrombin Time 18.2 s 12.5-14.3 Above high normal [facility] ID Date Data Source [id number] 12/05/2019 04:07:00 PM EDT [facility] ([facility]) Name Value Range Interpretation Code Description Data Marycarmen rce(s) Supporting Document(s) Triglycerides 88 40-160 [facility] ([facility]) Cholesterol 96 [facility] ([facility]) Cholesterol in LDL [Mass/volume] in Serum or Plasma by calculation 31 [facility] ([facility]) HDL 31 35-59 [facility] Chol/HDL Ratio 2.0 [facility] ([facility]iol [facility]) ID Date Data Source [id number] 12/05/2019 04:07:00 PM EDT [facility] ([facility]) Name Value Range Interpretation Code Description Data Marycarmen rce(s) Supporting Document(s) Albumin [Mass/volume] in Serum or Plasma 4.0 [facility] ([facility]) Alanine aminotransferase [Enzymatic activity/volume] in Serum or Pl asma 16 [facility] ([facility]) Calcium [Mass/volume] in Serum or Plasma 9.3 [facility] ([facility]) Carbon dioxide, total [Moles/volume] in Serum or Plasma 25.2 [facility] ([facility]) Chloride [Moles/volume] in Serum or Plasma 96 [facility] ([facility]) Alkaline phosphatase [Enzymatic activity/volume] in Serum or Plasma 7 1.8 [facility] ([facility]) Protein [Mass/volume] in Serum or Plasma 6.8 [facility] ([facility]) Potassium [Moles/volume] in Serum or Plasma 4.1 [facility] ([facility]) Urea nitrogen [Mass/volume] in Serum or Plasma 27.3 [facility] ([facility]) Sodium 138 [facility] ([facility]) Aspartate aminotransferase [Enzymatic activity/volume] in Serum or Plasma 25 [facility] ([facility]) Glucose 122 64-112 [facility] ([facility]) Creatinine For GFR 1.3 [facility] (Car [facility]) ID Date Data Source [id number] 12/05/2019 04:07:00 PM EDT [facility] ([facility]) Name Value Range Interpretation Code Description Data Marycarmen rce(s) Supporting Document(s) White Blood Count 7.7 [facility] ([facility] Platelets 171 [facility] ([facility]) Red Blood Count 3.23 [facility] ([facility]io [facility]) Hemoglobin 11.2 [facility] ([facility]) Hematocrit 32.1 [facility] ([facility]) ID Date Data Source [id number] 12/05/2019 08:53:00 AM EDT [facility] (Famil y [...] HCT IS 5% LESS SOURCE FOR DATA: [employer] 1800 OPERATION MANUAL( AUTOMATED BLOOD COUNTS AND [...] in Serum or Plasma 47 mg/dL 45-65 [facility] ([facility] NORMAL RANGES Age [...] HCT IS 5% LESS SOURCE FOR DATA: [employer] 1800 OPERATION MANUAL( AUTOMATED BLOOD COUNTS AND [...] 2-19 YEARS EXCLUSIVE. Chol 96 mg/dL 0-200 [facility] ([facility] NORMAL [...] HCT IS 5% LESS SOURCE FOR DATA: [employer] 1800 OPERATION MANUAL( AUTOMATED BLOOD COUNTS AND [...] HCT IS 5% LESS SOURCE FOR DATA: [employer] 1800 OPERATION MANUAL( AUTOMATED BLOOD COUNTS AND [...] 2-19 YEARS EXCLUSIVE. Cho/HDL Ratio 2.0 CALC [facility] ([facility] NORMAL RANGES Age WBC RBC HGB [...] HCT IS 5% LESS SOURCE FOR DATA: [employer] DYN 1800 OPERATION MANUAL( AUTOMATED BLOOD COUNTS [...] 2-19 YEARS EXCLUSIVE. ID Date Data Source [id number] 12/05/2019 08:53:00 AM EDT [facility] ([facility] Name Value Range Interpretation Code Description Data Marycarmen rce(s) Supporting Document(s) Glu 122 mg/dL 70-110 Above high normal [facility] ([facility] NORMAL RANGES Age [...] HCT IS 5% LESS SOURCE FOR DATA: [employer] 1800 OPERATION MANUAL( AUTOMATED BLOOD COUNTS AND [...] Creat 1.3 mg/dL 0.5-1.0 Above high normal [facility] ([facility] NORMAL RANGES Age [...] HCT IS 5% LESS SOURCE FOR DATA: [employer] 1800 OPERATION MANUAL( AUTOMATED BLOOD COUNTS AND [...] BUN 37 mg/dL 8-23 Above high normal [facility] ([facility] NORMAL RANGES Age WBC [...] HCT IS 5% LESS SOURCE FOR DATA: [employer] 1800 OPERATION MANUAL( AUTOMATED BLOOD COUNTS AND [...] 2-19 YEARS EXCLUSIVE. BUN/Creatinine Ratio 27.3 CALC [facility] ([facility] NORMAL RANGES Age [...] HCT IS 5% LESS SOURCE FOR DATA: [employer] 1800 OPERATION MANUAL( AUTOMATED BLOOD COUNTS AND [...] 2-19 YEARS EXCLUSIVE. K 4.1 mmol/L 3.5-5.1 [facility] NORMAL RANGES Age WBC RBC [...] HCT IS 5% LESS SOURCE FOR DATA: [employer] 1800 OPERATION MANUAL( AUTOMATED BLOOD COUNTS AND [...] 2-19 YEARS EXCLUSIVE. CL 102.6 mmol/L 98.0-107.0 [facility] ([facility] NORMAL RANGES Age WBC RBC HGB [...] HCT IS 5% LESS SOURCE FOR DATA: [employer] DYN 1800 OPERATION MANUAL( AUTOMATED BLOOD COUNTS [...] 2-19 YEARS EXCLUSIVE. Na 138 mmol/L 136-145 [facility] ([facility] NORMAL [...] HCT IS 5% LESS SOURCE FOR DATA: [employer] 1800 OPERATION MANUAL( AUTOMATED BLOOD COUNTS AND [...] 2-19 YEARS EXCLUSIVE. TP 6.8 g/dL 6.6-8.7 [facility] ([facility] NORMAL RANGES Age WBC RBC [...] HCT IS 5% LESS SOURCE FOR DATA: [employer] 1800 OPERATION MANUAL( AUTOMATED BLOOD COUNTS AND [...] 2-19 YEARS EXCLUSIVE. Co2 25.2 mmol/L 22.0-29.0 [email or web address] ([facility] NORMAL RANGES Age WBC RBC [...] HCT IS 5% LESS SOURCE FOR DATA: [employer] 1800 OPERATION MANUAL( AUTOMATED BLOOD COUNTS AND [...] 2-19 YEARS EXCLUSIVE. CA 9.3 mg/dL 8.6-10.2 [facility] ([facility] NORMAL [...] HCT IS 5% LESS SOURCE FOR DATA: [employer] 1800 OPERATION MANUAL( AUTOMATED BLOOD COUNTS AND [...] 2-19 YEARS EXCLUSIVE. Alb 4.0 g/dL 3.4-4.8 [facility] ([facility] NORMAL RANGES Age WBC RBC [...] HCT IS 5% LESS SOURCE FOR DATA: [employer] 1800 OPERATION MANUAL( AUTOMATED BLOOD COUNTS AND [...] HCT IS 5% LESS SOURCE FOR DATA: [employer] 1800 OPERATION MANUAL( AUTOMATED BLOOD COUNTS AND [...] HCT IS 5% LESS SOURCE FOR DATA: [employer] 1800 OPERATION MANUAL( AUTOMATED BLOOD COUNTS AND [...] 2-19 YEARS EXCLUSIVE. Alp 71.8 U/L 35-129 [facility] ([facility] NORMAL [...] YEARS EXCLUSIVE. Alt (SGPT) 16 U/L 0-41 [facility] ([facility] NORMAL [...] HCT IS 5% LESS SOURCE FOR DATA: [employer] 1800 OPERATION MANUAL( AUTOMATED BLOOD COUNTS AND [...] YEARS EXCLUSIVE. Ast (Sgot) 25 U/L 0-40 [facility] ([facility] NORMAL RANGES Age WBC RBC [...] HCT IS 5% LESS SOURCE FOR DATA: [employer] 1800 OPERATION MANUAL( AUTOMATED BLOOD COUNTS AND [...] 2-19 YEARS EXCLUSIVE. Tbili 0.41 mg/dL 0.0-1.2 [facility] ([facility] NORMAL RANGES Age WBC RBC [...] HCT IS 5% LESS SOURCE FOR DATA: [employer] DYN 1800 OPERATION MANUAL( AUTOMATED BLOOD COUNTS [...] HCT IS 5% LESS SOURCE FOR DATA: [employer] 1800 OPERATION MANUAL( AUTOMATED BLOOD COUNTS AND [...] HCT IS 5% LESS SOURCE FOR DATA: [employer] 1800 OPERATION MANUAL( AUTOMATED BLOOD COUNTS AND [...] 2-19 YEARS EXCLUSIVE. Anion Gap 14 mmol/L [facility] ([facility] NORMAL [...] HCT IS 5% LESS SOURCE FOR DATA: [employer] DYN 1800 OPERATION MANUAL( AUTOMATED BLOOD COUNTS [...] INDIVIDUALA AGED 2-19 YEARS EXCLUSIVE. eGFR Non-Afr. Hungarian 39 # [facility] ([facility] [...] HCT IS 5% LESS SOURCE FOR DATA: [employer] 1800 OPERATION MANUAL( AUTOMATED BLOOD COUNTS AND [...] 2-19 YEARS EXCLUSIVE. ID Date Data Source [id number] 12/05/2019 08:53:00 AM EDT [facility] ([facility] Name Value Range Interpretation Code Description Data Marycarmen rce(s) Supporting Document(s) RBC 3.23 10E6/uL 4.20-6.30 Below low normal [facility] ([facility] NORMAL RANGES Age WBC RBC [...] HCT IS 5% LESS SOURCE FOR DATA: [employer] 1800 OPERATION MANUAL( AUTOMATED BLOOD COUNTS AND [...] 2-19 YEARS EXCLUSIVE. WBC 7.7 10E3/uL 4.1-10.9 [facility] ([facility] NORMAL RANGES Age WBC RBC [...] HCT IS 5% LESS SOURCE FOR DATA: [employer] DYN 1800 OPERATION MANUAL( AUTOMATED BLOOD COUNTS [...] HCT IS 5% LESS SOURCE FOR DATA: [employer] 1800 OPERATION MANUAL( AUTOMATED BLOOD COUNTS AND [...] MCH 34.7 pg 26.0-32.0 Above high normal [facility] ([facility] NORMAL RANGES Age [...] HCT IS 5% LESS SOURCE FOR DATA: [employer] 1800 OPERATION MANUAL( AUTOMATED BLOOD COUNTS AND [...] MCV 99.4 fL 80.0-97.0 Above high normal [facility] ([facility] NORMAL RANGES [...] HCT IS 5% LESS SOURCE FOR DATA: [employer] 1800 OPERATION MANUAL( AUTOMATED BLOOD COUNTS AND [...] HCT 32.1 % 37.0-51.0 Below low normal [facility] ( [...] HCT IS 5% LESS SOURCE FOR DATA: [employer] 1800 OPERATION MANUAL( AUTOMATED BLOOD COUNTS AND [...] 2-19 YEARS EXCLUSIVE. MCHC 34.9 g/dL 31.0-36.0 [facility] ([facility] NORMAL RANGES Age [...] 2-19 YEARS EXCLUSIVE. PLT 171 10E3/uL 140-440 [facility] ([facility] NORMAL RANGES Age WBC RBC [...] HCT IS 5% LESS SOURCE FOR DATA: [employer] 1800 OPERATION MANUAL( AUTOMATED BLOOD COUNTS AND [...] 2-19 YEARS EXCLUSIVE. Lym% 39.9 % 10.0-58.5 [facility] ([facility] NORMAL [...] HCT IS 5% LESS SOURCE FOR DATA: [employer] 1800 OPERATION MANUAL( AUTOMATED BLOOD COUNTS AND [...] 2-19 YEARS EXCLUSIVE. RDW-CV 13.9 % 11.5-14.5 [facility] ([facility] NORMAL [...] HCT IS 5% LESS SOURCE FOR DATA: [employer] DYN 1800 OPERATION MANUAL( AUTOMATED BLOOD COUNTS [...] 2-19 YEARS EXCLUSIVE. MXD% 14.2 % 0.1-24.0 [facility] ([facility] NORMAL [...] HCT IS 5% LESS SOURCE FOR DATA: [employer] 1800 OPERATION MANUAL( AUTOMATED BLOOD COUNTS AND [...] 2-19 YEARS EXCLUSIVE. Lym# 3.1 10E3/uL 0.6-4.1 [facility] ([facility] NORMAL RANGES Age WBC RBC [...] HCT IS 5% LESS SOURCE FOR DATA: [employer] 1800 OPERATION MANUAL( AUTOMATED BLOOD COUNTS AND [...] 2-19 YEARS EXCLUSIVE. Neut% 45.9 % 37.0-92.0 [facility] ([facility] NORMAL [...] HCT IS 5% LESS SOURCE FOR DATA: [employer] 1800 OPERATION MANUAL( AUTOMATED BLOOD COUNTS AND [...] 2-19 YEARS EXCLUSIVE. Neut# 3.5 % 2.0-7.8 [facility] ([facility] NORMAL [...] HCT IS 5% LESS SOURCE FOR DATA: [employer] 1800 OPERATION MANUAL( AUTOMATED BLOOD COUNTS AND [...] YEARS EXCLUSIVE. MXD# 1.1 10E3/uL 0.0-1.8 [facility] ([facility] NORMAL RANGES Age WBC RBC [...] HCT IS 5% LESS SOURCE FOR DATA: [employer] 1800 OPERATION MANUAL( AUTOMATED BLOOD COUNTS AND [...] 2-19 YEARS EXCLUSIVE. MPV 10.5 fL 9.0-13.0 [facility] ([facility] NORMAL [...] HCT IS 5% LESS SOURCE FOR DATA: [employer] 1800 OPERATION MANUAL( AUTOMATED BLOOD COUNTS AND [...] 2-19 YEARS EXCLUSIVE. ID Date Data Source [id number] 08/31/2019 10:36:00 AM EDT [facility] ([facility] Name Value Range Interpretation Code Description Data Marycarmen rce(s) Supporting Document(s) Laboratory test finding (navigational concept) Laboratory test result [facility] ([facility]) Magnesium [Mass/volume] in Serum or Plasma 1.9 mg/dL 1.6-2.3 [facility] ([facility]) ID Date Data Source [id number] 08/31/2019 10:36:00 AM EDT [facility] ([facility] Name Value Range Interpretation Code Description Data Marycarmen rce(s) Supporting Document(s) Urea nitrogen [Mass/volume] in Serum or Plasma 34 mg/dL 8-27 [facility] (Cardiology [facility]) Glucose 115 mg/dL 65-99 [facility] ([facility]iology [facility]) Creatinine 1.31 mg/dL 0.57-1.00 [facility] (Cardiology [facility]) eGFR If NonAfricn Am 39 mL/min/1.73 [facility] (Cardiology [facility]) eGFR If Africn Am 45 mL/min/1.73 [facility] (Cardiology [facility]) Urea nitrogen/Creatinine [Mass Ratio] in Serum or Plasma 26 1 2-28 [facility] (Cardiology [facility]) Sodium 141 mmol/L 134-144 [facility] ([facility]) Potassium [Moles/volume] in Serum or Plasma 4.1 mmol/L 3.5-5.2 [facility] (Cardiology [facility]) Carbon dioxide, total [Moles/volume] in Serum or Plasma 24 mmol/L 20 -29 [facility] (Cardiology [facility]) Chloride [Moles/volume] in Serum or Plasma 102 mmol/L 96-106 [facility] ([facility]) Calcium [Mass/volume] in Serum or Plasma 9.3 mg/dL 8.7-10.3 [facility] (Cardiology [facility]) ID Date Data Source [id number] 09/01/2019 06:05:00 AM EDT [facility] Name Value [...] mg/dL 8.7-10.3 [facility] ID Date Data Source [id number] 09/01/2019 06:05:00 AM EDT [facility] Name Value Range Interpretation Code Description Data Marycarmen rce(s) Supporting Document(s) Magnesium 1.9 mg/dL 1.6-2.3 [facility] ID Date Data Source [id number] 08/23/2019 09:18:00 AM EST [facility] ([facility] Name Value Range Interpretation Code Description Data Marycarmen rce(s) Supporting Document(s) Chol 108 mg/dL 0-200 [facility] ([facility] CLASSIFICATION [...] DIFF.) APPENDIX B-3 Trig 136 mg/dL 40-200 [facility] CLASSIFICATION CHOLESTEROL FO [...] HCT IS 5% LESS SOURCE FOR DATA: [employer] 1800 OPERATION MANUAL( AUTOMATED BLOOD COUNTS AND [...] HCT IS 5% LESS SOURCE FOR DATA: [employer] 1800 OPERATION MANUAL( AUTOMATED BLOOD COUNTS AND DIFF.) APPENDIX B-3 Prostate specific Ag [Mass/volume] in Serum or Plasma 45 mg/dL 45-6 5 [facility] ([facility] CLASSIFICATION CHOLESTEROL [...] HCT IS 5% LESS SOURCE FOR DATA: [employer] 1800 OPERATION MANUAL( AUTOMATED BLOOD COUNTS AND DIFF.) APPENDIX B-3 Cho/HDL Ratio 2.4 CALC [facility] ([facility] CLASSIFICATION CHOLESTEROL FO R ADULTS [...] HCT IS 5% LESS SOURCE FOR DATA: [employer] 1800 OPERATION MANUAL( AUTOMATED BLOOD COUNTS AND DIFF.) APPENDIX B-3 ID Date Data Source [id number] 08/23/2019 09:18:00 AM EST [facility] ([facility] Name Value Range Interpretation Code Description Data Marycarmen rce(s) Supporting Document(s) Glu 119 mg/dL 70-110 Above high normal [facility] ([facility] CLASSIFICATION CHOLESTEROL FO [...] HCT IS 5% LESS SOURCE FOR DATA: [employer] 1800 OPERATION MANUAL( AUTOMATED BLOOD COUNTS AND DIFF.) APPENDIX B-3 BUN 32 mg/dL 8-23 Above high normal [facility] ([facility] CLASSIFICATION CHOLESTEROL FO R [...] DIFF.) APPENDIX B-3 Na 136 mmol/L 136-145 [facility] ([facility] CLASSIFICATION CHOLESTEROL FO R ADULTS [...] HCT IS 5% LESS SOURCE FOR DATA: [employer] DYN 1800 OPERATION MANUAL( AUTOMATED BLOOD COUNTS [...] HCT IS 5% LESS SOURCE FOR DATA: [employer] 1800 OPERATION MANUAL( AUTOMATED BLOOD COUNTS AND DIFF.) APPENDIX B-3 BUN/Creatinine Ratio 24.0 CALC [facility] ([facility] CLASSIFICATION CHOLESTEROL FO [...] B-3 CL 99.1 mmol/L 98.0-107.0 [facility] ([facility] CLASSIFICATION CHOLESTEROL FO R [...] APPENDIX B-3 K 4.4 mmol/L 3.5-5.1 [facility] ([facility] CLASSIFICATION CHOLESTEROL FO R ADULTS [...] HCT IS 5% LESS SOURCE FOR DATA: [employer] DYN 1800 OPERATION MANUAL( AUTOMATED BLOOD COUNTS AND DIFF.) APPENDIX B-3 Co2 24.8 mmol/L 22.0-29.0 [facility] ([facility] CLASSIFICATION CHOLESTEROL FO R [...] HCT IS 5% LESS SOURCE FOR DATA: [employer] 1800 OPERATION MANUAL( AUTOMATED BLOOD COUNTS AND DIFF.) APPENDIX B-3 TP 7.0 g/dL 6.6-8.7 [facility] ([facility] CLASSIFICATION [...] HCT IS 5% LESS SOURCE FOR DATA: [employer] 1800 OPERATION MANUAL( AUTOMATED BLOOD COUNTS AND DIFF.) APPENDIX B-3 Alb 4.1 g/dL 3.4-4.8 [facility] ([facility] CLASSIFICATION [...] IS 5% LESS SOURCE FOR DATA: [employer] 1800 OPERATION MANUAL( AUTOMATED BLOOD COUNTS AND [...] APPENDIX B-3 Alt (SGPT) 23 U/L 0-41 [facility] ([facility] CLASSIFICATION CHOLESTEROL FO R ADULTS [...] DIFF.) APPENDIX B-3 Globulin 2.9 CALC [facility] ([facility] [...] 140-440 Adult F 4.1-10.9 4.04-5.48 12.0-18.0 37.0-51.0 -97 140-440 0- 1 Yr 5.0-20.0 3.9-5.9 15-18 [...] DIFF.) APPENDIX B-3 Alp 68.3 U/L 35-129 [facility] ([facility] CLASSIFICATION CHOLESTEROL FO [...] HCT IS 5% LESS SOURCE FOR DATA: [employer] 1800 OPERATION MANUAL( AUTOMATED BLOOD COUNTS AND DIFF.) APPENDIX B-3 Ast (Sgot) 28 U/L 0-40 [facility] ([facility] CLASSIFICATION CHOLESTEROL FO R ADULTS [...] APPENDIX B-3 Tbili 0.40 mg/dL 0.0-1.2 [facility] ([facility] CLASSIFICATION CHOLESTEROL FO R ADULTS [...] APPENDIX B-3 Osmolality-Calculated 279.5 CALC [facility] ([facility] CLASSIFICATION CHOLESTEROL FO [...] HCT IS 5% LESS SOURCE FOR DATA: [employer] 1800 OPERATION MANUAL( AUTOMATED BLOOD COUNTS AND DIFF.) APPENDIX B-3 Anion Gap 16 mmol/L [facility] ([facility] CLASSIFICATION [...] COUNTS AND DIFF.) APPENDIX B-3 eGFR Non-Afr. Hungarian 39 # [facility] ([facility] CLASSIFICATION CHOLESTEROL FO [...] HCT IS 5% LESS SOURCE FOR DATA: [employer] 1800 OPERATION MANUAL( AUTOMATED BLOOD COUNTS AND DIFF.) APPENDIX B-3 ID Date Data Source [id number] 08/23/2019 09:18:00 AM EST [facility] ([facility] Name Value Range Interpretation Code Description Data Marycarmen rce(s) Supporting Document(s) WBC 7.6 10E3/uL 4.1-10.9 [facility] ([facility] CLASSIFICATION CHOLESTEROL FO R [...] RBC 3.55 10E6/uL 4.20-6.30 Below low normal [facility] ([facility] CLASSIFICATION [...] HCT IS 5% LESS SOURCE FOR DATA: [employer] DYN 1800 OPERATION MANUAL( AUTOMATED BLOOD COUNTS AND DIFF.) APPENDIX B-3 HGB 11.6 g/dL 12.0-18.0 Below low normal [facility] ( [...] HCT IS 5% LESS SOURCE FOR DATA: [employer] 1800 OPERATION MANUAL( AUTOMATED BLOOD COUNTS AND DIFF.) APPENDIX B-3 HCT 34.0 % 37.0-51.0 Below low normal [facility] ( [facility] CLASSIFICATION [...] HCT IS 5% LESS SOURCE FOR DATA: [employer] 1800 OPERATION MANUAL( AUTOMATED BLOOD COUNTS AND [...] HCT IS 5% LESS SOURCE FOR DATA: [employer] 1800 OPERATION MANUAL( AUTOMATED BLOOD COUNTS AND DIFF.) APPENDIX B-3 MCH 32.7 pg 26.0-32.0 Above high normal [facility] ([facility] CLASSIFICATION CHOLESTEROL [...] B-3 MCV 95.8 fL 80.0-97.0 [facility] ([facility] CLASSIFICATION [...] DIFF.) APPENDIX B-3 Lym% 38.0 % 10.0-58.5 [facility] CLASSIFICATION CHOLESTEROL FO [...] HCT IS 5% LESS SOURCE FOR DATA: [employer] 1800 OPERATION MANUAL( AUTOMATED BLOOD COUNTS AND DIFF.) APPENDIX B-3 PLT 174 10E3/uL 140-440 [facility] ([facility] CLASSIFICATION CHOLESTEROL FO R [...] DIFF.) APPENDIX B-3 RDW-CV 13.4 % 11.5-14.5 [facility] ([facility] CLASSIFICATION [...] HCT IS 5% LESS SOURCE FOR DATA: [employer] 1800 OPERATION MANUAL( AUTOMATED BLOOD COUNTS AND DIFF.) APPENDIX B-3 Neut% 48.4 % 37.0-92.0 [facility] CLASSIFICATION CHOLESTEROL FO [...] HCT IS 5% LESS SOURCE FOR DATA: [employer] 1800 OPERATION MANUAL( AUTOMATED BLOOD COUNTS AND [...] APPENDIX B-3 Lym# 2.9 10E3/uL 0.6-4.1 [facility] ([facility] CLASSIFICATION CHOLESTEROL FO R [...] HCT IS 5% LESS SOURCE FOR DATA: [employer] 1800 OPERATION MANUAL( AUTOMATED BLOOD COUNTS AND DIFF.) APPENDIX B-3 MXD# 1.0 10E3/uL 0.0-1.8 [facility] ([facility] CLASSIFICATION CHOLESTEROL FO R [...] HCT IS 5% LESS SOURCE FOR DATA: [employer] DYN 1800 OPERATION MANUAL( AUTOMATED BLOOD COUNTS AND DIFF.) APPENDIX B-3 Neut# 3.7 % 2.0-7.8 [facility] CLASSIFICATION CHOLESTEROL FO [...] DIFF.) APPENDIX B-3 MPV 10.5 fL 9.0-13.0 [facility] CLASSIFICATION CHOLESTEROL FO [...] HCT IS 5% LESS SOURCE FOR DATA: [employer] 1800 OPERATION MANUAL( AUTOMATED BLOOD COUNTS AND DIFF.) APPENDIX B-3 ID Date Data Source [id number] 08/23/2019 09:18:00 AM EST [facility] ([facility] Name Value Range Interpretation Code Description Data Marycarmen rce(s) Supporting Document(s) Thyrotropin [Units/volume] in Serum or Plasma 4.315 ulU/mL 0.60-4.8 [facility] ([facility] ID Date Data Source [id number] 08/15/2019 03:09:00 PM EST [facility] ([facility]) Name Value Range Interpretation Code Description Data Marycarmen rce(s) Supporting Document(s) Natriuretic peptide.B prohormone N-Terminal [Mass/volu me] in Serum or Plasma 632 pg/mL 0-738 [facility] ([facility]) A courtesy copy of this report has been sent to the patient, , Laboratory test finding (navigational concept) Laboratory test result [facility] ([facility]) A courtesy copy of this report has been sent to the patient, , Magnesium [Mass/volume] in Serum or Plasma 1.9 mg/dL 1.6-2.3 [facility] ([facility]) A courtesy copy of this report has been sent to the patient, , ID Date Data Source [id number] 08/15/2019 03:09:00 PM EST [facility] ([facility]) Name Value Range Interpretation Code Description Data Marycarmen rce(s) Supporting Document(s) Glucose 117 mg/dL 65-99 [facility] (Cardiology [facility]) A courtesy copy of this report has been sent to the patient, , Urea nitrogen [Mass/volume] in Serum or Plasma 47 mg/dL 8-27 [facility] (Cardiology [facility]) A courtesy copy of this report has been sent to the patient, , Creatinine 1.47 mg/dL 0.57-1.00 [facility] (Cardiology [facility]) A courtesy copy of this report has been sent to the patient, , eGFR If Africn Am 39 mL/min/1.73 [facility] (Cardiology [facility]) A courtesy copy of this report has been sent to the patient, , Urea nitrogen/Creatinine [Mass Ratio] in Serum or Plasma 32 1 2-28 [facility] (Cardiology [facility]) A courtesy copy of this report has been sent to the patient, , eGFR If NonAfricn Am 34 mL/min/1.73 [facility] (Cardiology [facility]) A courtesy copy of this report has been sent to the patient, , Potassium [Moles/volume] in Serum or Plasma 4.4 mmol/L 3.5-5.2 [facility] (Cardiology [facility]) A courtesy copy of this report has been sent to the patient, , Chloride [Moles/volume] in Serum or Plasma 96 mmol/L 96-106 [facility] ([facility]) A courtesy copy of this report has been sent to the patient, , Sodium 137 mmol/L 134-144 [facility] (Cardiology [facility]) A courtesy copy of this report has been sent to the patient, , Carbon dioxide, total [Moles/volume] in Serum or Plasma 27 mmol/L 20 -29 [facility] ([facility]) A courtesy copy of this report has been sent to the patient, , Calcium [Mass/volume] in Serum or Plasma 9.6 mg/dL 8.7-10.3 [facility] ([facility]) A courtesy copy of this report has been sent to the patient, , ID Date Data Source [id number] 08/16/2019 08:06:00 AM EST [facility] Name Value Range Interpretation Code Description Data Marycarmen rce(s) Supporting Document(s) Glucose 117 mg/dL 65-99 Above [...] mg/dL 8.7-10.3 [facility] ID Date Data Source [id number] 08/17/2019 06:05:00 AM EST [facility] Name Value Range Interpretation Code Description Data Marycarmen rce(s) Supporting Document(s) NT-proBNP 632 pg/mL 0-738 [facility] [...] independent 300 pg/mL ID Date Data Source [id number] 08/16/2019 08:06:00 AM EST [facility] Name Value Range Interpretation Code Description Data Marycarmen rce(s) Supporting Document(s) Magnesium 1.9 mg/dL 1.6-2.3 [facility] ID Date Data Source [id number] 07/31/2019 10:41:00 AM EST [facility] ([facility] Name Value Range Interpretation Code Description Data Marycarmen rce(s) Supporting Document(s) Laboratory test finding (navigational concept) 104 mg/dL 7 0-105 Normal (applies to non-numeric results) [facility] ([facility] Laboratory test finding (navigational concept) 33.0 % 3 8.0-51.0 Below low normal [facility] ([facility] ) Laboratory test finding (navigational concept) 3.9 meq/L 3 .5-5.1 Normal (applies to non-numeric results) [facility] ([facility] Laboratory test finding (navigational concept) 139 meq/L 1 36-145 Normal (applies to non-numeric results) [facility] ([facility] Laboratory test finding (navigational concept) 104 meq/L 9 8-109 Normal (applies to non-numeric results) [facility] ([facility] Laboratory test finding (navigational concept) 4.8 mg/dL 4 .5-5.3 Normal (applies to non-numeric results) [facility] ([facility] Laboratory test finding (navigational concept) 28 mg/dL 8-26 Above high normal [facility] ([facility] Laboratory test finding (navigational concept) 26.0 MM/L 2 3.0-27.0 Normal (applies to non-numeric results) [facility] Laboratory test finding (navigational concept) 1.1 mg/dL 0 .6-1.3 Normal (applies to non-numeric results) [facility] ([facility] ID Date Data Source [id number] 07/31/2019 10:37:00 AM EST [facility] ([facility] Name Value Range Interpretation Code Description Data Marycarmen rce(s) Supporting Document(s) Magnesium [Mass/volume] in Serum or Plasma 2.2 mg/dL 1.8-2 .4 Normal (applies to non-numeric results) [facility] ([facility]) Natriuretic peptide.B prohormone N-Terminal [Mass/volu me] in Serum or Plasma 3645 pg/mL Above high normal [facility] ([facility] Lipoprotein lipase [Enzymatic activity/volume] in Serum or P lasma 175 U/L 73-393 Normal (applies to non-numeric results) [facility] ([facility] Digoxin [Mass/volume] in Serum or Plasma 0.6 ng/mL 0.5-2.0 Normal (applies to non-numeric results) [facility] ([facility]) Thyroxine (T4) free [Mass/volume] in Serum or Plasma 1.46 ng/dL 0.76-1.46 Normal (applies to non-numeric results) [facility] Thyrotropin [Units/volume] in Serum or Plasma 5.220 uIU/ML 0. 358-3.740 Above high normal [facility] ([facility] ) ID Date Data Source [id number] 07/31/2019 10:37:00 AM EST [facility] ([facility] Name Value Range Interpretation Code Description Data Marycarmen rce(s) Supporting Document(s) Glucose, Fasting 98 mg/dL 70-100 Normal (applies to non-numeric results) [facility] ([facility] Creatinine For GFR 1.15 mg/dL 0.55-1.30 Normal (applies to non -numeric results) [facility] ([facility] Blood Urea Nitrogen 30 mg/dL 7-18 Above high normal [facility] ([facility] Sodium Level 140 meq/L 136-145 Normal (applies to non-numeric res ults) [facility] ([facility] Potassium Serum 4.0 meq/L 3.5-5.1 Normal (applies to non-numeric results) [facility] ([facility] Glomerular Filtration Rate 48.5 Normal (applies to n on-numeric results) [facility] ([facility] <content>Units are mL/min/1.73 m2</content>
<content></content>
<content>Chronic Kidney Disease Staging per NKF:</content>
<content></content>
<content>Stage I & II GFR >=60 Normal to Mildly Decreased</content>
<content>Stage III GFR 30- 59 Moderately Decreased</content>
<content>Stage IV GFR 15-29 Severely Decreased</content>
<content>Stage V GFR <15 Very Little GFR Left</content>
<content>ESRD GFR <15 on CHIEF JAILER</content>
<content></content> Carbon Dioxide Level 26 meq/L 21-32 Normal (applies to non-num melvin results) [facility] ([facility] Anion Gap 9 meq/L 8-16 Normal (applies to non-numeric resul ts) [facility] ([facility] Chloride Level 105 meq/L 98-107 Normal (applies to non-numeric r esults) [facility] ([facility] Calcium Level 9.0 mg/dL 8.8-10.2 Normal (applies to non-numeric re sults) [facility] ([facility] ID Date Data Source [id number] 07/31/2019 10:37:00 AM EST [facility] ([facility] Name Value Range Interpretation Code Description Data Marycarmen rce(s) Supporting Document(s) Ast/Sgot 55 U/L 7-37 Above high normal [facility] ([facility] Alt/SGPT 118 U/L 12-78 Above high normal [facility] ([facility] Alkaline Phosphatase 78 U/L 45-117 Normal (applies to non-num melvin results) [facility] ([facility] Bilirubin,Direct 0.3 mg/dL 0.0-0.2 Above high normal [facility] ([facility] Total Protein 6.9 GM/DL 6.4-8.2 Normal (applies to non-numeric re sults) [facility] ([facility] Bilirubin,Total 1.0 mg/dL 0.2-1.0 Normal (applies to non-numeric results) [facility] ([facility] Albumin 3.6 GM/DL 3.2-5.2 Normal (applies to non-numeric resul ts) [facility] ([facility] Albumin/Globulin Ratio 1.09 1.00-1.93 Normal (applies to non-numeric results) [facility] ([facility] ID Date Data Source [id number] 07/31/2019 10:37:00 AM EST [facility] ([facility] Name Value Range Interpretation Code Description Data Marycarmen rce(s) Supporting Document(s) CK-MB Value Mass 1.4 ng/mL Normal (applies to non-numeric results) [facility] ([facility] CPK Creatine Phosphokinase 49 U/L 26-192 Shara l (applies to non-numeric results) [facility] ([facility] ) MB/CK Relative Index 2.86 Normal (applies to non-num melvin results) [facility] ([facility] <content>DIAGNOSIS CRITERIA</content>
<content>MMB ng/ml Relative Index (RI)</content>
<content>NON-AMI < or = 5 N/A</content>
<content>[place] > 5 < or = 4</content>
<content>AMI > 5 > 4</content>
<content></content> Troponin I Laboratory test result Normal (applies to non-n umeric results) [facility] ([facility] <content>Troponin I Reference Interval f or Siemens [place] LOCI:</content>
<content></content>
<content>99th Percentile= 0.00-0.045 ng/ml</content>
<content></content>
<content>Risk Stratification:</content>
<content><= 0.10 ng/ml Decreased Risk for Adverse Clinical</content>
<content>Events.</content>
<content>0.10-1.50 ng/ml Increased Risk for Adverse Clinical</content>
<content>Events. Evaluation of additional</content>
<content>criterion and/or repeat testing in 2-6</content>
<content>hours is suggested to rule out myocardial</content>
<content>damage.</content>
<content>>= 1.50 ng/ml Indicative of Myocardial Injury.</content>
<content></content> ID Date Data Source [id number] 07/31/2019 10:37:00 AM EST [facility] ([facility] Name Value Range Interpretation Code Description Data Marycarmen rce(s) Supporting Document(s) Red Blood Count 3.31 10 4.00-5.40 Below low normal [facility] ([facility] White Blood Count 11.0 10 4.0-10.0 Above high normal [facility] ([facility] Hemoglobin 10.8 g/dL 12.0-15.5 Below low normal [facility] ( [facility] Mean Corpuscular Hemoglobin 32.6 pg 27.0-33.0 Norm al (applies to non-numeric results) [facility] ([facility] Mean Corpuscular Volume 97.3 fl 80.0-96.0 Above high normal [facility] ([facility] Hematocrit 32.2 % 36.0-47.0 Below low normal [facility] ( [facility] Mean Corpuscular HGB Conc [...] % 24.0-44.0 Below low normal [facility] ( [facility] [place] % 13.0 % 0.0-5.0 Above high normal [facility] ([facility] Neutrophils % 66.1 % 36.0-66.0 Above high normal [facility] ([facility] Immature Granulocyte % 0.2 % 0-3.0 Normal (applies to non-n umeric results) [facility] ([facility] Eos % 0.9 % 0.0-3.0 Normal (applies to non-numeric resul ts) [facility] ([facility] Baso % 0.4 % 0.0-1.0 Normal (applies to non-numeric resul ts) [facility] ([facility] Neutrophils # 7.3 10 1.5-8.5 Normal (applies to non-numeric re sults) [facility] ([facility] Nucleated Red Blood Cell % 0.0 % 0-0 Normal (applies to n on-numeric results) [facility] ([facility] Lymph # 2.1 10 1.5-5.0 Normal (applies to non-numeric resul ts) [facility] ([facility] [place] # 1.4 10 0.0-0.8 Above high normal [facility] ([facility] Baso # 0.0 10 0.0-0.2 Normal (applies to non-numeric resul ts) [facility] ([facility] Eos # 0.1 10 0.0-0.5 Normal (applies to non-numeric resul ts) [facility] ([facility] ID Date Data Source [id number] 07/31/2019 08:57:00 AM EST [facility] ([facility] Name Value Range Interpretation Code Description Data Marycarmen rce(s) Supporting Document(s) Lipoprotein lipase [Enzymatic activity/volume] in Serum or Plasma 175 [facility] ([facility]) ID Date Data Source [id number] 07/31/2019 08:57:00 AM EST [facility] Name Value Range Interpretation Code Description Data Marycarmen rce(s) Supporting Document(s) Thyrotropin [Units/volume] in Serum or Plasma 5.220 [facility] (Cardiology [facility]) ID Date Data Source [id number] 07/31/2019 08:57:00 AM EST [facility] ([facility]) Name Value Range Interpretation Code Description Data Marycarmen rce(s) Supporting Document(s) Magnesium Level 2.2 1.8-2.4 [facility] ([facility]) Troponin Laboratory test result [facility] (Cardiology [facility]) Natriuretic peptide.B prohormone N-Terminal [Mass/volu me] in Serum or Plasma 3645 [facility] ([facility] [employer] [facility]) ID Date Data Source [id number] 07/31/2019 08:57:00 AM EST [facility] ([facility]) Name Value Range Interpretation Code Description Data Marycarmen rce(s) Supporting Document(s) CPK-MB 1.4 [facility] (Cardiology [facility]) Creatine kinase [Enzymatic activity/volume] in Serum or Plasma 49 [facility] (Card[facility]) MB/CK Relative 2.86 [facility] ID Date Data Source [id number] 07/31/2019 08:57:00 AM EST [facility] ([facility]) Name Value Range Interpretation Code Description Data Marycarmen rce(s) Supporting Document(s) Alanine aminotransferase [Enzymatic activity/volume] in Serum or Plasma 118 [facility] (Cardiology [facility]) Calcium [Mass/volume] in Serum or Plasma 9.0 [facility] (Cardiology [facility]) Albumin [Mass/volume] in Serum or Plasma 3.6 [facility] (Cardiology [facility]) Carbon dioxide, total [Moles/volume] in Serum or Plasma 26 [facility] (Card[facility]) Chloride [Moles/volume] in Serum or Plasma 105 [facility] ([facility]) Alkaline phosphatase [Enzymatic activity/volume] in Serum or Plasma 7 8 [facility] (Cardiology [facility]) Potassium [Moles/volume] in Serum or Plasma 4.0 [facility] ([facility]) Protein [Mass/volume] in Serum or Plasma 6.9 [facility] ([facility]) Sodium 140 [facility] ([facility]) Glucose 98 83-110 [facility] ([facility]) Aspartate aminotransferase [Enzymatic activity/volume] in Serum or Plasma 55 [facility] ([facility] Urea nitrogen [Mass/volume] in Serum or Plasma 30 [facility] ([facility]) Creatinine For GFR 1.15 [facility] ([facility]) ID Date Data Source [id number] 07/31/2019 08:57:00 AM EST [facility] ([facility] Name Value Range Interpretation Code Description Data Marycarmen rce(s) Supporting Document(s) White Blood Count 11.0 4.0-10.0 [facility] (Card [facility]) Red Blood Count 3.31 4.00-5.40 [facility] ([facility]) Platelets 149 150-450 [facility] (Cardiology A ssociates [facility]) Hematocrit 32.2 MEDENT ([facility]) Hemoglobin 10.8 MEDENT ([facility]) Procedure Social History Code Duration Value Status Description Data Source(s ) Smoking 05/21/2020 12:00:00 AM EST Patient has never smoked co mpleted Patient has never smoked MEDENT ([facility] Vital Signs ID Date Data Source UNK Name Value Range Interpretation Code Description Data Source(s) Oxygen saturation in Arterial blood by Pulse oximetry 94 % 94 % MEDENT ([facility] (AT Rest), (Room Air) Fowler body weight 115 [lb_av] 115 [lb_av] MEDEN T ([facility] Body height 63.5 [in_i] 63.5 [in_i] MEDENT ([facility] 5'3.50" Respiratory rate 18 /min 18 /min MEDENT ( [facility] Heart rate 64 /min 64 /min MEDENT ([facility] Body temperature 97.1 [degF] 97.1 [degF] MEDENT ([facility] Diastolic blood pressure 62 mm[Hg] 62 mm[Hg] MEDENT ([facility] Systolic blood pressure 122 mm[Hg] 122 mm[Hg] M EDENT ([facility] Body weight 143.00 [lb_av] 143.00 [lb_av] MEDEN T ([facility] Respiratory rate 14 /min 14 /min MEDENT ( [facility] Heart rate 66 /min 66 /min MEDENT ([facility] Diastolic blood pressure 58 mm[Hg] 58 mm[Hg] MEDENT ([facility] Systolic blood pressure 122 mm[Hg] 122 mm[Hg] M EDENT ([facility] Body surface area Derived from formula 1.71 m2 1.71 m2 [facility] ([facility]) Body weight 67.133 kg 67.133 kg [facility] ([facility]) Fowler body weight 115 [lb_av] 115 [lb_av] MEDEN T ([facility]) Body mass index (BMI) [Ratio] 25.8 kg/m2 25.8 k g/m2 [facility] ([facility]) Body weight 148.00 [lb_av] 148.00 [lb_av] MEDEN T ([facility]) Body height 63.5 [in_i] 63.5 [in_i] [facility] ([facility]) 5'3.50" Oxygen saturation in Arterial blood by Pulse oximetry 98 % 98 % [facility] ([facility] Body mass index (BMI) [Ratio] 25.1 kg/m2 25.1 k g/m2 MEDENT ([facility] Fowler body weight 115 [lb_av] 115 [lb_av] MEDEN T ([facility] Body weight 144.00 [lb_av] 144.00 [lb_av] MEDEN T ([facility] Body height 63.5 [in_i] 63.5 [in_i] MEDENT ([facility] 5'3.50" Respiratory rate 14 /min 14 /min MEDENT ( [facility] Heart rate 70 /min 70 /min MED[facility] ([facility] Body temperature 97.2 [degF] 97.2 [degF] [facility] ([facility] Diastolic blood pressure 66 mm[Hg] 66 mm[Hg] MEDENT ([facility] Systolic blood pressure 110 mm[Hg] 110 mm[Hg] M EDENT ([facility] Body surface area Derived from formula 1.71 m2 1.71 m2 [facility] ([facility]) Body weight 67.133 kg 67.133 kg [facility] ([facility]) Fowler body weight 115 [lb_av] 115 [lb_av] MEDEN T ([facility]) Body mass index (BMI) [Ratio] 25.8 kg/m2 25.8 k g/m2 [facility] ([facility]) Body weight 148.00 [lb_av] 148.00 [lb_av] MEDEN T ([facility]) Body height 63.5 [in_i] 63.5 [in_i] [facility] ([facility]) 5'3.50" Diastolic blood pressure 68 mm[Hg] 68 mm[Hg] MED[facility] ([facility] sitting Systolic blood pressure 124 mm[Hg] 124 mm[Hg] [facility] sitting Diastolic blood pressure 68 mm[Hg] 68 mm[Hg] [facility] ([facility]) sitting, regular cuff Systolic blood pressure 122 mm[Hg] 122 mm[Hg] [facility] sitting, regular cuff Respiratory rate 16 /min 16 /min MED[facility] ( [facility] Heart rate 68 /min 68 /min [facility] ([facility] Regular Body mass index (BMI) [Ratio] 25.3 kg/m2 25.3 k g/m2 [facility] ([facility]) Body height 63.50 [in_i] 63.50 [in_i] MED[facility] ([facility]) 5'3.50" Body weight 145.00 [lb_av] 145.00 [lb_av] MEDEN T ([facility]) Oxygen saturation in Arterial blood by Pulse oximetry 96 % 96 % [facility] ([facility] Body mass index (BMI) [Ratio] 26.5 kg/m2 26.5 k g/m2 [facility] ([facility] Fowler body weight 115 [lb_av] 115 [lb_av] MEDEN T ([facility] Body weight 152.00 [lb_av] 152.00 [lb_av] MEDEN T ([facility] Body height 63.5 [in_i] 63.5 [in_i] MED[facility] ([facility] 5'3.50" Respiratory rate 16 /min 16 /min [facility] ( [facility] Heart rate 76 /min 76 /min [facility] Body temperature 97.4 [degF] 97.4 [degF] [facility] ([facility] Diastolic blood pressure 62 mm[Hg] 62 mm[Hg] [facility] ([facility] Systolic blood pressure 116 mm[Hg] 116 mm[Hg] M EDENT ([facility] Body surface area Derived from formula 1.71 m2 1.71 m2 [facility] ([facility]) Body weight 67.133 kg 67.133 kg [facility] ([facility]) Fowler body weight 115 [lb_av] 115 [lb_av] MEDEN T ([facility]) Body mass index (BMI) [Ratio] 25.8 kg/m2 25.8 k g/m2 [facility] ([facility]) Body weight 148.00 [lb_av] 148.00 [lb_av] MEDEN T ([facility]) Body height 63.5 [in_i] 63.5 [in_i] MED[facility] ([facility]) 5'3.50" Body surface area Derived from formula 1.71 m2 1.71 m2 [facility] Body weight 67.133 kg 67.133 kg [facility] ([facility]) Fowler body weight 115 [lb_av] 115 [lb_av] MEDEN T ([facility]) Body mass index (BMI) [Ratio] 25.8 kg/m2 25.8 k g/m2 [facility] ([facility]) Body weight 148.00 [lb_av] 148.00 [lb_av] MEDEN T ([facility]) Body height 63.5 [in_i] 63.5 [in_i] MEDENT ([facility]) 5'3.50" Oxygen saturation in Arterial blood by Pulse oximetry 97 % 97 % [facility] ([facility] Body mass index (BMI) [Ratio] 26.7 kg/m2 26.7 k g/m2 [facility] ([facility] Fowler body weight 115 [lb_av] 115 [lb_av] MEDEN T ([facility] Body weight 153.00 [lb_av] 153.00 [lb_av] MEDEN T ([facility] Body height 63.5 [in_i] 63.5 [in_i] MEDENT ([facility] 5'3.50" Respiratory rate 16 /min 16 /min MEDENT ( [facility] Heart rate 82 /min 82 /min MED[facility] ([facility] Body temperature 97.5 [degF] 97.5 [degF] MED[facility] ([facility] Diastolic blood pressure 76 mm[Hg] 76 mm[Hg] [facility] ([facility] Systolic blood pressure 124 mm[Hg] 124 mm[Hg] M EDENT ([facility] Oxygen saturation in Arterial blood by Pulse oximetry 97 % 97 % [facility] ([facility] Body mass index (BMI) [Ratio] 27.4 kg/m2 27.4 k g/m2 [facility] ([facility] Fowler body weight 115 [lb_av] 115 [lb_av] MEDEN T ([facility] Body weight 157.00 [lb_av] 157.00 [lb_av] MEDEN T ([facility] Body height 63.5 [in_i] 63.5 [in_i] MEDENT ([facility] 5'3.50" Respiratory rate 18 /min 18 /min MED[facility] ( [facility] Heart rate 78 /min 78 /min [facility] ([facility] Body temperature 97.4 [degF] 97.4 [degF] [facility] ([facility] Diastolic blood pressure 74 mm[Hg] 74 mm[Hg] MED[facility] ([facility] Systolic blood pressure 122 mm[Hg] 122 mm[Hg] M EDENT ([facility] Diastolic blood pressure 72 mm[Hg] 72 mm[Hg] MED[facility] ([facility]) sitting, regular cuff Systolic blood pressure 134 mm[Hg] 134 mm[Hg] M EDENT ([facility]) sitting, regular cuff Respiratory rate 16 /min 16 /min [facility] ( [facility] Heart rate 64 /min 64 /min [facility] ([facility] Regular Body mass index (BMI) [Ratio] 27.4 kg/m2 27.4 k g/m2 [facility] ([facility] Body height 63.50 [in_i] 63.50 [in_i] [facility] ( [facility] 5'3.50" Body weight 157.00 [lb_av] 157.00 [lb_av] MEDEN T ([facility]) Oxygen saturation in Arterial blood by Pulse oximetry 94 % 94 % [facility] ([facility] Body mass index (BMI) [Ratio] 29.1 kg/m2 29.1 k g/m2 [facility] ([facility] Fowler body weight 115 [lb_av] 115 [lb_av] MEDEN T ([facility] Body weight 167.00 [lb_av] 167.00 [lb_av] MEDEN T ([facility] Body height 63.5 [in_i] 63.5 [in_i] MEDENT ([facility] 5'3.50" Respiratory rate 14 /min 14 /min MED[facility] ( [facility] Heart rate 56 /min 56 /min MED[facility] ([facility] Body temperature 97.0 [degF] 97.0 [degF] MED[facility] ([facility] Diastolic blood pressure 68 mm[Hg] 68 mm[Hg] [facility] ([facility] Systolic blood pressure 112 mm[Hg] 112 mm[Hg] M EDENT ([facility] Diastolic blood pressure 62 mm[Hg] 62 mm[Hg] [facility] ([facility] sitting Systolic blood pressure 122 mm[Hg] 122 mm[Hg] M EDENT ([facility]) sitting Diastolic blood pressure 66 mm[Hg] 66 mm[Hg] [facility] ([facility]) sitting, large cuff Systolic blood pressure 122 mm[Hg] 122 mm[Hg] M EDENT ([facility]) sitting, large cuff Respiratory rate 16 /min 16 /min [facility] ( [facility] Heart rate 56 /min 56 /min [facility] ([facility] Regular Body mass index (BMI) [Ratio] 28.9 kg/m2 28.9 k g/m2 [facility] ([facility] Body height 63.50 [in_i] 63.50 [in_i] [facility] ( [facility]) 5'3.50" Body weight 166.00 [lb_av] 166.00 [lb_av] MEDEN T ([facility]) Oxygen saturation in Arterial blood by Pulse oximetry 98 % 98 % [facility] ([facility] Body mass index (BMI) [Ratio] 30.0 kg/m2 30.0 k g/m2 [facility] ([facility] Fowler body weight 115 [lb_av] 115 [lb_av] MEDEN T ([facility] Body weight 172.00 [lb_av] 172.00 [lb_av] MEDEN T ([facility] Body height 63.5 [in_i] 63.5 [in_i] MEDENT ([facility] 5'3.50" Respiratory rate 14 /min 14 /min MEDENT ( [facility] Heart rate 66 /min 66 /min MED[facility] ([facility] Body temperature 97.9 [degF] 97.9 [degF] MED[facility] ([facility] Diastolic blood pressure 68 mm[Hg] 68 mm[Hg] [facility] ([facility] Systolic blood pressure 120 mm[Hg] 120 mm[Hg] M EDENT ([facility] Oxygen saturation in Arterial blood by Pulse oximetry 98 % 98 % [facility] ([facility] Body mass index (BMI) [Ratio] 30.0 kg/m2 30.0 k g/m2 [facility] ([facility] Body weight 172.12 [lb_av] 172.12 [lb_av] MEDEN T ([facility] Body height 63.5 [in_i] 63.5 [in_i] MEDENT ([facility] 5'3.50" Respiratory rate 14 /min 14 /min MED[facility] ( [facility] Heart rate 68 /min 68 /min [facility] ([facility] Body temperature 97.8 [degF] 97.8 [degF] [facility] Diastolic blood pressure 84 mm[Hg] 84 mm[Hg] [facility] ([facility] Systolic blood pressure 144 mm[Hg] 144 mm[Hg] M EDENT ([facility] Diastolic blood pressure 74 mm[Hg] 74 mm[Hg] [facility] ([facility] sitting, large cuff Systolic blood pressure 128 mm[Hg] 128 mm[Hg] M EDENT ([facility] sitting, large cuff Respiratory rate 16 /min 16 /min [facility] ( [facility] Heart rate 60 /min 60 /min [facility] ([facility] Regular Body mass index (BMI) [Ratio] 29.8 kg/m2 29.8 k g/m2 [facility] ([facility] Body height 63.50 [in_i] 63.50 [in_i] [facility] ([facility] 5'3.50" Body weight 171.00 [lb_av] 171.00 [lb_av] MEDEN T ([facility] Deprecated Oxygen saturation in Capillary blood by Oximetry 98 % 98 % eCW1 ([facility]) Respiratory rate 18 /min 18 /min eCW1 ([facility]) Heart rate 60 /min 60 /min eCW1 ([facility]) Body temperature 97.6 [degF] 97.6 [degF] eCW1 ( [facility]) Body mass index (BMI) [Ratio] 31.74 kg/m2 31.74 kg/m2 eCW1 ([facility]) Body height 63 [in_us] 63 [in_us] eCW1 ([facility]) Patient Treatment Plan of Care Planned Activity Planned Date Details Description Data Source (s) Prednisone 20 MG Oral Tablet 07/26/2019 12:00:00 AM EST eCW1 ([facility])
[2020-08-05 16:43] LABS: DIGOXIN LEVEL 0.6 NG/ML (0.5-2.0); FOLATE > 24.0 NG/ML; VITAMIN B12 LEVEL > 2000 PG/ML
[2020-08-05 18:15] VITALS: BP 131/60
[2020-08-05 18:44] LABS: CK-MB VALUE MASS 1.7 NG/ML (<3.6); MB/CK RELATIVE INDEX 3.54 (< OR =4); TROPONIN I 0.12 NG/ML (< 0.10)
[2020-08-05] MEDS ORDERED: SLF 3 ML SYR IV PRN (18:45)
[2020-08-05 20:00] VITALS: BP 133/59
[2020-08-05] MEDS: APIXABAN 5 MG TAB (ELIQUIS) PO SCH (20:28)
[2020-08-05] MEDS: atenoloL 25 MG TAB PO SCH (20:28)
[2020-08-05] MEDS: ATORVASTATIN 20 MG TAB PO SCH (20:28)
[2020-08-05] MEDS: CANDESARTAN 16 MG TABLET PO SCH (20:29)
[2020-08-05] MEDS: DIGOXIN 0.125 MG TAB PO SCH (20:29)
[2020-08-05] MEDS: SLF 3 ML SYR IV SCH (20:30)
[2020-08-06] VITALS (7 sets, daily range): BP systolic 105–139; BP diastolic 51–66
[2020-08-06 00:10] LABS: CK-MB VALUE MASS 1.3 NG/ML (<3.6); MB/CK RELATIVE INDEX 3.33 (< OR =4); TROPONIN I 0.17 NG/ML (< 0.10)
[2020-08-06 02:57] LABS: CK-MB VALUE MASS < 1.0 NG/ML (<3.6); CPK CREATINE PHOSPHOKINASE 43 U/L (26-192); MB/CK RELATIVE INDEX 2.33 (< OR =4); TROPONIN I 0.15 NG/ML (< 0.10)
[2020-08-06] MEDS: SLF 3 ML SYR IV SCH ×3 (05:28→21:05)
--- NOTE | 2020-08-06 07:26 | ECGEPIP ---
[facility] - ED Test Date: 2020-08-05 Pat Name: JOSE GARCIA Department: Room: - Gender: Female Clinical Medical Assistant: : 1940 Requested By: GENO Ribeiro Order Number: [id number] Reading MD: Иван Crane Measurements Intervals [place] Rate: 83 P: 39 [place]: 112 QRS: 26 QRSD: 148 T: 167 QT: 402 QTc: 472 Interpretive Statements Normal sinus rhythm Left bundle branch block SIMILAR TO 07/31/19 Electronically Signed on 08-06-2020 7:26:29 EST by Иван Crane
[2020-08-06 08:03] LABS: BASO % 0.4 % (0.0-1.0); EOS # 0.2 10^3/uL (0.0-0.5); HEMATOCRIT 34.2 % (36.0-47.0); HEMOGLOBIN 10.8 g/dl (12.0-15.5); LYMPH # 2.3 10^3/uL (1.5-5.0); LYMPH % 30.7 % (24.0-44.0); MEAN CORPUSCULAR HEMOGLOBIN 32.4 pg (27.0-33.0); MEAN CORPUSCULAR HGB CONC 31.6 g/dl (32.0-36.5); MEAN CORPUSCULAR VOLUME 102.7 fl (80.0-96.0); MONO # 0.9 10^3/uL (0.0-0.8); MONO % 11.5 % (2.0-8.0); NEUTROPHILS # 4.1 10^3/uL (1.5-8.5); PLATELET COUNT, AUTOMATED 103 10^3/uL (150-450); RED BLOOD COUNT 3.33 10^6/uL (4.00-5.40); WHITE BLOOD COUNT 7.5 10^3/uL (4.0-10.0)
[2020-08-06 08:25] LABS: CALCIUM LEVEL 8.6 MG/DL (8.8-10.2); CK-MB VALUE MASS 1.5 NG/ML (<3.6); CREATININE FOR GFR 1.24 MG/DL (0.55-1.30); GLOMERULAR FILTRATION RATE 44.3 (>32); MB/CK RELATIVE INDEX 3.19 (< OR =4); POTASSIUM SERUM 3.7 MEQ/L (3.5-5.1); TROPONIN I 0.13 NG/ML (< 0.10)
[2020-08-06] MEDS: APIXABAN 5 MG TAB (ELIQUIS) PO SCH ×2 (08:46→21:02)
[2020-08-06] MEDS: POTASSIUM CHLORIDE 10 MEQ SR TABLET PO SCH (08:47)
[2020-08-06] MEDS: FOLIC ACID 1 MG TAB PO SCH (08:47)
[2020-08-06] MEDS: CYANOCOBALAMIN 500 MCG TAB PO SCH (08:48)
[2020-08-06] MEDS: PYRIDOXINE 50 MG TAB PO SCH (08:48)
[2020-08-06] MEDS: FUROSEMIDE 40MG/4ML VIAL (J1940) IV SCH ×2 (08:49→16:51)
--- NOTE | 2020-08-06 13:43 | IPNPDOC ---
Date Seen The patient was seen on 08/06/20. Progress Note SUBJECTIVE: 80-year-old female with history of CHF aortic aortic valve replacement in 2000. Atrial fibrillation status post ablation 2, eliquis, digoxin, as well as left breast cancer status post lumpectomy, chemotherapy and radiation presented to the hospital with worsening shortness of breath for the past several weeks. Her PCP recommended increasing the dose of PO torsemide from 20 mg to 40 mg however due to the patient's significant shortness of breath. She was ultimately referred to the emergency room. She was admitted with acute on chronic CHF exacerbation. She was seen and examined at bedside this morning. She continues to receive furosemide 40 mg IV twice daily. Require more stringent and measurement of her inputs and outputs. Patient states that her shortness of breath has improved slightly. Her edema persists, 2+. Otherwise, she denies any chest pain, palpitations, nausea, vomiting, diarrhea yesterday fevers or chills. OBJECTIVE PHYSICAL EXAMINATION: VITAL SIGNS: please see below General: NAD, comfortable HEENT: PERRLA, EOMI, sclerae clear Neck: supple, normal ROM, no JVD Respiratory: Crackles noted. Lung bases bilaterally. Otherwise, no wheezes, no rales. Good inspiratory effort. CVS: RRR, normal S1, S2, no murmurs Abdo: soft, no masses, no hepatosplenomegaly, BS+, no rebound tenderness Extremities: 2+ pitting edema up to thighs, pulses 2+ MSK: no joint deformities, normal ROM Neuro: no focal neuro deficits, moving all 4 extremities, CN2-12 intact. Strength 5/5 in all 4 extremities. No nystagmus. Psych: calm, cooperative, AAO x 3 LABORATORY DATA, IMAGING STUDIES, MICROBIOLOGY: Please see below. Echocardiogram: Ordered on 08/05/20. Pending. DVT prophylaxis ordered?: Emiliaquis. SCDs. Teds. ASSESSMENT AND PLAN: Shortness of breath - likely 2/2 decompensated CHF (EF unknown) - Presented to the emergency room complaints of shortness of breath - Patient was in discussion with primary care provider about increasing dose of Torsemide - Physical with evidence of fluid overload - Elevated BNP 20,000 - Imaging noted - 2D ECHO ordered on 08/05/20 - c/w telemetry / troponin trend / fluid restriction / strict ins and outs / daily weights - c/w Furosemide 40 IV BID Elevated troponin - Possibly 2/2 demand ischemia - Denies any CP or palpitations - EKG reviewed and consistent with prior - troponin trending down, (max 0.17, down to 0.13). Chronic A. fib - s/p Ablation x 2 - Will continue with rate / rhythm control with Atenolol / Digoxin - c/w Full anticoagulation with Eliquis AVR 2/2 Aortic stenosis (2000) - Will check ECHO Non-ischemic cardiomyopathy - Patient had reported that she has had no stents or heart attacks in the past - Has had a stress test completed, possibly 2 years ago that was reported negative - Follows with Dr. Gaines - check 2D echo, ordered 08/05/20 Macrocytic anemia - Hg at baseline - No evidence of bleeding - B12, folate wnl. Thrombocytopenia - Similar finding 1 year prior on 07/31/2019 - No evidence of bleeding - Will continue to monitor HTN - BP well controlled - c/w Atenolol with holding parameters DLP - c/w Atorvastatin Left breast CA - s/p Lumpectomy / Chemotherapy / Radiation DVT prophylaxis - Will c/w Eliquis Dispo: Pending clinical improvement VS, I&O, [facility] Vital Signs/I&O Vital Signs Date Time Temp Pulse Resp B/P (MAP) Pulse Ox O2 Delivery O2 Flow Rate FiO2 08/06/20 11:11 97.8 69 18 105/51 (69) 95 Room Air I&O- Last 24 Hours up to 6 AM 08/06/20 06:00 Intake Total 840 ml Output Total 1150 ml Balance -310 ml Laboratory Data 24H LABS Laboratory Tests 2 08/05/20 15:45: Reticulocyte # (auto) 92.4H, Percent Reticulocyte Count 2.8H, Reticulocyte Hemoglobin Equivalent 34.5, Total Creatine Kinase 45, Creatine Kinase MB 1.5, Creatine Kinase MB Relative Index 3.33, Troponin I 0.15H, Vitamin B12 Level > 2000, Folate > 24.0, Digoxin Level 0.6 08/05/20 18:01: Total Creatine Kinase 48, Creatine Kinase MB 1.7, Creatine Kinase MB Relative Index 3.54, Troponin I 0.12H 08/05/20 23:36: Total Creatine Kinase 39, Creatine Kinase MB 1.3, Creatine Kinase MB Relative Index 3.33, Troponin I 0.17#H 08/06/20 02:07: Total Creatine Kinase 43, Creatine Kinase MB < 1.0, Creatine Kinase MB Relative Index 2.33, Troponin I 0.15H 08/06/20 07:28: Immature Granulocyte % (Auto) 0.4, Neutrophils (%) (Auto) 55.0, Lymphocytes (%) (Auto) 30.7, Monocytes (%) (Auto) 11.5H, Eosinophils (%) (Auto) 2.0, Basophils (%) (Auto) 0.4, Neutrophils # (Auto) 4.1, Lymphocytes # (Auto) 2.3, Monocytes # (Auto) 0.9H, Eosinophils # (Auto) 0.2, Basophils # (Auto) 0.0, Nucleated Red Blood Cells % (auto) 0.0, Anion Gap 11, Glomerular Filtration Rate 44.3, Calcium Level 8.6L, Magnesium Level 2.0, Total Creatine Kinase 47, Creatine Kinase MB 1.5, Creatine Kinase MB Relative Index 3.19, Troponin I 0.13H CBC/BMP Laboratory Tests 08/06/20 07:28 CHERRY MUNOZ MD Aug 06, 2020 13:43
[2020-08-06] MEDS: DIGOXIN 0.125 MG TAB PO SCH (21:02)
[2020-08-06] MEDS: CANDESARTAN 16 MG TABLET PO SCH (21:03)
[2020-08-06] MEDS: atenoloL 25 MG TAB PO SCH (21:03)
[2020-08-06] MEDS: ATORVASTATIN 20 MG TAB PO SCH (21:04)
--- NOTE | 2020-08-06 21:09 | ECGEPIP ---
[facility] Test Date: 2020-08-06 Pat Name: JOSE GARCIA Department: Room: [place] [address] Gender: Female Triple Air Valve Tester: delia : 1940 Requested By: MARGIE RODGERS Order Number: [id number] Reading MD: Jacoby Flores Measurements Intervals [place] Rate: 69 P: 83 [place]: 188 QRS: 15 QRSD: 158 T: 170 QT: 452 QTc: 484 Interpretive Statements Normal sinus rhythm Left bundle branch block No significant change when compared to prior tracing of 08/05/2020 Electronically Signed on 08-06-2020 21:08:40 EST by Jacoby Flores
--- NOTE | 2020-08-06 21:11 | ECGEPIP ---
[facility] Test Date: 2020-08-06 Pat Name: JOSE GARCIA Department: Room: [place] [address] Gender: Female Resident Hall Director: : 1940 Requested By: MARGIE RODGERS Order Number: [id number] Reading MD: Jacoby Flores Measurements Intervals [place] Rate: 77 P: 85 [place]: 172 QRS: 22 QRSD: 150 T: 170 QT: 442 QTc: 500 Interpretive Statements Sinus rhythm with premature supraventricular complexes and with occasional premature ventricular complexes Left bundle branch block Compared to prior tracing of earlier this date,ectopy is new Electronically Signed on 08-06-2020 21:10:51 EST by Jacoby Flores
--- NOTE | 2020-08-06 21:15 | ECGEPIP ---
[facility] Test Date: 2020-08-06 Pat Name: JOSE GARCIA Department: Room: [place] [address] Gender: Female Technician Inventory Specialist: : 1940 Requested By: CHERRY MUNOZ Order Number: [id number] Reading MD: Jacoby Flores Measurements Intervals [place] Rate: 80 P: 83 [place]: 168 QRS: 3 QRSD: 150 T: 153 QT: 434 QTc: 500 Interpretive Statements Normal sinus rhythm Left bundle branch block Compared to prior tracing of 07:53, ectopy has resolved Electronically Signed on 08-06-2020 21:15:06 EST by Jacoby Flores
[2020-08-07] VITALS (8 sets, daily range): BP systolic 102–133; BP diastolic 51–64
[2020-08-07 00:01] LABS: CREATININE FOR GFR 1.31 MG/DL (0.55-1.30); GLOMERULAR FILTRATION RATE 41.6 (>32); MAGNESIUM LEVEL 1.9 MG/DL (1.8-2.4); POTASSIUM SERUM 3.5 MEQ/L (3.5-5.1)
[2020-08-07 05:43] LABS: BASO % 0.4 % (0.0-1.0); EOS # 0.1 10^3/uL (0.0-0.5); EOS % 0.8 % (0.0-3.0); HEMATOCRIT 33.3 % (36.0-47.0); HEMOGLOBIN 10.6 g/dl (12.0-15.5); LYMPH # 2.2 10^3/uL (1.5-5.0); LYMPH % 27.6 % (24.0-44.0); MEAN CORPUSCULAR HEMOGLOBIN 32.6 pg (27.0-33.0); MEAN CORPUSCULAR HGB CONC 31.8 g/dl (32.0-36.5); MEAN CORPUSCULAR VOLUME 102.5 fl (80.0-96.0); MONO # 0.9 10^3/uL (0.0-0.8); NEUTROPHILS # 4.8 10^3/uL (1.5-8.5); NEUTROPHILS % 59.8 % (36.0-66.0); RED BLOOD COUNT 3.25 10^6/uL (4.00-5.40)
[2020-08-07] MEDS: SLF 3 ML SYR IV SCH ×3 (05:44→20:32)
[2020-08-07 05:57] LABS: PLATELET COUNT, AUTOMATED 94 10^3/uL (150-450)
[2020-08-07 06:01] LABS: CALCIUM LEVEL 8.8 MG/DL (8.8-10.2); CREATININE FOR GFR 1.3 MG/DL (0.55-1.30); POTASSIUM SERUM 3.8 MEQ/L (3.5-5.1)
[2020-08-07] MEDS: FUROSEMIDE 40MG/4ML VIAL (J1940) IV SCH ×2 (08:36→16:41)
[2020-08-07] MEDS: PYRIDOXINE 50 MG TAB PO SCH (08:37)
[2020-08-07] MEDS: CYANOCOBALAMIN 500 MCG TAB PO SCH (08:37)
[2020-08-07] MEDS: FOLIC ACID 1 MG TAB PO SCH (08:37)
[2020-08-07] MEDS: POTASSIUM CHLORIDE 10 MEQ SR TABLET PO SCH (08:37)
[2020-08-07] MEDS: APIXABAN 5 MG TAB (ELIQUIS) PO SCH ×2 (08:37→20:31)
--- NOTE | 2020-08-07 11:54 | IPNPDOC ---
Date Seen The patient was seen on 08/07/20. Progress Note SUBJECTIVE: 80-year-old female with history of CHF aortic aortic valve replacement in 2000. Atrial fibrillation status post ablation 2, eliquis, digoxin, as well as left breast cancer status post lumpectomy, chemotherapy and radiation presented to the hospital with worsening shortness of breath for the past several weeks. Her PCP recommended increasing the dose of PO torsemide from 20 mg to 40 mg however due to the patient's significant shortness of breath. She was ultimately referred to the emergency room. She was admitted with acute on chronic CHF exacerbation. She was seen and examined at bedside this morning. Overnight, had an episode of afib w RVR to 130s, symptomatic which resolved spontaneously. Overnight on telemetry she was michelle to 40s while asleep, and was asymptomatic. She continues to receive furosemide 40 mg IV twice daily. States that her dyspnea has improved. Edema improved. Otherwise, she denies any chest pain, palpitations, nausea, vomiting, diarrhea yesterday fevers or chills. OBJECTIVE PHYSICAL EXAMINATION: VITAL SIGNS: please see below General: NAD, comfortable HEENT: PERRLA, EOMI, sclerae clear Neck: supple, normal ROM, no JVD Respiratory: Mild crackles noted at lung bases bilaterally (improved). Otherwise, no wheezes, no rales. Good inspiratory effort. CVS: RRR, normal S1, S2, no murmurs Abdo: soft, no masses, no hepatosplenomegaly, BS+, no rebound tenderness Extremities: 2+ edema improved, pulses 2+ MSK: no joint deformities, normal ROM Neuro: no focal neuro deficits, moving all 4 extremities, CN2-12 intact. Strength 5/5 in all 4 extremities. No nystagmus. Psych: calm, cooperative, AAO x 3 LABORATORY DATA, IMAGING STUDIES, MICROBIOLOGY: Please see below. Echocardiogram: Ordered on 08/05/20. Pending. DVT prophylaxis ordered?: Eliquis. SCDs. Teds. ASSESSMENT AND PLAN: Shortness of breath - likely 2/2 decompensated CHF (EF unknown) - Presented to the emergency room complaints of shortness of breath - Patient was in discussion with primary care provider about increasing dose of Torsemide - Physical with evidence of fluid overload - Elevated BNP 20,000 - Imaging noted - 2D ECHO ordered on 08/05/20, pending read - c/w telemetry / troponin trend / fluid restriction / strict ins and outs / daily weights - c/w Furosemide 40 IV BID Elevated troponin - Possibly 2/2 demand ischemia - Denies any CP or palpitations - EKG reviewed and consistent with prior - troponin trending down, (max 0.17, down to 0.13). - confirmed with Dr. Carlson, negative stress test in 08/2017 - has f/u appointment with Dr. Gaines in one week Chronic A. fib - s/p Ablation x 2 - Will continue with rate / rhythm control with Atenolol / Digoxin - c/w Full anticoagulation with Eliquis - episode of RVR, EKG showed NSR with LBBB - this is chronic, confirmed by Dr. Carlson, seen on previous EKGs AVR 2/2 Aortic stenosis (2000) - Will check ECHO Non-ischemic cardiomyopathy - Patient had reported that she has had no stents or heart attacks in the past - Has had a stress test completed, possibly 2 years ago that was reported negative - Follows with Dr. Gaines - Discussed with Dr. Carlson, confirms a negative nuclear stress test in 08/2017. - check 2D echo, ordered 08/05/20 Macrocytic anemia - Hg at baseline - No evidence of bleeding - B12, folate wnl. Thrombocytopenia - Similar finding 1 year prior on 07/31/2019 - No evidence of bleeding - Will continue to monitor HTN - BP well controlled - c/w Atenolol with holding parameters DLP - c/w Atorvastatin Left breast CA - s/p Lumpectomy / Chemotherapy / Radiation DVT prophylaxis - Will c/w Eliquis Dispo: DC home on 08/08/20 after tele monitoring. Per PT ok to return home. VS, I&O, 24H, Fishbone Vital Signs/I&O Vital Signs Date Time Temp Pulse Resp B/P (MAP) Pulse Ox O2 Delivery O2 Flow Rate FiO2 08/07/20 07:09 97.5 63 18 133/64 (87) 96 Room Air I&O- Last 24 Hours up to 6 AM 08/07/20 06:00 Intake Total 780 ml Output Total 940 ml Balance -160 ml Laboratory Data 24H LABS Laboratory Tests 2 08/06/20 23:16: Anion Gap 9, Glomerular Filtration Rate 41.6, Calcium Level 9.0, Magnesium Level 1.9 08/07/20 05:04: Anion Gap 11, Glomerular Filtration Rate 42.0, Calcium Level 8.8, Magnesium Level 2.0, Immature Granulocyte % (Auto) 0.4, Neutrophils (%) (Auto) 59.8, Lymphocytes (%) (Auto) 27.6, Monocytes (%) (Auto) 11.0H, Eosinophils (%) (Auto) 0.8, Basophils (%) (Auto) 0.4, Neutrophils # (Auto) 4.8, Lymphocytes # (Auto) 2.2, Monocytes # (Auto) 0.9H, Eosinophils # (Auto) 0.1, Basophils # (Auto) 0.0, Nucleated Red Blood Cells % (auto) 0.3H, Immature Platelet Fraction 4.9 CBC/BMP Laboratory Tests 08/06/20 23:16 08/07/20 05:04 CHERRY MUNOZ MD Aug 07, 2020 11:54
--- NOTE | 2020-08-07 12:46 | ECHO ---
DATE OF PROCEDURE: 08/06/2020 Age: 80 Gender: Female Height: 160 cm Weight: 65 kg REFERRING PHYSICIAN: No Camacho M.D. INDICATION: Heart failure, unspecified. MEASUREMENTS: 2D Measurements: Left atrium 4.4 cm Left ventricle diastole 5.6 cm Intraventricular septum 1.12 cm Posterior wall 0.99 cm Aortic root 3.0 cm Aortic annulus 2.0 cm Proximal ascending aorta 4.2 cm Inferior vena cava 2.1 cm with marked reduction of respiratory variation. Doppler Measurements: Mild aortic regurgitation No aortic stenosis Peak aortic valve velocity 241 cm/s LVOT velocity 65.9 cm/s LVOT VTI 12.2 cm Moderate mitral regurgitation No mitral stenosis Mitral E velocity 115 cm/s Mitral A velocity 45.4 cm/s Mitral deceleration time 145 msec Severe tricuspid regurgitation Estimated right ventricular systolic pressure at least 66 mmHg Estimated right atrial pressure at least 20 mmHg Trace pulmonic regurgitation MITRAL ANNULAR TISSUE DOPPLER E prime septal 3.2 cm/s, E prime lateral 5.9 cm/s DESCRIPTION: Rhythm was sinus with left bundle branch block morphology. No pericardial effusion. This was a moderately technically difficult echocardiogram, which was performed with the patient sitting. CONCLUSIONS: 1. Mildly dilated left ventricle at end-diastole. Normal LV wall thickness. Prominent paradoxical septal motion involving the entire intraventricular septum and extending into adjacent portions of the anterior wall, inferior wall, and into the left ventricle apex. Normal LV wall motion and wall thickening elsewhere. Severe reduction of overall LV systolic function. LVEF 30% to 35% by visual assessment. Appearance of low cardiac output. LV diastolic function difficult to assess in the setting of moderate mitral regurgitation. Excluding the presence of mitral regurgitation in diastolic assessment, findings would suggest grade 2 LV diastolic dysfunction (pseudonormal LV filling pattern). 2. Suggestive of severe elevation of estimated right ventricle systolic pressure. Estimated RV systolic pressure of at least 66 mmHg and estimated right atrial pressure of at least 20 mmHg. Structurally normal appearing tricuspid leaflets. Severe tricuspid regurgitation. Systolic flow reversal in the hepatic veins consistent with severe tricuspid regurgitation. Normal right ventricle size and systolic function. 3. Dilated inferior vena cava with reduced respiratory variation suggestive of elevated central venous pressure of at least 20 mmHg. 4. Presence of a well-seated aortic valve bioprosthesis. Mild focal thickening involving the aortic cusps. No aortic stenosis. Mild aortic regurgitation. 5. Diffuse thickening of the mitral leaflets. Moderate mitral regurgitation. No mitral stenosis. 6. Mild left atrial dilatation. 7. Mild dilatation of the proximal ascending aorta. 8. No pericardial effusion. MTDD
[2020-08-07] MEDS: ENTRESTO 24-26MG TABLET (SACUBITRIL/VALSARTAN) PO SCH (20:31)
[2020-08-07] MEDS: ATORVASTATIN 20 MG TAB PO SCH (20:31)
[2020-08-07] MEDS: atenoloL 25 MG TAB PO SCH (20:31)
[2020-08-07] MEDS: DIGOXIN 0.125 MG TAB PO SCH (20:32)
[2020-08-08] VITALS: BP 105/63
[2020-08-08 00:02] LABS: PHOSPHORUS LEVEL 3.8 MG/DL (2.5-4.9)
[2020-08-08] MEDS ORDERED: CEPACOL LOZENGE PO PRN (00:15)
[2020-08-08 04:00] VITALS: BP 104/51
[2020-08-08] MEDS: SLF 3 ML SYR IV SCH ×2 (06:04→14:00)
[2020-08-08 06:07] LABS: BASO % 0.5 % (0.0-1.0); EOS # 0.1 10^3/uL (0.0-0.5); EOS % 0.9 % (0.0-3.0); HEMATOCRIT 32.8 % (36.0-47.0); HEMOGLOBIN 10.3 g/dl (12.0-15.5); LYMPH # 2.1 10^3/uL (1.5-5.0); LYMPH % 27.4 % (24.0-44.0); MEAN CORPUSCULAR HEMOGLOBIN 32.2 pg (27.0-33.0); MEAN CORPUSCULAR HGB CONC 31.4 g/dl (32.0-36.5); MEAN CORPUSCULAR VOLUME 102.5 fl (80.0-96.0); MONO % 12.4 % (2.0-8.0); NEUTROPHILS # 4.6 10^3/uL (1.5-8.5); NEUTROPHILS % 58.5 % (36.0-66.0); PLATELET COUNT, AUTOMATED 89 10^3/uL (150-450); WHITE BLOOD COUNT 7.8 10^3/uL (4.0-10.0)
[2020-08-08 06:33] LABS: CALCIUM LEVEL 8.4 MG/DL (8.8-10.2); CREATININE FOR GFR 1.27 MG/DL (0.55-1.30); GLOMERULAR FILTRATION RATE 43.1 (>32); POTASSIUM SERUM 3.7 MEQ/L (3.5-5.1)
[2020-08-08 07:42] VITALS: BP 125/60
[2020-08-08] MEDS: CYANOCOBALAMIN 500 MCG TAB PO SCH (08:16)
[2020-08-08] MEDS: ENTRESTO 24-26MG TABLET (SACUBITRIL/VALSARTAN) PO SCH (08:16)
[2020-08-08] MEDS: PYRIDOXINE 50 MG TAB PO SCH (08:16)
[2020-08-08] MEDS: APIXABAN 5 MG TAB (ELIQUIS) PO SCH (08:16)
[2020-08-08] MEDS: FUROSEMIDE 40MG/4ML VIAL (J1940) IV SCH (08:17)
[2020-08-08] MEDS: POTASSIUM CHLORIDE 10 MEQ SR TABLET PO SCH (08:17)
[2020-08-08] MEDS: FOLIC ACID 1 MG TAB PO SCH (08:17)
[2020-08-08 12:00] VITALS: BP 105/52
[2020-08-08] MEDS ORDERED: TORS20TA2 PO (13:24)
[2020-08-08] MEDS ORDERED: POTA1TAB14 PO (13:24)
[2020-08-08] MEDS ORDERED: ENTR1TAB PO (13:24)
--- NOTE | 2020-08-08 13:26 | DS.PDOC ---
Discharge Summary General Date of Admission Aug 05, 2020 at 16:33 Date of Discharge 08/08/20 Discharge Summary PROCEDURES PERFORMED DURING STAY: [None]. ADMITTING DIAGNOSES: shortness of breath likely 2/2 decompensated CHF (unkown EF) elevated troponin chronic atrial fibrillatoin Aortic valve replacement Hx of aortic stenosis Non ischemic cardiomyopathy Macrocytic anemia Thrombocytopenia HTN DLP Hx of Left breast Ca DISCHARGE DIAGNOSES: acute exacerbation of systolic and diastolic congestive heart failure (30-35%, G2DD) CKD 3 elevated troponin chronic atrial fibrillatoin Aortic valve replacement Hx of aortic stenosis Non ischemic cardiomyopathy Macrocytic anemia Thrombocytopenia HTN DLP Hx of Left breast Ca COMPLICATIONS/CHIEF COMPLAINT: CHF. HISTORY OF PRESENT ILLNESS: Patient is an 80-year-old female who presented to the emergency room at the direction of her primary care provider, Dr. Kem Bee because of worsening shortness of breath. Patient has reported that shes been experiencing shortness of breath over a few weeks that has been progressively worsening. Patient went to go see her primary care provider who is recommended that she increase the dose of her Torsemide from 20 mg to 40 mg. , However, decided to send the patient to the emergency room for further evaluation given her extent of shortness of breath. Patient reports shortness of breath with exertion. She reports that she sleeps in a recliner for the last 6 months. Cannot lay on her back because she gets extremely short of breath. Denies any chest pain or palpitations. Does report a productive cough with clear sputum. Has not experience any fevers or chills. Denies any nausea, vomiting, abdominal pain, no urinary discomfort. Reports diarrhea that has been chronic. Patient has reported a weight loss of about 40 pounds since April and reports her appetite is poor.. HOSPITAL COURSE: Acute exacerbation of systolic and diastolic CHF - Presented to the emergency room complaints of shortness of breath - Patient was in discussion with primary care provider about increasing dose of Torsemide - Physical with evidence of fluid overload - Elevated BNP 20,000 - Imaging noted - 2D ECHO ordered on 08/05/20. LVEF 30-35%. Normal LV WM.Moderate MR. G2DD. Well seated biopresthetic AV. Elevated RV systolic pressures. No pericardial effusion. - c/w telemetry / troponin trend / fluid restriction / strict ins and outs / daily weights - was diuresed with IV furosemide - clinically stable and appears euvolemic on DC Elevated troponin - Possibly 2/2 demand ischemia vs atrial fibrillation - Denies any CP or palpitations - EKG reviewed and consistent with prior - troponin trending down, (max 0.17, down to 0.13). - confirmed with Dr. Carlson, negative stress test in 08/2017 - has f/u appointment with Dr. Gaines in one week CKD 3 - GFR 44 - stable Cr. - avoid nephrotoxins Chronic A. fib - s/p Ablation x 2 - Will continue with rate / rhythm control with Atenolol / Digoxin - c/w Full anticoagulation with Eliquis - episode of RVR, EKG showed NSR with LBBB - this is chronic, confirmed by Dr. Carlson, seen on previous EKGs - rate controlled on DC. Asymptomatic. C/w eliquis . AVR 2/2 Aortic stenosis (2000) - well seated AV prosthesis on echo 08/05/20 Non-ischemic cardiomyopathy - Patient had reported that she has had no stents or heart attacks in the past - Has had a stress test completed, possibly 2 years ago that was reported negative - Follows with Dr. Gaines - Discussed with Dr. Carlson, confirms a negative nuclear stress test in 08/2017. - echo reviewed. Macrocytic anemia - Hg at baseline - No evidence of bleeding - B12, folate wnl. Thrombocytopenia - Similar finding 1 year prior on 07/31/2019 - No evidence of bleeding - Will continue to monitor HTN - BP well controlled - c/w Atenolol with holding parameters DLP - c/w Atorvastatin Left breast CA - s/p Lumpectomy / Chemotherapy / Radiation DVT prophylaxis - Will c/w Eliquis DISCHARGE MEDICATIONS: Please see below. ALLERGIES: Please see below. PHYSICAL EXAMINATION ON DISCHARGE: VITAL SIGNS: please see below General: NAD, comfortable HEENT: PERRLA, EOMI, sclerae clear Neck: supple, normal ROM, no JVD Respiratory: Mild crackles noted at lung bases bilaterally (improved). Otherwise, no wheezes, no rales. Good inspiratory effort. CVS: RRR, normal S1, S2, no murmurs Abdo: soft, no masses, no hepatosplenomegaly, BS+, no rebound tenderness Extremities: 2+ edema improved, pulses 2+ MSK: no joint deformities, normal ROM Neuro: no focal neuro deficits, moving all 4 extremities, CN2-12 intact. Stre ngth 5/5 in all 4 extremities. No nystagmus. Psych: calm, cooperative, AAO x 3 LABORATORY DATA: Please see below. IMAGING: CXR (08/05/20): Cardiomegaly with more prominent interstitial changes today diffusely consistent with interstitial edema. No pleural effusion is seen. Status post aortic valve replacement. 2D echo report (08/05/20): 1. Mildly dilated left ventricle at end-diastole. Normal LV wall thickness. Prominent paradoxical septal motion involving the entire intraventricular sept umand extending into adjacent portions of the anterior wall, inferior wall, and into the left ventricle apex. Normal LV wall motion and wall thickening elsewhere. Severe reduction of overall LV systolic function. LVEF 30% to 35% by visual assessment. Appearance of low cardiac output. LV diastolic function difficult to assess in the setting of moderate mitral regurgitation. Excluding the presence of mitral regurgitation in diastolic assessment, findings would suggest grade 2 LV diastolic dysfunction (pseudonormal LV filling pattern). 2. Suggestive of severe elevation of estimated right ventricle systolic pressure. Estimated RV systolic pressure of at least 66 mmHg and estimated rightatrial pressure of at least 20 mmHg. Structurally normal appearing tricuspid leaflets. Severe tricuspid regurgitation. Systolic flow reversal in the hepatic veins consistent with severe tricuspid regurgitation. Normal right ventricle size and systolic function. 3. Dilated inferior vena cava with reduced respiratory variation suggestive of elevated central venous pressure of at least 20 mmHg. 4. Presence of a well-seated aortic valve bioprosthesis. Mild focal thickening involving the aortic cusps. No aortic stenosis. Mild aortic regurgitation. 5. Diffuse thickening of the mitral leaflets. Moderate mitral regurgitation. Nomitral stenosis. 6. Mild left atrial dilatation. 7. Mild dilatation of the proximal ascending aorta. 8. No pericardial effusion. PROGNOSIS: good ACTIVITY: walk with walker DIET: 2G sodium restricted DISCHARGE PLAN: DC home with cardiology and PCP follow up. Has appt with Dr. Gaines office on 08/14/20. PCP f/u on 08/19/20. DISPOSITION: DC home. DISCHARGE INSTRUCTIONS: . Please follow up with PCP on 08/19/20. Please request referral to nephrology from PCP. . Please follow up with cardiology on 08/14/20 . Please take medications as prescribed. . Please return to ER or call 911 if you develop chest pain, shortness of breath, fevers, chills, seizures, loss of consciousness or otherwise worsening of your symptoms. DISCHARGE CONDITION: [Stable]. TIME SPENT ON DISCHARGE: 35 minutes Vital Signs/I&Os Vital Signs Date Time Temp Pulse Resp B/P (MAP) Pulse Ox O2 Delivery O2 Flow Rate FiO2 08/08/20 12:00 97.3 64 18 105/52 (69) 95 Room Air I&O- Last 24 Hours up to 6 AM 08/08/20 06:00 Intake Total 1260 ml Output Total 550 ml Balance 710 ml Laboratory Data Labs 24H Laboratory Tests 2 08/07/20 23:24: Phosphorus Level 3.8, Magnesium Level 2.0 08/08/20 05:14: Magnesium Level 2.0, Immature Granulocyte % (Auto) 0.3, Neutrophils (%) (Auto) 58.5, Lymphocytes (%) (Auto) 27.4, Monocytes (%) (Auto) 12.4H, Eosinophils (%) (Auto) 0.9, Basophils (%) (Auto) 0.5, Neutrophils # (Auto) 4.6, Lymphocytes # (Auto) 2.1, Monocytes # (Auto) 1.0H, Eosinophils # (Auto) 0.1, Basophils # (Auto) 0.0, Nucleated Red Blood Cells % (auto) 0.3H, Immature Platelet Fraction 5.8, Anion Gap 10, Glomerular Filtration Rate 43.1, Calcium Level 8.4L CBC/BMP Laboratory Tests 08/08/20 05:14 Discharge Medications Scheduled Apixaban (Eliquis) 5 Mg Tablet, 1 TAB PO BID, (Reported) Atenolol (Atenolol) 25 Mg Tab, 25 MG PO QHS, (Reported) Atorvastatin Calcium (Atorvastatin Calcium) 20 Mg Tablet, 20 MG PO QHS, (Reported) Cyanocobalamin (Vitamin B-12) (Vitamin B-12) 1,000 Mcg Capsule, 2,000 MCG PO DAILY, (Reported) Digoxin (Digoxin) 125 Mcg Tablet, 125 MCG PO QHS, (Reported) Folic Acid (Folic Acid) 0.8 Mg Capsule, 800 MCG PO DAILY, (Reported) Potassium Chloride (Potassium Chloride) 20 Meq Tablet.er, 1 TAB PO DAILY Pyridoxine HCl (Vitamin B6) (Vitamin B-6) 50 Mg Tablet, 1 TAB PO DAILY, (Reported) Sacubitril/Valsartan (Entresto 24 mg-26 mg Tablet) 1 Each Tablet, 1 TAB PO BID Torsemide (Torsemide) 20 Mg Tablet, 2 TAB PO DAILY Miscellaneous Medications Carboxymethylcellulose Sodium (Refresh Tears) 15 Ml Drops, 0.5 % OP, (Reported) Allergies Coded Allergies: SILVIA Inhibitors (Verified Adverse Reaction, Unknown, cough, 08/01/19) CHERRY MUNOZ MD Aug 08, 2020 13:26
[2020-08-08 15:56] VITALS: BP 111/57
== END 2020-08-08 16:15 | disposition home or self-care (01) | DRG 291 ==
LOC: M ED 11:36 → M ED INP 16:33 → M PCU 18:07
PROVIDERS: ADMIT Internal Medicine; ATTEND Family Medicine
DX: I13.0 Hypertensive heart and chronic kidney disease with heart failure and stage 1 through stage 4 chronic kidney disease, or unspecified chronic kidney disease (principal); I50.43 Acute on chronic combined systolic (congestive) and diastolic (congestive) heart failure; I24.8 Other forms of acute ischemic heart disease; I48.20 Chronic atrial fibrillation, unspecified; I35.0 Nonrheumatic aortic (valve) stenosis; I42.8 Other cardiomyopathies; D50.9 Iron deficiency anemia, unspecified; N18.30 Chronic kidney disease, stage 3 unspecified; D69.6 Thrombocytopenia, unspecified; E78.5 Hyperlipidemia, unspecified; Z85.3 Personal history of malignant neoplasm of breast; Z92.3 Personal history of irradiation; Z92.21 Personal history of antineoplastic chemotherapy; Z20.822 Contact with and (suspected) exposure to COVID-19; Z79.01 Long term (current) use of anticoagulants; Z79.899 Other long term (current) drug therapy; Z95.2 Presence of prosthetic heart valve

== ENCOUNTER 2020-10-04 17:59 | Inpatient (IN) | payer MEDICARE, OTHER ==
[~2020-10-04] VITALS: Ht 160 cm; Wt 65.8 kg
[~2020-10-04 17:59] MED LIST changes: +ENTR1TAB PO; +FOLI800C PO; +POTA1TAB14 PO; +POTA1TAB23 PO; -REFR0.5D8 OP; +REFR0.5D8 OU
[2020-10-04] MEDS ORDERED: TORS20TA2 PO (18:11)
--- NOTE | 2020-10-04 20:17 | REPVR ---
PROCEDURE INFORMATION: Exam: US Duplex Lower Extremity Veins, Bilateral Exam date and time: 10/04/2020 7:44 PM Age: 80 years old Clinical indication: Edema, localized; Lower extremity, bilateral; Additional info: Edema R/O dvt TECHNIQUE: Imaging protocol: Real-time duplex ultrasound of the extremities with 2-D akins scale, color Doppler flow and spectral waveform analysis with image documentation. Complete exam focused on the bilateral lower extremity veins. COMPARISON: No relevant prior studies available. FINDINGS: Right deep veins: Unremarkable. The common femoral, femoral and popliteal veins are patent without thrombus. Normal Doppler waveforms. Normal compressibility and/or augmentation response. Right superficial veins: Saphenofemoral junction is patent without thrombus. Left deep veins: Unremarkable. The common femoral, femoral and popliteal veins are patent without thrombus. Normal Doppler waveforms. Normal compressibility and/or augmentation response. Left superficial veins: Saphenofemoral junction is patent without thrombus. Soft tissues: Subcutaneous edema in the calves. IMPRESSION: No sonographic evidence of deep vein thrombosis. Electronically signed by: Vinnie Mac On 10/04/2020 20:18:04 PM
--- NOTE | 2020-10-04 20:42 | REPVR ---
PROCEDURE INFORMATION: Exam: XR Chest Exam date and time: 10/04/2020 8:00 PM Age: 80 years old Clinical indication: Chest pain; Additional info: Dyspnea/cough TECHNIQUE: Imaging protocol: XR of the chest. Views: 2 views. COMPARISON: [facility] PORTABLE CHEST X-RAY 08/05/2020 12:24 PM FINDINGS: Lungs: Mild interval improvement in interstitial lung disease since the prior study, most pronounced at the lung bases. No new infiltrate. Pleural spaces: Unremarkable. No pleural effusion. No pneumothorax. Heart/Mediastinum: Evidence of open heart surgery. Mild cardiomegaly. Bones/joints: No acute osseous abnormality. Osteopenia and degenerative changes. IMPRESSION: 1. Mild interval improvement in interstitial lung disease since the prior study, most pronounced at the lung bases. No new infiltrate. 2. Additional findings, as above. Electronically signed by: Vinnie Mac On 10/04/2020 20:43:25 PM
[2020-10-04 21:16] LABS: BASO % 0.3 % (0.0-1.0); EOS # 0.1 10^3/uL (0.0-0.5); EOS % 1.1 % (0.0-3.0); HEMATOCRIT 32.5 % (36.0-47.0); HEMOGLOBIN 10.7 g/dl (12.0-15.5); LYMPH # 1.1 10^3/uL (1.5-5.0); LYMPH % 15.5 % (24.0-44.0); MEAN CORPUSCULAR HEMOGLOBIN 31.7 pg (27.0-33.0); MEAN CORPUSCULAR HGB CONC 32.9 g/dl (32.0-36.5); MEAN CORPUSCULAR VOLUME 96.2 fl (80.0-96.0); MONO # 0.7 10^3/uL (0.0-0.8); MONO % 9.9 % (2.0-8.0); NEUTROPHILS # 5.2 10^3/uL (1.5-8.5); NEUTROPHILS % 72.6 % (36.0-66.0); RED BLOOD COUNT 3.38 10^6/uL (4.00-5.40); WHITE BLOOD COUNT 7.2 10^3/uL (4.0-10.0)
[2020-10-04 21:31] LABS: PLATELET COUNT, AUTOMATED 59 10^3/uL (150-450)
[2020-10-04 23:55] LABS: BILIRUBIN,DIRECT 0.5 MG/DL (0.0-0.2); BILIRUBIN,TOTAL 0.8 MG/DL (0.2-1.0); CALCIUM LEVEL 8.5 MG/DL (8.8-10.2); CK-MB VALUE MASS 2.8 NG/ML (<3.6); CREATININE FOR GFR 6.64 MG/DL (0.55-1.30); GLOMERULAR FILTRATION RATE 6.4 (>32); MB/CK RELATIVE INDEX 4.91 (< OR =4); POTASSIUM SERUM 4.3 MEQ/L (3.5-5.1); THYROID STIMULATING HORMONE 5.11 uIU/ML (0.358-3.740); TOTAL PROTEIN 6.8 GM/DL (6.4-8.2); TROPONIN I 0.08 NG/ML (< 0.10)
[2020-10-05] VITALS (43 sets, daily range): BP systolic 76–106; BP diastolic 40–58
[2020-10-05] MEDS ORDERED: NS 1,000 ML IV SCH
[2020-10-05] MEDS ORDERED: ELIQ2.5T PO (00:29)
[2020-10-05 02:00] LABS: TROPONIN I 0.06 NG/ML (< 0.10)
[2020-10-05 02:26] LABS: AMORPHOUS SEDIMENT SMALL (NEGATIVE); APPEARANCE, URINE CLOUDY (CLEAR); BACTERIA, URINE AUTO NEGATIVE (NEGATIVE); BILIRUBIN, URINE AUTO NEGATIVE (NEGATIVE); BLOOD, URINE BLOOD NEGATIVE (NEGATIVE); COLOR, URINE YELLOW (YELLOW); GLUCOSE, URINE (UA) AUTO NEGATIVE (NEGATIVE); KETONE, URINE AUTO NEGATIVE (NEGATIVE); LEUKOCYTE ESTERASE, URINE AUTO 3+ (NEGATIVE); MUCUS, URINE SMALL (NEGATIVE); NITRITE, URINE AUTO NEGATIVE (NEGATIVE); PROTEIN, URINE AUTO 1+ mg/dL (NEGATIVE); RBC, URINE AUTO 10 /HPF (0-3); SPECIFIC GRAVITY URINE AUTO 1.014 (1.002-1.035); SQUAMOUS EPITHELIAL CELL UR AU 2 /HPF (0-6); TRANSITIONAL EPITHELIAL AUTO 1 /HPF; UROBILINOGEN, URINE AUTO 0.2 mg/dL (0.0-2.0); WBC, URINE AUTO 104 /HPF (0-3)
[2020-10-05 03:06] LABS: ABG BASE EXCESS -13.4 (-2.0-2.0); ABG HCO3 10.8 MEQ/L (22.0-26.0); ABG O2 SATURATION 99.3 % (95.0-99.0); ABG PARTIAL PRESSURE CO2 21.3 mmHg (35.0-45.0); ABG PARTIAL PRESSURE O2 157.4 mmHg (75.0-100.0); ABG TOTAL CO2 11.4 MEQ/L (23.0-31.0); ABG pH (ARTERIAL) 7.322 UNITS (7.350-7.450)
[2020-10-05] MEDS: ACETAMINOPHEN TAB 650MG DOSE (2X325MG) PO PRN (03:47)
[2020-10-05] MEDS ORDERED: LIDOCAINE 5% (LIDODERM) PATCH TD ONE (05:20)
--- NOTE | 2020-10-05 05:35 | IPNPDOC ---
Text Note Date of Service The patient was seen on 10/05/20. NOTE is an 80 yr old w a hx of HFrEF/HFpEF, AVR, A fib and breast cancer who presented w c/o persistent leg swelling despite being instructed to double her torsemide; she will be admitted for RICARDO and multiple electrolytes abnormalities. Will ask the day time team to consider consulting Nephro. Rest per 's H&P VS,Fishbone, I+O VS, Fishbone, I+O Laboratory Tests 10/04/20 20:45 10/04/20 22:48 Vital Signs Date Time Temp Pulse Resp B/P (MAP) Pulse Ox O2 Delivery O2 Flow Rate FiO2 10/05/20 04:01 96.7 64 22 100/45 (63) 100 10/05/20 04:00 1.0 10/05/20 01:59 Nasal Cannula I&O- Last 24 Hours up to 6 AM 10/05/20 06:00 Intake Total 100 ml Balance 100 ml FLORESITA WILSON MD Oct 05, 2020 05:34
--- NOTE | 2020-10-05 05:56 | HPEPDOC ---
[facility] Medical History & Physical Date of Admission Oct 05, 2020 Date of Service: Oct 05, 2020 Other Provider Pt's PCP: Kem Bee M.D. Attending Physician: FLORESITA WILSON MD History and Physical CHIEF COMPLAINT: B/l lower extremity swelling HISTORY OF PRESENT ILLNESS: Telma is an 80yo female w/ notable PMHx of systolic and diastolic congestive heart failure, atrial fibrillation status post ablation 2 on Eliquis, left breast cancer status post lumpectomy/chemotherapy/radiation, aortic valve replacement secondary to aortic stenosis, and chronic kidney disease stage III, who presented to the [facility] ED late on the evening of 10/04/20 chief complaint of worsening bilateral lower extremity swelling. She reports over the last 1. 52 weeks, bilateral lower extremity swelling has increased. She follows with Dr. Gaines's office for outpatient cardiology and recently increased her home direct dosing to two 20 mg torsemide tablets bid. Due to the lower show any swelling, she hasn't been walking around at all. She usually uses a walker to ambulate but her legs up and so heavy that she is only been able to be moved while seated on her walker and pushed by her family. She also reports that she has not been making any urine of late either. Despite taking the increased home torsemide dosing, her weight is increased roughly 10 pounds over the past 1-2 weeks. Due to her lack of mobility, worsening swelling, and increasing weight, she was brought to the ED by her daughter. Of note, she was admitted 2 months ago at [facility] for acute exacerbation of heart failure. At that time, an echo revealed an EF of 3035 percent with grade 2 diastolic dysfunction and elevated right ventricular systolic pressures. Her BNP at that time was 20,000. Initial evaluation in the ED for this presentation revealed sodium of 129, bicarbonate of 13, BUN of 150, creatinine of 6.64 with baseline about 1.21.3, platelet count 59,000, anion gap of 20, ABG showing pH 7.322/PCO2 of 21.3/PO2 of 157/bicarbonate of 13, and soft pressures with maps around 65. She was subsequently admitted under the care of the hospitalist service primarily for acute renal failure with hyponatremia and metabolic acidosis, as well as decompensated heart failure with possible cardiorenal picture. PAST MEDICAL HISTORY: Systolic and diastolic congestive heart failure. Follows with Dr. Gaines as an outpatient. Recent echo 2 months ago in favor 2014 revealed an EF of 3035 percent with grade 2 diastolic dysfunction. Chronic kidney disease stage III. She was scheduled to establish relatively shortly as an outpatient with Dr. Anastasiia Lange. Aortic valve replacement secondary to aortic stenosis. Left breast cancer status post lumpectomy/chemotherapy/radiation. Atrial fibrillation status post ablation 2 on Eliquis; formally on digoxin, which was discontinued 2 weeks ago and her atenolol was cut in half. PAST SURGICAL HISTORY: Aortic valve replacement with bioprosthetic valve. Lumpectomy of left breast. Hysterectomy (uterus only), 1995. Bilateral cataract surgery SOCIAL HISTORY: Patient lives in [place]. Her son lives with her. Her daughter, Kathleen lives next door. She had one son who in 1993. 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 She denies any current or former use of tobacco products, alcohol, or illicit rugs. FAMILY HISTORY: Father: at 87 years old; calcification of arteries. Mother: at 77 years old; history of chronic kidney disease and hypertension. Half Sister: Diabetes mellitus, COPD Brother: Living, Win 75, results; coronary artery disease status post 5 stents. Son: in 1993; , reportedly related to complications from hepatitis B virus. ALLERGIES: Please see below. REVIEW OF SYSTEMS: CONSTITUTIONAL: Reports some mild chills. Also reports roughly 10 pound weight gain in the past 12 weeks. Denies recent fever. CARDIOVASCULAR: No chest pain, chest pressure, or palpitations. RESPIRATORY: Reports clear sputum production. Denies shortness of breath, pleuritic chest pain. GASTROINTESTINAL: Denies abdominal pain, nausea, vomiting, diarrhea, constipation, or blood in stool. GENITOURINARY: Reports making very little urine over the past 12 weeks. Denies dysuria or hematuria prior to that. MUSCULOSKELETAL: Reports left scapular pain. Reports her legs feel heavy due to increase in weight from water retention. She is unable to ambulate even with the assistance of walker over the past 2 weeks due to the heavy legs. NEUROLOGICAL: Denies any numbness or tingling of extremities. ENDOCRINE: Reports some cold intolerance and chills. HEMATOLOGIC: Reports easy bruising. LYMPHATIC: Eyes any new lumps or bumps. HOME MEDICATIONS: Please see below. PHYSICAL EXAMINATION: VITAL SIGNS: Temperature 96.4, pulse, 64, respiratory rate 18, blood pressure, 95/50, pulse oximetry 100 % on 1 L nasal cannula. GENERAL APPEARANCE: Pleasant, elderly female lying upright in bed. Alert and oriented 3. No acute distress. HEENT: Normocephalic, atraumatic. Noninjected, anicteric sclera. PERRLA. She is wearing nasal cannula supplemental oxygen. Pt is sniffling from intermittently during exam. ORAL CAVITY: No significant for joint erythema or exudate. Moist mucous membranes. NECK: JVD is present, roughly 3-4 cm superior of the clavicle. Neck is supple. No lymphadenopathy appreciated. CARDIOVASCULAR: 2/6 systolic murmur heard over the right second intercostal space with audible clicking associated with prosthetic valve. Regular rate, regular rhythm. No rubs appreciated. LUNGS: Diminished breath sounds bilaterally with no significant adventitious breath sounds appreciated. Wearing 1 L nasal cannula supplemental oxygen. Speaking full sentences. Symmetric chest expansion. ABDOMEN: Soft, nondistended. Tenderness of the right lower quadrant. No rigidity. Normoactive bowel sounds throughout. No significant hepatosplenomegaly appreciated. BACK: No CVA tenderness. No presacral pitting edema appreciated. MUSCULOSKELETAL: Pain to palpation over the left scapula. 3/5 muscle strength bilateral lower extremities. EXTREMITIES: There is 3+ pitting edema of bilateral lower extremities extending proximally nearly up to the knees. There is also bilateral pitting pedal edema. Both hands and feet are cool to the touch. 2+ radial pulses bilaterally. There are characteristic arthritic changes of DIP joints bilaterally. NEUROLOGICAL: Alert and oriented 3. No focal deficits appreciated. Non- dysarthric speech. PSYCHIATRIC: Mood and affect appear appropriate. LABORATORY DATA: Please see below. IMAGING: PA/Lat Chest x-ray, 10/04/20 FINDINGS: Lungs: Mild interval improvement in interstitial lung disease since the prior study, most pronounced at the lung bases. No new infiltrate. Pleural spaces: Unremarkable. No pleural effusion. No pneumothorax. Heart/Mediastinum: Evidence of open heart surgery. Mild cardiomegaly. Bones/joints: No acute osseous abnormality. Osteopenia and degenerative changes. IMPRESSION: 1. Mild interval improvement in interstitial lung disease since the prior study, most pronounced at the lung bases. No new infiltrate. 2. Additional findings, as above. B/l LE ultrasound, 10/04/20 IMPRESSION: No sonographic evidence of deep vein thrombosis. MICROBIOLOGY: Please see below. ASSESSMENT & PLAN: This is an 80yo female w/ h/o Sys & Sandoval CHF, aortic stenosis s/p prosthetic av, Afib s/p ablation x2 on eliquis, and Lt breast ca s/p lumpectomy/chemo/rad who presented on 10/04/20 c/o progressive b/l LE edema for the past two weeks and was found to be in acute renal failure with high ag metabolic acidosis, pseudohyponatremia, and decompensated heart failure. #Acute renal failure superimposed on chronic kidney disease stage III -initial sCr 6.64 (BL about 1.2-1.3), BUN 150, CO2 13 -There potentially could be a component of cardiorenal syndrome here with her coterminous decompensated heart failure -Dr. Karely Broussard of the nephrology service was officially consulted by the night admitting team. He will be seeing the patient later this morning. He reported that patient will certainly need to be diuresed, but evaluation will determine whether or not coterminous vasopressors or albumin may be needed. -The patient was started on IV fluids in the emergency department, which were subsequently discontinued by the admitting team in the setting of likely cardiorenal process and not a solely prerenal etiology -Urine electrolytes ordered to calculate for both fractional excretion of sodium and fractional excretion of urea (patient is on torsemide as an outpatient). -Renal diet ordered -Strict intake and output -Daily weights and 2000 mL daily fluid restriction #Decompensated congestive heart failure -BNP 25,631. During admission 2 months ago when she was experiencing an acute decompensation of heart failure, BNP was 20,000. There was JVD on exam with significant bilateral lower extremity pitting edema. -Per conversation with the nephrology service will be seen the patient later today, they feel the patient will certainly need to be diuresed and an evaluation will determine whether or not coterminous pressors or albumin may be warranted. -Strict intake and output -Daily weights and 2000 mL daily fluid restriction #High anion gap metabolic acidosis ABG: PH 7.322/PCO2 21.3/PO2 157/bicarbonate of 13 -This is most likely secondary to acute renal failure with significant uremia (BUN was 150) #Pseudohyponatremia -Initial sodium of 129 with glucose of 111. Serum osmolality was 324, indicating pseudohyponatremia. In the setting of glucose not being significantly elevated, a serum protein electrophoresis was ordered to assess for evidence of paraproteins. #Thrombocytopenia -Initial platelet count of 59,000 -Continue to monitor on repeat blood counts -Due to the fact that platelet count is over 50,000, home Eliquis was continued for anticoagulation. The setting of atrial fibrillation #History of atrial fibrillation -Patient's home Eliquis was continued (she takes a renally dosed amount in the form of 2.5 mg twice a day) sees. -Heart rate is within normal range. On telemetry. #DVT prophylaxis: home eliquis continued Disposition: Vital Signs Vital Signs Date Time Temp Pulse Resp B/P (MAP) Pulse Ox O2 Delivery O2 Flow Rate FiO2 10/05/20 04:01 96.7 64 22 100/45 (63) 100 10/05/20 04:00 1.0 10/05/20 01:59 Nasal Cannula Laboratory Data Labs 24H Laboratory Tests 2 10/04/20 20:45: Immature Granulocyte % (Auto) 0.6, Neutrophils (%) (Auto) 72.6H, Lymphocytes (%) (Auto) 15.5L, Monocytes (%) (Auto) 9.9H, Eosinophils (%) (Auto) 1.1, Basophils (%) (Auto) 0.3, Neutrophils # (Auto) 5.2, Lymphocytes # (Auto) 1.1L, Monocytes # (Auto) 0.7, Eosinophils # (Auto) 0.1, Basophils # (Auto) 0.0, Nucleated Red Blood Cells % (auto) 0.6H, Immature Platelet Fraction 9.5 10/04/20 22:48: Anion Gap 20H, Glomerular Filtration Rate 6.4L, Calcium Level 8.5L, Total Bilirubin 0.8, Direct Bilirubin 0.5H, Aspartate Amino Transf (AST/SGOT) 31, Alanine Aminotransferase (ALT/SGPT) 28, Alkaline Phosphatase 190H, Total Creatine Kinase 57, Creatine Kinase MB 2.8, Creatine Kinase MB Relative Index 4.91H, Troponin I 0.08, OY-Smk-Q-Type Natriuretic Peptide 13943T, Total Protein 6.8, Albumin 3.0L, Albumin/Globulin Ratio 0.8L, Thyroid Stimulating Hormone (TSH) 5.110H 10/05/20 01:26: Troponin I 0.06#, Osmolality 324H 10/05/20 02:08: Urine Color YELLOW, Urine Appearance CLOUDYH, Urine pH 5.0, Urine Specific [place] 1.014, Urine Protein 1+H, Urine Glucose (Auto)(UA) NEGATIVE, Urine Ketones (Auto) NEGATIVE, Urine Blood NEGATIVE, Urine Nitrite NEGATIVE, Urine Bilirubin NEGATIVE, Urine Urobilinogen 0.2, Urine Leukocyte Esterase (Auto) 3+H, Urine WBC (Auto) 104H, Urine RBC (Auto) 10H, Urine Hyaline Casts (Auto) 7, Urine Bacteria (Auto) NEGATIVE, Urine Squamous Epithelial Cells 2, Urine Transitional Epithelial Cells 1, Urine Amorphous Sediment (Auto) SMALLH, Urine Mucus (Auto) SMALL, Urine Sperm (Auto) , Urine Random Sodium < 10 10/05/20 02:59: Blood Gas Bicarbonate Standard 14.0L, Arterial Blood pH 7.322L, Arterial Blood Partial Pressure CO2 21.3L, Arterial Blood Partial Pressure O2 157.4H, Arterial Blood Total CO2 11.4L, Arterial Blood HCO3 10.8L, Arterial Blood Base Excess - 13.4L, Arterial Blood Oxygen Saturation 99.3H CBC/BMP Laboratory Tests 10/04/20 20:45 10/04/20 22:48 Microbiology Microbiology 10/04/20 Respiratory Virus Panel (PCR) ([facility]) - Final, Complete Home Medications Scheduled Apixaban (Eliquis) 2.5 Mg Tablet, 2.5 MG PO BID Atenolol (Atenolol) 25 Mg Tab, 12.5 MG PO QHS Atorvastatin Calcium (Atorvastatin Calcium) 20 Mg Tablet, 20 MG PO QHS Cyanocobalamin (Vitamin B-12) (Vitamin B-12) 1,000 Mcg Capsule, 2,000 MCG PO DAILY Folic Acid (Folic Acid) 0.8 Mg Capsule, 800 MCG PO DAILY Pyridoxine HCl (Vitamin B6) (Vitamin B-6) 50 Mg Tablet, 50 MG PO DAILY Torsemide (Torsemide) 20 Mg Tablet, 40 MG PO BID Scheduled PRN Carboxymethylcellulose Sodium (Refresh Tears) 15 Ml Drops, 1 DROP OU ASDIRECTED PRN for DRY EYES Allergies Coded Allergies: SILVIA Inhibitors (Verified Adverse Reaction, Unknown, cough, 08/01/19) A-FIB/CHADSVASC A-FIB History Current/History of A-Fib/PAF?: Yes Current PO Anticoag Therapy: Yes JORGE L ADAMS D.O. Oct 05, 2020 05:56
[2020-10-05 06:26] LABS: BASO % 0.2 % (0.0-1.0); EOS # 0.1 10^3/uL (0.0-0.5); EOS % 0.8 % (0.0-3.0); HEMATOCRIT 30.1 % (36.0-47.0); HEMOGLOBIN 9.9 g/dl (12.0-15.5); LYMPH # 0.8 10^3/uL (1.5-5.0); LYMPH % 13.4 % (24.0-44.0); MEAN CORPUSCULAR HEMOGLOBIN 31.5 pg (27.0-33.0); MEAN CORPUSCULAR HGB CONC 32.9 g/dl (32.0-36.5); MEAN CORPUSCULAR VOLUME 95.9 fl (80.0-96.0); MONO # 0.6 10^3/uL (0.0-0.8); MONO % 10.2 % (2.0-8.0); NEUTROPHILS # 4.5 10^3/uL (1.5-8.5); NEUTROPHILS % 74.9 % (36.0-66.0); RED BLOOD COUNT 3.14 10^6/uL (4.00-5.40)
[2020-10-05 06:28] LABS: PLATELET COUNT, AUTOMATED 52 10^3/uL (150-450)
[2020-10-05 06:35] LABS: INR 1.59; PROTHROMBIN TIME 19.3 SECONDS (12.5-14.3)
[2020-10-05 06:36] LABS: PARTIAL THROMBOPLASTIN TIME 39.4 SECONDS (24.2-38.5)
[2020-10-05 06:47] LABS: TOTAL PROTEIN 6.5 GM/DL (6.4-8.2)
[2020-10-05 06:49] LABS: ALBUMIN 2.8 GM/DL (3.2-5.2); BILIRUBIN,TOTAL 0.9 MG/DL (0.2-1.0); CALCIUM LEVEL 8.1 MG/DL (8.8-10.2); CREATININE FOR GFR 6.49 MG/DL (0.55-1.30); GLOMERULAR FILTRATION RATE 6.6 (>32); POTASSIUM SERUM 3.9 MEQ/L (3.5-5.1); TOTAL PROTEIN 6.6 GM/DL (6.4-8.2)
[2020-10-05 07:44] LABS: OSMOLALITY URINE 322 MOSM/KG (50-1400)
[2020-10-05 08:10] LABS: UREA NITROGEN RANDOM URINE 440 MG/DL
--- NOTE | 2020-10-05 08:37 | REP ---
INDICATION: ARF, hypotension COMPARISON: None. TECHNIQUE: Helical scanning is acquired in 4 mm axial images were reformatted. Coronal and sagittal MPR images were generated and reviewed. FINDINGS: Digital preliminary transplant coordinator radiograph demonstrates a levoconvex curve and degenerative spondylosis in the lumbar spine. Bowel gas pattern is normal. On axial CT images there is at advanced emphysema and interstitial fibrosis in the lung bases bilaterally. A small left pleural effusion is present. Four-chamber cardiac enlargement is observed. No focal liver or spleen lesion is seen. Neither organ appears enlarged. There are granulomatous lymph node calcifications in the upper abdomen and retroperitoneum. Gallbladder wall is slightly thickened. The kidneys appear morphologically intact without evidence of hydronephrosis or calculus. No mass lesion is observed. Normal caliber aorta. No retroperitoneal hematoma or adenopathy is seen. Small and large bowel loops are unremarkable. The uterus is surgically absent. A Ramos catheter is noted in the urinary bladder. There is a small quantity of pelvic ascites without evidence of abscess. There is left colonic diverticulosis. A normal appendix is seen in krystyna posterior aspect of the right lower quadrant. There is no evidence of abdominal wall defect. No bony destructive lesion is seen. IMPRESSION: A small left pleural effusion and minimal ascites. Gallbladder wall thickening. Ramos catheter in place. Uterus surgically absent. Otherwise, no acute abdominal or pelvic abnormality. <Electronically signed by Denis Crowder > 10/05/20 [id number]
[2020-10-05] MEDS ORDERED: APIXABAN 2.5 MG TAB (ELIQUIS) PO SCH (09:00)
[2020-10-05] MEDS: PYRIDOXINE 50 MG TAB PO SCH (09:26)
[2020-10-05] MEDS: CYANOCOBALAMIN 500 MCG TAB PO SCH (09:26)
--- NOTE | 2020-10-05 09:38 | ECGEPIP ---
[facility] - ED Test Date: 2020-10-04 Pat Name: JOSE GARCIA Department: Room: [place] [address] Gender: Female Supervisor Production Managing: Rebecca CABAN : 1940 Requested By: GENO Ribeiro Order Number: [id number] Reading MD: Иван Crane Measurements Intervals [place] Rate: 62 P: RI: QRS: 185 QRSD: 160 T: 15 QT: 474 QTc: 481 Interpretive Statements Limb Lead Reversal - Unacceptable tracing quality for interpretation Sinus rhythm Right superior axis deviation Left bundle branch block Electronically Signed on 10-05-2020 9:37:50 EDT by Иван Crane
[2020-10-05] MEDS: MEROPENEM INJ 1 GM in IV 1 EA IV SCH (10:55)
[2020-10-05] MEDS: SODIUM BICARBONATE 150 MEQ in STERILE WATER LITER BAG 1,000 ML IV SCH (12:29)
--- NOTE | 2020-10-05 14:42 | IPNPDOC ---
Subjective Date Seen The patient was seen on 10/05/20. Subjective Chief Complaint/HPI Mrs. Lemos is an 80 year old female with HRrEF and atrial fibrillation on apixaban who presents with bilateral lower extremity swelling and found to RICARDO on CKD and septic shock. This morning, she was lethargic, but denies chest pain or dyspnea. Patient has Zhou catheter in place an is anuric. Nephrology following. Started her on bicarb drip, but otherwise did not recommend giving her fluids for the hypotension. Recommended that we reach out to crit care/pulm for central line and pressors. Spoke with Dr. Mayfield for crit care/pulm consult ation for central line and pressors. Objective Physical Examination General Exam: Positive: Cooperative Eye Exam: Positive: EOMI; Negative: Sclera icteric ENT Exam: Positive: Atraumatic Neck Exam: Positive: Supple Chest Exam: Positive: Diminished Heart Exam: Positive: Rate Normal, Regular Rhythm Abdomen Exam: Positive: Normal bowel sounds, Soft; Negative: Tenderness Extremity Exam: Positive: Edema (Bilateral pitting edema) Neuro Exam: Positive: Normal Speech Psych Exam: Positive: Mood NL, Other (lethargic) Assessment /Plan Assessment Mrs. Lemos is an 80 year old female with HRrEF and atrial fibrillation on apixaban who presents with bilateral lower extremity swelling and found to RICARDO on CKD and septic shock. She only meets 1/4 SIRS criteria, but meets tachypnea and hypotension for qSOFA. Urine demonstrates pyuria. She may have a UTI. Pending blood cultures and urine culture. Will start broad spectrum antibiotics with meropenem and ceftaroline. Avoiding vancomycin due to RICARDO and patient is not on hemodialysis at this time. Patient is anuric. Nephrology following, recommendations appreciated. Pulmonary/critical care following for central line and pressors. Recommendations appreciated. Plan/VTE VTE Prophylaxis Ordered?: Yes Plan 1. Septic shock -Does not meed SIRs criteria, but does meet qSOFA criteria -Possibly urinary source. UA demonstrates pyuria -Unable to give fluids due to anuria -Starting broad spectrum antibiotics with meropenem and ceftaroline -Pending MRSA pcr screen, if negative, ceftaroline can be discontinued -Consulted critical care/pulmonology for central line and pressor. Recommendations appreciated 2. Anuric renal failure -No urine output with zhou catheter in place -Nephrology following recommendations appreciated -On bicarb drip 3. HFrEF -Echocardiogram 08/16/2020 demonstrate EF 30-35% -Hold atenolol -Requiring 1L of oxygen 4. Atrial fibrillation -Hold atenolol due to shock -Continue apixaban 5. Coagulopathy -PT/INR and PTT elevated -Most likely secondary to apixaban 6. Thrombocytopenia -Possibly secondary to infection -CT abd/pelvis does not demonstrate enlarged spleen 7. DVT ppx -On apixaban Disposition: Pending clinical improvement. To remain in the ICU. VS, I&O, 24H, Fishbone Vital Signs/I&O Vital Signs Date Time Temp Pulse Resp B/P (MAP) Pulse Ox O2 Delivery O2 Flow Rate FiO2 10/05/20 12:00 97.2 66 20 86/50 (62) 100 Nasal Cannula 1.0 I&O- Last 24 Hours up to 6 AM 10/05/20 06:00 Intake Total 100 ml Balance 100 ml Laboratory Data 24H LABS Laboratory Tests 2 10/04/20 20:45: Immature Granulocyte % (Auto) 0.6, Neutrophils (%) (Auto) 72.6H, Lymphocytes (%) (Auto) 15.5L, Monocytes (%) (Auto) 9.9H, Eosinophils (%) (Auto) 1.1, Basophils (%) (Auto) 0.3, Neutrophils # (Auto) 5.2, Lymphocytes # (Auto) 1.1L, Monocytes # (Auto) 0.7, Eosinophils # (Auto) 0.1, Basophils # (Auto) 0.0, Nucleated Red Blood Cells % (auto) 0.6H, Immature Platelet Fraction 9.5 10/04/20 22:48: Anion Gap 20H, Glomerular Filtration Rate 6.4L, Calcium Level 8.5L, Total Bilirubin 0.8, Direct Bilirubin 0.5H, Aspartate Amino Transf (AST/SGOT) 31, Alanine Aminotransferase (ALT/SGPT) 28, Alkaline Phosphatase 190H, Total Creatine Kinase 57, Creatine Kinase MB 2.8, Creatine Kinase MB Relative Index 4.91H, Troponin I 0.08, PK-Rst-N-Type Natriuretic Peptide 74704R, Total Protein 6.8, Albumin 3.0L, Albumin/Globulin Ratio 0.8L, Thyroid Stimulating Hormone (TSH) 5.110H 10/05/20 01:26: Troponin I 0.06#, Osmolality 324H 4/17/21 02:08: Urine Color YELLOW, Urine Appearance CLOUDYH, Urine pH 5.0, Urine Specific [place] 1.014, Urine Protein 1+H, Urine Glucose (Auto)(UA) NEGATIVE, Urine Ketones (Auto) NEGATIVE, Urine Blood NEGATIVE, Urine Nitrite NEGATIVE, Urine Bilirubin NEGATIVE, Urine Urobilinogen 0.2, Urine Leukocyte Esterase (Auto) 3+H, Urine WBC (Auto) 104H, Urine RBC (Auto) 10H, Urine Hyaline Casts (Auto) 7, Urine Bacteria (Auto) NEGATIVE, Urine Squamous Epithelial Cells 2, Urine Transitional Epithelial Cells 1, Urine Amorphous Sediment (Auto) SMALLH, Urine Mucus (Auto) SMALL, Urine Sperm (Auto) , Urine Random Sodium < 10 10/05/20 02:59: Blood Gas Bicarbonate Standard 14.0L, Arterial Blood pH 7.322L, Arterial Blood Partial Pressure CO2 21.3L, Arterial Blood Partial Pressure O2 157.4H, Arterial Blood Total CO2 11.4L, Arterial Blood HCO3 10.8L, Arterial Blood Base Excess - 13.4L, Arterial Blood Oxygen Saturation 99.3H 10/05/20 05:53: Immature Granulocyte % (Auto) 0.5, Neutrophils (%) (Auto) 74.9H, Lymphocytes (%) (Auto) 13.4L, Monocytes (%) (Auto) 10.2H, Eosinophils (%) (Auto) 0.8, Basophils (%) (Auto) 0.2, Neutrophils # (Auto) 4.5, Lymphocytes # (Auto) 0.8L, Monocytes # (Auto) 0.6, Eosinophils # (Auto) 0.1, Basophils # (Auto) 0.0, Nucleated Red Blood Cells % (auto) 0.7H, Prothrombin Time 19.3H, Prothromb Time International Ratio 1.59, Activated Partial Thromboplast Time 39.4H, Anion Gap 20H, Glomerular Filtration Rate 6.6L, Calcium Level 8.1L, Total Bilirubin 0.9, Aspartate Amino Transf (AST/SGOT) 23, Alanine Aminotransferase (ALT/SGPT) 27, Alkaline Phosphatase 186H, Total Protein 6.6, Total Protein (PEP) 6.5, Albumin 2.8L, A lbumin/Globulin Ratio 0.7L 10/05/20 06:33: Urine Osmolality 322, Urine Random Potassium 14.0, Urine Random Urea Nitrogen 440 CBC/BMP Laboratory Tests 10/04/20 20:45 10/04/20 22:48 10/05/20 05:53 Microbiology Microbiology 10/05/20 Blood Culture, Received Pending 10/05/20 Blood Culture, Received Pending 10/05/20 Urine Culture, Received Pending 10/04/20 Respiratory Virus Panel (PCR) ([facility]) - Final, Complete TIFFANY DOMINGO DO Oct 05, 2020 14:42
--- NOTE | 2020-10-05 15:51 | REP ---
INDICATION: central line placement. COMPARISON: Comparison chest x-ray October 04, 2020. TECHNIQUE: Portable upright AP chest radiograph. FINDINGS: A right internal jugular central venous catheter is been inserted with its tip in the expected location of the superior vena cava. There is no visible pneumothorax. Cardiomegaly is observed. Patient is status post prior median sternotomy and what appears to be aortic valve replacement. Monitoring electrodes are seen. The patient is rotated somewhat to the left for the current radiograph. There are clips in the left axillary soft tissues. Cardiomegaly is again observed. There is slight pleural thickening at the right lateral pleural angle. Interstitial markings are prominent and mild vascular congestion is seen.. IMPRESSION: Right IJ line in good position. No pneumothorax seen. CHF pattern.. <Electronically signed by Denis Crowder > 10/05/20 [id number]
--- NOTE | 2020-10-05 16:21 | CR ---
NEPHROLOGY CONSULTATION DATE: 10/05/2020 CONSULTATION REQUESTED BY: Leny Alexis M.D. REASON FOR CONSULTATION: Acute renal failure and metabolic acidosis in this lady with decompensated congestive heart failure and hypertension. HISTORY OF PRESENT ILLNESS: Mrs. Lemos is an 80-year-old female with multiple medical problems. She has known history of systolic and diastolic congestive heart failure, atrial fibrillation with prior ablation on anticoagulation, history of aortic valve replacement due to aortic stenosis, history of chronic kidney disease and breast cancer; status post lumpectomy, who presented to the Emergency Room last evening with complaint of increased lower extremity edema and not feeling well. She is followed by Dr. Gaines for her congestive heart failure and recently her diuretic dose was increased, however, it did not help. In any event in the Emergency Room, patient was found to have acute renal failure with serum creatinine of 6.64 and BUN 150. Her bicarbonate level was 13 and sodium 129. A nephrology consultation was requested this morning and patient is seen in the Intensive Care Unit. PAST MEDICAL HISTORY: Significant for: 1. 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 2. History of aortic stenosis; status post aortic valve replacement. 3. History of atrial fibrillation; status post ablation. 4. History of stage 3 of chronic kidney disease. 5. History of left breast cancer; status post lumpectomy, radiation and chemo. 6. History of anemia. PAST SURGICAL HISTORY: Significant for: 1. Aortic valve replacement with bioprosthetic valve. 2. Left breast lumpectomy. 3. Hysterectomy. 4. Bilateral cataract surgery. 5. Ablation for atrial fibrillation. PERSON/SOCIAL HISTORY: Patient lives with her son. 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 She is a former smoker and denies any alcohol use. FAMILY HISTORY: Father at age 87 and mother at age 77 due to chronic kidney disease and hypertension. One half sister has diabetes and COPD. Brother is living with coronary artery disease. ALLERGIES: She has allergy to SILVIA inhibitors. MEDICATIONS: Her home medications include: 1. Eliquis 2.5 mg b.i.d. 2. Atenolol 25 mg half a tablet at bedtime. 3. Atorvastatin 20 mg at bedtime. 4. B12 1,000 mcg daily. 5. Folic acid 0.8 mg daily. 6. Vitamin B6 50 mg daily. 7. Torsemide 20 mg two tablets b.i.d. REVIEW OF SYSTEMS: Patient is feeling very weak, but denies any fever or chills. She has had worsening lower extremity edema and shortness of breath for several days. Ears, nose and throat: Unremarkable. Cardiovascular system: Significant for history of systolic and diastolic congestive heart failure, aortic valve replacement and prior ablation for atrial fibrillation. She has increased leg edema and shortness of breath. Her diuretic was increased as an outpatient, but did not work. Respiratory system: Negative for any hemoptysis or pleuritic type of chest pain. GI system: Negative for vomiting or diarrhea. system: Negative for dysuria or hematuria. She has no history of kidney stones. Musculoskeletal system: Significant for bilateral lower extremity edema. She denies any significant arthritis or NSAID use. Hematological system: Significant for chronic anticoagulation with Eliquis. She denies any rectal bleeding or black colored stools. Psychosocial system: Negative for depression or anxiety. Endocrine system: Significant for left breast cancer and no history of diabetes. PHYSICAL EXAMINATION: VITAL SIGNS: At the time of my visit, temperature 97 degrees Fahrenheit, heart rate 68 per minute, respiratory rate 18 per minute. Earlier her blood pressure was recorded as 89/48, however right now it is 100/44 mmHg, oxygen saturation 100% on 1 liter oxygen. HEENT: Head atraumatic. She has no oral thrush or ulcers. Pupils equal and reactive to light. Sclerae is anicteric. Neck supple and JVD is mildly elevated. LUNGS: With few fine basilar rales. HEART: Sounds are regular and there is no pericardial friction rub. ABDOMEN: Soft and nontender. Bowel sounds are normal. EXTREMITIES: Without any cyanosis or clubbing. Lower extremity edema is at least 2+ bilaterally. NEUROLOGIC: She is awake and without a focal deficit. LABORATORY DATA: Labs from last evening showed WBC 7.2, hemoglobin 10.7, hematocrit 32.5, platelets 59,000. Today WBC 6.0, hemoglobin 9.9, hematocrit 30, platelets 52,000. Blood gas showed pH 7.32, pCO2 21.3 , pO2 157 and bicarb 14. Chemistries last evening showed sodium 129, potassium 4.3, CO2 13, chloride 96, BUN 150, creatinine 6.64, glucose 111 and calcium 8.5. AST 31, ALT 28. Troponin 0.08 and another one 0.06. BNP level 25,631 and albumin 3.0. Repeat labs this morning showed sodium 131, potassium 3.9, CO2 14, BUN 150, creatinine 6.49, glucose 104, calcium 8.1. Urinalysis showed 104 wbc and 10 rbc with 3+ leukocyte esterase. PROBLEMS: 1. Acute renal failure: At present etiology is uncertain. She already had a CAT scan of the abdomen and pelvis, which I had ordered earlier and it did not show any hydronephrosis or kidney stone. She does have a small left pleural effusion and minimal ascites. Etiology of acute renal failure is uncertain, I am not sure if it caused by congestive heart failure or congestive heart failure is caused by oliguric acute renal failure. At present, she is hypotensive and extremely less likely to respond to diuretics. We will also need to work her up for etiology of her hypotension. There is possibility of cardiogenic shock in view of her severe systolic dysfunction. 2. Metabolic acidosis related to acute renal failure: We are going to start her on I.V. sodium bicarbonate drip and see how she does. There is a possibility that she would need acute hemodialysis. Because of her hypotension, I am going to wait and see how she does over the next 24 hours. 3. Hypotension and UTI: I am concerned about the possibility of sepsis which could be related to her urinary tract infection. CAT scan of the abdomen and pelvis has been reviewed and there is no hydronephrosis noticed. I recommend broad spectrum antibiotic coverage for sepsis. She is already volume overloaded, so we will not give her any further I.V. fluid other than sodium bicarbonate infusion. 4. Hypotension: Most likely this is a result of cardiogenic shock or infection and blood and urine cultures have already been drawn. I have discussed with the hospitalist and recommended broad spectrum antibiotics pending cultures. Patient is not likely to improve with I.V. fluids as she is already volume overloaded with congestive heart failure. 5. Acute on chronic combined congestive heart failure: Her condition remains quite complicated. She is not likely to respond to diuretics due to hypotension and I am not going to whittaker to dialysis due to possibility for further hypotension with dialysis. We will watch her closely and treat her with pressors if needed. I have also discussed this issue with the hospitalist and recommended pressor for persistent hypotension. 6. Hyponatremia: She has hyponatremia related to acute renal failure. At this point, we will watch and only give her sodium bicarbonate infusion with 150 mEq of sodium in it. Electrolytes will be repeated again tomorrow. Thank you for involving me in the care of Mrs. Lemos. I will follow her along with you. RUBINA
[2020-10-05] MEDS ORDERED: NOREPINEPHRINE BITARTRATE 16 MG in D5W 484 ML IV SCH (17:00)
[2020-10-05] MEDS: NOREPINEPHRINE BITARTRATE 16 MG in D5W 484 ML IV SCH (17:12)
[2020-10-05] MEDS ORDERED: **NOTE PATIENT COMMENT** MISC XX ONE (17:30)
[2020-10-05 17:51] LABS: FREE T3 1.3 PG/ML (2.2-4.0); FREE T4 1.09 NG/DL (0.76-1.46)
--- NOTE | 2020-10-05 17:59 | CR ---
CRITICAL CARE CONSULTATION DATE: 10/05/2020 CHIEF COMPLAINT: Hypotension. HISTORY OF PRESENT ILLNESS: Mrs. Lemos is an 80-year-old female with a past medical history of heart failure with reduced EF and pulmonary hypertension, atrial fibrillation, CKD, aortic valve replacement, left breast cancer, status post lumpectomy/chemo/RT who presented with complaints of worsening lower extremity edema for the past 1-1/2 to 2 weeks. The patient had been compliant with her diuretics of torsemide 40 mg b.i.d. as per her blower insulator, Dr. Gaines. She was noting, however, that she was not having any significant urination and that her legs were getting more and more swollen. She also had noticed at least a 10 lb weight gain over the past 1-2 weeks and that her legs had gotten so heavy that she really had not been able to ambulate as usual with her walker. The patient did also report some shortness of breath and dyspnea on exertion. She had not noticed any fevers, no significant coughing or wheezing. She is not on oxygen supplementation at home. She denied any nausea or vomiting although she does report some sensation of abdominal fullness. On admission, the patient was noted to be mildly hypotensive and in [id number]-[id number] renal failure with a metabolic acidosis. She was also thought to have decompensated heart failure and she was admitted to the Medical ICU. The patient was seen by nephrology and was started on bicarbonate infusion for her metabolic acidosis. She did also have a Ramos catheter placed and has very minimal urine output. Given hypotension, she was not given any diuretics. Critical care was then consulted for central line placement and pressors. PAST MEDICAL AND SURGICAL HISTORY: 1. Heart failure with reduced EF with severe pulmonary hypertension. 2. CKD. 3. Aortic valve replacement secondary to aortic stenosis. 4. Left breast cancer, status post lumpectomy and chemo/RT. 5. Atrial fibrillation, status post the ablation on anticoagulation. 6. Hysterectomy. 7. Bilateral cataracts. 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 She denies any prior use of any nicotine products or alcohol. FAMILY HISTORY: Father with history of peripheral vascular disease, mother with history of CKD and hypertension. Sibling with history of CAD. HOME MEDICATIONS: 1. Eliquis. 2. Atenolol. 3. Atorvastatin. 4. Vitamin B12. 5. Folic acid. 6. Vitamin B6. 7. Torsemide 40 mg b.i.d. ALLERGIES: SILVIA INHIBITORS. PHYSICAL EXAMINATION: Vitals: Temperature 97.2, pulse 66, respirations 20, blood pressure 86/50. O2 sat 100% on one liter nasal cannula. In approximately 800 mL, out 30 ml. General: The patient is an elderly female, is sitting up in bed, alert and oriented x3. She able to speak in full sentences and is not using any accessory muscles of respiration currently. She does report shortness of breath when lying flat. HEENT: Normocephalic, atraumatic. Pupils are reactive to light bilaterally. There are moist mucous membranes noted. Mallampati 3/4. Neck: Supple. Trachea is midline. There is positive JVD. Cardiovascular: Regular rate and rhythm. Normal S-1, S-2. A systolic murmur auscultated with loud closure sound associated with the prosthetic valve. Lungs: There are crackles bilaterally at the bases with an occasional inspiratory squeak. There is no significant wheezing or rhonchi. Abdomen: Soft, nontender, nondistended. Normoactive bowel sounds. Extremities: There is +2-3 pitting edema in the bilateral lower extremities as well as pitting anasarca. LABORATORY DATA: WBC 6.0, hemoglobin 9.9, platelets of 52. Chemistries: Sodium is 131, potassium 3.9. Chloride is 97. Bicarb is 14, BUN 150. Creatinine is 6.49. Glucose is 104. Calcium 8.1. AST, ALT 23 and 27. Alk phos is 166. Albumin is 2.8. Troponin 0.06. BNP 25,631. TSH is 5.110. INR is 1.59. ABG: pH 7.322, pCO2 of 21.3, pO2 of 157.4. UA showed positive leukocyte esterase, WBC, negative nitrites and negative bacteria. IMAGING: CT, abdomen and pelvis showed minimal ascites. There is gallbladder wall thickening. Kidneys do not show any mass. There is a Ramos catheter in place. In the lungs, there is trace right pleural effusion and a small left pleural effusion with chronic interstitial changes with superimposed ground-glass opacity and intralobular septal thickening suggestive of pulmonary edema. Lower extremity duplex negative for DVT, bilateral lower extremities. Chest x-ray: Status post central line placement, shows the right IJ dialysis catheter in good position. There is no pneumothorax. There are increased interstitial markings, more on the bases of the lung with a more questionable nodular opacity in the right lower lobe. There is some blunting of the costophrenic angle with the left greater than the right. ASSESSMENT AND PLAN: Mrs. Lemos is an 80-year-old female with a past medical history of heart failure with reduced EF with severe pulmonary hypertension, atrial fibrillation, on anticoagulation and CKD who presented with worsening lower extremity edema and weight gain. The patient was also found on admission to have [id number] renal failure with an anion gap metabolic acidosis. The patient appears to have evidence of decompensated heart failure with severely elevated BNP as well as a clinical exam consistent of volume overload with suspected right heart and left heart failure. Her [id number] renal failure may be in the setting of cardiorenal syndrome as well. The patient is also hypotensive with questionable UTI. Given her presentation, some of her hypotension is likely also in the setting of cardiogenic shock with a questionable component of sepsis as she is afebrile and with no leukocytosis and her UA is questionably positive. We will check a central venous oxygen saturation to help with evaluation of her shock. We will also check a lactic acid. We will start patient on Levophed as that will be inotropic effect as well as increasing her systemic vascular resistance and improving her blood pressure. The patient will likely need an additional inotrope such as dobutamine to help increase her cardiac output. However, given her hypotension, she will likely also need a low dose of Levophed to help with the systemic hypotension side effect from dobutamine. For now, we will start with the Levophed and then consider adding further inotrope as needed. Appreciate renal consult recommendations. She was started on a bicarbonate infusion for metabolic acidosis. She has a Ramos catheter in place currently with very minimal urine output. We will discuss with nephrology about diuretics given her decompensated heart failure and in particular with her suspected right-sided heart failure and pulmonary hypertension. The worsening fluid overload may be further limiting her left-sided filling and cardiac output. If she does not have adequate with diuretics, then she may need WATER FILTER CLEANER. Given her need for central access and the possible ultimate need for dialysis, we placed a dialysis catheter so that she has central venous access for pressors as well as for hemodialysis if needed. We will continue to monitor electrolytes. She does have evidence of mild hyponatremia although likely in the setting of her decompensated heart failure and fluid overload. The patient did have mildly elevated TSH. We will checked a free T4 and T3. We will get a repeat echocardiogram. Her prior echocardiogram a few months ago showed an EF of 30-35% with grade 2 diastolic dysfunction. She also had elevated RV systolic pressures into the mid to high 60s with a dilated IVC and severely elevated CVP. There was also moderate MR and mild AR. Suspect her repeat echo will show worsening cardiac function. Would consider contacting cardiology for further evaluation and for recommendations as she does follow up with Dr. Gaines as an outpatient. Can continue with broad-spectrum antibiotics for possible UTI for now and will follow up with her blood and urine cultures and deescalate accordingly. 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 We will continue to monitor her thrombocytopenia. She is on Eliquis for anticoagulation but as her platelets are trending down, we will hold currently. She has an aortic valve for placement and it appears her anticoagulation is more prophylactically in the setting of her atrial fibrillation. Continue with nasal cannulation supplementation to maintain O2 sat above 90%. Would strongly avoid additional hypoxia in the setting of her pulmonary hypertension. DVT prophylaxis: On AC. Code Status: DNR/DNI. Total critical care time spent not including any procedures approximately one hour and 40 minutes. MTDD
[2020-10-05] MEDS ORDERED: FUROSEMIDE injection 250 MG in D5W 225 ML IV SCH (18:00)
[2020-10-05] MEDS: CEFTAROLINE FOSAMIL 200 MG in D5W 50 ML IV SCH (18:19)
--- NOTE | 2020-10-05 20:53 | RO ---
OPERATIVE NOTE DATE OF OPERATION: 10/05/2020 PREPROCEDURE DIAGNOSIS: Shock and acute renal failure. POSTPROCEDURE DIAGNOSIS: Shock and acute renal failure. PROCEDURE: Central line procedure. ATTENDING PHYSICIAN: No Mayfield MD INDICATION: Central venous access and hemodialysis. CONSENT: Consent was obtained from the patient prior to the procedure. Indications, risks and benefits were explained at length. PROCEDURE SUMMARY: A central line electrophysiology scientist practice form was completed by an observer. A timeout was performed prior to procedure. A full sterile technique was maintained throughout the procedure including a surgical cap, mask with protective eyewear, full gown and sterile gloves. The patient was placed in Trendelenburg position. The right neck region was prepped using chlorhexidine scrub and draped in a sterile fashion a full drape and a sterile probe cover employed. The right internal jugular vein was identified using the ultrasound. Anesthesia was achieved throughout the vein using 1% lidocaine. Using realtime out of plane guidance, the introducer needle was inserted into the internal jugular vein under direct ultrasound visualization. Venous blood was withdrawn. The syringe was removed and a guidewire was advanced into the introducer needle. The introducer needle was removed over the guidewire. A small incision was made at the skin surface with a scalpel and the dilator was exchanged over the guidewire. After appropriate double dilation was obtained, then dilator was exchanged over the wire for a Trialysis central venous catheter. The wire was removed and the catheter was removed and the catheter was sutured in place at 18 cm. A sterile chlorhexidine impregnated dressing was placed over the catheter at the insertion site. The patient tolerated the procedure without any hemodynamic compromise. At time of procedure completion, all ports were aspirated and flushed properly. Heparin was instilled in the dialysis ports. Post-procedure chest x-ray showed the line in satisfactory position with no pneumothorax. ESTIMATED BLOOD LOSS: Less than 3 mL MTDD
[2020-10-05] MEDS ORDERED: ATORVASTATIN 20 MG TAB PO SCH (21:00)
[2020-10-05] MEDS ORDERED: ATENOLOL 12.5MG PER 1/2 TABLET PO SCH (21:00)
[2020-10-05] MEDS ORDERED: DOCUSATE SODIUM 100MG CAPSULE PO PRN (22:05)
[2020-10-06] VITALS (86 sets, daily range): BP systolic 79–130; BP diastolic 41–65
[2020-10-06 04:36] LABS: HEMATOCRIT 28.6 % (36.0-47.0); HEMOGLOBIN 9.7 g/dl (12.0-15.5); MEAN CORPUSCULAR HEMOGLOBIN 31.9 pg (27.0-33.0); MEAN CORPUSCULAR HGB CONC 33.9 g/dl (32.0-36.5); MEAN CORPUSCULAR VOLUME 94.1 fl (80.0-96.0); RED BLOOD COUNT 3.04 10^6/uL (4.00-5.40); WHITE BLOOD COUNT 6.8 10^3/uL (4.0-10.0)
[2020-10-06 04:39] LABS: PLATELET COUNT, AUTOMATED 66 10^3/uL (150-450)
[2020-10-06 04:59] LABS: CALCIUM LEVEL 7.8 MG/DL (8.8-10.2); CREATININE FOR GFR 6.26 MG/DL (0.55-1.30); GLOMERULAR FILTRATION RATE 6.8 (>32); POTASSIUM SERUM 4.1 MEQ/L (3.5-5.1)
[2020-10-06] MEDS: SODIUM BICARBONATE 150 MEQ in STERILE WATER LITER BAG 1,000 ML IV SCH (05:43)
[2020-10-06] MEDS: CEFTAROLINE FOSAMIL 200 MG in D5W 50 ML IV SCH (05:43)
[2020-10-06] MEDS: CYANOCOBALAMIN 500 MCG TAB PO SCH (09:25)
[2020-10-06] MEDS: DOBUTamine HCL 500,000 MCG in IV 1 EA IV SCH ×2 (09:25→18:17)
[2020-10-06] MEDS: PYRIDOXINE 50 MG TAB PO SCH (09:25)
[2020-10-06] MEDS: MEROPENEM INJ 1 GM in IV 1 EA IV SCH (09:27)
--- NOTE | 2020-10-06 10:14 | REP ---
INDICATION: cough, hypoxia. COMPARISON: Comparison chest x-ray October 04, 2020 and October 05, 2020. TECHNIQUE: Portable upright AP chest radiograph. FINDINGS: Patient is status post prior median sternotomy. Aortic valve replacement. Monitoring electrodes are seen. A right internal jugular central venous line is again noted in place with its tip in the expected location of superior vena cava. Cardiomegaly is again observed. Interstitial infiltrates are seen in the right base and left perihilar region essentially unchanged. Some increased markings are seen in the right mid and left base regions as well unchanged. No new infiltrate is seen.. IMPRESSION: Patchy bilateral interstitial infiltrates unchanged. Cardiomegaly prior aortic valve replacement. Right IJ central line in place.. <Electronically signed by Denis Crowder > 10/06/20 1010
[2020-10-06] MEDS ORDERED: GLUCOSE 4GM CHEW TABLET PO PRN (11:20)
[2020-10-06] MEDS ORDERED: GLUCAGON INJ 1MG VIAL SC PRN (11:20)
[2020-10-06] MEDS ORDERED: DEXTROSE 50% 50 ML SYRINGE IV PRN (11:20)
[2020-10-06] MEDS: PANTOPRAZOLE 40MG VIAL (C9113 PER 1) IV SCH ×2 (11:36→20:18)
--- NOTE | 2020-10-06 11:53 | CCN ---
NEPHROLOGY CRITICAL CARE NOTE DATE: 10/06/2020 SUBJECTIVE: Mrs. Lemso was seen yesterday for oliguric acute renal failure and congestive heart failure. My initial suspicion was for sepsis, however further workup was consistent with possible cardiogenic shock. I discussed the case with Dr. Mayfield yesterday and also with the Hospitalist. The patient was started on IV Levophed due to hypertension and later was started with Dobutamine and Lasix drip due to oliguric acute renal failure and decompensated congestive heart failure. She was also on a bicarbonate drip due to metabolic acidosis. In any event, all those medical steps have failed to improve her urine output and kidney function remains worse with oliguria. This morning I have discussed with her at length and explained to her her condition. We had already placed a dialysis catheter in the right internal jugular vein yesterday in anticipation for the possibility of dialysis. The patient is willing to proceed and she is likely to require CRRT due to persistent hypertension and oliguric acute renal failure in the setting of cardiogenic shock. OBJECTIVE: PHYSICAL EXAMINATION: GENERAL APPEARANCE: The patient is sitting in the bed with head end elevated at about 65 degrees. VITAL SIGNS: Her temperature is 97.1 degrees Fahrenheit, heart rate 80 per minute, respiratory rate 20 per minute, blood pressure is 89/50 mm of mercury and oxygen saturation is 98%. HEENT: Her head is atraumatic. NECK: Supple and JVD is elevated. She has a dialysis catheter in the right internal jugular vein. HEART: Regular. LUNGS: Bilateral rales and diminished breath sounds. ABDOMEN: Soft and nontender and bowel sounds are normal. EXTREMITIES: Without any cyanosis or clubbing. Lower extremity edema is 3+ bilaterally. NEUROLOGICAL: She is awake and alert. She has no focal neurological deficits. LABORATORY STUDIES: Today's labs show a white blood cell count of 6.8, hemoglobin 9.7 and hematocrit 28.6. Sodium 127, potassium 4.1, CO2 22, BUN 167 and creatinine 6.26. Glucose 163 and calcium 7.8. PROBLEMS: 1. Oliguric acute renal failure superimposed on chronic kidney disease most likely related to cardiogenic shock and congestive heart failure. Unfortunately the patient has not responded to IV Lasix drip and Dobutamine drip. I have discussed with her and explained to her about current need for dialysis. She is hypertensive so she is not able to tolerate several dialyses. I will start with CRRT at the bedside and orders are being written. We will see how she tolerates it. 2. Cardiogenic shock with congestive heart failure - The patient is known to have severe cardiac systolic dysfunction and now she has persistent hypertension and despite the use of Levophed and Dobutamine it remains to be seen how she responds to dialysis. I am stopping her IV Lasix drip. 3. Metabolic acidosis acidosis has improved and sodium bicarbonate drip is also being stopped. Now we are starting with CRRT which will help to correct her acidosis anyway. 4. Hyponatremia this is related to oliguric acute renal failure and congestive heart failure with significant hypervolemia. Electrolytes will improve with CRRT. The patient has a DNR and DNI status. Her prognosis remains guarded due to multiorgan failure. Thirty-eight minutes of critical care time during which no procedures were performed.
[2020-10-06] MEDS ORDERED: BISACODYL 10 MG SUPP PR PRN (12:05)
--- NOTE | 2020-10-06 12:18 | CCN ---
CRITICAL CARE NOTE DATE: 10/06/2020 SUBJECTIVE: The patient was seen and examined this morning during bedside rounds. Yesterday, the patient was started on Levophed for blood pressure support as well as low dose dobutamine for additional inotropic support. She was also started on a Lasix drip at 10 mg an hour. She was continued on a low dose of bicarbonate infusion for her metabolic acidosis in the setting of her renal failure. Overnight, the patient had minimal urine output despite improvement in her blood pressure and with the Lasix drip. This morning given her volume overload with her renal failure, she was started on ORE CRUSHER with plan for fluid removal as tolerated by her blood pressure. She did require a slight increase in her Levophed once being started on the ORE CRUSHER early this morning. She had no significant ectopy with the low dose dobutamine drip. The patient otherwise denies any new complaints currently. She does feel her breathing has improved slightly. She feels some fatigue. Denies any chest pain currently, no abdominal pain, no nausea or vomiting. She has not had any fevers overnight. PHYSICAL EXAMINATION: Vitals: Temperature 97.3 pulse 72, respirations 16, blood pressure 90/51. O2 sat 95% on room air. In 2.3 liters, out only 200-300 ml. General: The patient is an elderly female, is sitting up in bed, alert and oriented x3. She is speaking in full sentences and is not using accessory muscles of respiration currently. HEENT: Normocephalic, atraumatic. Pupils are reactive to light bilaterally. Moist mucous membranes are noted. Mallampati 3/4. Neck: Supple. Trachea is midline. There is positive JVD. Cardiovascular: Regular rate and rhythm. Normal S-1, S-2 with a systolic murmur and a loud closure sound associated with the prosthetic valve. Lungs: There are mild crackles at the bases bilaterally with no significant wheezing or rhonchi. Abdomen: Soft, nontender, nondistended. There are normoactive bowel sounds. Extremities: There is +2 pitting edema in the bilateral lower extremities. LABORATORY DATA: WBC 6.8, hemoglobin 9.7, platelets of 56. Chemistries: Sodium is 127, potassium 4.1. Chloride is 91. Bicarb is 22, BUN 167. Creatinine is 6.26. Glucose is 163. Lactic acid is 1.8. CVO2 is 92.5. Micro-urine culture showed yeast organism. ASSESSMENT AND PLAN: Mrs. Lemos is an 80-year-old female with a past medical history of heart failure with reduced EF with severe pulmonary hypertension, atrial fibrillation, on anticoagulation and CKD who presented with decompensated heart failure and [id number] renal failure with a metabolic acidosis. The patient was also noted to have mild hypotension with a questionable concern of sepsis or septic shock versus cardiogenic shock. She did not have any leukocytosis or fever on admission and her lactic acid was normal. Her CVO2 was also in the normal range. She did have a questionable UA on admission and so she was started on broad-spectrum antibiotics. The patient is on Levophed for a blood pressure support. She was initially this morning on 12 mcg per minute which was increased to 15 mcg per minute after being started on ORE CRUSHER to maintain a MAP above 65. She was on only a very low dose dobutamine initially and tolerated it without any ectopy and so we will increase her dobutamine to 2 mcg per kilogram per minute for an additional inotropic support with her suspected decompensated heart failure. Appreciate renal consult recommendations. Her bicarbonate drip has been discontinued as she is now on ORE CRUSHER. She did not have significant urine output with the Lasix drip overnight. We will continue to attempt fluid removal as she does have evidence of decompensated heart failure likely with a degree of right-sided heart failure related to her pulmonary hypertension in addition to her reduced EF. We will follow up with the results of her echocardiogram which was performed yesterday. We will continue with broad-spectrum antibiotics for now but would discontinue ceftaroline as her MRSA screen was negative. We will continue with the meropenem for now pending the results of her final urine culture although her urine had only grown yeast so far. We will follow up with the results of her procalcitonin to extruder operator helper in deescalation as well. The patient's thrombocytopenia has been improving. We will restart her Eliquis as her platelet counts are now above 50. We will continue nasal cannula oxygen supplementation to maintain O2 sat above 90%. DVT prophylaxis: AC. Code Status: DNR, trial intubation We did discuss with the patient and her daughter yesterday the goals of care. Given her end stage heart failure and now with renal failure, we did discuss that there is poor prognosis. The patient herself has mentioned that she would like to be at home if at all possible and there has been consideration for potential hospice although at this time, she would like to continue with more aggressive management for her heart failure and her renal failure with the consideration to change her goals of care over the next few days. Total critical care time spent not including any procedures approximately 40 minutes. RUBINA
[2020-10-06 12:40] LABS: HEMATOCRIT 28.5 % (36.0-47.0); HEMOGLOBIN 9.6 g/dl (12.0-15.5); MEAN CORPUSCULAR HEMOGLOBIN 31.7 pg (27.0-33.0); MEAN CORPUSCULAR HGB CONC 33.7 g/dl (32.0-36.5); MEAN CORPUSCULAR VOLUME 94.1 fl (80.0-96.0); RED BLOOD COUNT 3.03 10^6/uL (4.00-5.40); WHITE BLOOD COUNT 6.3 10^3/uL (4.0-10.0)
[2020-10-06 12:42] LABS: PLATELET COUNT, AUTOMATED 55 10^3/uL (150-450)
[2020-10-06 12:49] LABS: INR 1.61; PROTHROMBIN TIME 19.5 SECONDS (12.5-14.3)
[2020-10-06 12:50] LABS: PARTIAL THROMBOPLASTIN TIME 36.7 SECONDS (24.2-38.5)
[2020-10-06] MEDS ORDERED: ONDANSETRON 4MG/2ML VIAL IV PRN (13:30)
[2020-10-06 16:19] LABS: HEMATOCRIT 28.7 % (36.0-47.0); HEMOGLOBIN 9.4 g/dl (12.0-15.5); MEAN CORPUSCULAR HEMOGLOBIN 30.9 pg (27.0-33.0); MEAN CORPUSCULAR HGB CONC 32.8 g/dl (32.0-36.5); MEAN CORPUSCULAR VOLUME 94.4 fl (80.0-96.0); RED BLOOD COUNT 3.04 10^6/uL (4.00-5.40); WHITE BLOOD COUNT 6.4 10^3/uL (4.0-10.0)
[2020-10-06 16:25] LABS: CALCIUM LEVEL 7.9 MG/DL (8.8-10.2); CREATININE FOR GFR 3.94 MG/DL (0.55-1.30); GLOMERULAR FILTRATION RATE 11.7 (>32); MAGNESIUM LEVEL 2.1 MG/DL (1.8-2.4); PHOSPHORUS LEVEL 5.5 MG/DL (2.5-4.9); POTASSIUM SERUM 3.9 MEQ/L (3.5-5.1)
[2020-10-06 16:38] LABS: PLATELET COUNT, AUTOMATED 53 10^3/uL (150-450)
[2020-10-06] MEDS: NOREPINEPHRINE BITARTRATE 16 MG in D5W 484 ML IV SCH (16:40)
[2020-10-06] MEDS ORDERED: CALCIUM GLUCONATE 1,000 MG in NS 100 ML IV ONE (17:30)
--- NOTE | 2020-10-06 17:56 | IPNPDOC ---
Subjective Date Seen The patient was seen on 10/06/20. Subjective Chief Complaint/HPI Mrs. Lemos is an 80 year old female with HRrEF and atrial fibrillation on apixaban who presents with bilateral lower extremity swelling and found to ESRD, decompensated heart failure, and shock. Yesterday, I reached out to cardiology, Dr. Gaines, about cardiogenic shock. Patient has poor prognosis. No further recommendations. I had a conversation with patient and daughter who was present in the room about patient's poor prognosis. I had touched on the idea of hospice as patient does want to be at home, but they wanted more time to think about it. Otherwise, patient did not respond to Lasix drip last night, she required CRRT. This morning, she denied any chest pain, but does have dyspnea. She was nauseous and had vomited coffee ground emesis twice. Apixaban and non-essential oral medications were stopped. Patient was put on NPO and IV Protonix BID. I reached out to general surgery, Dr. Guzman. No need for urgent scope at this time as H&H has not changed and she has not vomited bright red blood. We will continue monitoring at this time. This afternoon, son was present. Patient's MOLST was not appropriately filled out. Her previous MOLST was missing a second witness and the patient did not sign the second page. Patient agreed to DNR. Patient reported that she would want temporary mechanical ventilation if needed. She was in distress going through the rest of the MOLST and we decided that we did not need to answer the rest at this time. Objective Physical Examination General Exam: Positive: Cooperative Eye Exam: Positive: EOMI; Negative: Sclera icteric ENT Exam: Positive: Atraumatic Neck Exam: Positive: Supple Chest Exam: Positive: Diminished Heart Exam: Positive: Rate Normal, Regular Rhythm Abdomen Exam: Positive: Normal bowel sounds, Soft; Negative: Tenderness Extremity Exam: Positive: Edema (Bilateral pitting edema) Neuro Exam: Positive: Normal Speech Psych Exam: Positive: Anxiety Assessment /Plan Assessment Mrs. Lemos is an 80 year old female with HRrEF and atrial fibrillation on apixaban who presents with bilateral lower extremity swelling and found to ESRD, decompensated heart failure, and shock. Shock may be mixed, but most likely has cardiogenic. Patient was not able to produce urine with Lasix drip and now is on CRRT. She is requiring Levophed and dobutamine for CRRT. Otherwise, she had hematemesis twice on 10/06/2020. Apixaban and non-essential medications are held. Patient is NPO with IV Protonix BID. I touched base with General Surgery, Dr. Guzman. Since it was coffee ground and H&H has been stable, there is no need for urgent EGD. If there was bright red blood in the emesis, then he would be more inclined to proceed with urgent EGD. Plan/VTE VTE Prophylaxis Ordered?: Yes Plan 1. Mixed shock -Does not meed SIRs criteria, but does meet qSOFA criteria -MRSA screen negative, continuing meropenem day 2 -Most likely has cardiogenic shock -Levophed and dobutamine -Critical care/pulmonology following, recommendations appreciated 2. ESRD/Anuric renal failure -No urine output with zhou catheter in place -Nephrology following recommendations appreciated -on CRRT 3. Hematemesis -Coffee ground emesis x2 on 10/06/2020 -Discontinued apixaban and non-essential medications -IV Protonix BID and NPO -Monitor CBC q6h 4. HFrEF -Echocardiogram 08/16/2020 demonstrate EF 30-35% -Hold atenolol -Requiring 1L of oxygen 5. Atrial fibrillation -Hold atenolol due to shock -Hold apixaban due to hematemesis 6. Coagulopathy -PT/INR and PTT elevated -Most likely secondary to apixaban 7. Thrombocytopenia -Possibly secondary to infection -CT abd/pelvis does not demonstrate enlarged spleen 8. DVT ppx -Hold chemical ppx due to hematemesis -TEDs Disposition: Prognosis is guarded. To remain in the ICU VS, I&O, 24H, Fishbone Vital Signs/I&O Vital Signs Date Time Temp Pulse Resp B/P (MAP) Pulse Ox O2 Delivery O2 Flow Rate FiO2 10/06/20 16:40 90 92/51 (65) 97 10/06/20 16:00 1.0 10/06/20 16:00 96.9 18 Nasal Cannula I&O- Last 24 Hours up to 6 AM 10/06/20 06:00 Intake Total 2886 ml Output Total 169 ml Balance 2717 ml Laboratory Data 24H LABS Laboratory Tests 2 10/06/20 04:15: Nucleated Red Blood Cells % (auto) 0.7H, Immature Platelet Fraction 8.5, Anion Gap 14, Glomerular Filtration Rate 6.8L, Calcium Level 7.8L 10/06/20 11:19: Bedside Glucose (Misc Panel) 111H 10/06/20 12:26: Nucleated Red Blood Cells % (auto) 0.5H, Prothrombin Time 19.5H, Prothromb Time International Ratio 1.61, Activated Partial Thromboplast Time 36.7 10/06/20 15:51: Nucleated Red Blood Cells % (auto) 0.5H, Anion Gap 13, Glomerular Filtration Rate 11.7L, Calcium Level 7.9L, Whole Blood Ionized Calcium 4.5, Phosphorus Level 5.5H, Magnesium Level 2.1 CBC/BMP Laboratory Tests 10/06/20 04:15 10/06/20 12:26 10/06/20 15:51 Microbiology Microbiology 10/05/20 Blood Culture - Preliminary, Resulted No growth after 24 hours . All specim... 10/05/20 Blood Culture - Preliminary, Resulted No growth after 24 hours . All specim... 10/05/20 Urine Culture - Final, Complete Yeast Like Organism 10/04/20 Respiratory Virus Panel (PCR) ([facility]) - Final, Complete TIFFANY DOMINGO DO Oct 06, 2020 17:56
[2020-10-06] MEDS: ACETAMINOPHEN TAB 650MG DOSE (2X325MG) PO PRN (19:21)
[2020-10-06] MEDS ORDERED: KCL 20MEQ IN 100ML SWI (KRUN) 20 MEQ in IV 1 EA IV ONE ×2 (19:35)
[2020-10-06] MEDS: KCL 10MEQ/100ML SWI (KRUN) 10 MEQ in IV 1 EA IV SCH ×2 (20:18→21:26)
[2020-10-07] VITALS (39 sets, daily range): BP systolic 84–120; BP diastolic 42–69
[2020-10-07] MEDS: NOREPINEPHRINE BITARTRATE 16 MG in D5W 484 ML IV SCH ×2 (02:21→10:00)
[2020-10-07 02:50] LABS: HEMATOCRIT 28.7 % (36.0-47.0); HEMOGLOBIN 9.6 g/dl (12.0-15.5); MEAN CORPUSCULAR HEMOGLOBIN 31.6 pg (27.0-33.0); MEAN CORPUSCULAR HGB CONC 33.4 g/dl (32.0-36.5); MEAN CORPUSCULAR VOLUME 94.4 fl (80.0-96.0); RED BLOOD COUNT 3.04 10^6/uL (4.00-5.40); WHITE BLOOD COUNT 8.8 10^3/uL (4.0-10.0)
[2020-10-07 02:52] LABS: PLATELET COUNT, AUTOMATED 52 10^3/uL (150-450)
[2020-10-07 04:37] LABS: CALCIUM LEVEL 8.8 MG/DL (8.8-10.2); CREATININE FOR GFR 2.59 MG/DL (0.55-1.30); GLOMERULAR FILTRATION RATE 18.9 (>32)
[2020-10-07 04:38] LABS: MAGNESIUM LEVEL 2.1 MG/DL (1.8-2.4); PHOSPHORUS LEVEL 3.8 MG/DL (2.5-4.9)
[2020-10-07 06:27] LABS: HEMATOCRIT 28.7 % (36.0-47.0); HEMOGLOBIN 9.7 g/dl (12.0-15.5); MEAN CORPUSCULAR HEMOGLOBIN 31.9 pg (27.0-33.0); MEAN CORPUSCULAR HGB CONC 33.8 g/dl (32.0-36.5); MEAN CORPUSCULAR VOLUME 94.4 fl (80.0-96.0); RED BLOOD COUNT 3.04 10^6/uL (4.00-5.40); WHITE BLOOD COUNT 8.8 10^3/uL (4.0-10.0)
[2020-10-07 06:28] LABS: PLATELET COUNT, AUTOMATED 52 10^3/uL (150-450)
[2020-10-07] MEDS: PANTOPRAZOLE 40MG VIAL (C9113 PER 1) IV SCH (09:00)
[2020-10-07] MEDS: MEROPENEM INJ 1 GM in IV 1 EA IV SCH (09:44)
--- NOTE | 2020-10-07 10:05 | ECHO ---
DATE OF PROCEDURE: 10/05/2020 Age: 80 Gender: Female Height: 63 inches Weight: 148 pounds. Body surface area: 1.7 meters squared. Room: 3206 REFERRING PHYSICIAN: Dr. Mayfield INDICATION: Dyspnea. Hypotension. MEASUREMENTS: 2D measurements: RV 4.4 cm LV 5.5 cm Septum 1.0 cm Posterior wall 1.0 cm Aortic root 3.2 cm Ascending aorta 4.0 cm LA 4.8 cm LVEF 30% Doppler measurements: AV 3.37 m/s LVOT 1.07 m/s LVOT diameter 2.2 cm Mean AV systolic gradient 29 mmHg Dimensionless index is 0.29 MV- E 109, A42, E/A ratio 2.6 Early mitral deceleration time 161 m/s E prime medial 4.1. A prime medial 3 E prime lateral 10.9 Average E/E prime ratio 14.9/PCWP 20 mmHg PV 0.7 m/s Pulmonary artery acceleration time 66 m/s RVSP 65 70 mmHg IVC 2.2 cm COMMENTS: Normal sinus rhythm with left bundle branch block. M-mode and 2 dimensional echocardiography was performed with pulse, continuous wave, color flow and tissue doppler studies. Left ventricular size upper limits of normal with obvious septal and apical wall motion abnormality. The lateral and inferior morales appear to move normally with at least moderately severe impairment of global resting systolic function. Prominently dilated left atrium with grade 2 LV diastolic dysfunction and significantly elevated estimated mean left atrial pressure. Mildly dilated right ventricle with hypokinetic right ventricular free wall and severe pulmonary hypertension. Prominently dilated right atrium and mildly dilated IVC with absolute respiratory collapsing keeping with elevated central venous pressure/right heart failure. Normal aortic root size, but mildly dilated proximal ascending aorta. 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 Mild degenerative changes of the mitral valvular apparatus without inflow tract obstruction and at least a moderate insufficiency. Normal appearing tricuspid valve with fairly severe tricuspid insufficiency. No separate intracardiac mass or pericardial effusion. As discussed with the patient's hospitalist provider, the above test findings are significantly changed from those of August 06, 2020. This patients prognosis then and now is severely limited. We are dealing with a condition that is not fixable. MTDD
[2020-10-07] MEDS ORDERED: MORPHINE 10MG/0.5ML ORAL CONCENTRATE SOLUTION U/D SL PRN (11:10)
[2020-10-07] MEDS ORDERED: ONDANSETRON 4 MG ORAL DISINTEGRATING TAB PO PRN (11:10)
[2020-10-07] MEDS ORDERED: LORazepam 1 MG TAB PO PRN (11:10)
[2020-10-07] MEDS ORDERED: SCOPOLAMINE 1MG TRANSDERMAL PATCH TOP PRN (11:10)
--- NOTE | 2020-10-07 12:37 | CCN ---
CRITICAL CARE NOTE DATE: 10/07/2020 SUBJECTIVE: The patient was seen and examined this morning during bedside rounds. In the afternoon yesterday she had episode of vomiting with coffee ground emesis. She was made NPO and increased PPI to BID. Her eliquis was held. Yesterday evening and overnight the patient had required increasing amount of Levophed for blood pressure support despite the increase in Dobutamine yesterday. She had remained on CRRT but with no fluid removal given her hypotension. She was up to 28 mcg per minute of Levophed this morning in addition to her Dobutamine drip. The patient reports feeling tired and fatigued today. She does have an occasional cough although somewhat improved from yesterday when she had increasing episodes of cough. She denies any nausea or vomiting currently. No abdominal pain. She has not had any fevers overnight. PHYSICAL EXAMINATION: VITALS: Temperature 97.7, pulse 79, respirations 16, blood pressure 100/47. O2 sat 99% on 2 liters nasal cannula, in 1.5 liters, out 1.2 liters. GENERAL: The patient is a frail, elderly female, is sitting in bed, appears fatigued but is alert and oriented x3. She is speaking in full sentences and is not using accessory muscles of respiration currently. HEENT: Normocephalic, atraumatic. Pupils are reactive to light bilaterally. Moist mucous membranes are noted. Mallampati 3/4. NECK: Supple. Trachea is midline. There is JVD. CARDIOVASCULAR: Regular rate and rhythm. Normal S1, S2 with a systolic murmur and a loud closure sound associated with the prosthetic valve. LUNGS: There are some increased crackles bilaterally with no significant wheezing or rhonchi. ABDOMEN: Soft, nontender, non-distended. There are normoactive bowel sounds. EXTREMITIES: There is +2 pitting edema in the bilateral lower extremities which is unchanged. LABS: WBC 8.8, hemoglobin 9.7, platelets 52. Chemistries: Sodium is 132, potassium 4.0. Chloride is 98. Bicarb is 24, BUN 60. Creatinine is 2.59. Glucose is 145. Phosphorus 3.8, mag 2.1, INR 1.61. ASSESSMENT AND PLAN: Mrs. Lemos is an 80-year-old female with a past medical history of heart failure with reduced EF with severe pulmonary hypertension, atrial fibrillation, on anticoagulation and CKD who presented with decompensated heart failure and [id number] renal failure with metabolic acidosis. The patient was also in shock with questionable septic shock versus cardiogenic shock. She did not have any fever or leukocytosis and her lactic acid initially was normal. The patient was started on Levophed for blood pressure support as well as Dobutamine for additional inotropic support. Overnight, however, she has required increasing amounts of vasopressor to maintain a MAP above 65 while on CRRT. She therefore has been unable to get any fluid removal with the CRRT. This morning the patient states she is very tired and fatigued and we had discussions again about her prognosis and goals of care. The patient had initially been agreeable for trial of more aggressive measures for her decompensated heart failure and for her renal failure but states at this time given her further decompensation with her overall poor prognosis that she would like to switch to comfort measures only. The patient's ultimate goal would be to go home with Hospice for the remainder of the time she has. We will discontinue CRRT. Will then wean off Dobutamine and then wean down and wean off the Levophed. Patient's medications will be changed to comfort measure only medications including medications for anxiety, nausea, dyspnea and pain. We did discuss that patient may not be stable for transfer to home Hospice but if possible will attempt to get her to home Hospice. PFS has been consulted and will be evaluating the patient. The patient's daughter and son have come in this morning as well and they agree with the patient's decision and support her decision for comfort measures only. Code status is DNR/DNI with comfort measures only. Total critical care time spent not including any procedures approximately 45 minutes. MTDD
--- NOTE | 2020-10-07 13:30 | IPN ---
NEPHROLOGY PROGRESS NOTE DATE: 10/07/2020 SUBJECTIVE: Ms. Lemos is seen this morning on her bedside. She remains anuric on pressor with Levophed up to 28 mcg and dobutamine and still remains hypotensive. We have not been able to remove much fluid despite high dose of Levophed with CRRT. PHYSICAL EXAMINATION: Temperature 97.5 degrees Fahrenheit, heart rate 94 per minute and respiratory rate 16 per minute. Blood pressure 102/55 mmHg and oxygen saturation 97% on 2 liters oxygen. Head: Atraumatic. Neck: Dialysis catheter is present in her neck. Heart: Sounds are irregular in rhythm. Lungs: Diminished breath sounds with bilateral rales. Abdomen: Soft and bowel sounds are normal. Extremities: Without any cyanosis or clubbing. Lower extremity edema is unchanged at 2+. Neurologically: She is awake and without any focal deficits. LABORATORY DATA: Today's labs show WBC count 8.8, hemoglobin 9.7, hematocrit 28.7, platelets 52,000. Sodium 132, potassium 4, CO2 24, BUN 60, creatinine 2.59, glucose 145, calcium 8.8. PROBLEMS/PLAN: 1. Cardiogenic shock: Patient remains hypotensive and still not able to remove much fluid even with CRRT. She is on high dose Levophed in addition to dobutamine. I have discussed with the patient and explained to her about her prognosis. She does not seem to have any chance for a reasonable recovery at this point. She also has oliguric renal failure and will not be able to tolerate intermittent dialysis. At this point we are going to continue with CRRT for a few more hours until a final decision is reached. 2. Oliguric acute renal failure related to cardiogenic shock: Her electrolytes, BUN and creatinine have improved significantly with CRRT. Her underlying problem is severe cardiomyopathy and cardiac function has not improved despite Levophed and dobutamine use. Her prognosis remains poor and she is going to meet with her siebel developer via a Zoom meeting today to make final arrangements for her Living Will. I have explained to the patient and she understands her options. She is already DNR and I would consider Comfort Measures Only after she has a chance to talk to her family and her ladies attendant. At this point I am going to not renew her CRRT orders and this will be stopped once she makes a final decision about Comfort Measures Only. 3. Anemia: Her anemia is stable and does not need any intervention at this point. Twenty four minutes of Critical Care Time spent. No procedures were performed during this time period.
[2020-10-07 15:26] LABS: ALBUMIN 3.09 GM/DL (3.29-5.55); ALBUMIN % 47.6 % (55.8-66.1); ALPHA-1-GLOBULIN % 6.9 % (2.9-4.9); ALPHA-1-GLOBULINS 0.45 GM/DL (0.17-0.41); ALPHA-2-GLOBULINS 0.64 GM/DL (0.42-0.99); ALPHA-2-GLOBULINS % 9.8 % (7.1-11.8); BETA-1-GLOBULINS 0.48 GM/DL (0.28-0.60); BETA-1-GLOBULINS % 7.4 % (4.7-7.2); BETA-2-GLOBULINS 0.44 GM/DL (0.19-0.55); BETA-2-GLOBULINS % 6.8 % (3.2-6.5); GAMMA GLOBULIN % 21.5 % (11.1-18.8)
[2020-10-07] MEDS: ACETAMINOPHEN TAB 650MG DOSE (2X325MG) PO PRN (16:09)
--- NOTE | 2020-10-07 16:17 | IPNPDOC ---
Subjective Date Seen The patient was seen on 10/07/20. Subjective Chief Complaint/HPI Mrs. Lemos is an 80 year old female with HRrEF and atrial fibrillation on apixaban who presents with bilateral lower extremity swelling and found to ESRD, decompensated heart failure, and shock. This morning, she was fatigued. Her Levophed requirements kept increasing. Dr. Mayfield had conversation with patient and family. Planned to go to [facility]. I spoke with PFS Lisa Sultana. Anticipate discharge tomorrow with home hospice Objective Physical Examination General Exam: Positive: Cooperative Eye Exam: Positive: EOMI; Negative: Sclera icteric ENT Exam: Positive: Atraumatic Neck Exam: Positive: Supple Chest Exam: Positive: Diminished Heart Exam: Positive: Rate Normal, Regular Rhythm Abdomen Exam: Positive: Normal bowel sounds, Soft; Negative: Tenderness Extremity Exam: Positive: Edema (Bilateral pitting edema) Neuro Exam: Positive: Normal Speech Psych Exam: Positive: Other (fatigued) Assessment /Plan Assessment Mrs. Lemos is an 80 year old female with HRrEF and atrial fibrillation on apixaban who presents with bilateral lower extremity swelling and found to ESRD, decompensated heart failure, and shock. Shock may be mixed, but most likely has cardiogenic. Patient was not able to produce urine with Lasix drip and now is on CRRT. She is requiring Levophed and dobutamine for CRRT. Otherwise, she had hematemesis twice on 10/06/2020. Apixaban and non-essential medications are held. Patient is NPO with IV Protonix BID. I touched base with General Surgery, Dr. Guzman. Since it was coffee ground and H&H has been stable, there is no need for urgent EGD. Her H&H has been stable since then. Patient Levophed requirements continued to increase. Dr. Mayfield, patient, and family had discussion. Planned to go with [facility]. PFS contacted. Plan for home hos pice tomorrow. Plan/VTE VTE Prophylaxis Ordered?: Yes Plan 1. Mixed shock 2. ESRD/Anuric renal failure 3. Hematemesis 4. HFrEF 5. Atrial fibrillation 6. Coagulopathy 7. 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, anticipate discharge home tomorrow with home hospice VS, I&O, 24H, Fishbone Vital Signs/I&O Vital Signs Date Time Temp Pulse Resp B/P (MAP) Pulse Ox O2 Delivery O2 Flow Rate FiO2 10/07/20 08:45 87 89/49 (62) 97 10/07/20 08:00 97.5 16 Nasal Cannula 2.0 I&O- Last 24 Hours up to 6 AM 10/07/20 06:00 Intake Total 1303 ml Output Total 1685 ml Balance -382 ml Laboratory Data 24H LABS Laboratory Tests 2 10/06/20 18:12: Bedside Glucose (Misc Panel) 127H 10/07/20 00:05: Bedside Glucose (Misc Panel) 151H 10/07/20 01:49: Nucleated Red Blood Cells % (auto) 0.5H 10/07/20 03:53: Anion Gap 10, Glomerular Filtration Rate 18.9L, Calcium Level 8.8, Whole Blood Ionized Calcium 4.7, Phosphorus Level 3.8#, Magnesium Level 2.1 10/07/20 05:52: Nucleated Red Blood Cells % (auto) 0.5H, Immature Platelet Fraction 9.9H 10/07/20 05:55: Bedside Glucose (Misc Panel) 143H CBC/BMP Laboratory Tests 10/07/20 01:49 10/07/20 03:53 10/07/20 05:52 Microbiology Microbiology 10/05/20 Blood Culture - Preliminary, Resulted No Growth after 48 hours. All Specime... 10/05/20 Blood Culture - Preliminary, Resulted No Growth after 48 hours. All Specime... 10/05/20 Urine Culture - Final, Complete Yeast Like Organism 10/04/20 Respiratory Virus Panel (PCR) ([facility]) - Final, Complete TIFFANY DOMINGO DO Oct 07, 2020 16:17
[2020-10-08] MEDS ORDERED: ATIV1TAB10 PO (09:52)
[2020-10-08] MEDS ORDERED: HYOS125TA PO (09:52)
[2020-10-08] MEDS ORDERED: MORP20SO3 PO (09:52)
[2020-10-08] MEDS: ACETAMINOPHEN TAB 650MG DOSE (2X325MG) PO PRN (11:39)
--- NOTE | 2020-10-08 23:06 | DS.PDOC ---
Discharge Summary General Date of Admission Oct 05, 2020 at 00:16 Date of Discharge Oct 08, 2020 Specialist/Consultants Involve Pulmonary/Critical Care, Dr. Mayfield Nephrology, Dr. Broussard Discharge Summary PROCEDURES PERFORMED DURING STAY: Central line placement ADMITTING DIAGNOSES: 1. Decompensated HFrEF 2. Acute on chronic renal failure 3. High anion gap metabolic acidosis 4. Thrombocytopenia 5. History of atrial fibrillation DISCHARGE DIAGNOSES: 1. Mixed shock 2. ESRD/Anuric renal failure 3. Hematemesis 4. HFrEF 5. History of atrial fibrillation 6. Coagulopathy 7. Thrombocytopenia COMPLICATIONS/CHIEF COMPLAINT: Ricardo (Acute Kidney Injury). HISTORY OF PRESENT ILLNESS: Mr. Lemos is an 80 year old female with HFrEF, atrial fibrillation s/p ablation x2, left breast cancer s/p chemoradiation and lumpectomy, and CKD stage 3 who presented to the ED for worsening bilateral lower leg swelling. Over the past 2 weeks, she has been noticing increased swelling. She went to her rehab nurse office who increased her diuretic dosing to two 20mg torsemide tablets BID. Despite increasing her torsemide, she has not been making urine and her weight has not gone down. Her daughter brought her to the ED. In the ED, patient was found to have acute renal failure with creatinine of 6.64 and metabolic acidosis with a bicarb of 13. Patient was admitted for acute renal failure and decompensated heart failure with reduced ejection fraction. HOSPITAL COURSE: Nephrology was consulted. We discussed about the patient. Started patient on antibiotics for concern of possible UTI, but patient's blood pressure was not improving. Could not give fluids due to anuria. Spoke with Pulm/Crit care about central line placement and pressors. After placing central line, Pulm/Crit care was concerned for cardiogenic shock. The picture for septic shock did not match as patient did not have fever or leukocytosis. Discussed the case with Cardiology, Dr. Gaines. Cardiology reported that patient has poor prognosis as the heart has started to fail. We can try with pressors, but it would not reverse her heart failure. She would need a heart transplant or a LVAD which both would be intense procedures. Opened discussion with family and patient. They would like to continue therapy and discuss hospice at another time. Patient was concerned about having her will notarized. Patient did a trial of Lasix drip, dobutamine, and Levophed. No urine output. Lasix drip was discontinued and she was started on CRRT with dobutamine and Levophed continuing. She continued to require more Levophed and was close to reaching max Levophed. Patient had discussion with Dr. Mayfield and family and decided on CLINIQUE COUNTER MANAGER. Patient was made comfortable and therapy was discontinued. PFS arranged home with hospice and patient was discharged with hospice today. DISCHARGE MEDICATIONS: Please see below. ALLERGIES: Please see below. PHYSICAL EXAMINATION ON DISCHARGE: VITAL SIGNS: Please see below. GENERAL: Comfortable, in no apparent distress HEENT: Normocephalic, atraumatic NECK: Supple RESPIRATORY EXAMINATION: No respiratory distress PSYCHIATRIC EXAMINATION: Fatigued LABORATORY DATA: Please see below. IMAGING: Radiologist interpretation CT abd/pelvis without contrast A small left pleural effusion and minimal ascites. Gallbladder wall thickening. Ramos catheter in place. Uterus surgically absent. Otherwise, no acute abdominal or pelvic abnormality. PROGNOSIS: Guarded ACTIVITY: As tolerated. DIET: As tolerated DISCHARGE PLAN: Home with hospice DISPOSITION: [facility] Home. DISCHARGE INSTRUCTIONS: 1. Follow up with hospice nurses as needed 2. Follow up with PCP as needed DISCHARGE CONDITION: Stable. Total time spent on discharge planning, discharge summary, and medication reconciliation: 45 minutes Vital Signs/I&Os Vital Signs Date Time Temp Pulse Resp B/P (MAP) Pulse Ox O2 Delivery O2 Flow Rate FiO2 10/08/20 09:00 1.0 10/07/20 08:45 87 89/49 (62) 97 10/07/20 08:00 97.5 16 Nasal Cannula I&O- Last 24 Hours up to 6 AM 10/08/20 06:00 Intake Total 62 ml Output Total 92 ml Balance -30 ml Microbiology Microbiology 10/05/20 Blood Culture - Preliminary, Resulted No Growth after 72 hours. All specime... 10/05/20 Blood Culture - Preliminary, Resulted No Growth after 72 hours. All specime... 10/05/20 Urine Culture - Final, Complete Yeast Like Organism 10/04/20 Respiratory Virus Panel (PCR) ([facility]) - Final, Complete Discharge Medications Scheduled PRN Hyoscyamine Sulfate (Hyoscyamine Sulfate) 0.125 Mg Tab.subl, 0.125 MG PO Q4HP PRN for TERMINAL SECRETIONS Use sublingually if unable to swallow Lorazepam (Ativan) 0.5 Mg Tablet, 0.5 MG PO Q4HP PRN for ANXIETY/AGITATION Use sublingually if unable to swallow Morphine Sulfate (Morphine Sulfate) 100 Mg/5 Ml Solution, 0.25-1 ML PO Q2H PRN for PAIN OR DYSPNEA Use sublingually if unable to swallow Allergies Coded Allergies: SILVIA Inhibitors (Verified Adverse Reaction, Unknown, cough, 08/01/19) TIFFANY DOMINGO DO Oct 08, 2020 23:06
== END 2020-10-08 13:24 | disposition hospice, home (50) | DRG 291 ==
LOC: M ED 17:59 → M ED INP 10-05 00:16 → ENRESERV 10-05 00:41 → M ICU 10-05 02:17 → M MSPAV 10-07 16:42
PROVIDERS: ADMIT Internal Medicine; ATTEND Internal Medicine
PROC: 02HV33Z Insertion of Infusion Device into Superior Vena Cava, Percutaneous Approach (ICD-10-PCS; principal; 2020-10-05)
PROC: 5A1D90Z Performance of Urinary Filtration, Continuous, Greater than 18 hours Per Day (ICD-10-PCS; 2020-10-05)
DX: I50.43 Acute on chronic combined systolic (congestive) and diastolic (congestive) heart failure (principal); R57.0 Cardiogenic shock; N18.6 End stage renal disease; E87.2 Acidosis; E87.1 Hypo-osmolality and hyponatremia; N17.9 Acute kidney failure, unspecified; D68.32 Hemorrhagic disorder due to extrinsic circulating anticoagulants; K92.0 Hematemesis; Z51.5 Encounter for palliative care; Z66 Do not resuscitate; I48.91 Unspecified atrial fibrillation; I95.9 Hypotension, unspecified; D69.6 Thrombocytopenia, unspecified; I27.20 Pulmonary hypertension, unspecified; Z85.3 Personal history of malignant neoplasm of breast; Z92.21 Personal history of antineoplastic chemotherapy; Z92.3 Personal history of irradiation; Z95.2 Presence of prosthetic heart valve; Z98.41 Cataract extraction status, right eye; Z98.42 Cataract extraction status, left eye; Z79.01 Long term (current) use of anticoagulants; Z79.899 Other long term (current) drug therapy; Z88.8 Allergy status to other drugs, medicaments and biological substances; Z87.891 Personal history of nicotine dependence